=== PATIENT | female | born 1945 | race Caucasian/White ===

== ENCOUNTER → 2017-11-06 13:55 | Outpatient (CLI) | payer MEDICARE, OTHER, SELFPAY ==
[2017-11-06 15:51] LABS: Hematocrit 36.6 % (37-47); Hemoglobin 11.9 g/dl (12.0-15.0); Mean Corp Hgb Conc 32.5 g/gl (32-36); Mean Corpuscular Hgb 30.2 pg (27.0-32.0); Mean Corpuscular Volume 92.9 fL (81-99); Mean Platelet Vol. 10.6 fl (6.2-12.0); Platelet Count 209 K/mm3 (150-450); RBC Distribution Width CV 14.7 % (11.6-14.6); RBC Distribution Width SD 48.4 fl (35.1-43.9); Red Blood Count 3.94 M/mm3 (4.2-5.4); White Blood Count 4.2 K/mm3 (4.4-11.0)
[2017-11-06 15:55] LABS: Scan Indicated on CBC? Y/N NO
[2017-11-06 15:56] LABS: ALB/GLOB Ratio 0.7 RATIO (0.9-2.4); AST(SGOT) 22 U/L (15-37); Alanine Aminotransfer ALT/SGPT 25 U/L (13-56); Albumin, Serum 3.4 g/dL (3.2-5.0); Alkaline Phosphatase 171 U/L (45-117); Anion Gap 6 (5-15); BUN 24 mg/dL (7-18); Calcium,Total 9.6 mg/dL (8.5-10.1); Chloride 109 mmol/L (98-107); Creatinine, Serum 0.83 mg/dL (0.55-1.02); EST Glomerular Filtration Rate 72 mL/min (>60); Est Glom Filt Rate - Afr Amer 87 mL/min (>60); Globulin 4.6 g/dL (2.2-4.2); Glucose 91 mg/dL (74-106); Potassium 4.4 mmol/L (3.5-5.1); Sodium Level 140 mmol/L (136-145)
[2017-11-06 16:09] LABS: International Normalized Ratio 1.6; Prothrombin Time (Protime)PT. 19.3 SECONDS (11.7-14.9)
[2017-11-06 16:10] LABS: Partial Thromboplast Time 40.1 Seconds (24.1-36.2)
[2017-11-19 12:09] LABS: AFP, Tumor Marker 4.4 ng/mL (0.0-8.3)
== END ==
PROVIDERS: Family Provider Internal Medicine; PCP Internal Medicine; Visit Provider Internal Medicine Gastroenterology
DX: Z79.01 Long term (current) use of anticoagulants (principal); Z79.899 Other long term (current) drug therapy
CPT/HCPCS: 36415; 80053; 82105; 85027; 85610; 85730

== ENCOUNTER 2018-05-14 08:18 | Day surgery (SDC) | payer MEDICARE, OTHER, SELFPAY ==
[2018-05-14] VITALS (7 sets, daily range): BP systolic 112–135; BP diastolic 63–92; PULSE 50–73; RESP 16–20; TEMP 36.1–37.1; O2SAT 91–96; BMI 54.3
--- NOTE | 2018-05-14 10:49 | PCM.OP.BLANK ---
Operative Report Date of Procedure: 05/14/18 Preoperative diagnosis: Left Carpal tunnel syndrome Postoperative diagnosis: Same Title of operation: Open carpal tunnel release,Left Surgeon: Dr. Fredo Frey Anesthesia: Local w MAC Indications for surgery: Patient seen and evaluated in the office. Diagnosed with carpal tunnel syndrome. They have failed adequate nonoperative treatment. Due to persistent symptoms they wish to proceed with carpal tunnel release surgery appropriate informed consent was obtained and signed. Details of procedure: Patient was taken to the OR and transferred to the OR table. Appropriate timeouts were performed. Well-padded tourniquet was applied to the operative upper extremity proximally. Patient given sedation by anesthesia department. Area was prepped with Betadine followed by alcohol. Local anesthetic was administered using 9 cc of 2% lidocaine plain. Operative extremity was prepped padded and draped in usual orthopedic sterile fashion for the procedure. Limb was exsanguinated. Tourniquet applied to 250 mmHg. Three centimeter incision was made over the palm. Carefully taken through skin, subcutaneous tissue, down onto the transverse carpal ligament. Transverse carpal ligament was opened at the midportion with a knife. Elevator was carefully placed underneath the transverse carpal ligament in a distal direction. I dissected down onto that with a knife. Elevator was then placed in a proximal direction, again directly underneath the transverse carpal ligament. I dissected down on that with a knife. Scissors were used at the proximal extent placed under direct visualization. This fully released the proximal extent of the transverse carpal ligament. At this point my small finger was placed proximally and distally to assure complete release of the transverse carpal ligament over the median nerve. FPL tendon was noted. No significant abnormalities were noted at the region of the carpal canal. Tourniquet was let down at 5 minutes. Bleeding controlled with the Bovie. Wound thoroughly irrigated. No undue bleeding noted. Skin edges were reapproximated with a 4-0 nylon. Sterile bandage was applied. Patient was awoken from the anesthetic. Transferred to the room bed. To recovery room in satisfactory condition. Patient will be discharged home. Ice and elevation recommended. Pain medication as needed. Follow-up in the office next week as scheduled. This note was generated with [employer] dictation software. It may contain incorrect words, spelling, and punctuation that were not noted in checking the note before signing.
== END 2018-05-14 12:35 | disposition home or self-care (01) ==
LOC: SDC 08:23 → AC 08:24
PROVIDERS: Family Provider Internal Medicine; PCP Internal Medicine; Referring Provider Orthopaedic Surgery; Visit Provider Orthopaedic Surgery
PROC: (CPT 64721; principal; 2018-05-14 09:45)
DX: G56.02 Carpal tunnel syndrome, left upper limb (principal); M65.341 Trigger finger, right ring finger; I48.91 Unspecified atrial fibrillation; I10 Essential (primary) hypertension; E78.00 Pure hypercholesterolemia, unspecified; G47.30 Sleep apnea, unspecified; M19.90 Unspecified osteoarthritis, unspecified site; K21.9 Gastro-esophageal reflux disease without esophagitis; F32.9 Major depressive disorder, single episode, unspecified; E66.01 Morbid (severe) obesity due to excess calories; Z68.43 Body mass index [BMI] 50.0-59.9, adult; Z79.01 Long term (current) use of anticoagulants; Z79.899 Other long term (current) drug therapy; Z78.0 Asymptomatic menopausal state; Z96.653 Presence of artificial knee joint, bilateral
CPT/HCPCS: 64721; J7120; J2405

== ENCOUNTER → 2021-01-10 10:37 | Outpatient (CLI) | payer MEDICARE, SELFPAY ==
[2018-05-14 08:48] VITALS: BMI 54.3
--- NOTE | 2021-01-10 10:44 | BI_ITS ---
MAMMOGRAPHY - BILATERAL SCREENING REASON FOR EXAM: Female, 75 years old. Routine annual screening examination. PERTINENT HISTORY: Screening TECHNIQUE: Digital bilateral breast carlos (3D mammographic acquisition) in the CC and MLO projections. 2-D mediolateral oblique (MLO) and craniocaudad (CC) views of both breasts were obtained. CAD: Full Field Digital Mammography with Computer Added Detection was performed. COMPARISON: Previous mammogram obtained on 01/13/2020 FINDINGS: Breast Composition: Fatty There are no dominant masses or suspicious calcifications. No other significant abnormalities are identified. BI/SCRN MAMM (CAD)W/CARLOS BILAT IMPRESSION: Stable bilateral screening mammogram. Yearly follow-up mammogram recommended. (A) ASSESSMENT CATEGORY: BIRADS Category 1: Negative. A letter regarding these results will be sent to the patient by the facility within 30 days. Approximately 10% of breast cancers are not detected by mammography. A normal mammogram should not delay biopsy of a clinically suspicious abnormality. [id number] Electronically Signed: Stefano Oleary DO at 12:06 EDT Tel , Service support ,
--- NOTE | 2021-01-10 11:20 | BD_ITS ---
STUDY: DUAL ENERGY X-RAY ABSORPTIOMETRY / DXA REASON FOR EXAM: Female, 75 years old. M810 TECHNIQUE: Bone Mineral Density (BMD) measurements of lumbar spine and bilateral hips were obtained. COMPARISON: None. FINDINGS: Lumbar Spine (L1-L4): g/cm2 (1.019) / T-score (0.0) / Z-score (2.4) Findings are suggestive of normal bone density with a low fracture risk. Left Femur Total: g/cm2 (0.816) / T-score (-1.0) / Z-score (0.8) Left Femoral Neck: g/cm2 (0.679) / T-score (-1.5) / Z-score (0.6) Right Femur Total: g/cm2 (0.665) / T-score (-2.3) / Z-score (-0.5) Right Femoral Neck: g/cm2 (0.552) / T-score (-2.7) / Z-score (-0.6) BD/Dexa Bone Density Study IMPRESSION: The patient is considered osteoporotic as outlined below according to World Graham Organization (WHO) criteria with a high fracture risk. Reference Information: The T-score is the number of standard deviations above or below the standard which is normal for young adults at their peak bone mineral density. The World Health Organization (WHO) interprets the T-scores as follows: Above -1 Normal bone density Between -1 and -2.5 Osteopenia Equal to / or below -2.5 Osteoporosis As a practical clinical guideline, osteopenia may be graded as follows: Mild -1 through -1.5 Moderate -1.6 through -2.0 Severe -2.1 through -2.4 The Z-score is the number of standard deviations above or below age-matched controls. A Z-score of less than -1.5 would be considered abnormal. References: 1. NIH Osteoporosis and Related Bone Diseases www osteo.org 2. International Society for Clinical Densitometry www iscd.org 3. National Osteoporosis Foundation www nof.org Electronically Signed: Matthew Rivas MD at 15:44 EDT , Service support ,
[2021-01-10 12:43] LABS: ALB/GLOB Ratio 0.8 RATIO (0.9-2.4); AST(SGOT) 18 U/L (15-37); Alanine Aminotransfer ALT/SGPT 19 U/L (13-56); Albumin, Serum 3.4 g/dL (3.2-5.0); Alkaline Phosphatase 147 U/L (45-117); Anion Gap 8 (5-15); BUN 15 mg/dL (7-18); BUN/Creat Ratio 22.2 RATIO (10-20); Calcium,Total 9.4 mg/dL (8.5-10.1); Chloride 107 mmol/L (98-107); Cholesterol 122 mg/dL (200); Creatinine, Serum 0.68 mg/dL (0.55-1.02); EST Glomerular Filtration Rate 90 mL/min (>60); Est Glom Filt Rate - Afr Amer 109 mL/min (>60); Globulin 4.2 g/dL (2.2-4.2); Glucose 95 mg/dL (74-106); High Density Lipoprotein 57 mg/dL; Protein, Total 7.6 g/dL (6.4-8.2); Sodium Level 141 mmol/L (136-145); Triglycerides 79 mg/dL; Very Low Density Lipoprotein 16 mg/dL (5-40)
[2021-01-10 12:46] LABS: Vitamin D,25 Hydroxy 56.1 ng/mL
[2021-01-10 20:01] LABS: Xtra Tube EP Lab EXTRA TUBE
== END ==
PROVIDERS: PCP Internal Medicine; Referring Provider Internal Medicine; Visit Provider Internal Medicine
DX: Z12.31 Encounter for screening mammogram for malignant neoplasm of breast (principal); M81.0 Age-related osteoporosis without current pathological fracture; E78.5 Hyperlipidemia, unspecified; E55.9 Vitamin D deficiency, unspecified; Z13.820 Encounter for screening for osteoporosis; Z13.31 Encounter for screening for depression; Z13.9 Encounter for screening, unspecified
CPT/HCPCS: 36415; 77063; 77067; 77080; 80053; 80061; 82306

== ENCOUNTER 2021-04-05 16:57 | Emergency (ER) | payer MEDICARE, SELFPAY ==
[2021-04-05 16:58] VITALS: BP 127/96; PULSE 71; RESP 18; TEMP 36.6; O2SAT 95; BMI 53.5
--- NOTE | 2021-04-05 18:20 | CT_ITS ---
STUDY: CT ABDOMEN AND PELVIS WITHOUT CONTRAST REASON FOR EXAM: Female, 75 years old. Pain RADIATION DOSAGE (If Supplied By Facility): CTDIvol = ( 32.16 ) mGy, DLP = ( 1759.77 ) mGycm TECHNIQUE: Transaxial images were obtained from the dome of the diaphragm to the symphysis pubis without oral contrast, and without intravenous contrast. Sagittal and coronal images were reconstructed. Individualized dose optimization techniques were used for this CT. COMPARISON: None. FINDINGS: The visualized lung bases are unremarkable. Borderline cardiomegaly. Cirrhotic changes of the liver with slight perihepatic fluid. Status post cholecystectomy. No significant dilatation of the extrahepatic biliary system. Normal spleen. Normal pancreas. Possible 8 mm right adrenal nodule. Up to 2 mm nonobstructive stones in the right kidney. 5 mm upper pole stone in the left kidney. Normal visualized stomach. Normal small intestine. Mild diverticulosis of the colon. The appendix is visualized and appears normal. Normal abdominal aorta. Normal inferior vena cava. Normal retroperitoneum. Normal urinary bladder. Fatty density in the left inguinal canal. Normal abdominal wall. Grade 1 spondylolisthesis at L4-5. CT/Abdomen/Pelvis without Cont IMPRESSION: Cirrhosis with mild perihepatic fluid. Bilateral nonobstructing renal calculi. Mild colonic diverticulosis. Possible small right adrenal nodule. Electronically Signed: Vipin Carter DO at 19:25 EDT Tel [phone], Service support ,
--- NOTE | 2021-04-05 18:20 | EDS_ITS ---
HPI History of Present Illness Chief Complaint: Abd Pain Informant: patient Onset/Context/Timing Onset: Days Context: Gradual Onset Current Severity: Mild Maximum Severity: Mild Narrative Narrative: Patient presents secondary to abdominal distention. She states of the past couple days she is noted her abdomen becoming more distended. She re ports a history of bowel problems and feels that she might be bound up. She did have a bowel movement yesterday. She tried Metamucil last evening but no results noted. She denies significant abdominal pain, just feels very distended and uncomfortable. She does report shortness of breath with exertion that quickly improves with rest. [facility] Medical History Atrial fibrillation CHF (congestive heart failure) Depression GERD (gastroesophageal reflux disease) High cholesterol Hypertension Kidney stone Obstructive sleep apnea Home Medications acetaminophen [Tylenol Arthritis] 650 mg PO PRN PRN 05/13/18 [History Last Taken Unknown] albuterol sulfate [Proventil Hfa] 6.7 g IH PRN PRN 05/13/18 [History Last Taken 05/14/18 07:00 6.7 GM] atorvastatin 20 mg PO QHS 05/13/18 [History Last Taken Unknown] diltiazem HCl 180 mg PO DAILY 05/13/18 [History Last Taken 05/14/18 07:00 180 MG] furosemide 40 mg PO DAILY 05/13/18 [History Last Taken Unknown] multivitamin with folic acid [Thera] 1 tab PO DAILY 05/13/18 [History Last Taken Unknown] pantoprazole 40 mg PO DAILY 05/13/18 [History Last Taken 05/14/18 07:00 40 MG] rivaroxaban [Xarelto] 20 mg PO QHS 05/13/18 [History Last Taken 05/11/18] sertraline [Zoloft] 25 mg PO QHS 05/13/18 [History Last Taken Unknown] solifenacin [Vesicare] 10 mg PO DAILY 05/13/18 [History Last Taken 05/14/18 07:00 10 MG] spironolactone 50 mg PO DAILY 05/13/18 [History Last Taken Unknown] Allergy/AdvReac Type Severity Reaction Status Date / Time morphine AdvReac Other Verified 05/13/18 08:10 Surgical History Hx of cholecystectomy Hx of hernia repair Social History Smoking Status: Former smoker ROS ROS ED Constitutional Constitutional ED: Denies chills or fever(s) Eyes Eyes: Denies change in vision ENT ENT ED: Denies sore throat Cardiovascular Cardiovascular: Denies chest pain Respiratory/Chest Respiratory/Chest: Denies cough or dyspnea Gastrointestinal Gastrointestinal: Reports abdominal pain and constipation; Denies diarrhea, nausea or vomiting Genitourinary Genitourinary ED: Denies dysuria Musculoskeletal Musculoskeletal: Denies back pain Integumentary Denies rash Neurologic Neurologic: Denies headache(s) or weakness Allergic/Immunologic Allergic/Immunologic ED: Denies urticaria EXAM Physical Exam Const Vital Signs: 04/05/21 16:58 Temperature 98 F Temperature Source Temporal Pulse Rate 71 Respiratory Rate 18 Blood Pressure 127/96 H Blood Pressure Mean 106 Pulse Ox 95 Oxygen Delivery Method Room Air Positive well nourished and well developed General Appearance ED: well developed HEENT Reports normocephalic and head/scalp atraumatic Eyes PERRL and EOMs intact bilaterally Neck supple Chest Wall inspection of chest normal and palpation of chest normal Resp normal respiratory effort and clear to auscultation bilaterally Cardio regular rate and regular rhythm GI GI Narrative: Distended, hypoactive bowel sounds. No focal tenderness. Palpation: soft Back/Spine no CVA tenderness Extremity normal to inspection Neuro oriented x3 Sensorium / Orientation: alert Psych mental status grossly normal Skin no rashes or lesions noted MDM MDM MDM Narrative Medical decision making narrative: Lab work and CT scan of the flank ordered. Lab Data Attestation: I reviewed the patient's lab results. Labs: Laboratory Results - last 24 hr 04/05/21 04/05/21 18:00 18:00 WBC 4.8 RBC 2.91 L Hgb 7.1 L Hct 24.4 L MCV 83.8 MCH 24.4 L MCHC 29.1 L RDW Std Deviation 48.5 H RDW Coeff of Sharath 15.9 H Plt Count 276 MPV 9.9 Immature Gran % (Auto) 0.200 Neut % (Auto) 46.1 L Lymph % (Auto) 37.6 [place] % (Auto) 11.6 H Eos % (Auto) 3.3 Baso % (Auto) 1.2 H Absolute Neuts (auto) 2.2 Absolute Lymphs (auto) 1.81 Nucleated RBC % 0 Sodium 142 Potassium 3.3 L Chloride 108 H Carbon Dioxide 27.0 Anion Gap 7 BUN 12 Creatinine 0.76 Estim Creat Clear Calc 34.91 Est GFR (MDRD) Af Amer 95 Est GFR (MDRD) Non-Af 78 BUN/Creatinine Ratio 15.7 Glucose 97 Calcium 9.5 Total Bilirubin 0.30 Direct Bilirubin 0.11 AST 18 ALT 17 Alkaline Phosphatase 147 H Total Protein 7.6 Albumin 3.1 L Globulin 4.5 H Radiography Diagnostic Testing: Clinical Impression(s) from Imaging Studies Abdomen/Pelvis CT 04/05/21 18:20 IMPRESSION: Cirrhosis with mild perihepatic fluid. Bilateral nonobstructing renal calculi. Mild colonic diverticulosis. Possible small right adrenal nodule. Electronically Signed: Vipin Carter DO at 19:25 EDT Tel [phone], Service support , Treatment and Re-Evaluation Comments:: On repeat evaluation patient resting comfortably. Test results discussed with her. She is aware of cirrhotic liver and states that they have been watching her liver tests. At this time there is no significant evidence of constipation. She will continue her Metamucil as she was supposed to be taking it regularly and will follow with her doctor. Return instructions provided. Discharge Plan Triage Chief Complaint: Abd Pain Other Complaint: Shortness of Breath ED Provider: Angelia Rodarte Dx/Rx/DC Orders Clinical Impression: Abdominal pain Instructions: ED Abdominal Pain Unkn Cause Fem Prescriptions: No Action furosemide 40 MG tablet 40 mg PO DAILY RF: 0 atorvastatin 20 MG tablet 20 mg PO QHS RF: 0 diltiazem HCl 180 MG capsule 180 mg PO DAILY RF: 0 acetaminophen [Mapap Arthritis Pain] 650 MG Tablet.Er 650 mg PO PRN PRN (Reason: Pain) RF: 0 albuterol sulfate [Proventil HFA] 6.7 GM Hfa.Aer.Ad 6.7 g IH PRN PRN (Reason: SHORTNESS OF BREATH) RF: 0 spironolactone 50 MG tablet 50 mg PO DAILY RF: 0 solifenacin [Vesicare] 10 MG tablet 10 mg PO DAILY RF: 0 rivaroxaban [Xarelto] 20 MG tablet 20 mg PO QHS RF: 0 multivitamin with folic acid [Thera] 1 TABLET tablet 1 tab PO DAILY RF: 0 pantoprazole 40 MG tablet 40 mg PO DAILY RF: 0 sertraline [Zoloft] 25 MG tablet 25 mg PO QHS RF: 0 Primary Care Provider: Tan Hernandez Referrals: Tan Hernandez MD [Primary Care Provider] - 1 Week if not improving Disposition Disposition: Home, Self Care
[2021-04-05 18:30] LABS: Absolute Lymphocyte Count 1.81 X10^3/uL (0.83-4.51); Absolute Neutrophil Count 2.2 X10^3/uL (2.0-7.7); Basophil# 0.06 X10^3/uL; Basophil% 1.2 % (0-1); Eosinophil# 0.16 X10^3/uL; Eosinophils% 3.3 % (0-5); Hematocrit 24.4 % (37-47); Hemoglobin 7.1 g/dL (12.0-15.0); Lymphocyte # 1.81 X10^3/ul (0.83-4.51); Lymphocyte % 37.6 % (19-41); Mean Corp Hgb Conc 29.1 g/dL (32-36); Mean Corpuscular Hgb 24.4 pg (27.0-32.0); Mean Corpuscular Volume 83.8 fL (81-99); Mean Platelet Vol. 9.9 fl (6.2-12.0); Monocyte# 0.56 X10^3/uL; Monocyte% 11.6 % (0-10); NRBC Flagged by Analyzer 0 % (0-5); Neutrophil # 2.22 X10^3/uL (2.7-7.7); Neutrophil % 46.1 % (47-70); POSITIVE COUNT NO; POSITIVE DIFFERENTIAL NO; POSITIVE MORPHOLOGY NO; Platelet Count 276 K/mm3 (150-450); RBC Distribution Width CV 15.9 % (11.6-14.6); RBC Distribution Width SD 48.5 fl (35.1-43.9); Red Blood Count 2.91 M/mm3 (4.2-5.4); White Blood Count 4.8 K/mm3 (4.4-11.0)
[2021-04-05 18:42] LABS: AST(SGOT) 18 U/L (15-37); Alanine Aminotransfer ALT/SGPT 17 U/L (13-56); Albumin, Serum 3.1 g/dL (3.2-5.0); Alkaline Phosphatase 147 U/L (45-117); Anion Gap 7 (5-15); BUN 12 mg/dL (7-18); BUN/Creat Ratio 15.7 RATIO (10-20); Bilirubin, Direct 0.11 mg/dL (0.00-0.30); Calcium,Total 9.5 mg/dL (8.5-10.1); Chloride 108 mmol/L (98-107); Creatinine, Serum 0.76 mg/dL (0.55-1.02); EST Glomerular Filtration Rate 78 mL/min (>60); Est Glom Filt Rate - Afr Amer 95 mL/min (>60); Estimated Creatinine Clearance 34.91 ml/min; Globulin 4.5 g/dL (2.2-4.2); Glucose 97 mg/dL (74-106); Potassium 3.3 mmol/L (3.5-5.1); Protein, Total 7.6 g/dL (6.4-8.2); Sodium Level 142 mmol/L (136-145)
[2021-04-05 20:19] VITALS: BP 132/61; PULSE 79; RESP 20; O2SAT 97
== END 2021-04-05 20:19 | disposition home or self-care (01) ==
PROVIDERS: Emergency Provider Emergency Medicine; PCP Internal Medicine
DX: R10.9 Unspecified abdominal pain (principal); R06.02 Shortness of breath; I11.0 Hypertensive heart disease with heart failure; I50.9 Heart failure, unspecified; I48.91 Unspecified atrial fibrillation; E78.00 Pure hypercholesterolemia, unspecified; K21.9 Gastro-esophageal reflux disease without esophagitis; G47.33 Obstructive sleep apnea (adult) (pediatric); F32.A Depression, unspecified; Z79.01 Long term (current) use of anticoagulants; Z79.899 Other long term (current) drug therapy; Z87.891 Personal history of nicotine dependence
CPT/HCPCS: 74176; 80048; 80076; 85025; 99283; A4216

== ENCOUNTER 2021-05-13 08:34 | Inpatient (IN) | payer MEDICARE, SELFPAY ==
[2021-05-13] VITALS (24 sets, daily range): BP systolic 82–162; BP diastolic 54–135; PULSE 60–84; RESP 16–22; TEMP 36.6–37.2; O2SAT 90–98; BMI 53.6; BMI 47.0
--- NOTE | 2021-05-13 09:01 | EKG12_ITS ---
Test Reason : Blood Pressure : / mmHG Vent. Rate : 067 BPM Atrial Rate : 064 BPM P-R Int : 000 ms QRS Dur : 116 ms QT Int : 418 ms P-R-T Axes : 000 019 027 degrees QTc Int : 441 ms Atrial fibrillation Nonspecific ST and T wave abnormality Abnormal ECG Confirmed by CIERRA GUEVARA, SD ([id number]), editorial assistant TEETEE HE ([id number]) on 05/15/2021 10:24:10 AM Referred By: ADRIANA Confirmed By:SD NORTON MD
--- NOTE | 2021-05-13 09:01 | RAD_ITS ---
STUDY: X-RAY CHEST REASON FOR EXAM: Female, 75 years old. Sob TECHNIQUE: Single AP portable view of the chest. COMPARISON: None. FINDINGS: EKG electrodes are seen. Vascular congestion and mild degree of CHF. There is no demonstrated pleural abnormality. There is moderate cardiac enlargement. Normal mediastinum and chadd. Normal visualized pulmonary arteries. There is atherosclerotic tortuosity of the aortic arch and descending thoracic aorta. There are diffuse degenerative changes of the visualized thoracic spine. There is degenerative osteoarthritis of the bilateral shoulders. There is no demonstrated abnormality of the visualized soft tissue structures of the upper abdomen. RAD/Chest 1 View (Portable) IMPRESSION: Cardiomegaly and mild CHF. Electronically Signed: Matthew Rivas MD at 9:52 EST , Service support ,
--- NOTE | 2021-05-13 09:02 | EDS_ITS ---
HPI History of Present Illness Chief Complaint: Shortness of Breath Informant: patient Narrative Narrative: Patient with dyspnea with exertion and orthopnea for the past 2 or 3 weeks, saw her doctor was going to be scheduled for a cardiac stress test and echocardiogram, she feels like she is mildly getting worse so she came to the ER today for further evaluation. She denies any chest pains. Legs are chronically edematous not sure if they are worse or not. She does have some orthopnea, however she is on CPAP at night, and the CPAP helps so she is able to lie down and sleep. She has an occasional cough but nothing major. Denies any fevers or chills or systemic symptoms. Mild exertion makes her have to rest but she is able to get around the house and do things still. She is anticoagulated because of chronic atrial fibrillation. She denies feeling any palpitations. She was vaccinated against COVID-19 and denies any contact with anyone with it that she knows of recently. [facility] Medical History Atrial fibrillation CHF (congestive heart failure) Depression GERD (gastroesophageal reflux disease) High cholesterol Hypertension Kidney stone Obstructive sleep apnea Home Medications acetaminophen [Tylenol Arthritis] 650 mg PO PRN PRN 05/13/18 [History Last Taken Unknown] albuterol sulfate [Proventil Hfa] 6.7 g IH PRN PRN 05/13/18 [History Last Taken 05/14/18 07:00 6.7 GM] atorvastatin 20 mg PO QHS 05/13/18 [History Last Taken Unknown] diltiazem HCl 180 mg PO DAILY 05/13/18 [History Last Taken 05/14/18 07:00 180 MG] furosemide 40 mg PO DAILY 05/13/18 [History Last Taken Unknown] multivitamin with folic acid [Thera] 1 tab PO DAILY 05/13/18 [History Last Taken Unknown] pantoprazole 40 mg PO DAILY 05/13/18 [History Last Taken 05/14/18 07:00 40 MG] rivaroxaban [Xarelto] 20 mg PO QHS 05/13/18 [History Last Taken 05/11/18] sertraline [Zoloft] 25 mg PO QHS 05/13/18 [History Last Taken Unknown] solifenacin [Vesicare] 10 mg PO DAILY 05/13/18 [History Last Taken 05/14/18 07:00 10 MG] spironolactone 50 mg PO DAILY 05/13/18 [History Last Taken Unknown] cholecalciferol (vitamin D3) 125 mcg PO DAILY 05/13/21 [History Last Taken Unknown] oxybutynin chloride 5 mg PO TID 05/13/21 [History Last Taken Unknown] Allergy/AdvReac Type Severity Reaction Status Date / Time morphine AdvReac Other Verified 05/13/21 08:35 Surgical History Hx of cholecystectomy Hx of hernia repair Social History Smoking Status: Former smoker ROS ROS ED Constitutional Constitutional ED: Denies chills or fever(s) Eyes Eyes: Denies change in vision or diplopia ENT ENT ED: Denies rhinorrhea or sore throat Cardiovascular Cardiovascular: Reports orthopnea and pedal edema; Denies chest pain or palpitations Respiratory/Chest Respiratory/Chest: Reports as per HPI, cough, dyspnea, dyspnea on exertion and orthopnea Gastrointestinal Gastrointestinal: Denies abdominal pain, diarrhea, nausea or vomiting Genitourinary Genitourinary ED: Denies dysuria or hematuria Musculoskeletal Musculoskeletal: Denies back pain or neck pain Integumentary Denies abscess or rash Neurologic Neurologic: Denies headache(s), paresthesias or weakness Psychiatric Psychiatric: Denies anxiety or suicidal thoughts EXAM Physical Exam Const Vital Signs: 05/13/21 08:36 05/13/21 09:00 05/13/21 10:07 Temperature 98.8 F Temperature Source Temporal Pulse Rate 70 76 Respiratory Rate 20 H 22 H Respiratory Effort Short of Breath Accessory Muscle Use Respiratory Depth Normal Respiratory Pattern Normal Blood Pressure 136/60 H 82/56 L Blood Pressure Mean 85 64 Pulse Ox 95 96 Oxygen Delivery Method Room Air Room Air Room Air 05/13/21 10:08 Temperature Temperature Source Pulse Rate 75 Respiratory Rate 22 H Respiratory Effort Respiratory Depth Respiratory Pattern Blood Pressure 128/57 H Blood Pressure Mean 80 Pulse Ox 98 Oxygen Delivery Method Room Air Positive well nourished and well developed General Appearance ED: well developed and NAD HEENT Reports moist mucous membranes normocephalic and atraumatic Eyes PERRL and EOMs intact bilaterally Neck full ROM and supple Resp normal respiratory effort and no retractions Resp Narrative: Possibly few bibasilar rhonchi, but for the most part clear. Speaking in full sentences. Cardio Cardio Narrative: Systolic murmur Jugular Venous Distention: JVD Rhythm: abnormal rhythm irregularly irregular (Without tachycardia) GI non-tender and non-distended Auscultation: normoactive bowel sounds Palpation: soft Back/Spine no CVA tenderness General Back: other FROM Extremity normal to inspection General Extremety ED: Yes edema; Negative for pulses abnormal or tenderness General Extremity: edema bilateral lower extremity Details: severe (With changes consistent with chronic stasis dermatitis); Negative for pulses abnormal Neuro oriented x3, CN's II-XII intact bilaterally and no sensory deficits noted Sensorium / Orientation: awake and alert Motor Exam: strength 5/5 throughout Skin no rashes or lesions noted and no wounds MDM MDM MDM Narrative Medical decision making narrative: Patient appears to may be in some mild congestive heart failure, but I think the majority of her dyspnea is likely her severe anemia with a hemoglobin of 4.3. On further questioning, she states she has been having some melena, she noticed it 3 days ago and today but no blood grossly. Therefore we sent a Hemoccult after that and it is positive. She was started on IV Protonix. Her chest x-ray showed a very wide mediastinum, she is not having any symptoms of dissection so I did a CT chest with contrast instead of CT angiography, it shows some mild CHF but essentially she has very significant cardiomegaly and it appears to show dextrocardia. I did not have an old chest x-ray to compare with. Patient was consented for blood transfusion, that was started in the ER, I discussed with GI, will admit patient to PCU. She is clinically hemodynamically stable at rest at this time. Lab Data Attestation: I reviewed the patient's lab results. Labs: Laboratory Results - last 24 hr 05/13/21 05/13/21 05/13/21 08:50 08:50 08:50 WBC 4.4 RBC 1.96 L Hgb 4.3 L* Hct 15.2 L MCV 77.6 L MCH 21.9 L MCHC 28.3 L RDW Std Deviation 47.4 H RDW Coeff of Sharath 16.9 H Plt Count 302 MPV 9.3 Immature Gran % (Auto) 0.500 Neut % (Auto) 65.6 Lymph % (Auto) 21.3 [place] % (Auto) 10.1 H Eos % (Auto) 1.6 Baso % (Auto) 0.9 Absolute Neuts (auto) 2.9 Absolute Lymphs (auto) 0.93 Nucleated RBC % 0 Differential Comment COMMENT Diff Path Review May foll Sodium 139 Potassium 3.5 Chloride 108 H Carbon Dioxide 25.0 Anion Gap 6 BUN 15 Creatinine 0.82 Estim Creat Clear Calc 42.58 Est GFR (MDRD) Af Amer 87 Est GFR (MDRD) Non-Af 72 BUN/Creatinine Ratio 18.2 Glucose 134 H Calcium 9.2 Troponin I High Sens 15 B-Natriuretic Peptide 107.4 H Crossmatch 05/13/21 10:03 WBC RBC Hgb Hct MCV MCH MCHC RDW Std Deviation RDW Coeff of Sharath Plt Count MPV Immature Gran % (Auto) Neut % (Auto) Lymph % (Auto) [place] % (Auto) Eos % (Auto) Baso % (Auto) Absolute Neuts (auto) Absolute Lymphs (auto) Nucleated RBC % Differential Comment Diff Path Review Sodium Potassium Chloride Carbon Dioxide Anion Gap BUN Creatinine Estim Creat Clear Calc Est GFR (MDRD) Af Amer Est GFR (MDRD) Non-Af BUN/Creatinine Ratio Glucose Calcium Troponin I High Sens B-Natriuretic Peptide Crossmatch See Detail Radiography Diagnostic Testing: Clinical Impression(s) from Imaging Studies Chest X-Ray 05/13/21 09:01 IMPRESSION: Cardiomegaly and mild CHF. Electronically Signed: Matthew Rivas MD at 9:52 EST , Service support , EKG Initial EKG: Attestation: I personally reviewed and interpreted this EKG as follows: Interpretation: No Acute Injury Pattern and Atrial Fibrillation Critical Care Time Critical Care Time: Yes Critical care time (excluding procedures): 30-74 minutes (35 min), Including time spent:, Discussing w/Patient &/or Family/Scrum Project Manager, Discussing w/Consultants, Arranging Admission or Transfer and Performing Direct Patient Care at Bedside Discharge Plan Dx/Rx/DC Orders Clinical Impression: ABLA (acute blood loss anemia), Acute upper gastrointestinal bleeding, Acute exacerbation of CHF (congestive heart failure) Disposition Disposition: Acute Care Hospital [facility]
[2021-05-13 09:13] LABS: Absolute Lymphocyte Count 0.93 X10^3/uL (0.83-4.51); Absolute Neutrophil Count 2.9 X10^3/uL (2.0-7.7); Basophil# 0.04 X10^3/uL; Basophil% 0.9 % (0-1); Eosinophil# 0.07 X10^3/uL; Eosinophils% 1.6 % (0-5); Hematocrit 15.2 % (37-47); Hemoglobin 4.3 g/dL (12.0-15.0); Lymphocyte # 0.93 X10^3/ul (0.83-4.51); Lymphocyte % 21.3 % (19-41); Mean Corp Hgb Conc 28.3 g/dL (32-36); Mean Corpuscular Hgb 21.9 pg (27.0-32.0); Mean Corpuscular Volume 77.6 fL (81-99); Mean Platelet Vol. 9.3 fl (6.2-12.0); Monocyte# 0.44 X10^3/uL; Monocyte% 10.1 % (0-10); NRBC Flagged by Analyzer 0 % (0-5); Neutrophil # 2.86 X10^3/uL (2.7-7.7); Neutrophil % 65.6 % (47-70); POSITIVE COUNT YES; Platelet Count 302 K/mm3 (150-450); RBC Distribution Width CV 16.9 % (11.6-14.6); RBC Distribution Width SD 47.4 fl (35.1-43.9); Red Blood Count 1.96 M/mm3 (4.2-5.4); White Blood Count 4.4 K/mm3 (4.4-11.0)
[2021-05-13 09:17] LABS: Differential Indicated SCAN CRITERIA MET
[2021-05-13 09:31] LABS: Anion Gap 6 (5-15); BUN 15 mg/dL (7-18); BUN/Creat Ratio 18.2 RATIO (10-20); Calcium,Total 9.2 mg/dL (8.5-10.1); Chloride 108 mmol/L (98-107); Creatinine, Serum 0.82 mg/dL (0.55-1.02); EST Glomerular Filtration Rate 72 mL/min (>60); Est Glom Filt Rate - Afr Amer 87 mL/min (>60); Estimated Creatinine Clearance 42.58 ml/min; Glucose 134 mg/dL (74-106); Potassium 3.5 mmol/L (3.5-5.1); Sodium Level 139 mmol/L (136-145); Troponin-I HS 15 pg/mL (3.0-54.0)
[2021-05-13 09:39] LABS: BNP,B-Type NATRIURETIC PEPTIDE 107.4 pg/mL (0-100)
--- NOTE | 2021-05-13 09:47 | CT_ITS ---
STUDY: CT CHEST WITH CONTRAST REASON FOR EXAM: Female, 75 years old. Shortness of breath. Abnormal chest x-ray. RADIATION DOSAGE (If Supplied By Facility): CTDIvol = ( 26.62 ) mGy, DLP = ( 683.23 ) mGycm TECHNIQUE: Transaxial imaging was performed following intravenous administration of 100 ml of ISOVUE-300 contrast material. Coronal and sagittal reformatted images were created. Individualized dose optimization techniques were used for this CT. COMPARISON: Chest x-ray dated 05/13/21 FINDINGS: The study is limited by patient motion. There are no pulmonary infiltrates or pleural effusions. There is dependent atelectasis noted in the lung bases. There is no pneumothorax. The heart is enlarged. There is no pericardial effusion. There are mitral valvular calcifications. The pulmonary artery is dilated, measuring 4.7 cm. This is consistent with pulmonary arterial hypertension. Although this study was not performed as an angiogram, no pulmonary embolus, thoracic aortic aneurysm or thoracic aortic dissection is identified. There is no thoracic lymphadenopathy. There is no evidence of thoracic aortic aneurysm. Images through the upper abdomen demonstrates cirrhosis and ascites. There are no destructive osseous lesions. CT/Chest WITH Contrast IMPRESSION: Bibasilar atelectasis. Otherwise, clear lungs. Cardiomegaly. Dilated pulmonary artery, suggesting pulmonary arterial hypertension. Cirrhosis. Ascites. Electronically Signed: Esau Lancaster MD at 11:08 EST Tel , Service support ,
--- NOTE | 2021-05-13 11:29 | HP.PCM.HOS_ITS ---
[facility] - General General Date of Admission: 05/13/21 Date of Service: 05/13/21 Chief Complaint: Severe anemia/GI bleeding HPI Narrative RADHA SMITH, is a 75 F who presented to the emergency department at [facility] on 05/13/2021 with a chief complaint of shortness of breath. The patient states that over the last 2 to 3 weeks she has been experiencing increasing shortness of breath that has slowly worsened. She stat es that up until this past Thursday she had been doing okay and making it through taking care of her self but on Thursday she developed such significant shortness of breath that she was having trouble doing self-care activities. She went to her primary care physician who had scheduled her for a cardiac stress test and an echocardiogram is he had concerns with regards to her heart. She was seen here for abdominal pain/bloating at the end of March and had a CT that was fairly unremarkable and was discharged home. Her hemoglobin at that time was 7.1. She is chronically anticoagulated with Xarelto for atrial fibrillation and stroke prevention. Her primary complaint has been shortness of breath and feeling rundown. She did confirm that she has had 2 black stools one Thursday and one yesterday morning. Her oral intake has not been great overall she states she is just not all that hungry. She denies any abdominal pain at this time. She has had no nausea or vomiting. Her vital signs in the emergency department were overall unremarkable. She is mildly tachypneic with respiratory rates in the 20-22 range but is satting 95 to 98% on room air. Her CBC shows a normal white count but she has a marked microcytic anemia with a hemoglobin of 4.3 and an MCV of 77.6. Her platelet count is normal. Her BMP is overall unremarkable as well with a normal serum creatinine as well as a normal ratio. A troponin was obtained given her shortness of breath and was normal at 15. Her BNP was mildly elevated at 107.4. A chest x-ray was performed and there was confirmed concern that she had a fairly large appearing heart and therefore a CTA of her chest was performed and showed bibasilar atelectasis but otherwise clear lungs and no signs of acute heart failure, cardiomegaly, dilated pulmonary artery suggestive of PAH, cirrhosis, and ascites. She did report that she had a colonoscopy approximately 9 years ago and she states that a few polyps were found but no other abnormalities were noted. She does not recall ever having an EGD. Given her markedly low hemoglobin a type and screen were performed and blood transfusion was initiated in the emergency department. 2 units were ordered and I will add a 3rd unit to appropriately correct her hemoglobin to greater than 7. She has no signs of acute bleeding at this time. [facility] Medical History (Updated 05/13/21 @ 11:[address] Mariah Lind, DO) Atrial fibrillation CHF (congestive heart failure) Depression GERD (gastroesophageal reflux disease) High cholesterol Hypertension Kidney stone Morbid obesity ORR (nonalcoholic steatohepatitis) Obstructive sleep apnea PAH (pulmonary artery hypertension) Urinary incontinence Home Medications acetaminophen [Tylenol Arthritis] 650 mg PO PRN PRN 05/13/18 [History Last Taken Unknown] albuterol sulfate [Proventil Hfa] 6.7 g IH PRN PRN 05/13/18 [History Last Taken 05/14/18 07:00 6.7 GM] atorvastatin 20 mg PO QHS 05/13/18 [History Last Taken Unknown] diltiazem HCl 180 mg PO DAILY 05/13/18 [History Last Taken 05/14/18 07:00 180 MG] furosemide 40 mg PO DAILY 05/13/18 [History Last Taken Unknown] multivitamin with folic acid [Thera] 1 tab PO DAILY 05/13/18 [History Last Taken Unknown] pantoprazole 40 mg PO DAILY 05/13/18 [History Last Taken 05/14/18 07:00 40 MG] rivaroxaban [Xarelto] 20 mg PO QHS 05/13/18 [History Last Taken 05/11/18] sertraline [Zoloft] 25 mg PO QHS 05/13/18 [History Last Taken Unknown] solifenacin [Vesicare] 10 mg PO DAILY 05/13/18 [History Last Taken 05/14/18 07:00 10 MG] spironolactone 50 mg PO DAILY 05/13/18 [History Last Taken Unknown] cholecalciferol (vitamin D3) 125 mcg PO DAILY 05/13/21 [History Last Taken Unknown] oxybutynin chloride 5 mg PO TID 05/13/21 [History Last Taken Unknown] Allergy/AdvReac Type Severity Reaction Status Date / Time morphine AdvReac Other Verified 05/13/21 08:35 Family History other other Surgical History History of carpal tunnel surgery of left wrist Hx of cholecystectomy Hx of hernia repair Social History (Updated 05/13/21 @ 11:[address] Mariah Lind DO) Smoking Status: Former smoker alcohol intake: never substance use type: does not use ROS Constitutional Constitutional: Reports anorexia, fatigue and weakness; Denies change in weight, chills, fever(s), malaise, night sweats or other Eyes Eyes: Denies blurry vision, change in eye color, change in vision, discharge from eye(s), double vision, erythema, eye pain, loss of vision or other ENT HEENT: Denies abnormal hearing, dysphagia, ear pain, epistaxis, headache(s), hearing loss, nasal congestion, nasal discharge, post nasal drip, sinus pressure, sore throat or other Cardiovascular Cardiovascular: Reports dyspnea on exertion, edema and lightheadedness; Denies chest pain, claudication, orthopnea, palpitations, paroxysmal nocturnal dyspnea, rapid heart rate, syncope or other Gastrointestinal Gastrointestinal: Reports melena; Denies abdominal pain, coffee ground emesis, constipation, diarrhea, dyspepsia, hematemesis, hematochezia, loose stools, nausea, vomiting or other Genitourinary Genitourinary: Reports urinary incontinence; Denies burning urination, difficu lty urinating, dysuria, hematuria, nocturia, urinary frequency, urinary hesitancy, urinary urgency or other Musculoskeletal Musculoskeletal: Reports joint pain and joint stiffness; Denies arthralgias, ba ck pain, joint swelling, myalgias, neck pain or other Neurologic Neurologic: Denies abnormal gait, abnormal speech, confusion, disequilibrium, dizziness, focal weakness, headache(s), numbness, paresthesias, seizure-like activity, seizures, syncope, tingling, tremor(s) or other Psychiatric Psychiatric: Denies anxiety, depression, homicidal ideation, suicidal ideation or other Endocrine Endocrinology: Denies change in body appearance, cold intolerance, excessive sweating, heat intolerance, polydipsia, polyuria or other Hematologic/Lymphatic Hematologic/Lymphatic: Denies anemia, easy bleeding, easy bruising, lymphadenopathy or other Allergic/Immunologic Allergic/Immunologic: Denies rhinitis, hives, eczemia, asthma or other Vital Signs Vital Signs Vital Signs: 05/13/21 08:36 05/13/21 09:00 05/13/21 10:07 Temperature 98.8 F Temperature Source Temporal Pulse Rate 70 76 Respiratory Rate 20 H 22 H Respiratory Effort Short of Breath Accessory Muscle Use Respiratory Depth Normal Respiratory Pattern Normal Blood Pressure 136/60 H 82/56 L Blood Pressure Mean 85 64 Pulse Ox 95 96 Oxygen Delivery Method Room Air Room Air Room Air 05/13/21 10:08 Temperature Temperature Source Pulse Rate 75 Respiratory Rate 22 H Respiratory Effort Respiratory Depth Respiratory Pattern Blood Pressure 128/57 H Blood Pressure Mean 80 Pulse Ox 98 Oxygen Delivery Method Room Air Weight Weight: 124.738 kg Body Mass Index (BMI) 53.6 Physical Exam Const alert, oriented x3 and no apparent distress Constitutional Narrative: Morbidly obese older white female sitting up in bed, appears comfortable, nontoxic General Appearance: cooperative HEENT normocephalic, head/scalp atraumatic, hearing grossly normal bilaterally and moist oral mucous membranes HEENT Narrative: Mallampati 3, no thrush, dentition fair Eyes PERRL and EOMs intact bilaterally Eyes Narrative: Conjunctival pallor, no scleral icterus Neck no lymphadenopathy, supple, no JVD and no carotid bruits Neck Narrative: Trachea midline, short thick neck, no thyroid enlargement noted Resp normal respiratory effort, no retractions, no use of accessory muscles and clear to auscultation bilaterally Resp Narrative: Dyspnea with conversation, diminished at bases but otherwise clear Auscultation: Negative for crackles, rales, rhonchi or wheezes Cardio regular rate, regular rhythm, S1 normal heart sound, S2 normal heart sound, no rub, no gallops, no clicks and no JVD; Negative for no murmurs Cardio Narrative: 2 out of 6 systolic murmur loudest at the right upper sternal border GI normal to inspection, nondistended, normoactive bowel sounds, soft to palpation, non-tender and non-distended Extremity Extremity Narrative: Chronic bilateral lower extremity edema-pitting 1+, no cyanosis or clubbing Peripheral Pulses: Yes pulses 2+ throughout Skin no wounds, skin turgor normal, no jaundice, no petechiae and no mottling Skin Narrative: Pale skin, bilateral lower extremity changes consistent with venous stasis Neuro oriented x3, CN's II-XII intact bilaterally, moves all extremities and no focal motor deficits Neuro Narrative: Generalized weakness but no focal deficit Sensorium / Orientation: awake and alert Psych affect normal Psych Narrative: Very pleasant Results Lab / Micro Data Result Diagrams: 05/13/21 08:50 05/13/21 08:50 Labs: Laboratory Results - last 24 hr 05/13/21 08:50: WBC 4.4, RBC 1.96 L, Hgb 4.3 L*, Hct 15.2 L, MCV 77.6 L, MCH 21.9 L, MCHC 28.3 L, RDW Std Deviation 47.4 H, RDW Coeff of Sharath 16.9 H, Plt Count 302, MPV 9.3, Immature Gran % (Auto) 0.500, Neut % (Auto) 65.6, Lymph % (Auto) 21.3, [place]igg % (Auto) 10.1 H, Eos % (Auto) 1.6, Baso % (Auto) 0.9, Absolute Neuts (auto) 2.9, Absolute Lymphs (auto) 0.93, Nucleated RBC % 0, Differential Comment COMMENT, Diff Path Review October05/13/21 08:50: Sodium 139, Potassium 3.5, Chloride 108 H, Carbon Dioxide 25.0, Anion Gap 6, BUN 15, Creatinine 0.82, Estim Creat Clear Calc 42.58, Est GFR (MDRD) Af Amer 87, Est GFR (MDRD) Non-Af 72, BUN/Creatinine Ratio 18.2, Glucose 134 H, Calcium 9.2, Troponin I High Sens 15 05/13/21 08:50: B-Natriuretic Peptide 107.4 H 05/13/21 10:03: Crossmatch See Detail Micro: Microbiology 05/13/21 10:10 Stool Stool Occult Blood (SYDNEY) - Final Occult Blood Positive 05/13/21 09:10 Nasal Secretion SARS-CoV-2 Antigen (Rapid) - Final Radiology Impression Chest X-Ray 05/13/21 09:01 IMPRESSION: Cardiomegaly and mild CHF. Electronically Signed: Matthew Rivas MD at 9:52 EST , Service support , Chest CT 05/13/21 09:47 IMPRESSION: Bibasilar atelectasis. Otherwise, clear lungs. Cardiomegaly. Dilated pulmonary artery, suggesting pulmonary arterial hypertension. Cirrhosis. Ascites. Electronically Signed: Esau Lancaster MD at 11:08 EST Tel , Service support , Assessment & Plan Assessment/Plan (1) ABLA (acute blood loss anemia): (2) GI bleed: PLAN: Acute microcytic blood loss anemia -I suspect this is been a slow decrease over time given her hemoglobin on admission is 4.3 and given that she is hemodynamically stable -Transfuse 3 units packed red blood cells -Guaiac stool is positive and stools are melanotic -Normal BUN this serum creatinine ratio therefore expect this is a lower GI bleed -Protonix IV push 40 mg twice daily -Hold Eliquis -Every 4 hour hemoglobin Lower GI bleed -Melanotic stool -Hemoccult positive -Anemia as above -Protonix 40 mg IV push twice daily -N.p.o. -Hold Xarelto -Last colonoscopy was about 9 years ago, no patient recollection of EGD ever being performed -Consult GI Dyspnea -Suspect secondary to her severe anemia -We will monitor clinically and if her dyspnea improves with transfusion we will not work-up any further at this time -If persistent will check echocardiogram as patient does have a cardiac murmur -Acute heart failure was documented by the ER physician secondary to an elevated BNP however her CAT scan is not consistent with this and I suspect her dyspnea as noted above is related to her severe anemia Hypertension/hyperlipidemia -Continue home medication Persistent atrial fibrillation -Continue Cardizem -Hold Xarelto Urinary incontinence -Continue oxybutynin PAH -Suspect who group 3 -No echocardiogram in records -Patient is currently on room air -Continue home Lasix -If dyspnea is persistent will check echocardiogram GERD -IV PPI twice daily Cirrhosis -Noted on CT of her chest and her previous CT of her abdomen -Suspect this is related to Orr with her body habitus -Definitive diagnoses -No stigmata of liver disease on her lab or physical exam at this time History of nephrolithiasis -Patient has followed previously at [facility] -No current issues Morbid obesity -Recommend weight loss -BMI is 47.0 -Complicates treatment, prognosis, outcomes DVT prophylaxis -Chemoprophylaxis is contraindicated at this time related to Hemoccult positive stool and severe anemia -SCDs CODE STATUS -Full code Charges/Coding Visit Charges Inpatient E&M: 44120 Init Hosp L3
--- NOTE | 2021-05-13 11:56 | PCS.PANDOC ---
PANDEMIC DOCUMENTATION INITIATED: Date: 01/21/2021 Time: 190
[2021-05-13] MEDS: Oxybutynin 5 MG Tablet PO ×2 (14:44→22:07)
--- NOTE | 2021-05-13 19:42 | CON.PCM.GI_ITS ---
HPI Consult Data Date of Consult: 05/13/21 HPI Narrative HPI Narrative: 75 F who presented to the emergency department at [facility] on 05/13/2021 with shortness of breath. In the ED she was discovered to have a significant iron deficiency anemia with a hemoglobin of 4.3 and MCV of 77.6. The rest of her studies were normal. She also had a normal troponin and EKG was unchanged from previously. She has a past medical history of chronic atrial fibrillation requiring Xarelto therapy. She has never had any problems with anemia in the past. She has never received a blood transfusion in the past. She has no family history of iron deficiency anemia. She did admit to some black stools. However she normally suffers from constipation in the stool cleared up after 1 bowel movement. She suffers from nonalcoholic steatohepatitis. She did have a CT scan abdomen pelvis did not show any signs of cirrhosis. She had a colonoscopy several years ago and states she had some small polyps removed but none of them were precancerous. [facility] Medical History Atrial fibrillation CHF (congestive heart failure) Depression GERD (gastroesophageal reflux disease) High cholesterol Hypertension Kidney stone Morbid obesity ROBBINS (nonalcoholic steatohepatitis) Obstructive sleep apnea PAH (pulmonary artery hypertension) Urinary incontinence Home Medications acetaminophen [Tylenol Arthritis] 650 mg PO PRN PRN 05/13/18 [History Last Taken Unknown] albuterol sulfate [Proventil Hfa] 6.7 g IH PRN PRN 05/13/18 [History Last Taken 05/14/18 07:00 6.7 GM] atorvastatin 20 mg PO QHS 05/13/18 [History Last Taken Unknown] diltiazem HCl 240 mg PO DAILY 05/13/18 [History Last Taken 05/12/21] furosemide 40 mg PO DAILY 05/13/18 [History Last Taken 05/11/21] multivitamin with folic acid [Thera] 1 tab PO DAILY 05/13/18 [History Last Taken Unknown] pantoprazole 40 mg PO DAILY 05/13/18 [History Last Taken 05/14/18 07:00 40 MG] rivaroxaban [Xarelto] 20 mg PO QHS 05/13/18 [History Last Taken 05/11/18] sertraline [Zoloft] 25 mg PO DAILY 05/13/18 [History Last Taken Unknown] cholecalciferol (vitamin D3) 125 mcg PO DAILY 05/13/21 [History Last Taken Unknown] oxybutynin chloride 5 mg PO TID 05/13/21 [History Last Taken Unknown] Allergy/AdvReac Type Severity Reaction Status Date / Time morphine AdvReac Other Verified 05/13/21 08:35 Family History other Surgical History History of carpal tunnel surgery of left wrist Hx of cholecystectomy Hx of hernia repair Social History Smoking Status: Former smoker alcohol intake: never substance use type: does not use ROS Review of Systems ROS Unobtainable: other Constitutional Constitutional: Denies fatigue, fever(s), poor appetite, weight gain or weight loss ENT HEENT: Denies mouth lesions Cardiovascular Cardiovascular: Denies abdominal bloating, abdominal edema or abdominal pain Respiratory/Chest Respiratory/Chest: Denies change in mental status, change in phlegm color, chest congestion or chest tightness Gastrointestinal Gastrointestinal: Reports constipation, cramping, melena, rectal bleeding, tenesmus, vomiting and weight changes Genitourinary Genitourinary: Denies abdominal discomfort, burning urination or itching Musculoskeletal Musculoskeletal: Reports as per HPI; Denies muscle weakness or myalgias Integumentary Integumentary: Denies jaundice Neurologic Neurologic: Denies lack of coordination or weakness Psychiatric Psychiatric: Denies confusion, depression, memory loss, mood swings, paranoia or suicidal ideation Endocrine Endocrinology: Denies systems reviewed and no addt'l complaints, except as documented Hematologic/Lymphatic Hematologic/Lymphatic: Denies anemia, easy bleeding, easy bruising or lymph adenopathy Allergic/Immunologic Allergic/Immunologic: Denies systems reviewed and no addt'l complaints, except as documented Physical Exam Const alert General Appearance: cooperative Orientation / Consciousness: oriented to person HEENT hearing grossly normal bilaterally Head and Scalp: normal to inspection Face and Sinus: face symmetric Nose: external nose normal Mouth: oral and palatal mucosa normal Eyes conjunctivae normal General Eye: normal appearance of both eyes Neck full ROM General: normal visual inspection Lymph Lymphatic: no lymphadenopathy noted Chest inspection of chest normal and palpation of chest normal Chest: symmetrical chest wall rise Resp normal respiratory effort Effort and Inspection: able to speak in complete sentences Cardio regular rate GI non-distended Percussion: normal to percussion Rectal Exam: deferred Neuro Speech: speech normal Gait (Neuro): normal gait Lab / Micro Data Result Diagrams: 05/13/21 08:50 05/13/21 08:50 Labs: Laboratory Results - last 24 hr 05/13/21 08:50: WBC 4.4, RBC 1.96 L, Hgb 4.3 L*, Hct 15.2 L, MCV 77.6 L, MCH 21.9 L, MCHC 28.3 L, RDW Std Deviation 47.4 H, RDW Coeff of Sharath 16.9 H, Plt Count 302, MPV 9.3, Immature Gran % (Auto) 0.500, Neut % (Auto) 65.6, Lymph % (Auto) 21.3, [place] % (Auto) 10.1 H, Eos % (Auto) 1.6, Baso % (Auto) 0.9, Absolute Neuts (auto) 2.9, Absolute Lymphs (auto) 0.93, Nucleated RBC % 0, Differential Comment COMMENT, Diff Path Review October05/13/21 08:50: Sodium 139, Potassium 3.5, Chloride 108 H, Carbon Dioxide 25.0, Anion Gap 6, BUN 15, Creatinine 0.82, Estim Creat Clear Calc 42.58, Est GFR (MDRD) Af Amer 87, Est GFR (MDRD) Non-Af 72, BUN/Creatinine Ratio 18.2, Glucose 134 H, Calcium 9.2, Troponin I High Sens 15 05/13/21 08:50: B-Natriuretic Peptide 107.4 H 05/13/21 10:03: Blood Type B POSITIVE, Antibody Screen NEGATIVE, Crossmatch See Detail Micro: Microbiology 05/13/21 10:10 Stool Stool Occult Blood (SYDNEY) - Final Occult Blood Positive 05/13/21 09:10 Nasal Secretion SARS-CoV-2 Antigen (Rapid) - Final Radiology Impression Chest X-Ray 05/13/21 09:01 IMPRESSION: Cardiomegaly and mild CHF. Electronically Signed: Matthew Rivas MD at 9:52 EST , Service support , Chest CT 05/13/21 09:47 IMPRESSION: Bibasilar atelectasis. Otherwise, clear lungs. Cardiomegaly. Dilated pulmonary artery, suggesting pulmonary arterial hypertension. Cirrhosis. Ascites. Electronically Signed: Esau Lancaster MD at 11:08 EST Tel , Service support , Assessment & Plan Assessment/Plan (1) GI bleed: PLAN: The differential diagnosis would be an upper GI bleed secondary to Adelfo's erosions, AVMs of the upper GI tract or small bowel, gastric antral vascular ectasia. If this is a slow GI bleed then she would not have an elevation BUN/creatinine ratio. Also initial diagnosis would be a GI bleed in the distal small bowel or colon secondary to AVMs and less likely malignancy. She should undergo upper and lower endoscopy for evaluation of the upper lower GI tract. Further recommendation to follow. Charges/Coding Visit Charges Inpatient E&M: 95400 Init Hosp L2
[2021-05-13] MEDS: Bisacodyl 5 MG Tablet 20 MG PO (20:13)
[2021-05-13] MEDS: 0.9% Saline Lock 10 ML Syringe IV (20:16)
[2021-05-13 21:34] LABS: Hematocrit 18.5 % (37-47); POSITIVE COUNT YES
[2021-05-13 21:39] LABS: Hemoglobin 5.5 g/dL (12.0-15.0)
[2021-05-13] MEDS: Atorvastatin Calcium 20 MG Tablet PO (22:07)
[2021-05-13] MEDS: Sertraline 50 MG Tablet 25 MG PO (22:07)
[2021-05-13] MEDS: Polyethylene Glycol 3350 BOWEL PREP PO (22:09)
[2021-05-14] VITALS (22 sets, daily range): BP systolic 98–139; BP diastolic 49–86; PULSE 62–82; RESP 16–22; TEMP 36.2–37.1; O2SAT 92–99; BMI 47.0
[2021-05-14] MEDS: 0.9% Saline Lock 10 ML Syringe IV (03:24)
[2021-05-14] MEDS: Furosemide 20 MG/2 ML VIAL IV (03:24)
[2021-05-14] MEDS: Oxybutynin 5 MG Tablet PO ×2 (05:49→21:51)
[2021-05-14 07:55] LABS: Absolute Lymphocyte Count 0.83 X10^3/uL (0.83-4.51); Absolute Neutrophil Count 3.2 X10^3/uL (2.0-7.7); Basophil# 0.04 X10^3/uL; Basophil% 0.8 % (0-1); Eosinophil# 0.07 X10^3/uL; Eosinophils% 1.5 % (0-5); Hematocrit 22.8 % (37-47); Hemoglobin 7.2 g/dL (12.0-15.0); Lymphocyte # 0.83 X10^3/ul (0.83-4.51); Lymphocyte % 17.6 % (19-41); Mean Corp Hgb Conc 31.6 g/dL (32-36); Mean Corpuscular Volume 79.2 fL (81-99); Mean Platelet Vol. 9.2 fl (6.2-12.0); Monocyte# 0.59 X10^3/uL; Monocyte% 12.5 % (0-10); NRBC Flagged by Analyzer 0 % (0-5); Neutrophil # 3.17 X10^3/uL (2.7-7.7); Neutrophil % 67.4 % (47-70); Platelet Count 245 K/mm3 (150-450); RBC Distribution Width CV 15.9 % (11.6-14.6); RBC Distribution Width SD 45.7 fl (35.1-43.9); Red Blood Count 2.88 M/mm3 (4.2-5.4); White Blood Count 4.7 K/mm3 (4.4-11.0)
[2021-05-14 08:42] LABS: ALB/GLOB Ratio 0.7 RATIO (0.9-2.4); AST(SGOT) 25 U/L (15-37); Alanine Aminotransfer ALT/SGPT 17 U/L (13-56); Albumin, Serum 2.6 g/dL (3.2-5.0); Alkaline Phosphatase 108 U/L (45-117); Anion Gap 8 (5-15); BUN 10 mg/dL (7-18); Calcium,Total 8.8 mg/dL (8.5-10.1); Chloride 109 mmol/L (98-107); Creatinine, Serum 0.72 mg/dL (0.55-1.02); EST Glomerular Filtration Rate 84 mL/min (>60); Est Glom Filt Rate - Afr Amer 102 mL/min (>60); Estimated Creatinine Clearance 41.97 ml/min; Globulin 3.8 g/dL (2.2-4.2); Glucose 112 mg/dL (74-106); Magnesium 1.9 mg/dL (1.6-2.6); Phosphorus 2.4 mg/dL (2.5-4.9); Potassium 3.3 mmol/L (3.5-5.1); Protein, Total 6.4 g/dL (6.4-8.2); Sodium Level 141 mmol/L (136-145); Thyroid Stim Hormone (TSH) 0.51 uIU/mL (0.358-3.74)
[2021-05-14] MEDS: Furosemide 40 MG Tablet PO (08:51)
[2021-05-14] MEDS: dilTIAZem CD 180 MG Capsule PO (08:51)
[2021-05-14 09:41] LABS: Pathologist Review Reviewed
--- NOTE | 2021-05-14 10:36 | CASEMGMT ---
SINCERE WATSON assessment: Face to Face with patient for initial transition planning/care coordination assessment. RN SHIRLEY introduced self and role at [facility], pt voices understanding and consents to assessment. Pt is lying in bed in no distress on 3.5L nc. Pt is A/Ox 4 and answers all questions appropriately. Care providers, pharmacy, and demographics verified/updated. 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 Pt's son, Luis Enrique Baez, is HPOA. LNOK: Luis Enrique Baez, son/HPOA; Queenie Mcclure, sister Living Arrangements: Pt lives with son in 1 story home with ramp entrance and states no concerns at home. Pt is independent with ADL's. Transportation: Pt states drives self and states no transportation concerns. DME/HHC: Pt states has the following DME: walker x4, tub bench, and cpap thru [facility]. Pt states her family is putting in a walk-in shower also. Pt states has 3.5L bleed in to cpap if needs it. Pt states would like [facility] if qualifies for home oxygen at discharge. Pt states no hx of HHC but has been to [facility] in the past. Pt states no concerns with going home at time of discharge. Pt is retired. Pt states does not smoke cigarettes or drink ETOH. Pt states no further concerns/needs. CM to follow for therapy notes, home oxygen testing, and any further discharge planning/needs. Advised pt to ask for CM if any further questions/concerns/needs arise, voices understanding. Pt Goal: Home Plan: Home, pending home oxygen testing/therapy notes. [place] [facility]
[2021-05-14] MEDS: Lactated Ringers 1,000 ML 15 ML IV (15:33)
--- NOTE | 2021-05-14 15:45 | PCM.PN.HOSP ---
Subjective Subjective Patient is still undergoing bowel prep for colonoscopy and EGD to be performed at 2:00 today. No overnight issues. Objective Data Objective Data Vital Signs: Vital Signs Temp Pulse Resp BP Pulse Ox 98.5 F 77 22 H 111/63 93 05/14/21 15:29 05/14/21 15:29 05/14/21 15:29 05/14/21 15:29 05/14/21 15:29 Oxygen Flow Rate (L/min) 2 Oxygen Delivery Method Nasal Cannula Weight: 130.663 kg Body Mass Index (BMI) 47.0 Intake & Output: Intake and Output for Last 24 Hours 05/12/21 05/13/21 05/14/21 23:59 23:59 23:59 Intake Total 1450 / 1450 1710 / 1710 Output Total 300 / 300 1100 / 1100 Balance 1150 / 1150 610 / 610 Lab / Micro Data Result Diagrams: 05/14/21 11:14 05/14/21 07:16 Labs: Laboratory Results - last 24 hr 05/13/21 08:50: Diff Path Review Reviewed 05/13/21 10:03: Blood Type B POSITIVE, Antibody Screen NEGATIVE, Crossmatch See Detail 05/13/21 10:03: Crossmatch See Detail 05/13/21 21:25: Hgb 5.5 L*, Hct 18.5 L 05/14/21 07:16: WBC 4.7, RBC 2.88 L, Hgb 7.2 L, Hct 22.8 L, MCV 79.2 L, MCH 25.0 L, MCHC 31.6 L D, RDW Std Deviation 45.7 H, RDW Coeff of Sharath 15.9 H, Plt Count 245, MPV 9.2, Immature Gran % (Auto) 0.200, Neut % (Auto) 67.4, Lymph % (Auto) 17.6 L, [place] % (Auto) 12.5 H, Eos % (Auto) 1.5, Baso % (Auto) 0.8, Absolute Neuts (auto) 3.2, Absolute Lymphs (auto) 0.83, Nucleated RBC % 0 05/14/21 07:16: Sodium 141, Potassium 3.3 L, Chloride 109 H, Carbon Dioxide 24.0, Anion Gap 8, BUN 10, Creatinine 0.72, Estim Creat Clear Calc 41.97, Est GFR (MDRD) Af Amer 102, Est GFR (MDRD) Non-Af 84, BUN/Creatinine Ratio 14.0, Glucose 112 H, Calcium 8.8, Phosphorus 2.4 L, Magnesium 1.9, Total Bilirubin 1.10 H, AST 25, ALT 17, Alkaline Phosphatase 108, Total Protein 6.4, Albumin 2.6 L, Globulin 3.8, Albumin/Globulin Ratio 0.7 L, TSH 0.51 05/14/21 11:14: Hgb 8.0 L, Hct 26.0 L Micro: Microbiology 05/13/21 10:10 Stool Stool Occult Blood ([place]) - Final Occult Blood Positive 05/13/21 09:10 Nasal Secretion SARS-CoV-2 Antigen (Rapid) - Final Physical Exam Const alert, oriented x3 and no apparent distress Constitutional Narrative: Morbidly obese older white female sitting up on the bedside commode, appears comfortable, nontoxic General Appearance: cooperative Exam Limitations: no limitations Nutritional Appearance: morbidly obese HEENT normocephalic, head/scalp atraumatic, hearing grossly normal bilaterally and moist oral mucous membranes HEENT Narrative: No thrush, Mallampati 3-4 Head and Scalp: normocephalic Resp normal respiratory effort, no retractions, no use of accessory muscles and clear to auscultation bilaterally Resp Narrative: Dyspnea with conversation, diminished at bases but otherwise clear Auscultation: Negative for crackles, rales, rhonchi or wheezes Cardio regular rate, regular rhythm, S1 normal heart sound, S2 normal heart sound, no rub, no gallops, no clicks and no JVD; Negative for no murmurs Cardio Narrative: 2 out of 6 systolic murmur loudest at the right upper sternal border GI normal to inspection, nondistended, normoactive bowel sounds, soft to palpation, non-tender and non-distended Extremity Extremity Narrative: Chronic bilateral lower extremity edema-pitting 1+, no cyanosis or clubbing Neuro oriented x3, moves all extremities and no focal motor deficits Neuro Narrative: Generalized weakness but no focal deficit Sensorium / Orientation: awake and alert Speech: speech normal Assessment & Plan Assessment/Plan (1) ABLA (acute blood loss anemia): (2) GI bleed: (3) Hypokalemia: (4) Dyspnea: PLAN: Acute microcytic blood loss anemia -I suspect this is been a slow decrease over time given her hemoglobin on admission is 4.3 and given that she is hemodynamically stable--> hemoglobin has now improved to 8.0 -Transfuse 3 units packed red blood cells on 05/14/2021 with appropriate correction -Guaiac stool is positive and stools are melanotic -Normal BUN this serum creatinine ratio therefore expect this is a lower GI bleed but could be slow upper GI bleed -Continue Protonix IV push 40 mg twice daily -Hold Eliquis -EGD and colonoscopy pending for today Lower GI bleed -Melanotic stool -Hemoccult positive -Anemia as above -Protonix 40 mg IV push twice daily -N.p.o. -Hold Xarelto -Last colonoscopy was about 9 years ago, no patient recollection of EGD ever being performed -EGD and colonoscopy today per GI Dyspnea -Suspect secondary to her severe anemia -Patient with some continued dyspnea therefore will obtain an echocardiogram -Acute heart failure was documented by the ER physician secondary to an elevated BNP however her CAT scan is not consistent with this and I suspect her dyspnea as noted above is related to her severe anemia -TSH is within normal limits -We will give with an extra dose of Lasix today since patient was placed on oxygen this morning--> 40 mg IV push x1 dose Hypokalemia -Replace with 40 mEq p.o. potassium -Magnesium is within normal limits -Repeat BMP in a.m. Hypertension/hyperlipidemia -Continue home medication Persistent atrial fibrillation -Continue Cardizem -Hold Xarelto Urinary incontinence -Continue oxybutynin PAH -Suspect who group 3 -Echocardiogram pending -Continue home Lasix GERD -IV PPI twice daily Cirrhosis -Noted on CT of her chest and her previous CT of her abdomen -Suspect this is related to Orr with her body habitus -Definitive diagnoses -No stigmata of liver disease on her lab or physical exam at this time History of nephrolithiasis -Patient has followed previously at [facility] -No current issues Morbid obesity -Recommend weight loss -BMI is 47.0 -Complicates treatment, prognosis, outcomes DVT prophylaxis -Chemoprophylaxis is contraindicated at this time related to Hemoccult positive stool and severe anemia -SCDs CODE STATUS -Full code Charges/Coding Visit Charges Inpatient E&M: 33796 Subs Hosp L2
--- NOTE | 2021-05-14 15:46 | ECHOCS_ITS ---
Reason For Study: DYSPNEA/SOB Procedure This was a 2D Doppler, Color Flow transthoracic echocardiogram. The study was technically difficult. Exam performed portable in patient room. Left Ventricle Normal LV size. Left ventricular systolic function is normal. The estimated ejection fraction is 65 %. Unable to assess diastolic dysfunction. No regional wall motion abnormalities noted. Right Ventricle Normal RV size. Normal systolic function. Atria The left atrium is severely enlarged. The right atrium is severely enlarged. No doppler evidence for ASD. Mitral Valve There is moderate mitral annular calcification. Extension of the mitral annular calcification onto the posterior mitral valve leaflet. Mild (1+) mitral valve insufficiency. Tricuspid Valve Normal tricuspid valve. Mild to moderate (1-2+) tricuspid valve insufficiency. Right ventricular systolic pressure estimated to be 40 mmHg. Aortic Valve Trisinus/trileaflet aortic valve. Mild focal aortic valve calcification. Mild aortic stenosis. Pulmonic Valve The pulmonic valve is not well visualized. Great Vessels Normal sized aortic root. Pericardium/Pleural No pericardial effusion. Medication Diluted definity 2ml given slow IV push to enhance endocardial definition. MMode/2D Measurements & Calculations LVIDd: 5.3 cm IVSd: 0.95 cm LVOT diam: 2.0 cm LVIDs: 3.6 cm LVPWd: 1.2 cm RVDd: 4.9 cm FS: 32.2 % LVOT area: 3.1 cm2 Ao root diam: 3.4 cm LAV(MOD-bp): 148.0 ml LVAd ap4: 40.0 cm2 LAV(MOD-bp) Indexed: 64.8 ml/m2 LVLd ap4: 9.2 cm LAV(MOD-sp2): 143.4 ml EDV(MOD-sp4): 143.5 ml LAV(MOD-sp4): 146.8 ml EDV(sp4-el): 147.8 ml LVAs ap4: 20.5 cm2 LVLs ap4: 6.9 cm ESV(MOD-sp4): 50.4 ml ESV(sp4-el): 52.2 ml EF(MOD-sp4): 64.9 % EF(sp4-el): 64.7 % SV(MOD-sp4): 93.1 ml SV(sp4-el): 95.5 ml LA A4 area: 39.8 cm2 LA dimension(2D): 6.2 cm RA A4 area: 33.9 cm2 Doppler Measurements & Calculations MV E max sarita: 153.8 cm/sec Ao V2 max: 299.3 cm/sec LV V1 max: 170.1 cm/sec Ao max P.8 mmHg LV V1 max P.6 mmHg Ao V2 mean: 208.9 cm/sec Ao mean P.0 mmHg Ao V2 VTI: 63.8 cm EVERARDO(V,D): 1.8 cm2 PA V2 max: 132.3 cm/sec TR max sarita: 302.8 cm/sec TR max P.7 mmHg ECHO/Echo Complete W/ Contrast Interpretation Summary The study was technically difficult. Left ventricular systolic function is normal. The estimated ejection fraction is 65 %. The left atrium is severely enlarged. The right atrium is severely enlarged. There is moderate mitral annular calcification. Extension of the mitral annular calcification onto the posterior mitral valve l eaflet. Mild (1+) mitral valve insufficiency. Mild to moderate (1-2+) tricuspid valve insufficiency. Mild aortic stenosis. Right ventricular systolic pressure estimated to be 40 mmHg. Unable to assess diastolic dysfunction. Ordering Physician: Mariah Lind Referring Physician: MARITA ALMEIDA Performed By: Stephanie Cui RDCS
--- NOTE | 2021-05-14 16:39 | OP.EGD_ITS ---
Patient Name: Odette Pace Procedure Date: 05/14/2021 3:22 PM Date of : 1945 Age: 75 Procedure: Upper GI endoscopy Indications: Recent gastrointestinal bleeding Providers: Arturo Melendez DO Medicines: See the Anesthesia note for documentation of the administered medications Patient Profile: This is a 75 year old female. Refer to note in patient chart for documentation of history and physical. Patient has symptoms of acute nausea. Complications: No immediate complications. Procedure: Pre-Anesthesia Assessment: - Prior to the procedure, a History and Physical was performed, and patient medications and allergies were reviewed. The patient is competent. The risks and benefits of the procedure and the sedation options and risks were discussed with the patient. All questions were answered and informed consent was obtained. Patient identification and proposed procedure were verified by the physician in the pre-procedure area. Mental Status Examination: alert and oriented. Airway Examination: normal oropharyngeal airway and neck mobility. Respiratory Examination: clear to auscultation. CV Examination: normal. Prophylactic Antibiotics: The patient does not require prophylactic antibiotics. Prior Anticoagulants: The patient has taken no previous anticoagulant or antiplatelet agents. ASA Grade Assessment: II - A patient with mild systemic disease. After reviewing the risks and benefits, the patient was deemed in satisfactory condition to undergo the procedure. The anesthesia plan was to use moderate sedation / analgesia (conscious sedation). Immediately prior to administration of medications, the patient was re-assessed for adequacy to receive sedatives. The heart rate, respiratory rate, oxygen saturations, blood pressure, adequacy of pulmonary ventilation, and response to care were monitored throughout the procedure. The physical status of the patient was re-assessed after the procedure. After obtaining informed consent, the endoscope was passed under direct vision. Throughout the procedure, the patient's blood pressure, pulse, and oxygen saturations were monitored continuously. The pediatric colonoscope was introduced through the and advanced to the. The gastroscope was introduced through the mouth, and advanced to the proximal jejunum. The upper GI endoscopy was accomplished without difficulty. The patient tolerated the procedure well. Moderate Sedation: Moderate (conscious) sedation was administered by the endoscopy nurse and supervised by the endoscopist. The patient's oxygen saturation, heart rate, blood pressure and response to care were monitored. Total physician intraservice time was 15 minutes. Scope In: 3:44:59 PM Scope Out: 4:03:14 PM Total Procedure Duration Time 0 hours 18 minutes 15 seconds Findings: There were esophageal mucosal changes suspicious for short-segment Reyes's esophagus present in the lower third of the esophagus. The maximum longitudinal extent of these mucosal changes was 4 cm in length. Red blood was found in the stomach. Two 5 mm bleeding angiodysplastic lesions were found in the stomach. Coagulation for hemostasis using argon plasma at 0.3 liters/minute and 20 garcia was successful. Estimated blood loss was minimal. Three 5 mm angiodysplastic lesions with bleeding were found in the second portion of the duodenum. Coagulation for hemostasis using argon plasma at 0.3 liters/minute and 20 garcia was successful. Estimated blood loss was minimal. Two 5 mm angiodysplastic lesions without bleeding were found in the jejunum. Coagulation for hemostasis using heater probe was successful. Estimated blood loss was minimal. Impression: - Esophageal mucosal changes suspicious for short-segment Reyes's esophagus. - Red blood in the stomach. - Two bleeding angiodysplastic lesions in the stomach. Treated with argon plasma coagulation (APC). - Three bleeding angiodysplastic lesions in the duodenum. Treated with argon plasma coagulation (APC). - Two non-bleeding angiodysplastic lesions in the jejunum. Treated with a heater probe. - No specimens collected. Recommendation: - Return patient to [facility] for ongoing care. - Full liquid diet. - Use misoprostol 100 micrograms PO QID for 4 weeks. - Continue present medications. Procedure Code(s): --- Professional --- 71762, Esophagogastroduodenoscopy, flexible, transoral; with control of bleeding, any method G0500, Moderate sedation services provided by the same physician or other qualified health critical care physician performing a gastrointestinal endoscopic service that sedation supports, requiring the presence of an independent trained observer to assist in the monitoring of the patient's level of consciousness and physiological status; initial 15 minutes of intra-service time; patient age 5 years or older (additional time may be reported with 55645, as appropriate) CPT copyright 2017 [employer]. All rights reserved. The codes documented in this report are preliminary and upon digital color press operator review may be revised to meet current compliance requirements. Arturo Melendez DO 05/14/2021 4:39:18 PM This report has been signed electronically. Number of Addenda: 1 Note Initiated On: 05/14/2021 3:22 PM Addendum Number: 1 Addendum Date: 02/12/2022 7:04:58 AM MAC was used instead of moderate sedation for the patient. Arturo Melendez DO 02/12/2022 7:05:02 AM This report has been signed electronically.
--- NOTE | 2021-05-14 16:46 | OP.COLON_ITS ---
Patient Name: Odette Pace Procedure Date: 05/14/2021 4:04 PM Date of : 1945 Age: 75 Procedure: Colonoscopy Indications: Iron deficiency anemia Providers: Arturo Melendez DO Medicines: See the Anesthesia note for documentation of the administered medications Patient Profile: Last Colonoscopy: 5 years ago. This is a 75 year old female. Refer to note in patient chart for documentation of history and physical. Patient has symptoms of acute nausea. Complications: No immediate complications. Procedure: Pre-Anesthesia Assessment: - Prior to the procedure, a History and Physical was performed, and patient medications and allergies were reviewed. The patient is competent. The risks and benefits of the procedure and the sedation options and risks were discussed with the patient. All questions were answered and informed consent was obtained. Patient identification and proposed procedure were verified by the physician in the pre-procedure area. Mental Status Examination: alert and oriented. Airway Examination: normal oropharyngeal airway and neck mobility. Respiratory Examination: clear to auscultation. CV Examination: normal. Prophylactic Antibiotics: The patient does not require prophylactic antibiotics. Prior Anticoagulants: The patient has taken no previous anticoagulant or antiplatelet agents. ASA Grade Assessment: II - A patient with mild systemic disease. After reviewing the risks and benefits, the patient was deemed in satisfactory condition to undergo the procedure. The anesthesia plan was to use moderate sedation / analgesia (conscious sedation). Immediately prior to administration of medications, the patient was re-assessed for adequacy to receive sedatives. The heart rate, respiratory rate, oxygen saturations, blood pressure, adequacy of pulmonary ventilation, and response to care were monitored throughout the procedure. The physical status of the patient was re-assessed after the procedure. After I obtained informed consent, the scope was passed under direct vision. Throughout the procedure, the patient's blood pressure, pulse, and oxygen saturations were monitored continuously. The pediatric colonoscope was introduced through the anus and advanced to the cecum, identified by appendiceal orifice and ileocecal valve. The Colonoscope was introduced through the anus and advanced to the cecum, identified by appendiceal orifice and ileocecal valve. The colonoscopy was performed without difficulty. The patient tolerated the procedure well. The quality of the bowel preparation was fair. Moderate Sedation: Moderate (conscious) sedation was administered by the endoscopy nurse and supervised by the endoscopist. The patient's oxygen saturation, heart rate, blood pressure and response to care were monitored. Total physician intraservice time was 15 minutes. Scope In: 4:22:18 PM Scope Withdrawal Time 0 hours 6 minutes 45 seconds Scope Out: 4:35:52 PM Total Procedure Duration Time 0 hours 13 minutes 34 seconds Findings: The perianal and digital rectal examinations were normal. Multiple small and large-mouthed diverticula were found in the sigmoid colon, descending colon, splenic flexure and transverse colon. There was narrowing of the colon in association with the diverticular opening. There was evidence of diverticular spasm. Erythema was seen in association with the diverticular opening. There was no evidence of diverticular bleeding. Two medium-sized angiodysplastic lesions without bleeding were found in the sigmoid colon. Coagulation for bleeding prevention using argon beam at 0.3 liters/minute and 20 garcia was successful. Impression: - Preparation of the colon was fair. - Moderate diverticulosis in the sigmoid colon, in the descending colon, at the splenic flexure and in the transverse colon. There was narrowing of the colon in association with the diverticular opening. There was evidence of diverticular spasm. Erythema was seen in association with the diverticular opening. There was no evidence of diverticular bleeding. - Two non-bleeding colonic angiodysplastic lesions. Treated with argon beam coagulation. - No specimens collected. Recommendation: - Resume previous diet. - Continue present medications. - Return to my office in 2 weeks. - No repeat colonoscopy due to age. Procedure Code(s): --- Professional --- 83559, Colonoscopy, flexible; with control of bleeding, any method G0500, Moderate sedation services provided by the same physician or other qualified health care professionals performing a gastrointestinal endoscopic service that sedation supports, requiring the presence of an independent trained observer to assist in the monitoring of the patient's level of consciousness and physiological status; initial 15 minutes of intra-service time; patient age 5 years or older (additional time may be reported with 01790, as appropriate) CPT copyright 2017 [employer]. All rights reserved. The codes documented in this report are preliminary and upon hospital coder review may be revised to meet current compliance requirements. Arturo Melendez DO 05/14/2021 4:46:18 PM This report has been signed electronically. Number of Addenda: 1 Note Initiated On: 05/14/2021 4:04 PM Addendum Number: 1 Addendum Date: 02/12/2022 7:05:11 AM MAC was used instead of moderate sedation for the patient. Arturo Melendez DO 02/12/2022 7:05:18 AM This report has been signed electronically.
[2021-05-14] MEDS: Furosemide 40 MG/4 ML Vial IV (17:42)
[2021-05-14] MEDS: Acetaminophen 500 MG Tablet 1000 MG PO (19:22)
[2021-05-14] MEDS: Sertraline 50 MG Tablet 25 MG PO (21:50)
[2021-05-14] MEDS: Atorvastatin Calcium 20 MG Tablet PO (21:51)
[2021-05-15] VITALS (13 sets, daily range): BP systolic 106–125; BP diastolic 46–89; PULSE 60–79; RESP 16–20; TEMP 36.6–36.8; O2SAT 91–96
--- NOTE | 2021-05-15 05:54 | EKG12_ITS ---
Test Reason : BRETT Blood Pressure : / mmHG Vent. Rate : 058 BPM Atrial Rate : 153 BPM P-R Int : 000 ms QRS Dur : 110 ms QT Int : 418 ms P-R-T Axes : 000 022 022 degrees QTc Int : 410 ms Junctional rhythm Otherwise normal ECG When compared with ECG of 13-MAY-2021 09:13, MANUAL COMPARISON REQUIRED, DATA IS UNCONFIRMED Confirmed by RAYSA GUEVARA, WILLIAM ([id number]), technical editor TEETEE HE ([id number]) on 05/15/2021 1:58:42 PM Referred By: Confirmed By:WILLIAM TABARES MD
[2021-05-15 05:59] LABS: Absolute Lymphocyte Count 0.98 X10^3/uL (0.83-4.51); Basophil# 0.04 X10^3/uL; Basophil% 1.1 % (0-1); Eosinophil# 0.11 X10^3/uL; Hematocrit 21.4 % (37-47); Hemoglobin 6.9 g/dL (12.0-15.0); Lymphocyte # 0.98 X10^3/ul (0.83-4.51); Lymphocyte % 27.1 % (19-41); Mean Corp Hgb Conc 32.2 g/dL (32-36); Mean Corpuscular Hgb 25.7 pg (27.0-32.0); Mean Corpuscular Volume 79.9 fL (81-99); Mean Platelet Vol. 9.7 fl (6.2-12.0); Monocyte# 0.52 X10^3/uL; Monocyte% 14.4 % (0-10); NRBC Flagged by Analyzer 0 % (0-5); Neutrophil # 1.95 X10^3/uL (2.7-7.7); Neutrophil % 54.1 % (47-70); Platelet Count 225 K/mm3 (150-450); RBC Distribution Width CV 16.2 % (11.6-14.6); RBC Distribution Width SD 46.9 fl (35.1-43.9); Red Blood Count 2.68 M/mm3 (4.2-5.4); White Blood Count 3.6 K/mm3 (4.4-11.0)
[2021-05-15] MEDS: Oxybutynin 5 MG Tablet PO ×3 (06:10→21:28)
[2021-05-15 06:37] LABS: Anion Gap 6 (5-15); BUN 8 mg/dL (7-18); BUN/Creat Ratio 10.7 RATIO (10-20); Calcium,Total 9.2 mg/dL (8.5-10.1); Chloride 109 mmol/L (98-107); Creatinine, Serum 0.75 mg/dL (0.55-1.02); EST Glomerular Filtration Rate 80 mL/min (>60); Est Glom Filt Rate - Afr Amer 97 mL/min (>60); Estimated Creatinine Clearance 41.97 ml/min; Glucose 96 mg/dL (74-106); Potassium 2.9 mmol/L (3.5-5.1); Sodium Level 142 mmol/L (136-145)
[2021-05-15] MEDS: Multivitamins,Therapeutic Tablet 1 TABLET PO (11:18)
[2021-05-15] MEDS: Cholecalciferol (VIT D3) 25 MCG TABLET (1,000 UNITS) 125 MCG PO (11:18)
[2021-05-15] MEDS: Potassium Chloride Oral Tablet 20 MEQ 60 MEQ PO ×2 (11:19→18:55)
[2021-05-15] MEDS: dilTIAZem CD 180 MG Capsule PO (11:19)
[2021-05-15] MEDS: Furosemide 40 MG Tablet PO (11:19)
--- NOTE | 2021-05-15 13:54 | PN.HOSP_ITS ---
Subjective Subjective Patient reports she is feeling much better today. We did discuss that her hemoglobin was a little bit low this morning at 6.9 and we are going to give her a unit of blood. Gastroenterology had to do fairly extensive cauterization yesterday and would prefer her monitored for another 24 hours prior to discharge. She voiced understanding and was accepting of this. Objective Data Objective Data Vital Signs: Vital Signs Temp Pulse Resp BP Pulse Ox 98.1 F 67 16 125/56 H 92 05/15/21 13:20 05/15/21 13:20 05/15/21 13:20 05/15/21 13:20 05/15/21 13:20 Oxygen Flow Rate (L/min) 3 Oxygen Delivery Method Room Air Weight: 121.5 kg Body Mass Index (BMI) 47.0 Intake & Output: Intake and Output for Last 24 Hours 05/13/21 05/14/21 05/15/21 23:59 23:59 23:59 Intake Total 1450 / 1450 2012 400 / 400 Output Total 300 / 300 1974 525 / 525 Balance 1150 / 1150 38 / 38 -125 / -125 Lab / Micro Data Result Diagrams: 05/15/21 05:30 05/15/21 05:30 Labs: Laboratory Results - last 24 hr 05/13/21 10:03: Crossmatch See Detail 05/13/21 10:03: Crossmatch See Detail 05/15/21 05:30: WBC 3.6 L, RBC 2.68 L, Hgb 6.9 L, Hct 21.4 L, MCV 79.9 L, MCH 25.7 L, MCHC 32.2, RDW Std Deviation 46.9 H, RDW Coeff of Sharath 16.2 H, Plt Count 225, MPV 9.7, Immature Gran % (Auto) 0.300, Neut % (Auto) 54.1, Lymph % (Auto) 27.1, [place] % (Auto) 14.4 H, Eos % (Auto) 3.0, Baso % (Auto) 1.1 H, Absolute Neuts (auto) 2.0, Absolute Lymphs (auto) 0.98, Nucleated RBC % 0 05/15/21 05:30: Sodium 142, Potassium 2.9 L, Chloride 109 H, Carbon Dioxide 27.0, Anion Gap 6, BUN 8, Creatinine 0.75, Estim Creat Clear Calc 41.97, Est GFR (MDRD) Af Amer 97, Est GFR (MDRD) Non-Af 80, BUN/Creatinine Ratio 10.7, Glucose 96, Calcium 9.2 05/15/21 07:18: Blood Type B POSITIVE, Antibody Screen NEGATIVE, Crossmatch See Detail Micro: Microbiology 05/13/21 10:10 Stool Stool Occult Blood (SYDNEY) - Final Occult Blood Positive 05/13/21 09:10 Nasal Secretion SARS-CoV-2 Antigen (Rapid) - Final Radiography Diagnostic Testing: Radiology Impression Echocardiogram 05/14/21 15:46 Interpretation Summary The study was technically difficult. Left ventricular systolic function is normal. The estimated ejection fraction is 65 %. The left atrium is severely enlarged. The right atrium is severely enlarged. There is moderate mitral annular calcification. Extension of the mitral annular calcification onto the posterior mitral valve leaflet. Mild (1+) mitral valve insufficiency. Mild to moderate (1-2+) tricuspid valve insufficiency. Mild aortic stenosis. Right ventricular systolic pressure estimated to be 40 mmHg. Unable to assess diastolic dysfunction. ____ Ordering Physician: Mariah Lind Referring Physician: MARITA ALMEIDA Performed By: Stephanie Cui RDCS Physical Exam Const alert, oriented x3 and no apparent distress Constitutional Narrative: Morbidly obese older white female sitting up in bed on room air, watching television, appears comfortable, nontoxic General Appearance: cooperative Exam Limitations: no limitations Nutritional Appearance: morbidly obese HEENT normocephalic, head/scalp atraumatic, hearing grossly normal bilaterally and moist oral mucous membranes Head and Scalp: normocephalic Resp normal respiratory effort, no retractions, no use of accessory muscles and clear to auscultation bilaterally Resp Narrative: No shortness of breath Auscultation: Negative for crackles, rales, rhonchi or wheezes Cardio regular rate, regular rhythm, S1 normal heart sound, S2 normal heart sound, no rub, no gallops, no clicks and no JVD; Negative for no murmurs Cardio Narrative: 2 out of 6 systolic murmur loudest at the right upper sternal border GI normal to inspection, nondistended, normoactive bowel sounds, soft to palpation, non-tender and non-distended Extremity Extremity Narrative: Chronic bilateral lower extremity edema-pitting 1+, no cyanosis or clubbing Peripheral Pulses: Yes pulses 2+ throughout Skin no wounds, skin turgor normal, no jaundice, no petechiae and no mottling Skin Narrative: Much less pale, bilateral lower extremity skin changes consistent with chronic venous stasis Neuro oriented x3, moves all extremities and no focal motor deficits Neuro Narrative: Generalized weakness but no focal deficit Sensorium / Orientation: awake and alert Speech: speech normal Psych Psych Narrative: Very pleasant Assessment & Plan Assessment/Plan (1) ABLA (acute blood loss anemia): (2) GI bleed: (3) Hypokalemia: (4) Dyspnea: PLAN: Acute microcytic blood loss anemia -I suspect this is been a slow decrease over time given her hemoglobin on admission is 4.3 and given that she is hemodynamically stable--> hemoglobin had improved to 8.0--> but down to 6.9 today -Will transfuse 1 more unit packed red blood cells -With no obvious signs of blood loss suspect this is hemostatic equilibration -Transfuse 3 units packed red blood cells on 05/14/2021 with appropriate correction -Switch to Protonix oral 40 mg daily -Hold Xarelto for 2 weeks Upper/lower GI bleed secondary to multiple angiodysplastic lesions -Melanotic stool and Hemoccult positive on admission -Misoprostol 100 mg 4 times daily for 4 weeks -Full liquid diet and advance per GI -Hold Xarelto for 2 weeks -EGD done on 05/14/2021 and showed esophageal mucosal changes consistent with Reyes's, red blood in the stomach, 2 bleeding angiodysplastic lesions in the stomach that were treated with argon plasma coagulation, 3 bleeding angiodysplastic lesions in the duodenum that were treated with argon plasma coagulation, 2 nonbleeding angiodysplastic lesions in the jejunum that were treated with heater probe -Colonoscopy done on 05/14/2021 and showed fair prep with moderate sigmoid diverticulosis in the descending colon, splenic flexure and the transverse colon, diverticular spasm, 2 nonbleeding colonic angiodysplastic lesions treated with argon beam coagulation Reyes's esophagus -PPI Protonix 40 mg daily Dyspnea -Suspect secondary to her severe anemia -Much improved status post blood transfusion -Echocardiogram was performed and shows a normal EF with no wall motion abnormality, mild aortic stenosis, severe biatrial enlargement, and a right ventricular systolic pressure of 40 mmHg indicating mild pulmonary artery hypertension -TSH is within normal limits Hypokalemia -Replace with 60 mg p.o. twice daily x1 day -Repeat BMP in a.m. Hypertension/hyperlipidemia -Continue home medication Persistent atrial fibrillation -Continue Cardizem -Hold Xarelto Urinary incontinence -Continue oxybutynin PAH -Suspect who group 3 -Right ventricular systolic pressure at 40 mmHg indicating mild to moderate pulmonary hypertension -Continue home Lasix GERD -Protonix daily Cirrhosis -Noted on CT of her chest and her previous CT of her abdomen -Suspect this is related to Orr with her body habitus -Definitive diagnoses -No stigmata of liver disease on her lab or physical exam at this time History of nephrolithiasis -Patient has followed [facility] at [facility] -No current issues Morbid obesity -Recommend weight loss -BMI is 47.0 -Complicates treatment, prognosis, outcomes DVT prophylaxis -Chemoprophylaxis is contraindicated at this time related to Hemoccult positive stool and severe anemia -SCDs CODE STATUS -Full code Charges/Coding Visit Charges Inpatient E&M: 00097 Subs Hosp L2
--- NOTE | 2021-05-15 15:47 | CHAPLAIN ---
Type of Pastoral Visit _x__ Initial Visit ___ Follow-up Visit ___ On-call Visit ___ General Patient Visit ___ Spiritual Assessment ___ Family Conference ___ Bereavement ___ Rapid Response ___ Code Blue ___ Other (describe below) Pastoral Care Referral From _x__ Patient ___ Family ___ Nurse ___ Physician ___ Wallpaper Cleaner ___ Steel Post Installer ___ Other (describe below) Sacrament/Intervention _x__ Active listening ___ Anointing ___ Jewish ___ Bereavement ___ Communion _x__ Chikis exploration ___ _x__ Life review _x__ Prayer ___ Reconciliation ___ Sacrament of Sick _x__ Supportive presence ___ Wedding ___ Other (describe below) Pastoral Comments
[2021-05-15] MEDS: Sertraline 50 MG Tablet 25 MG PO (21:27)
[2021-05-15] MEDS: Atorvastatin Calcium 20 MG Tablet PO (21:27)
[2021-05-16 02:59] VITALS: PULSE 55
[2021-05-16 03:15] VITALS: BP 98/67; PULSE 62; RESP 17; TEMP 36.7; O2SAT 97
[2021-05-16 05:31] LABS: Absolute Lymphocyte Count 1.18 X10^3/uL (0.83-4.51); Absolute Neutrophil Count 2.8 X10^3/uL (2.0-7.7); Basophil# 0.05 X10^3/uL; Eosinophil# 0.14 X10^3/uL; Eosinophils% 2.9 % (0-5); Hematocrit 25.2 % (37-47); Hemoglobin 7.6 g/dL (12.0-15.0); Lymphocyte # 1.18 X10^3/ul (0.83-4.51); Lymphocyte % 24.7 % (19-41); Mean Corp Hgb Conc 30.2 g/dL (32-36); Mean Corpuscular Hgb 24.7 pg (27.0-32.0); Mean Corpuscular Volume 81.8 fL (81-99); Mean Platelet Vol. 9.4 fl (6.2-12.0); Monocyte# 0.62 X10^3/uL; NRBC Flagged by Analyzer 0 % (0-5); Neutrophil # 2.77 X10^3/uL (2.7-7.7); Neutrophil % 58.2 % (47-70); Platelet Count 237 K/mm3 (150-450); RBC Distribution Width CV 17.5 % (11.6-14.6); RBC Distribution Width SD 51.8 fl (35.1-43.9); Red Blood Count 3.08 M/mm3 (4.2-5.4); White Blood Count 4.8 K/mm3 (4.4-11.0)
[2021-05-16] MEDS: Oxybutynin 5 MG Tablet PO (05:31)
[2021-05-16 06:20] LABS: Anion Gap 7 (5-15); BUN 10 mg/dL (7-18); BUN/Creat Ratio 12.6 RATIO (10-20); Calcium,Total 9.3 mg/dL (8.5-10.1); Chloride 106 mmol/L (98-107); EST Glomerular Filtration Rate 75 mL/min (>60); Est Glom Filt Rate - Afr Amer 90 mL/min (>60); Estimated Creatinine Clearance 52.47 ml/min; Glucose 99 mg/dL (74-106); Sodium Level 139 mmol/L (136-145)
[2021-05-16 07:05] VITALS: PULSE 67
--- NOTE | 2021-05-16 07:36 | EX.PCM.PN.GI ---
Subjective Subjective Patient is still mildly short of breath. But it is improving. She did not have any signs of bleeding overnight. Objective Data Objective Data Vital Signs: Vital Signs Temp Pulse Resp BP Pulse Ox 98.0 F 67 17 98/67 97 05/16/21 03:15 05/16/21 07:05 05/16/21 03:15 05/16/21 03:15 05/16/21 03:15 Oxygen Flow Rate (L/min) 3 Oxygen Delivery Method CPAP Weight: 268 lb 11.896 oz Body Mass Index (BMI) 47.0 Intake & Output: Intake and Output for Last 24 Hours 05/14/21 05/15/21 05/16/21 23:59 23:59 23:59 Intake Total 2012 1260 / 1260 220 / 220 Output Total 1974 1775 / 1775 125 / 125 Balance 38 / 38 -515 / -515 95 / 95 Lab / Micro Data Result Diagrams: 05/16/21 05:24 05/16/21 05:24 Labs: Laboratory Results - last 24 hr 05/13/21 10:03: Crossmatch See Detail 05/15/21 07:18: Blood Type B POSITIVE, Antibody Screen NEGATIVE, Crossmatch See Detail 05/16/21 05:24: WBC 4.8, RBC 3.08 L, Hgb 7.6 L, Hct 25.2 L, MCV 81.8, MCH 24.7 L, MCHC 30.2 L D, RDW Std Deviation 51.8 H, RDW Coeff of Sharath 17.5 H, Plt Count 237, MPV 9.4, Immature Gran % (Auto) 0.200, Neut % (Auto) 58.2, Lymph % (Auto) 24.7, [place] % (Auto) 13.0 H, Eos % (Auto) 2.9, Baso % (Auto) 1.0, Absolute Neuts (auto) 2.8, Absolute Lymphs (auto) 1.18, Nucleated RBC % 0 05/16/21 05:24: Sodium 139, Potassium 4.0, Chloride 106, Carbon Dioxide 26.0, Anion Gap 7, BUN 10, Creatinine 0.80, Estim Creat Clear Calc 52.47, Est GFR (MDRD) Af Amer 90, Est GFR (MDRD) Non-Af 75, BUN/Creatinine Ratio 12.6, Glucose 99, Calcium 9.3 Micro: Microbiology 05/13/21 10:10 Stool Stool Occult Blood ([place]) - Final Occult Blood Positive 05/13/21 09:10 Nasal Secretion SARS-CoV-2 Antigen (Rapid) - Final Radiography Diagnostic Testing: Radiology Impression Echocardiogram 05/14/21 15:46 Interpretation Summary The study was technically difficult. Left ventricular systolic function is normal. The estimated ejection fraction is 65 %. The left atrium is severely enlarged. The right atrium is severely enlarged. There is moderate mitral annular calcification. Extension of the mitral annular calcification onto the posterior mitral valve leaflet. Mild (1+) mitral valve insufficiency. Mild to moderate (1-2+) tricuspid valve insufficiency. Mild aortic stenosis. Right ventricular systolic pressure estimated to be 40 mmHg. Unable to assess diastolic dysfunction. Ordering Physician: Mariah Lind Referring Physician: MARITA ALMEIDA Performed By: Stephanie Cui RDCS Physical Exam Const alert General Appearance: cooperative Orientation / Consciousness: oriented to person HEENT hearing grossly normal bilaterally Head and Scalp: normal to inspection Face and Sinus: face symmetric Nose: external nose normal Mouth: oral and palatal mucosa normal Eyes conjunctivae normal General Eye: normal appearance of both eyes Neck full ROM General: normal visual inspection Lymph Lymphatic: no lymphadenopathy noted Chest inspection of chest normal and palpation of chest normal Chest: symmetrical chest wall rise Resp normal respiratory effort Effort and Inspection: able to speak in complete sentences Cardio regular rate GI non-distended Percussion: normal to percussion Rectal Exam: deferred Neuro Speech: speech normal Gait (Neuro): normal gait Assessment & Plan Assessment/Plan (1) GI bleed: PLAN: If patient's hemoglobin is stable she may be be DC'd to home with close follow-up. She is not to take any anticoagulation or antiplatelet medicine for the next week. (2) ROBBINS (nonalcoholic steatohepatitis): PLAN: As an outpatient she will need to be started on ursodiol, vitamin E and possibly pioglitazone. She will also need a elastography to see if she has any signs of cirrhosis. I suspect that her underlying liver disease contributed to her GI bleed.
[2021-05-16 07:52] VITALS: O2SAT 90
[2021-05-16 08:59] VITALS: BP 113/54; PULSE 68; RESP 18; TEMP 36.6; O2SAT 96
[2021-05-16] MEDS: Potassium Chloride Oral Tablet 20 MEQ 60 MEQ PO (09:14)
[2021-05-16] MEDS: Furosemide 40 MG Tablet PO (09:14)
[2021-05-16] MEDS: dilTIAZem CD 180 MG Capsule PO (09:14)
[2021-05-16] MEDS: Multivitamins,Therapeutic Tablet 1 TABLET PO (09:14)
[2021-05-16] MEDS: Pantoprazole Sodium 40 MG Tablet PO (09:15)
[2021-05-16] MEDS: Cholecalciferol (VIT D3) 25 MCG TABLET (1,000 UNITS) 125 MCG PO (09:15)
--- NOTE | 2021-05-16 10:36 | NURSING ---
Read and reviewed SN documentation
--- NOTE | 2021-05-16 11:39 | DS.PCM_ITS ---
Providers Date of Admission: 05/13/21 Primary Care Physician: Dr. Tan Almeida MD Consultations 05/13/21 11:45 Consult: Gastroenterology Routine Consulting Provider: [facility] Reason for Consult: LGIB EMERGENT Consult: No MD Notified: Yes Date Notified: 05/13/21 Time Notified: 11:16 Method of Notification: Verbal Reason For Visit: LGIB/ SEVERE ACUTE ANEMIA Diagnosis Discharge Diagnosis (1) GI bleed: Status: Acute Code(s): K92.2 - Gastrointestinal hemorrhage, unspecified (2) ORR (nonalcoholic steatohepatitis): Status: Inactive Code(s): K75.81 - Nonalcoholic steatohepatitis (ORR) (3) ABLA (acute blood loss anemia): Status: Acute Code(s): D62 - Acute posthemorrhagic anemia Medications at Discharge Home Medications Xarelto 20 mg PO QHS 05/13/18 acetaminophen [Mapap Arthritis Pain] 650 mg PO PRN PRN 05/13/18 albuterol sulfate [Proventil HFA] 6.7 g IH PRN PRN 05/13/18 atorvastatin 20 mg PO QHS 05/13/18 diltiazem HCl 240 mg PO DAILY 05/13/18 furosemide 40 mg PO DAILY 05/13/18 multivitamin with folic acid [Thera] 1 tab PO DAILY 05/13/18 pantoprazole 40 mg PO DAILY 05/13/18 sertraline [Zoloft] 25 mg PO DAILY 05/13/18 cholecalciferol (vitamin D3) 125 mcg PO DAILY 05/13/21 oxybutynin chloride 5 mg PO TID 05/13/21 misoprostol 100 mcg SUBLINGUAL Q6H #120 tab 05/16/21 Hospital Course Procedures 2-D Echocardiogram, Blood transfusion, Colonoscopy and EGD Summary of Care Provided Minutes Spent on Discharge: 41 Hospital Course: Mrs. Pace is a 75-year-old white female who presented to the emergency department was [facility] on 05/13/2021 with a chief complaint of shortness of breath. At admission she had reported that over the last 2 to 3 weeks prior to admission she had been experiencing increased shortness of breath that had slowly worsened. She reported that up until Thursday of this past week she had been doing okay and making it through taking care of her self but on Thursday she developed such significant shortness of breath that she was having trouble doing self-care activities. She went to her primary care physician who had her scheduled for cardiac testing as there were some concerns with regards to her heart given her symptoms. She had been seen here at the end of March and had a CT that was fairly unremarkable and her hemoglobin at that time was 7.1. She has been chronically anticoagulated with Xarelto for atrial fibrillation and stroke prevention. She confirmed on admission that she had 2 black stools prior to coming in 1 on Thursday and 1 the day prior to admission. She reports her oral intake has not been great overall and she is just not been feeling hungry and run down. On admission she denied any abdominal pain, nausea, or vomiting. Her vital signs in the emergency department were overall unremarkable other than some mild tachypnea but her oxygen saturations were 95 to 98% on room air. Her CBC showed a normal white count but she had a marked microcytic anemia with a hemoglobin of 4.3 and an MCV of 77.6. Her platelet count was normal. Her BMP was unremarkable with a normal serum creatinine as well as a normal ratio. Her troponin was normal. Her BNP was mildly elevated at 107.4. Her chest x-ray showed no acute processes. A CTA of her chest was performed and showed bibasilar atelectasis, cardiomegaly, and a dilated pulmonary artery suggestive of PAH and also demonstrated cirrhosis and ascites in the abdomen. Given her marked hemoglobin she was transfused 2 units of packed red blood cells and a third was added and she was admitted to PCU and a consultation to gastroenterology was placed. She was also placed on IV Protonix 40 mg IV push twice daily. Her Xarelto was held on admission. An EEG and colonoscopy were performed on 05/14/2021. Her EGD showed esophageal mucosal changes suspicious for Reyes's esophagus in the lower third, red blood in the stomach, two 5 mm bleeding angiodysplastic lesions in the stomach for which she underwent argon plasma coagulation, 3 bleeding angiodysplastic lesions in the duodenum for which she received the same treatment, and to nonbleeding angiodysplastic lesions in the jejunum that were treated with heater probe. For this she was started on misoprostol 100 mcg p.o. 4 times daily and to continue this for 4 weeks. Her colonoscopy demonstrated moderate diverticulosis of the sigmoid, descending, splenic flexure and transverse colon but no signs of diverticular bleeding and 2 nonbleeding colonic angiodysplastic lesions that were treated with argon beam coagulation. Her shortness of breath did improve with transfusion however she did have a cardiac murmur on exam and an echocardiogram was therefore performed. Her echocardiogram showed an EF of 65% with no wall motion abnormality, severe biatrial enlargement, mild mitral valve insufficiency, mild to moderate tricuspid valve insufficiency and mild pulmonary artery hypertension with a right ventricular systolic pressure of 40 mmHg. She was able to tolerate a p.o. diet without any issues. With regards to her liver it is likely she has Orr and GI has recommended outpatient follow-up with them for this as well as her GI bleeding. No medication changes were made at this time with regards to her liver disease. She was discharged home in stable condition on 05/16/2021. She is to follow-up with gastroenterology in 1 to 2 weeks and with her primary care physician in 1 week. Discharge diagnoses: Acute microcytic blood loss anemia secondary to GI bleed Upper and lower GI bleed secondary to multiple angiodysplastic lesions Reyes's esophagus ORR with cirrhosis Mild aortic stenosis Hypokalemia-resolved Hypertension Hyperlipidemia Persistent atrial fibrillation Urinary incontinence Mild PAH GERD History nephrolithiasis Morbid obesity Physical Exam Const alert, oriented x3 and no apparent distress Constitutional Narrative: Morbidly obese older white female sitting up in bed on room air, watching television, appears comfortable, nontoxic, registered nursing professor at bedside General Appearance: cooperative, comfortable, well kempt and well developed Orientation / Consciousness: awake Exam Limitations: no limitations Nutritional Appearance: morbidly obese HEENT normocephalic, head/scalp atraumatic, hearing grossly normal bilaterally and moist oral mucous membranes HEENT Narrative: Mallampati 3, no thrush, dentition is poor Eyes PERRL and EOMs intact bilaterally Eyes Narrative: Conjunctival pallor, no scleral icterus Neck no lymphadenopathy, supple, no JVD and no carotid bruits Neck Narrative: Trachea midline, short thick neck, no thyroid enlargement noted Resp normal respiratory effort, no retractions, no use of accessory muscles and clear to auscultation bilaterally Resp Narrative: No shortness of breath Auscultation: Negative for crackles, rales, rhonchi or wheezes Cardio regular rate, regular rhythm, S1 normal heart sound, S2 normal heart sound, no rub, no gallops, no clicks and no JVD; Negative for no murmurs Cardio Narrative: 2 out of 6 systolic murmur loudest at the right upper sternal border GI normal to inspection, nondistended, normoactive bowel sounds, soft to palpation, non-tender and non-distended Extremity Extremity Narrative: Chronic bilateral lower extremity edema-pitting 1+, no cyanosis or clubbing Skin no wounds, skin turgor normal, no jaundice, no petechiae and no mottling Skin Narrative: Color has improved significantly, bilateral lower extremity skin changes consistent with chronic venous stasis Neuro oriented x3, CN's II-XII intact bilaterally, moves all extremities and no focal motor deficits Neuro Narrative: Generalized weakness but no focal deficit Sensorium / Orientation: awake and alert Speech: speech normal Psych affect normal Psych Narrative: Very pleasant Weight / BMI Weight Weight: 121.9 kg Body Mass Index (BMI) 47.0 ABG / Lab / Microbiology Data Result Diagrams: 05/16/21 05:24 05/16/21 05:24 Laboratory: Laboratory Results - last 24 hr 05/13/21 10:03: Crossmatch See Detail 05/15/21 07:18: Blood Type B POSITIVE, Antibody Screen NEGATIVE, Crossmatch See Detail 05/16/21 05:24: WBC 4.8, RBC 3.08 L, Hgb 7.6 L, Hct 25.2 L, MCV 81.8, MCH 24.7 L , MCHC 30.2 L D, RDW Std Deviation 51.8 H, RDW Coeff of Sharath 17.5 H, Plt Count 237, MPV 9.4, Immature Gran % (Auto) 0.200, Neut % (Auto) 58.2, Lymph % (Auto) 24.7, [place] % (Auto) 13.0 H, Eos % (Auto) 2.9, Baso % (Auto) 1.0, Absolute Neuts (auto) 2.8, Absolute Lymphs (auto) 1.18, Nucleated RBC % 0 05/16/21 05:24: Sodium 139, Potassium 4.0, Chloride 106, Carbon Dioxide 26.0, Anion Gap 7, BUN 10, Creatinine 0.80, Estim Creat Clear Calc 52.47, Est GFR (MDRD) Af Amer 90, Est GFR (MDRD) Non-Af 75, BUN/Creatinine Ratio 12.6, Glucose 99, Calcium 9.3 Microbiology: Microbiology 05/13/21 10:10 Stool Stool Occult Blood ([place]DNEY) - Final Occult Blood Positive 05/13/21 09:10 Nasal Secretion SARS-CoV-2 Antigen (Rapid) - Final Radiography Diagnostic Testing: Radiology Impression Echocardiogram 05/14/21 15:46 Interpretation Summary The study was technically difficult. Left ventricular systolic function is normal. The estimated ejection fraction is 65 %. The left atrium is severely enlarged. The right atrium is severely enlarged. There is moderate mitral annular calcification. Extension of the mitral annular calcification onto the posterior mitral valve leaflet. Mild (1+) mitral valve insufficiency. Mild to moderate (1-2+) tricuspid valve insufficiency. Mild aortic stenosis. Right ventricular systolic pressure estimated to be 40 mmHg. Unable to assess diastolic dysfunction. Ordering Physician: Mariah Lind Referring Physician: TAN ALMEIDA Performed By: Stephanie Cui RDCS D/C Instructions Discharge Diet: Low fat / Low cholesterol Meaningful Use Info Meaningful Use Diagnoses (Choose all that apply): None applicable Discharge Plan Admission Admit Date/Time: 05/13/21 11:05 Primary Reason for Your Visit: Shortness of breath Attending Provider: Mariah Lind Primary Care Provider: Tan Almeida Instructions Additional Instructions / Restrictions: 1. Hold Xarelto for 2 weeks 2. Follow-up with gastroenterology as noted below Discharge Orders/Prescriptions Prescriptions: New misoprostol 100 mcg tablet 100 mcg sublingual Q6H Qty: 120 RF: 0 Continued furosemide 40 MG tablet 40 mg PO DAILY RF: 0 atorvastatin 20 MG tablet 20 mg PO QHS RF: 0 diltiazem HCl 180 MG capsule 240 mg PO DAILY RF: 0 acetaminophen [Mapap Arthritis Pain] 650 MG tablet extended release 650 mg PO PRN PRN (Reason: Pain) RF: 0 albuterol sulfate [Proventil HFA] 6.7 GM HFA aerosol inhaler 6.7 g IH PRN PRN (Reason: SHORTNESS OF BREATH) RF: 0 multivitamin with folic acid [Thera] 1 TABLET tablet 1 tab PO DAILY RF: 0 pantoprazole 40 MG tablet 40 mg PO DAILY RF: 0 sertraline [Zoloft] 25 MG tablet 25 mg PO DAILY RF: 0 oxybutynin chloride 5 mg Tablet 5 mg PO TID RF: 0 cholecalciferol (vitamin D3) 125 mcg (5,000 unit) Tablet 125 mcg PO DAILY RF: 0 Held Xarelto 20 MG tablet 20 mg PO QHS RF: 0 Hold Instructions: Resume on 05/29/21. Referrals / Follow Up: Tan Almeida MD [Primary Care Provider] - 05/20/21 1:20 pm Arturo Melendez DO [STAFF PHYSICIAN] - In 1 Week Disposition Disposition (needs filled in before D/C Order can be placed): Home, Self Care Charges/Coding Visit Charges Inpatient E&M: 64889 Disch Hosp
--- NOTE | 2021-05-16 12:11 | CASEMGMT ---
This RN CM to room and pt declines need for any further therapy at discharge. Pt states no further questions/concerns/needs. [place] RN CM
== END 2021-05-16 13:48 | disposition home or self-care (01) | DRG 378 ==
LOC: ED 11:18 → PCU 11:26
PROVIDERS: Internal Medicine Gastroenterology; Admitting Provider Internal Medicine; Emergency Provider Emergency Medicine; PCP Internal Medicine; Visit Provider Internal Medicine
PROC: 0DJD8ZZ Inspection of Lower Intestinal Tract, Via Natural or Artificial Opening Endoscopic (ICD-10-PCS; CPT 45378; principal; 2021-05-14 14:45)
DX: K31.811 Angiodysplasia of stomach and duodenum with bleeding (principal); D62 Acute posthemorrhagic anemia; I48.19 Other persistent atrial fibrillation; Z68.42 Body mass index [BMI] 45.0-49.9, adult; K55.20 Angiodysplasia of colon without hemorrhage; K57.30 Diverticulosis of large intestine without perforation or abscess without bleeding; E87.6 Hypokalemia; K75.81 Nonalcoholic steatohepatitis (NASH); K22.70 Barrett's esophagus without dysplasia; I11.0 Hypertensive heart disease with heart failure; I50.9 Heart failure, unspecified; Z20.822 Contact with and (suspected) exposure to COVID-19; I27.21 Secondary pulmonary arterial hypertension; E78.5 Hyperlipidemia, unspecified; R32 Unspecified urinary incontinence; K21.9 Gastro-esophageal reflux disease without esophagitis; G47.33 Obstructive sleep apnea (adult) (pediatric); E66.01 Morbid (severe) obesity due to excess calories; F32.A Depression, unspecified; Z87.891 Personal history of nicotine dependence; Z79.02 Long term (current) use of antithrombotics/antiplatelets; Z79.82 Long term (current) use of aspirin
CPT/HCPCS: 36415; 71045; 71260; 80048; 80053; 82274; 83735; 83880; 84100; 84443; 84484; 85014; 85018; 85025; 86850; 86900; 86901; 86920; 86922; 87426; 93005; 93306; 97162; 97802; 99251; 99285; J7040; J7120; P9016; P9040; Q9957; Q9967; A4216; C8929; G0463; J1940; J3490

== ENCOUNTER → 2021-05-28 10:10 | Outpatient (CLI) | payer MEDICARE, SELFPAY ==
[2021-05-28 11:08] LABS: Absolute Lymphocyte Count 0.92 X10^3/uL (0.83-4.51); Absolute Neutrophil Count 2.6 X10^3/uL (2.0-7.7); Basophil# 0.06 X10^3/uL; Basophil% 1.5 % (0-1); Eosinophil# 0.08 X10^3/uL; Hematocrit 27.6 % (37-47); Hemoglobin 8.3 g/dL (12.0-15.0); Lymphocyte # 0.92 X10^3/ul (0.83-4.51); Lymphocyte % 22.5 % (19-41); Mean Corp Hgb Conc 30.1 g/dL (32-36); Mean Corpuscular Hgb 24.9 pg (27.0-32.0); Mean Corpuscular Volume 82.9 fL (81-99); Mean Platelet Vol. 9.7 fl (6.2-12.0); Monocyte# 0.39 X10^3/uL; Monocyte% 9.6 % (0-10); NRBC Flagged by Analyzer 0 % (0-5); Neutrophil # 2.62 X10^3/uL (2.7-7.7); Neutrophil % 64.2 % (47-70); Platelet Count 229 K/mm3 (150-450); RBC Distribution Width CV 18.6 % (11.6-14.6); RBC Distribution Width SD 56.1 fl (35.1-43.9); Red Blood Count 3.33 M/mm3 (4.2-5.4); White Blood Count 4.1 K/mm3 (4.4-11.0)
[2021-05-28 11:52] LABS: ALB/GLOB Ratio 0.7 RATIO (0.9-2.4); AST(SGOT) 18 U/L (15-37); Alanine Aminotransfer ALT/SGPT 15 U/L (13-56); Albumin, Serum 2.8 g/dL (3.2-5.0); Alkaline Phosphatase 124 U/L (45-117); Anion Gap 5 (5-15); BUN 13 mg/dL (7-18); BUN/Creat Ratio 18.2 RATIO (10-20); Calcium,Total 9.6 mg/dL (8.5-10.1); Chloride 109 mmol/L (98-107); Creatinine, Serum 0.71 mg/dL (0.55-1.02); EST Glomerular Filtration Rate 85 mL/min (>60); Est Glom Filt Rate - Afr Amer 103 mL/min (>60); Globulin 4.2 g/dL (2.2-4.2); Glucose 126 mg/dL (74-106); Potassium 3.3 mmol/L (3.5-5.1); Sodium Level 141 mmol/L (136-145)
== END ==
PROVIDERS: PCP Internal Medicine; Referring Provider Internal Medicine; Visit Provider Internal Medicine
DX: K31.811 Angiodysplasia of stomach and duodenum with bleeding (principal); R06.00 Dyspnea, unspecified
CPT/HCPCS: 36415; 80053; 85025

== ENCOUNTER → 2021-06-06 09:43 | Outpatient (CLI) | payer MEDICARE, SELFPAY ==
--- NOTE | 2021-06-06 09:49 | US_ITS ---
STUDY: ABDOMINAL ULTRASOUND - ELASTOGRAPHY REASON FOR VISIT: Female, 75 years old. ROBBINS. TECHNIQUE: Liver stiffness measurements were obtained on a [employer] RS 85 ultrasound machine using a CA 1-7 probe following the SRU guidelines. 3 measurements were obtained using a 2-D-SWE method. The IQR/M was 25% suggesting a quality data set. TECHNICAL QUALITY: Adequate. COMPARISON: Comparison is made with prior examination done earlier today. FINDINGS: Liver: There is evidence of cirrhosis. Ascites. Median liver stiffness measured 9 kPa. US/Elastography Parenchyma/Organ IMPRESSION: Liver stiffness measures 9 kPa compatible with F3 Metavir score. Electronically Signed: Matthew Rivas MD at 10:25 EST , Service support ,
--- NOTE | 2021-06-06 09:49 | US_ITS ---
STUDY: ABDOMINAL ULTRASOUND - RIGHT UPPER QUADRANT REASON FOR VISIT: Female, 75 years old ROBBINS -- Liver TECHNIQUE: Ultrasound evaluation of the right upper quadrant was performed with real-time and static ross-scale imaging. TECHNICAL QUALITY: Adequate. COMPARISON: Comparison is made with prior CT scan abdomen and pelvis dated 04/05/2021. FINDINGS: Liver: The liver measures 18.1 cm. There is a heterogeneous echogenicity of the liver. Lobular contour of the liver suggestive of cirrhosis. Small amount of perihepatic fluid and ascites. The bile ducts are within normal limits. There is hepatic color flow. The direction of portal flow is hepatopetal. There is no demonstrated mass lesion. Gallbladder: The patient is status post cholecystectomy. Common Bile Duct (C.B.D.): The common bile duct measures 1.9 mm. Pancreas: There is nonvisualization of the pancreas due to overlying bowel gas. Right Kidney: Normal size of the right kidney. The right kidney measures 11.4 cm x 5.3 cm x 6.2 cm. Normal renal cortex. The right cortex measures 1.3 cm. There is no demonstrated renal mass or cyst. There is no right hydronephrosis. US/Abdomen Limited IMPRESSION: Cirrhosis. Ascites. Electronically Signed: Matthew Rivas MD at 10:20 EST , Service support ,
== END ==
PROVIDERS: PCP Internal Medicine; Visit Provider Internal Medicine Gastroenterology
DX: K75.81 Nonalcoholic steatohepatitis (NASH) (principal)
CPT/HCPCS: 76705; 76981

== ENCOUNTER 2021-06-27 08:45 | Day surgery (SDC) | payer MEDICARE, SELFPAY ==
[2021-06-27] VITALS (7 sets, daily range): BP systolic 122–152; BP diastolic 57–79; PULSE 70–80; RESP 16; TEMP 36.8–37.5; O2SAT 90–93; BMI 50.8
--- NOTE | 2021-06-27 | IMM_PTH ---
PATIENT: RADHA SMITH LOC: EN U#:[id number] AGE/SX: 75/F ROOM: RE06/27/[address]: Dr. Arturo Melendez DO : 1945 BED: DIS: 06/27/2021 SPEC #: [id number] RECD: 07/01/21 12:35 STATUS: DAYANA REQ #: [id number] SIOMARA: 06/27/21 00:[address]: Arturo Melendez DEPT: IMMUNOHISTOCHEMISTRY RECD BY: Nneka Lundberg ENTERED: 07/01/21 12:36 SP TYPE: IMMUNO OTHR DR: Dr. Tan Hernandez MD Tissues: Esophagus, NOS Procedures: P53 (initial) KI-67 (add) PHYSICIAN & INSTITUTION [place] [id number] SPECIMEN INFORMATION: Tissue Source: Distal esophagus Clinical Info: GERD, Reyes?s esophagus, GI bleed Specimen Number: [id number] CPT code: 10217, 45059 METHODOLOGY: Deparaffinized sections of prefer/formalin-fixed tissue or PAP/DQ stained slides are incubated with monoclonal/polyclonal antibodies/oligonucleotide probes. Localization is made via biotin free immunoperoxidase method. Appropriate controls are performed and reacted as expected. Results on target cell population are indicated in the following table: RESULTS: ANTIBODY / CLONE RESULT P53 (DO-7) negative Ki-67 (30-9) positive, low These tests were developed and their performance characteristics determined by [facility]. They may not have been cleared or approved by the U.S. Food and Drug Administration. The FDA has determined that such clearance or approval is not necessary. The above immunohistochemical/dualISH markers are ordered and reviewed by the Pathologist. INTERPRETATION: Distal esophagus, biopsy: No evidence of dysplasia. AM:fernanda 07/02/2021
[2021-06-27] MEDS: Lactated Ringers 1,000 ML 15 ML IV (09:28)
--- NOTE | 2021-06-27 09:52 | HP.PCM_ITS ---
History and Physical Date of Admission: 06/27/21 75 F who presents to the office today for Last seen as hospital inpatient 05/16/21 for evaluation of GIB and ROBBINS. Symptoms were improving with no bleeding reported and was discharged home 05/16/21. GIB ? no antiplatelet or anticoagulation medications for one week. ROBBINS ? possible start of ursodiol, vitamin E and possibly actos. Requires elastography. Underlying liver disease may have contributed to GIB. Feels she is overall doing better but continues to be weak and requires extra time to perform ADL. Denies blood in stool. Some bloodwork performed yesterday shows that she is hypokalemic (3.3) and low chloride (109). AST and ALT normal, Alkaline phosphate elevated 124. ROS Cardio Cardiology: Positive for dyspnea on exertion Musc Musculoskeletal: Positive for stiffness and Arthritis Edil/Lymp Hematologic/Lymphatic: Positive for easy bruising Exam Const General: cooperative and comfortable Nutritional Appearance: average body habitus and well nourished HENMT Head: normal to inspection Ears: hearing grossly normal bilaterally Nose: external nose normal Face and sinus: normal facial exam Mouth: oral mucosae normal Throat: posterior oropharynx normal Eyes General: appearance normal, both eyes and all related structures Neck Neck: normal visual inspection Chest Chest palpation & inspection: normal inspection of the chest and normal palpation of entire chest wall Resp Effort & Inspection: normal respiratory effort Auscultation: Bilateral: Clear to Auscultation Cardio Palpation: normal PMI Rate: regular rate Rhythm: regular rhythm GI Inspection: normal to inspection Auscultation: normal bowel sounds Percussion: normal to percussion Palpation: no hepatosplenomegaly Skin General: no rashes or lesions noted Neuro General: patient alert Extrem General: normal to inspection Psych Affect: normal affect Quality Reporting Tobacco Screening ([facility] 138) Smoking Status: Former smoker Assessment and Plan Assessment and Plan (1) GERD (gastroesophageal reflux disease): Status: Acute Plan - Dr. Morris Friend, DO: GERD is doing very well on PPI therapy. We will continue that for the next 3 months. (2) Reyes's esophagus: Status: Acute Orders: Orders: HIV - [facility] Today Plan - Dr. Morris Friend, DO: We will evaluate her Reyes's esophagus on next upper endoscopy in 2 months. Her previous endoscopy annual Reyes's esophagus without dysplasia. (3) GI bleed: Status: Acute Orders: Orders: EGD Today Plan - Dr. 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 We will perform upper endoscopy. She is okay to restart her I have re-examined the patient. There are no clinical changes since date of exam.
--- NOTE | 2021-06-27 10:00 | EGD_PTH ---
PATIENT: RADHA SMITH LOC: EN U#:[id number] AGE/SX: 75/F ROOM: RE06/27/[address]: Dr. Arturo Melendez DO : 1945 BED: DIS: 06/27/2021 SPEC #: [id number] RECD: 06/27/21 14:12 STATUS: DAYANA GABE #: [id number] SIOMARA: 06/27/21 10:[address]: Arturo Melendez DEPT: SURGICAL PATHOLOGY RECD BY: Mili Alonzo ENTERED: 06/28/21 11:24 SP TYPE: EGD BIOPSY OT DR: Dr. aTn Hernandez MD Tissues: Esophagus, NOS Procedures: Surgery Specimen Level IV HEADER OPERATION: EGD ([facility] [place]) with biopsy PRE-OP DIAGNOSIS: GERD, Reyes?s esophagus, GI bleed TISSUE SUBMITTED: Biopsy of distal esophagus MICROSCOPIC DIAGNOSIS Distal esophagus, biopsy: Gastroesophageal junctional mucosa with chronic inflammation. Focal goblet cell metaplasia consistent with Reyes?s esophagus. No evidence of dysplasia. See comment. AM:fernanda 07/01/2021 COMMENT Alcian blue/PAS stain with matched control supports the above diagnosis. Immunohistochemistry ([id number]) for P53 and Ki-67 will be performed and results will be reported separately. MICROSCOPIC DESCRIPTION Slides are reviewed. GROSS DESCRIPTION Received in fixative is one container labeled with the patient's name and designated distal esophagus biopsy. The specimen consists of two irregular fragments of light erickson soft tissue that in aggregate measure 0.6 x 0.3 x .1 cm. The specimen is totally submitted in one cassette. / SJ:fernanda 06/28/2021 TC:3 CPT: 39866, 88774
--- NOTE | 2021-06-27 10:15 | OP.EGD_ITS ---
Patient Name: Odette Pace Procedure Date: 06/27/2021 9:59 AM Date of : 1945 Age: 75 Procedure: Upper GI endoscopy Indications: Iron deficiency anemia, Heartburn Providers: Arturo Melendez DO Referring MD: Tan Hernandez Medicines: See the Anesthesia note for documentation of the administered medications Patient Profile: This is a 75 year old female. Refer to note in patient chart for documentation of history and physical. Patient has symptoms of chronic heartburn. Complications: No immediate complications. Procedure: Pre-Anesthesia Assessment: - Prior to the procedure, a History and Physical was performed, and patient medications and allergies were reviewed. The patient is competent. The risks and benefits of the procedure and the sedation options and risks were discussed with the patient. All questions were answered and informed consent was obtained. Patient identification and proposed procedure were verified by the physician in the pre-procedure area. Mental Status Examination: alert and oriented. Airway Examination: normal oropharyngeal airway and neck mobility. Respiratory Examination: clear to auscultation. CV Examination: normal. Prophylactic Antibiotics: The patient does not require prophylactic antibiotics. Prior Anticoagulants: The patient has taken no previous anticoagulant or antiplatelet agents. ASA Grade Assessment: II - A patient with mild systemic disease. After reviewing the risks and benefits, the patient was deemed in satisfactory condition to undergo the procedure. The anesthesia plan was to use moderate sedation / analgesia (conscious sedation). Immediately prior to administration of medications, the patient was re-assessed for adequacy to receive sedatives. The heart rate, respiratory rate, oxygen saturations, blood pressure, adequacy of pulmonary ventilation, and response to care were monitored throughout the procedure. The physical status of the patient was re-assessed after the procedure. After obtaining informed consent, the endoscope was passed under direct vision. Throughout the procedure, the patient's blood pressure, pulse, and oxygen saturations were monitored continuously. The Endoscope was introduced through the mouth, and advanced to the second part of duodenum. The upper GI endoscopy was accomplished without difficulty. The patient tolerated the procedure well. Moderate Sedation: Moderate (conscious) sedation was administered by the endoscopy nurse and supervised by the endoscopist. The patient's oxygen saturation, heart rate, blood pressure and response to care were monitored. Total physician intraservice time was 15 minutes. Scope In: 10:07:47 AM Scope Out: 10:10:57 AM Total Procedure Duration Time 0 hours 3 minutes 10 seconds Findings: There were esophageal mucosal changes suspicious for short-segment Reyes's esophagus present in the lower third of the esophagus. The maximum longitudinal extent of these mucosal changes was 3 cm in length. Mucosa was biopsied with a cold forceps for histology in a targeted manner at intervals of 1 cm in the lower third of the esophagus. One specimen bottle was sent to pathology. Verification of patient identification for the specimen was done. Estimated blood loss was minimal. Severe portal hypertensive gastropathy was found in the entire examined stomach. Moderate gastric antral vascular ectasia was present in the gastric antrum. The second portion of the duodenum was normal. Impression: - Esophageal mucosal changes suspicious for short-segment Reyes's esophagus. Biopsied. - Portal hypertensive gastropathy. - Gastric antral vascular ectasia. - Normal second portion of the duodenum. Recommendation: - Discharge patient to home. - Resume previous diet. - Continue present medications. - Await pathology results. - Repeat upper endoscopy in 1 year for surveillance. - Return to GI office. Procedure Code(s): --- Professional --- 20370, Esophagogastroduodenoscopy, flexible, transoral; with biopsy, single or multiple 84453, 59, Moderate sedation services provided by the same physician or other qualified health nursing care partner performing the diagnostic or therapeutic service that the sedation supports, requiring the presence of an independent trained observer to assist in the monitoring of the patient's level of consciousness and physiological status; initial 15 minutes of intraservice time, patient age 5 years or older CPT copyright 2017 [employer]. All rights reserved. The codes documented in this report are preliminary and upon telecommunication equipment repairer review may be revised to meet current compliance requirements. Arturo Melendez DO 06/27/2021 10:15:15 AM This report has been signed electronically. Number of Addenda: 1 Note Initiated On: 06/27/2021 9:59 AM Addendum Number: 1 Addendum Date: 02/13/2022 6:21:07 AM MAC was used instead of moderate sedation for the patient. Arturo Melendez DO 02/13/2022 6:21:11 AM This report has been signed electronically.
--- NOTE | 2021-06-27 10:16 | OP.CCLET_ITS ---
02/13/2022 Tan Hernandez Re : Upper GI endoscopy procedure for Odette Pace Dear Mary This procedure was performed on June. My impressions and recommendations are as follows: Impressions : - Esophageal mucosal changes suspicious for short-segment Reyes's esophagus. Biopsied. - Portal hypertensive gastropathy. - Gastric antral vascular ectasia. - Normal second portion of the duodenum. Recommendations : - Discharge patient to home. - Resume previous diet. - Continue present medications. - Await pathology results. - Repeat upper endoscopy in 1 year for surveillance. - Return to GI office. My findings are described in the full procedure note, which is enclosed. If I can be of further assistance, please feel free to contact me at . Sincerely, Arturo Friend, 06/27/2021 10:15:15 AM This report has been signed electronically.
== END 2021-06-27 23:59 | disposition home or self-care (01) ==
LOC: EN 08:46 → AC 08:49
PROVIDERS: PCP Internal Medicine; Referring Provider Internal Medicine; Visit Provider Internal Medicine Gastroenterology
PROC: 0DJ08ZZ Inspection of Upper Intestinal Tract, Via Natural or Artificial Opening Endoscopic (ICD-10-PCS; CPT 43235; principal; 2021-06-27 09:55)
DX: K22.70 Barrett's esophagus without dysplasia (principal); I50.9 Heart failure, unspecified; I11.0 Hypertensive heart disease with heart failure; I48.91 Unspecified atrial fibrillation; I35.0 Nonrheumatic aortic (valve) stenosis; K21.9 Gastro-esophageal reflux disease without esophagitis; K31.89 Other diseases of stomach and duodenum; K31.819 Angiodysplasia of stomach and duodenum without bleeding; D50.9 Iron deficiency anemia, unspecified; M19.90 Unspecified osteoarthritis, unspecified site; E78.00 Pure hypercholesterolemia, unspecified; Z79.01 Long term (current) use of anticoagulants; Z79.899 Other long term (current) drug therapy; Z87.891 Personal history of nicotine dependence
CPT/HCPCS: 43239; 88305; 88341; 88342; J7120; J2405

== ENCOUNTER 2021-07-23 12:22 | Outpatient (CLI) | payer MEDICARE, SELFPAY ==
[2021-07-23 13:44] LABS: Erythrocyte Sedimentation Rate 31 mm/hr (0-30)
[2021-07-23 13:47] LABS: Absolute Neutrophil Count 2.9 X10^3/uL (2.0-7.7); Basophil# 0.06 X10^3/uL; Basophil% 1.3 % (0-1); Eosinophils% 2.2 % (0-5); Hematocrit 26.2 % (37-47); Lymphocyte % 25.9 % (19-41); Mean Corp Hgb Conc 30.5 g/dL (32-36); Mean Corpuscular Volume 81.9 fL (81-99); Mean Platelet Vol. 10.1 fl (6.2-12.0); Monocyte# 0.37 X10^3/uL; NRBC Flagged by Analyzer 0 % (0-5); Neutrophil # 2.88 X10^3/uL (2.7-7.7); Neutrophil % 62.2 % (47-70); POSITIVE MORPHOLOGY YES; Platelet Count 260 K/mm3 (150-450); RBC Distribution Width CV 20.5 % (11.6-14.6); White Blood Count 4.6 K/mm3 (4.4-11.0)
[2021-07-23 13:59] LABS: Differential Indicated SCAN CRITERIA MET
[2021-07-23 14:14] LABS: ALB/GLOB Ratio 0.7 RATIO (0.9-2.4); AST(SGOT) 20 U/L (15-37); Alanine Aminotransfer ALT/SGPT 15 U/L (13-56); Alkaline Phosphatase 153 U/L (45-117); Anion Gap 4 (5-15); BUN 12 mg/dL (7-18); BUN/Creat Ratio 17.1 RATIO (10-20); Calcium,Total 9.4 mg/dL (8.5-10.1); Chloride 108 mmol/L (98-107); EST Glomerular Filtration Rate 86 mL/min (>60); Est Glom Filt Rate - Afr Amer 104 mL/min (>60); Ferritin 41 ng/mL (8-252); Globulin 4.6 g/dL (2.2-4.2); Glucose 90 mg/dL (74-106); LDH 184 U/L (84-246); Potassium 3.4 mmol/L (3.5-5.1); Protein, Total 7.6 g/dL (6.4-8.2); Sodium Level 139 mmol/L (136-145)
[2021-07-23 14:16] LABS: Hemoglobin A1c 5.9 % (3.8-5.6)
[2021-07-23 14:22] LABS: Anisocytosis 1+
[2021-07-23 14:49] LABS: HIV - WCH Non-Reactive (Nonreactive)
[2021-07-25 15:08] LABS: Anti-Centromere B Ab <0.2 AI (0.0-0.9); Anti-Chromatin <0.2 AI (0.0-0.9); Anti-Jo <0.2 AI (0.0-0.9); Anti-Scleroderma-70 AB <0.2 AI (0.0-0.9); RNP Ab 0.4 AI (0.0-0.9); SJOGREN'S Anti-SS-A test < 0.2 AI (0.0-0.9); SJOGREN'S Anti-SS-B test < 0.2 AI (0.0-0.9); Smith Ab <0.2 AI (0.0-0.9)
[2021-07-25 17:39] LABS: Anti-dsDNA Ab 1 IU/mL (0-9)
[2021-07-28 13:06] LABS: Angiotensin Convert Enzyme 42 U/L (14-82); Ceruloplasmin 41.2 mg/dL (19.0-39.0); Cytoplasmic Ab (C-ANCA) <1:20 titer (Neg:<1:20); HEPATITIS B SURFACE AG Negative (Negative); Hepatitis A IgM Antibody Negative (Negative); Hepatitis B Core AB IgM Negative (Negative); Immunoglobulin A 450 mg/dL (64-422); Immunoglobulin E 44 IU/mL (6-495); Immunoglobulin G 1555 mg/dL (586-1602); Immunoglobulin M 70 mg/dL (26-217)
[2021-07-28 17:07] LABS: Anti-Smooth Muscle ABS 8 Units (0-19); Copper, Serum or Plasma 234 ug/dL (80-158); Haptoglobin 227 mg/dL (42-346); Hep C Antibodies <0.1 s/co ratio (0.0-0.9); Perinuclear Ab (P-ANCA) <1:20 titer (Neg:<1:20)
== END 2021-07-23 23:59 | disposition home or self-care (01) ==
LOC: LAB 12:23
PROVIDERS: PCP Internal Medicine; Referring Provider Internal Medicine Gastroenterology; Visit Provider Internal Medicine Gastroenterology
DX: K75.81 Nonalcoholic steatohepatitis (NASH) (principal); K22.70 Barrett's esophagus without dysplasia
CPT/HCPCS: 36415; 80053; 80074; 82164; 82390; 82525; 82728; 82784; 82785; 83010; 83036; 83516; 83615; 85025; 85652; 86140; 86225; 86235; 86256; 86703

== ENCOUNTER 2021-09-25 12:02 | Outpatient (CLI) | payer MEDICARE, SELFPAY ==
[2021-09-25 12:23] LABS: Absolute Lymphocyte Count 1.04 X10^3/uL (0.83-4.51); Absolute Neutrophil Count 2.3 X10^3/uL (2.0-7.7); Basophil# 0.06 X10^3/uL; Basophil% 1.6 % (0-1); Eosinophil# 0.09 X10^3/uL; Eosinophils% 2.3 % (0-5); Hematocrit 27.5 % (37-47); Hemoglobin 8.4 g/dL (12.0-15.0); Lymphocyte # 1.04 X10^3/ul (0.83-4.51); Mean Corp Hgb Conc 30.5 g/dL (32-36); Mean Corpuscular Hgb 25.7 pg (27.0-32.0); Mean Corpuscular Volume 84.1 fL (81-99); Mean Platelet Vol. 9.5 fl (6.2-12.0); Monocyte% 10.4 % (0-10); NRBC Flagged by Analyzer 0 % (0-5); Neutrophil # 2.25 X10^3/uL (2.7-7.7); Neutrophil % 58.4 % (47-70); Platelet Count 238 K/mm3 (150-450); RBC Distribution Width CV 19.8 % (11.6-14.6); RBC Distribution Width SD 60.6 fl (35.1-43.9); Red Blood Count 3.27 M/mm3 (4.2-5.4); White Blood Count 3.9 K/mm3 (4.4-11.0)
== END 2021-09-25 23:59 | disposition home or self-care (01) ==
LOC: LAB 12:03
PROVIDERS: PCP Internal Medicine; Visit Provider Internal Medicine Gastroenterology
DX: K21.9 Gastro-esophageal reflux disease without esophagitis (principal)
CPT/HCPCS: 36415; 85025

== ENCOUNTER → 2021-10-22 | Outpatient (CLI) | payer MEDICARE, SELFPAY ==
[2021-10-22 10:55] LABS: Hematocrit 28.9 % (37-47); Hemoglobin 8.8 g/dL (12.0-15.0); Mean Corpuscular Volume 88.4 fL (81-99); Red Blood Count 3.27 M/mm3 (4.2-5.4)
[2021-10-22 10:56] LABS: Absolute Lymphocyte Count 1.19 X10^3/uL (0.83-4.51); Absolute Neutrophil Count 3.2 X10^3/uL (2.0-7.7); Basophil# 0.07 X10^3/uL; Basophil% 1.4 % (0-1); Eosinophil# 0.12 X10^3/uL; Eosinophils% 2.4 % (0-5); Lymphocyte # 1.19 X10^3/ul (0.83-4.51); Lymphocyte % 23.8 % (19-41); Mean Corp Hgb Conc 30.4 g/dL (32-36); Mean Corpuscular Hgb 26.9 pg (27.0-32.0); Mean Platelet Vol. 9.4 fl (6.2-12.0); Monocyte# 0.41 X10^3/uL; Monocyte% 8.2 % (0-10); NRBC Flagged by Analyzer 0 % (0-5); Neutrophil # 3.18 X10^3/uL (2.7-7.7); Neutrophil % 63.8 % (47-70); POSITIVE MORPHOLOGY YES; Platelet Count 251 K/mm3 (150-450); RBC Distribution Width CV 21.3 % (11.6-14.6); RBC Distribution Width SD 68.6 fl (35.1-43.9); RET-HE 27.7 pg (30-35); Reticulocyte Count 2.41 % (0.5-1.5)
[2021-10-22 10:59] LABS: Differential Indicated SCAN CRITERIA MET
[2021-10-22 11:16] LABS: International Normalized Ratio 2.5
[2021-10-22 11:33] LABS: ALB/GLOB Ratio 0.6 RATIO (0.9-2.4); AST(SGOT) 17 U/L (15-37); Alanine Aminotransfer ALT/SGPT 13 U/L (13-56); Albumin, Serum 2.9 g/dL (3.2-5.0); Alkaline Phosphatase 147 U/L (45-117); Anion Gap 3 (5-15); BUN 15 mg/dL (7-18); Calcium,Total 9.8 mg/dL (8.5-10.1); Chloride 109 mmol/L (98-107); Creatinine, Serum 0.68 mg/dL (0.55-1.02); EST Glomerular Filtration Rate 89 mL/min (>60); Est Glom Filt Rate - Afr Amer 108 mL/min (>60); Ferritin 49 ng/mL (8-252); Globulin 4.5 g/dL (2.2-4.2); Glucose 120 mg/dL (74-106); Iron 108 ug/dL (50-170); Iron Binding Capacity,Total 393 ug/dL (250-450); Potassium 3.3 mmol/L (3.5-5.1); Protein, Total 7.4 g/dL (6.4-8.2); Sodium Level 141 mmol/L (136-145)
[2021-10-22 11:40] LABS: Anisocytosis 2+; Differential Comment SCANNED; Hypochromasia 2+
== END | disposition home or self-care (01) ==
LOC: LAB 10:25
PROVIDERS: PCP Internal Medicine; Visit Provider Nurse Practitioner Adult Health
DX: R14.0 Abdominal distension (gaseous) (principal); K74.60 Unspecified cirrhosis of liver; K21.9 Gastro-esophageal reflux disease without esophagitis; K75.81 Nonalcoholic steatohepatitis (NASH)
CPT/HCPCS: 36415; 80053; 82140; 82728; 83540; 83550; 85025; 85045; 85610

== ENCOUNTER → 2024-01-07 | Outpatient (CLI) | payer MEDICARE, SELFPAY ==
[2024-01-07 15:07] LABS: Absolute Lymphocyte Count 1.51 X10^3/uL (0.83-4.51); Absolute Neutrophil Count 1.6 X10^3/uL (2.0-7.7); Basophil# 0.07 X10^3/uL; Basophil% 1.9 % (0-1); Eosinophil# 0.13 X10^3/uL; Eosinophils% 3.6 % (0-5); Hematocrit 37.3 % (37-47); Hemoglobin 11.9 g/dL (12.0-15.0); Lymphocyte # 1.51 X10^3/ul (0.83-4.51); Lymphocyte % 41.3 % (19-41); Mean Corp Hgb Conc 31.9 g/dL (32-36); Mean Corpuscular Hgb 29.3 pg (27.0-32.0); Mean Corpuscular Volume 91.9 fL (81-99); Mean Platelet Vol. 10.7 fl (6.2-12.0); Monocyte# 0.37 X10^3/uL; Monocyte% 10.1 % (0-10); NRBC Flagged by Analyzer 0 % (0-5); Neutrophil # 1.58 X10^3/uL (2.7-7.7); Neutrophil % 43.1 % (47-70); Platelet Count 186 K/mm3 (150-450); RBC Distribution Width CV 14.3 % (11.6-14.6); RBC Distribution Width SD 48.9 fl (35.1-43.9); Red Blood Count 4.06 M/mm3 (4.2-5.4); White Blood Count 3.7 K/mm3 (4.4-11.0)
[2024-01-07 15:45] LABS: Vitamin D,25 Hydroxy 59.4 ng/mL
[2024-01-07 15:52] LABS: ALB/GLOB Ratio 0.8 RATIO (0.9-2.4); AST(SGOT) 23 U/L (15-37); Alanine Aminotransfer ALT/SGPT 17 U/L (13-56); Albumin, Serum 3.4 g/dL (3.2-5.0); Alkaline Phosphatase 106 U/L (45-117); Anion Gap 5 (5-15); BUN 19 mg/dL (7-18); BUN/Creat Ratio 30.2 RATIO (10-20); Calcium,Total 9.9 mg/dL (8.5-10.1); Chloride 108 mmol/L (98-107); Cholesterol 141 mg/dL (200); Creatinine, Serum 0.63 mg/dL (0.55-1.02); EST Glomerular Filtration Rate 97 mL/min (>60); Est Glom Filt Rate - Afr Amer 117 mL/min (>60); Globulin 4.4 g/dL (2.2-4.2); Glucose 89 mg/dL (74-106); High Density Lipoprotein 70 mg/dL; Potassium 4.1 mmol/L (3.5-5.1); Protein, Total 7.8 g/dL (6.4-8.2); Sodium Level 139 mmol/L (136-145); Thyroid Stim Hormone (TSH) 0.74 uIU/mL (0.358-3.74); Triglycerides 79 mg/dL; Very Low Density Lipoprotein 16 mg/dL (5-40)
== END | disposition home or self-care (01) ==
LOC: LAB 14:36
PROVIDERS: PCP Internal Medicine; Referring Provider Internal Medicine; Visit Provider Internal Medicine
DX: D64.9 Anemia, unspecified (principal); K74.60 Unspecified cirrhosis of liver; E78.5 Hyperlipidemia, unspecified; E55.9 Vitamin D deficiency, unspecified
CPT/HCPCS: 36415; 80053; 80061; 82306; 84443; 85025

== ENCOUNTER → 2024-03-11 | Outpatient (CLI) | payer MEDICARE, SELFPAY ==
--- NOTE | 2024-03-11 17:09 | CT_ITS ---
EXAM: CT ABDOMEN WITHOUT AND WITH INTRAVENOUS CONTRAST CLINICAL INDICATION: cirrhoses -- liver triple phase for HCC TECHNIQUE: Helically acquired images were obtained of the abdomen without and with intravenous contrast. This CT exam was performed using one or more of the following dose reduction techniques: automated exposure control, adjustment of the mA and/or kV according to patient size, and/or use of iterative reconstruction technique. CONTRAST: IV 100mL Isovue-370 RADIATION DOSE: CTDIvol = 21.27 mGy, DLP = 1999.52 mGy-cm COMPARISON: No relevant prior studies available. FINDINGS: LOWER THORAX: Unremarkable. Lung bases are clear. Cardiomegaly.. No significant pericardial effusion. LIVER: Nodularity of the liver surface due to cirrhosis. No suspicious enhancing or nonenhancing mass in the liver. GALLBLADDER AND BILE DUCTS: Surgical clips in the gallbladder fossa area from cholecystectomy. No intrahepatic or extrahepatic biliary ductal dilatation. PANCREAS: Unremarkable. No focal cystic or solid mass. SPLEEN: Unremarkable. Normal size without focal cystic or solid mass. ADRENALS: Unremarkable. No nodules. KIDNEYS AND URETERS: Unremarkable. Normal renal size and position. No hydronephrosis. STOMACH AND BOWEL: Unremarkable. No stomach or bowel distention. No focal inflammatory change. INTRAPERITONEAL SPACE: Unremarkable. No ascites or other fluid collection. No free air. BONES/JOINTS: Nearly grade 2 degenerative anterolisthesis of L4 on L5 with pronounced L4-L5 disc space height narrowing. No lytic or blastic lesions. SOFT TISSUES: Unremarkable. No discrete abdominal wall hernia. VASCULATURE: Unremarkable. Abdominal aorta is non-dilated. LYMPH NODES: No enlarged lymph nodes. CT/Abdomen W/WO IV Contrast IMPRESSION: 1. Liver cirrhosis without suspicious enhancing or nonenhancing liver mass. 2. No acute abnormality in the abdomen. 3. Cardiomegaly. Electronically Signed: Justo Sosa MD at 16:10 EDT ,
[2024-03-11 17:52] LABS: CREATININE FINGERSTICK < 1.0 mg/dL (0.55-1.02); EGFR FINGERSTICK > 60.0000 mL/min (>60)
== END | disposition home or self-care (01) ==
LOC: CT 17:06
PROVIDERS: PCP Internal Medicine; Referring Provider Internal Medicine Gastroenterology; Visit Provider Internal Medicine Gastroenterology
DX: Z01.812 Encounter for preprocedural laboratory examination (principal); K74.60 Unspecified cirrhosis of liver
CPT/HCPCS: 74170; Q9967

== ENCOUNTER 2024-04-28 06:52 | Day surgery (SDC) | payer MEDICARE, SELFPAY ==
[2024-04-28] VITALS (10 sets, daily range): BP systolic 129–155; BP diastolic 61–76; PULSE 56–69; RESP 16–20; TEMP 36.5–37.3; O2SAT 86–93; BMI 51.1
--- NOTE | 2024-04-28 07:32 | PCM.HP.BLA ---
History and Physical Date of Admission: 04/28/24 Chief Complaint: needs ursodiol refill Details: RADHA SMITH, is a 78 F who presents to the office today for ROS Const Constitutional: No fatigue, fever(s) or weight change ENT ENT: No difficulty swallowing Gastro GI: No abdominal pain, belching, bloating, change in bowel habits, change in stool character, coffee ground emesis, constipation, cramping, diarrhea, heartburn, difficulty swallowing, feeling full early, excessive flatus, incontinent of stools, Vomiting blood/hematemesis, Blood in stool, loose stools, Black,tarry stools, nausea/dyspepsia, pain with swallowing, vomiting or other Musc Musculoskeletal: Positive for Arthritis; No joint pain Skin Skin: Positive for itchy eyes; No yellowing of the eye Psych Psychiatric: No anxiety and No depression Endo Endocrine: No fatigue or weight change Aller/Imm Allergy/Immunologic: Positive for itchy eyes Edil/Lymp Hematologic/Lymphatic: Positive for easy bleeding and easy bruising Exam Const General: cooperative and comfortable Nutritional Appearance: obese Orientation: alert, awake and oriented x3 Other: uses a rolling walker Eyes Sclera: sclerae normal Resp Effort & Inspection: normal respiratory effort GI Inspection: obesity Palpation: soft Skin General: no jaundice Psych Mood: euthymic mood Assessment and Plan Assessment and Plan (1) Cirrhosis of liver: Status: Chronic Plan: This delightful 77 yr old female prefers a minimalist approach to cirrhosis. Good labs recently. She has no GI complaints. She would like to remain on ursodiol 250 mg bid, refill sent in. She takes lactulose prn. She has had no sign of decompensated liver disease since the last time we saw her. She has a diagnosis of cirrhosis secondary to ROBBINS. Her current MELD is very low at 12. Her child Menjivar score is a child Menjivar A. She has had complications of ascites in the past, renal failure, encephalopathy but currently she has noted no signs and symptoms of decompensated liver disease. She does not have any esophageal dysphagia. She denies any chest pain or shortness of breath. This is our surveillance follow-up. Recommendations: Upper endoscopy to evaluate upper GI tract for esophageal varices., Check alpha-fetoprotein, get triple phase CT scan to look at the liver to screen for parasellar carcinoma. Encouraged no alcohol, no Tylenol or any other risky behavior that may affect the liver. I have examined the patient and the H&P has been reviewed. There are no clinical changes since date of exam.
--- NOTE | 2024-04-28 07:59 | PCM.PRE.AN2 ---
ASA Classification* ASA Classification ASA Classification: 3 Assessment & Plan Anesthesia* Anesthesia Assessment Anesthesia Assessment: Discussed sedation and/or anesthesia options, risks, benefits, and alternatives with patient/parents/legal guardian/POA. Questions invited. The patient/parents/legal guardian/POA seems to understand and agrees to proceed with anesthesia plan. Reviewed the physical assessment, medical history, allergy history and patient home medications list prior to surgery/procedure/anesthetic and documented any changes. Performed airway and anesthesia risk assessments. Anesthesia Type Anesthesia Type: MAC Anesthesia Focused Assessment* Temperature: 99.2 F Pulse Rate: 69 Blood Pressure: 148/76 Respiratory Rate: 16 Pulse Ox: 93 Airway Assessment Mouth opens: >3 cm Mallampati Score: II Focused Labs Anesthesia Preop lab: CBC WBC 3.7 K/mm3 (4.4-11.0) L 01/07/24 14:43 RBC 4.06 M/mm3 (4.2-5.4) L 01/07/24 14:43 Hgb 11.9 g/dL (12.0-15.0) L 01/07/24 14:43 Hct 37.3 % (37-47) 01/07/24 14:43 Plt Count 186 K/mm3 (150-450) 01/07/24 14:43 CHEMISTRY Potassium 4.1 mmol/L (3.5-5.1) 01/07/24 14:43 Sodium 139 mmol/L (136-145) 01/07/24 14:43 Magnesium 1.9 mg/dL (1.6-2.6) 05/14/21 07:16 Phosphorus 2.4 mg/dL (2.5-4.9) L 05/14/21 07:16 BUN 19 mg/dL (7-18) H 01/07/24 14:43 Creatinine 0.63 mg/dL (0.55-1.02) 01/07/24 14:43 Glucose 89 mg/dL (74-106) 01/07/24 14:43 TSH 0.74 uIU/mL (0.358-3.74) 01/07/24 14:43 COAG PT 27.0 SECONDS (11.7-14.9) H 10/22/21 10:37 Pre-Assessment Diagnosis/Proposed Procedure Planned Operative Procedure(s): EGD Anesthesia History Anesthesia History - paid search marketing strategist: Anesthesia History - paid search marketing strategist Hx Hospitalization No 04/26/24 16:07 Any Problems With Anesthesia No 04/26/24 16:07 Cholinesterase deficiency No 04/26/24 16:07 You/Your Family Experience No 04/26/24 16:07 fever (hyperthermia) with Relationship Recent Exposure to Contagious No 04/28/24 07:33 Disease Does patient have nerve No 04/26/24 16:07 stimulator Patient instructed to have device shut off --Does patient have Pacemaker No 04/28/24 07:33 or ICD? When Was Last Pacemaker Check QUESTION #4 FULL TEXT: You/Your Family Experience fever (hyperthermia) with Anesthesia Last Oral Intake Last Oral intake: Last Oral Intake NPO since 05:30 04/28/24 07:33 Meds taken in AM with sips of Yes 04/28/24 07:33 water? Meds patient instructed to take am of surgery PONV PONV - paid search marketing strategist: PONV - paid search marketing strategist Female Yes 04/26/24 16:07 HX of Motion Sickness No 04/26/24 16:07 HX of N/V After Surgery No 04/26/24 16:07 Non-Smoker No 04/26/24 16:07 Duration of Surgery greater No 04/26/24 16:07 than 60 minutes Number of Risk Factors 1 04/26/24 16:07 PONV Score Low Risk 04/26/24 16:07 Height & Weight Height & Weight: Anesthesia: Height & Weight Height 5 ft 04/28/24 07:33 Weight: 118.841 kg 04/28/24 07:33 Body Mass Index (BMI) 51.1 04/28/24 07:33 Respiratory Assessment Respiratory Assessment - paid search marketing strategist: Respiratory Tract Infection Hx - paid search marketing strategist Hx Respiratory Tract Infection No 04/26/24 16:07 STOP Sleep Apnea STOP Sleep Apnea - paid search marketing strategist: STOP Sleep Apnea - paid search marketing strategist Hx Hypertension Yes: CONTROLLED ON MED 04/26/24 16:07 Hx Sleep Apnea Yes 04/26/24 16:07 CPAP Yes 04/26/24 16:07 BIPAP No 04/26/24 16:07 Do you snore loudly (louder than talking or can be heard Do you often feel tired/ fatigued/ sleepy during daytime? Has anyone observed you stop breathing during sleep? STOP Results Positive 04/26/24 16:07 QUESTION #5 FULL TEXT : Do you snore loudly (louder than talking or can be heard through closed doors)? Tobacco Use History Tobacco Use History - paid search marketing strategist: Tobacco Use History - paid search marketing strategist Tobacco Use Smoking Status Former smoker 04/26/24 16:07 Hx Tobacco Use No 04/26/24 16:07 Years Smoking Packs Smoked per Day Smoking Cessation Date was No - quit smoking greater 04/26/24 16:07 within the last 15 years than 15 years ago Hx Smoking Cessation Date 06/18/72 04/26/24 16:07 Hx Smoking Cessation Counseling Hematologic Medial History Hematologic Hx - paid search marketing strategist: Hematologic Medical Hx - yarder Hx of Blood Transfusion Yes 04/26/24 16:07 Hx of Transfusion in last 3 No 04/26/24 16:07 Months Date of Last Transfusion (if within last 3 months) Ever experience any problems No 04/26/24 16:07 with transfusion(s)? Specify any problems Hx of Preganancy in last 3 No 04/26/24 16:07 Months Nurse Filling Out Transfusion DSCHRIBER 04/26/24 16:07 & Questions: Date: 04/26/24 04/26/24 16:07 Time: 16:08 04/26/24 16:07 Patient unable to answer at this time (ie. confused, unrespo /Reproduction History /Reproductive History - paid search marketing strategist: /Reproductive Hx- paid search marketing strategist Hx Now No 04/26/24 16:07 Gestational Age (in weeks): EDC: Hx Hx Para Hx Section SAB No 04/26/24 16:07 PFSH Medical History Wears hearing aid Wears dentures Easy bruising Shortness of breath on exertion History of pain when walking Intertriginous candidiasis Iron deficiency anemia Wears glasses Post-menopausal Arthritis Walker as ambulation aid Back pain CPAP (continuous positive airway pressure) dependence Gastric reflux Former smoker Leg cramps History of echocardiogram History of stress test Cardiology follow-up encounter History of atrial fibrillation Reyes's esophagus Aortic stenosis GI bleed ROBBINS (nonalcoholic steatohepatitis) Urinary incontinence Morbid obesity GERD (gastroesophageal reflux disease) Depression High cholesterol Hypertension Atrial fibrillation Home Medications ?Medication ?Instructions ?Recorded ?Last Taken ?Type atorvastatin 20 mg tablet 20 mg PO QHS CHOLESTEROL 05/13/18 Unknown History diltiazem HCl 180 mg 240 mg PO DAILY BP 05/13/18 04/28/24 History capsule,extended release 24 hr multivitamin with folic acid 400 1 tab PO DAILY SUPPLEMENT 05/13/18 Unknown History mcg tablet (Thera) pantoprazole 40 mg tablet,delayed 40 mg PO DAILY PRN GERD 05/13/18 04/28/24 History release rivaroxaban 20 mg tablet (Xarelto) 20 mg PO QHS AFIB 05/13/18 04/24/24 History sertraline 25 mg tablet (Zoloft) 25 mg PO DAILY DEPRESSION 05/13/18 Unknown History cholecalciferol (vitamin D3) 125 125 mcg PO DAILY 05/13/21 Unknown History mcg (5,000 unit) tablet cyanocobalamin (vitamin B-12) 500 500 mcg PO DAILY 06/26/21 Unknown History mcg tablet (Vitamin B-12) ursodiol 250 mg tablet 250 mg PO BID #60 tabs 02/12/24 Unknown Rx Allergy/AdvReac Type Severity Reaction Status Date / Time morphine AdvReac Other Verified 04/28/24 07:31 Surgical History Hx of right cataract extraction Hx of left cataract extraction History of esophagogastroduodenoscopy (EGD) History of carpal tunnel repair Hx of cystostomy Hx of tubal ligation Hx of hysterectomy Hx of total knee replacement History of carpal tunnel surgery of left wrist Hx of hernia repair Hx of cholecystectomy Social History Smoking Status: Former smoker alcohol intake: never substance use type: does not use Review of Systems (Anesthesia) ROS Narrative System reviewed and no additional complaints, except as documented.
--- NOTE | 2024-04-28 08:15 | EGD_PTH ---
PATIENT: RADHA SMITH LOC: EN U#:[id number] AGE/SX: 78/F ROOM: RE04/28/[address]: Dr. Arturo Melendez DO : 1945 BED: DIS: 04/28/2024 SPEC #: [id number] RECD: 04/28/24 13:25 STATUS: DAYANA GABE #: [id number] SIOMARA: 04/28/24 08:[address]: Arturo Melendez DEPT: SURGICAL PATHOLOGY RECD BY: Silvia Brambila ENTERED: 04/28/24 14:31 SP TYPE: EGD BIOPSY JUANI DR: Dr. Angy Anand DO Tissues: Esophagus, NOS Procedures: Special Stain Group I Surgery Specimen Level IV Alcian Blue/PAS (control) HEADER OPERATION: EGD with biopsy PRE-OP DIAGNOSIS: Cirrhosis of liver TISSUE SUBMITTED: Distal esophagus biopsy MICROSCOPIC DIAGNOSIS Distal esophagus, biopsy: Fragments of gastroesophageal mucosa with chronic inflammation and changes consistent with gastroesophageal reflux disease. Intestinal metaplasia (goblet cell metaplasia) not identified. See comment. 04/29/2024 COMMENT Alcian blue/PAS stain with matched control is used in the evaluation of the specimen. MICROSCOPIC DESCRIPTION Slides are reviewed. GROSS DESCRIPTION Received in fixative is one container labeled with the patient's name and designated Distal esophagus biopsy. The specimen consists of multiple irregular fragments of light erickson soft tissue that in aggregate measure 0.8 x 0.3 x 0.1 cm. The specimen is totally submitted in one cassette. 04/28/2024 TC:3 CPT:59124,00066
--- NOTE | 2024-04-28 09:25 | OP.CCLET_ITS ---
04/28/2024 Angy Anand [address] [place] [address] Re : Upper GI endoscopy procedure for Odette Pace Dear Dr. Anand This procedure was performed on April. My impressions and recommendations are as follows: Impressions : - Small (< 5 mm) esophageal varices. - Esophageal mucosal changes suspicious for Reyes's esophagus. Biopsied. - Small hiatal hernia. - Portal hypertensive gastropathy. - No gross lesions in the duodenal bulb. Recommendations : - Discharge patient to home. - Resume previous diet. - Continue present medications. - Await pathology results. - Repeat upper endoscopy in 1 year. My findings are described in the full procedure note, which is enclosed. If I can be of further assistance, please feel free to contact me at . Sincerely, Arturo Melendez, 04/28/2024 9:25:01 AM This report has been signed electronically.
--- NOTE | 2024-04-28 09:25 | OP.EGD_ITS ---
Patient Name: Odette Pace Procedure Date: 04/28/2024 9:06 AM Date of : 1945 Age: 78 Procedure: Upper GI endoscopy Indications: Cirrhosis with suspected esophageal varices Providers: Arturo Melendez DO Referring MD: Angy Anand Medicines: Monitored Anesthesia Care Patient Profile: This is a 78 year old female. Refer to note in patient chart for documentation of history and physical. Patient has symptoms of chronic heartburn. Complications: No immediate complications. Procedure: Pre-Anesthesia Assessment: - Prior to the procedure, a History and Physical was performed, and patient medications and allergies were reviewed. The patient is competent. The risks and benefits of the procedure and the sedation options and risks were discussed with the patient. All questions were answered and informed consent was obtained. Patient identification and proposed procedure were verified by the physician in the pre-procedure area. Mental Status Examination: alert and oriented. Airway Examination: normal oropharyngeal airway and neck mobility. Respiratory Examination: clear to auscultation. CV Examination: normal. Prophylactic Antibiotics: The patient does not require prophylactic antibiotics. Prior Anticoagulants: The patient has taken no anticoagulant or antiplatelet agents except for NSAID medication. ASA Grade Assessment: II - A patient with mild systemic disease. After reviewing the risks and benefits, the patient was deemed in satisfactory condition to undergo the procedure. The anesthesia plan was to use monitored anesthesia care (MAC). Immediately prior to administration of medications, the patient was re-assessed for adequacy to receive sedatives. The heart rate, respiratory rate, oxygen saturations, blood pressure, adequacy of pulmonary ventilation, and response to care were monitored throughout the procedure. The physical status of the patient was re-assessed after the procedure. After obtaining informed consent, the endoscope was passed under direct vision. Throughout the procedure, the patient's blood pressure, pulse, and oxygen saturations were monitored continuously. The gastroscope was introduced through the mouth, and advanced to the second part of duodenum. The upper GI endoscopy was accomplished without difficulty. The patient tolerated the procedure well. Scope In: 9:17:07 AM Scope Out: 9:19:19 AM Total Procedure Duration Time 0 hours 2 minutes 12 seconds Findings: Small (< 5 mm) varices were found in the distal esophagus. They were 4 mm in largest diameter. There were esophageal mucosal changes suspicious for Reyes's esophagus present in the lower third of the esophagus. The maximum longitudinal extent of these mucosal changes was 1 cm in length. Mucosa was biopsied with a cold forceps for histology in a targeted manner at intervals of 1 cm in the lower third of the esophagus. One specimen bottle was sent to pathology. Verification of patient identification for the specimen was done. Estimated blood loss was minimal. A small hiatal hernia was present. Mild portal hypertensive gastropathy was found in the entire examined stomach. No gross lesions were noted in the duodenal bulb. Impression: - Small (< 5 mm) esophageal varices. - Esophageal mucosal changes suspicious for Reyes's esophagus. Biopsied. - Small hiatal hernia. - Portal hypertensive gastropathy. - No gross lesions in the duodenal bulb. Recommendation: - Discharge patient to home. - Resume previous diet. - Continue present medications. - Await pathology results. - Repeat upper endoscopy in 1 year. Procedure Code(s): --- Professional --- 80821, Esophagogastroduodenoscopy, flexible, transoral; with biopsy, single or multiple CPT copyright 2021 [employer]. All rights reserved. The codes documented in this report are preliminary and upon certified professional coder review may be revised to meet current compliance requirements. Arturo Melendez DO 04/28/2024 9:25:01 AM This report has been signed electronically. Number of Addenda: 0 Note Initiated On: 04/28/2024 9:06 AM
--- NOTE | 2024-04-28 09:30 | PCM.POST.ANE ---
Anesthesia: Postop Eval I Current Vital Signs Temperature: 98.3 F Pulse Rate: 67 Blood Pressure: 129/61 Respiratory Rate: 18 Pulse Ox: 91 Oxygen Delivery Method: Nasal Cannula Oxygen Flow Rate (L/min): 2 Assessment Airway patent: Yes Spontaneous unlabored respirations: Yes Mental status: Awake and Calm nausea: No Vomiting: No Anesthesia Complication: No Fluid Hydration Crystalloid volume administer (ml): 30 Total IV fluid infused: 30 Progress Note Anesthesia document: Postop Eval 1 completed: Yes
--- NOTE | 2024-04-28 15:15 | PCM.POSTANE2 ---
Anesthesia Postop Eval I Sum Postop Eval Completion status Anesthesia document: Postop Eval 1 completed: Yes Anesthesia Postop Eval I Summary Anesthesia Postop Eval I Summary: Anesthesia Postop Eval I: Assessment Summary Airway patent Yes 04/28/24 09:31 [email or web address] Spontaneous unlabored Yes 04/28/24 09:31 [email or web address] respirations Mental status Awake,Calm 04/28/24 09:31 [email or web address] nausea No 04/28/24 09:31 [email or web address] Vomiting No 04/28/24 09:31 [email or web address] Anesthesia Postop Eval I: Fluid Summary Crystalloid volume administer 30 04/28/24 09:31 [email or web address] (ml) Colloids volume administered ( ml) Blood Product volume administered (ml) Total IV fluid infused 30 04/28/24 09:31 [email or web address] Anesthesia Postop Eval I: Summary Notes Anesthesia Complication No 04/28/24 09:31 [email or web address] Anesthesia Complication Comment: Post-operative progress note Anesthesia: Postop Eval II Evaluation Mental status: Awake and Calm Pain Level: 0 nausea: No Vomiting: No Complications Anesthesia Complication: No
== END 2024-04-28 10:40 | disposition home or self-care (01) ==
LOC: EN 06:54 → AC 06:55
PROVIDERS: PCP Internal Medicine; Referring Provider Internal Medicine; Visit Provider Internal Medicine Gastroenterology
PROC: 0DJ08ZZ Inspection of Upper Intestinal Tract, Via Natural or Artificial Opening Endoscopic (ICD-10-PCS; CPT 43235; principal; 2024-04-28 08:10)
DX: K21.00 Gastro-esophageal reflux disease with esophagitis, without bleeding (principal); K76.6 Portal hypertension; I85.10 Secondary esophageal varices without bleeding; K74.60 Unspecified cirrhosis of liver; I48.91 Unspecified atrial fibrillation; K44.9 Diaphragmatic hernia without obstruction or gangrene; E66.9 Obesity, unspecified; Z79.899 Other long term (current) drug therapy; Z79.01 Long term (current) use of anticoagulants; I10 Essential (primary) hypertension; Z90.49 Acquired absence of other specified parts of digestive tract; Z87.19 Personal history of other diseases of the digestive system; Z87.891 Personal history of nicotine dependence; E78.00 Pure hypercholesterolemia, unspecified
CPT/HCPCS: 43239; 88305; 88312; A4216; J2405

== ENCOUNTER → 2024-07-07 | Outpatient (CLI) | payer MEDICARE, SELFPAY ==
[2024-07-07 12:33] LABS: Absolute Lymphocyte Count 1.28 X10^3/uL (0.83-4.51); Absolute Neutrophil Count 1.7 X10^3/uL (2.0-7.7); Basophil# 0.07 X10^3/uL; Basophil% 1.9 % (0-1); Eosinophil# 0.15 X10^3/uL; Eosinophils% 4.1 % (0-5); Hematocrit 34.8 % (37-47); Hemoglobin 11.4 g/dL (12.0-15.0); Lymphocyte # 1.28 X10^3/ul (0.83-4.51); Mean Corp Hgb Conc 32.8 g/dL (32-36); Mean Corpuscular Hgb 30.4 pg (27.0-32.0); Mean Corpuscular Volume 92.8 fL (81-99); Mean Platelet Vol. 10.3 fl (6.2-12.0); Monocyte# 0.43 X10^3/uL; Monocyte% 11.7 % (0-10); NRBC Flagged by Analyzer 0 % (0-5); Neutrophil # 1.73 X10^3/uL (2.7-7.7); Neutrophil % 47.3 % (47-70); Platelet Count 175 K/mm3 (150-450); RBC Distribution Width CV 14.1 % (11.6-14.6); RBC Distribution Width SD 47.9 fl (35.1-43.9); Red Blood Count 3.75 M/mm3 (4.2-5.4); White Blood Count 3.7 K/mm3 (4.4-11.0)
--- NOTE | 2024-07-07 13:28 | ECHOCS_ITS ---
Reason For Study: CHF Procedure This was a 2D Doppler, Color Flow transthoracic echocardiogram. The study was technically difficult. Contrast injection was performed. Patient scanned supine due to left hip pain. Exam performed in department. Left Ventricle Normal LV size. Moderate concentric left ventricular hypertrophy. Left ventricular systolic function is normal. The left ventricular ejection fraction is 60 %. No regional wall motion abnormalities noted. Right Ventricle Normal RV size. Normal systolic function. Mitral Valve There is moderate mitral annular calcification. Tricuspid Valve Normal tricuspid valve. Mild (1+) tricuspid valve insufficiency. Pulmonary artery systolic pressure is 40 mmHg. Aortic Valve Trisinus/trileaflet aortic valve. Mild focal aortic valve calcification. Mild restriction of the aortic valve. Peak aortic valve gradient 30 mmHg. Mean aortic valve gradient 15 mmHg. Great Vessels Normal aortic root. Pericardium/Pleural No pericardial effusion. Medication 22 gauge I.V. with prn adaptor inserted into right arm. Diluted definity 1.5ml given slow IV push to enhance endocardial definition. MMode/2D Measurements & Calculations LVIDd: 5.4 cm IVSd: 1.2 cm LVOT diam: 2.0 cm LVIDs: 3.9 cm LVPWd: 1.5 cm LVOT area: 3.0 cm2 RVDd: 5.8 cm FS: 28.5 % _ Ao root diam: 3.4 cm LAV(MOD-bp): 223.6 ml LA A4 area: 50.3 cm2 LA dimension: 7.2 cm LAV(MOD-bp) Indexed: 106.6 ml/m2 LAV(MOD-sp2): 211.5 ml LAV(MOD-sp4): 216.4 ml _ LA dimension(2D): 6.1 cm RA A4 area: 37.2 cm2 TAPSE: 2.3 cm Time Measurements MV dec time: 0.38 sec Doppler Measurements & Calculations MV E max chung: 158.3 cm/sec Lat Peak E' Chung: 12.5 cm/sec Med Peak E' Chung: 9.2 cm/sec MV A max chung: 21.8 cm/sec E/E' lat: 12.7 E/E' med: 17.3 MV E/A: 7.3 _ MV V2 max: 179.0 cm/sec MV P1/2t max chung: 179.4 cm/sec Ao V2 max: 272.1 cm/sec MV max P.8 mmHg MV P1/2t: 112.9 msec Ao max P.6 mmHg MV V2 mean: 85.3 cm/sec MV dec slope: 465.2 cm/sec2 Ao V2 mean: 182.8 cm/sec MV mean P.9 mmHg MVA(P1/2t): 1.9 cm2 Ao mean P.1 mmHg MV V2 VTI: 50.1 cm Ao V2 VTI: 63.4 cm MVA(VTI): 2.2 cm2 AV (velocity ratio): 0.58 EVERARDO(I,D): 1.8 cm2 EVERARDO(V,D): 1.7 cm2 _ LV V1 max: 151.1 cm/sec MR max chung: 499.4 cm/sec SV(LVOT): 111.7 ml LV V1 max P.2 mmHg MR max P.8 mmHg LV V1 mean P.2 mmHg LV V1 mean: 107.6 cm/sec LV V1 VTI: 36.7 cm _ TR max chung: 296.8 cm/sec TR max P.2 mmHg ECHO/Echo Complete W/ Contrast Interpretation Summary Normal LV size. Left ventricular systolic function is normal. The left ventricular ejection fraction is 60 %. No regional wall motion abnormalities noted. Moderate concentric left ventricular hypertrophy. Mean aortic valve gradient 15 mmHg. Contrast injection was performed. Ordering Physician: Angy Anand Referring Physician: Angy Anand Performed By: Rodney Thomas RCS
[2024-07-07 13:29] LABS: ALB/GLOB Ratio 0.8 RATIO (0.9-2.4); AST(SGOT) 21 U/L (15-37); Alanine Aminotransfer ALT/SGPT 18 U/L (13-56); Albumin, Serum 3.5 g/dL (3.2-5.0); Alkaline Phosphatase 98 U/L (45-117); Anion Gap 6 (5-15); BUN 16 mg/dL (7-18); BUN/Creat Ratio 21.7 RATIO (10-20); Calcium,Total 10.1 mg/dL (8.5-10.1); Chloride 106 mmol/L (98-107); Cholesterol 145 mg/dL (200); Creatinine, Serum 0.74 mg/dL (0.55-1.02); EST Glomerular Filtration Rate 81 mL/min (>60); Est Glom Filt Rate - Afr Amer 98 mL/min (>60); Globulin 4.2 g/dL (2.2-4.2); Glucose 102 mg/dL (74-106); High Density Lipoprotein 75 mg/dL; Protein, Total 7.7 g/dL (6.4-8.2); Sodium Level 138 mmol/L (136-145); Thyroid Stim Hormone (TSH) 0.886 uIU/mL (0.358-3.740); Triglycerides 67 mg/dL; Very Low Density Lipoprotein 13 mg/dL (5-40)
[2024-07-07 14:44] LABS: Hemoglobin A1c 5.2 % (3.8-5.6)
== END | disposition home or self-care (01) ==
PROVIDERS: PCP Internal Medicine; Referring Provider Internal Medicine; Visit Provider Internal Medicine
DX: I50.9 Heart failure, unspecified (principal); E11.9 Type 2 diabetes mellitus without complications; F32.A Depression, unspecified; G47.33 Obstructive sleep apnea (adult) (pediatric); K75.81 Nonalcoholic steatohepatitis (NASH); E78.5 Hyperlipidemia, unspecified
CPT/HCPCS: 36415; 80053; 80061; 83036; 84443; 85025; 93306; Q9957; A4216; C8929

== ENCOUNTER → 2024-08-03 | Outpatient (CLI) | payer MEDICARE, SELFPAY ==
--- NOTE | 2024-08-03 14:12 | BI_ITS ---
PROCEDURE: SCRN MAMM (CAD)W/CARLOS BILAT REASON FOR EXAM: F, Age 79 y/o, no family history. Annual follow-up. TECHNIQUE: Bilateral screening digital breast tomosynthesis with 2D and 3D images. Computer aided detection. COMPARISON: Prior exam(s) dating back to June 17, 2023.. FINDINGS: There are scattered areas of fibroglandular density. Stable examination. No suspicious masses, areas of developing architectural distortion, or suspicious calcifications. BI/SCRN MAMM (CAD)W/CARLOS BILAT IMPRESSION: BI-RADS 1: NEGATIVE. RECOMMEND ANNUAL MAMMOGRAPHIC SCREENING. Follow-up code: Routine Follow-up The patient will be notified of the results by letter. Reading Location: [id number]
== END | disposition home or self-care (01) ==
LOC: OPBI 14:11
PROVIDERS: PCP Internal Medicine; Referring Provider Internal Medicine; Visit Provider Internal Medicine
DX: Z12.31 Encounter for screening mammogram for malignant neoplasm of breast (principal)
CPT/HCPCS: 77063; 77067

== ENCOUNTER 2024-09-06 08:54 | Observation (INO) | payer MEDICARE, SELFPAY ==
[2024-09-06] VITALS (7 sets, daily range): BP systolic 106–152; BP diastolic 65–82; PULSE 69–94; RESP 15–22; TEMP 36.5–37.2; O2SAT 92–98; BMI 57.4
--- NOTE | 2024-09-06 09:30 | EDS_ITS ---
HPI History of Present Illness Chief Complaint: Back Informant: patient and EMS Narrative Narrative: 79-year-old female presenting with pain across her mid back. She woke up with it this morning. She states her abdomen is a little uncomfortable but she does not have any major abdominal pain. She states the pain is making it hard for her to breathe but she states this does not feel like sciatica that she had in the past and it does not feel like a lung or chest issue and she has no chest pain. She states she had an accidental fall 2 days ago. It was early in the morning, she states she got out of bed too quickly and stumbled and fell onto her right side, she called EMS only for lift assist, they helped her up she had no pain, she did not present to the ED for any reason. She states the next day, she went to a doctor's appointment, she drove, she went home after the appointment, used her walker to walk around, she had no pain until she got up this morning. She is anticoagulated with Xarelto because of history of A-fib. [facility] Medical History Wears hearing aid Wears dentures Easy bruising Shortness of breath on exertion History of pain when walking Intertriginous candidiasis Iron deficiency anemia Wears glasses Post-menopausal Arthritis Walker as ambulation aid Back pain CPAP (continuous positive airway pressure) dependence Gastric reflux Former smoker Leg cramps History of echocardiogram History of stress test Cardiology follow-up encounter History of atrial fibrillation Reyes's esophagus Aortic stenosis GI bleed ROBBINS (nonalcoholic steatohepatitis) Urinary incontinence Morbid obesity GERD (gastroesophageal reflux disease) Depression High cholesterol Hypertension Atrial fibrillation Home Medications ?Medication ?Instructions ?Recorded ?Last Taken ?Type atorvastatin 20 mg tablet 20 mg PO QHS CHOLESTEROL 11/23 Unknown History diltiazem HCl 180 mg 240 mg PO DAILY BP 05/13/18 04/28/24 History capsule,extended release 24 hr multivitamin with folic acid 400 1 tab PO DAILY SUPPLE MENT 05/13/18 Unknown History mcg tablet (Thera) pantoprazole 40 mg tablet,delayed 40 mg PO DAILY PRN G ERD 05/13/18 04/28/24 History release rivaroxaban 20 mg tablet (Xarelto) 20 mg PO QHS AFIB 1 07/14/17 04/24/24 History sertraline 25 mg tablet (Zoloft) 25 mg PO DAILY DEPRES TOYA 05/13/18 Unknown History cholecalciferol (vitamin D3) 125 125 mcg PO DAILY 11/26 Unknown History mcg (5,000 unit) tablet cyanocobalamin (vitamin B-12) 500 500 mcg PO DAILY Unknown History mcg tablet (Vitamin B-12) ursodiol 250 mg tablet 250 mg PO BID #60 tabs 02/11 Unknown Rx ibandronate 150 mg tablet 150 mg PO QMONTH 09/06/24 Un known History oxybutynin chloride 10 mg 10 mg PO DAILY 09/06/24 Unkn own History tablet,extended release 24 hr Allergy/AdvReac Type Severity Reaction Status Date / Time morphine AdvReac Other Verified 09/06/24 08:59 Surgical History Hx of right cataract extraction Hx of left cataract extraction History of esophagogastroduodenoscopy (EGD) History of carpal tunnel repair Hx of cystostomy Hx of tubal ligation Hx of hysterectomy Hx of total knee replacement History of carpal tunnel surgery of left wrist Hx of hernia repair Hx of cholecystectomy Social History Smoking Status: Former smoker alcohol intake: never substance use type: does not use ROS ROS ED Constitutional Constitutional ED: Denies chills or fever(s) Eyes Eyes: Denies change in vision or diplopia ENT ENT ED: Denies rhinorrhea or sore throat Cardiovascular Cardiovascular: Denies chest pain or palpitations Respiratory/Chest Respiratory/Chest: Denies cough or dyspnea Gastrointestinal Gastrointestinal: Reports as per HPI and abdominal pain; Denies diarrhea, hematemesis, hematochezia, nausea or vomiting Genitourinary Genitourinary ED: Denies dysuria or hematuria Musculoskeletal Musculoskeletal: Reports back pain; Denies neck pain Integumentary Denies abscess or rash Neurologic Neurologic: Denies headache(s), paresthesias or weakness Psychiatric Psychiatric: Denies suicidal thoughts EXAM Physical Exam Const Vital Signs: 09/06/24 08:54 09/06/24 11:07 Temperature 97.7 F L Temperature Source Oral Pulse Rate 69 Respiratory Rate 17 Blood Pressure 152/82 H 130/78 H Blood Pressure Mean 105 95 Pulse Ox 92 Oxygen Delivery Method Nasal Cannula Oxygen Flow Rate (L/min) 2 Positive well nourished, well developed and obese General Appearance ED: well developed and NAD Nutritional Appearance: obese HEENT Reports moist mucous membranes normocephalic and atraumatic Eyes PERRL and EOMs intact bilaterally Neck full ROM and supple Resp normal respiratory effort and clear to auscultation bilaterally Resp Narrative: Diminished throughout, symmetrically, clear Cardio regular rate, regular rhythm and no murmurs GI non-tender and non-distended GI Narrative: No Wickliffe sign or Lopez Wilson sign, normal inspection, obesity limits exam Auscultation: normoactive bowel sounds Palpation: soft Back/Spine no CVA tenderness Back/Spine Narrative: There is no midline tenderness throughout the back. Patient indicates that her pain is in the mid-lower thoracic area, around T8 or 9 level. There is no midline tenderness. She states she has pain clear across, but the only area she is tender is right paraspinal at this level and just mildly, she is in more pain than she is tender. Inspection is normal no rash. No lumbar tenderness. General Back: other Limited range of motion due to pain Extremity normal to inspection General Extremety ED: Yes edema; Negative for pulses abnormal or tenderness General Extremity: edema bilateral lower extremity Details: mild (With bilateral symmetric changes of chronic stasis dermatitis. No tenderness. Lots of venous varicosities bilaterally.); Negative for pulses abnormal Neuro oriented x3, CN's II-XII intact bilaterally and no sensory deficits noted Sensorium / Orientation: awake and alert Motor Exam: strength 5/5 throughout Skin no rashes or lesions noted and no wounds MDM MDM MDM Narrative Medical decision making narrative: Given the patient's anticoagulated state, delayed pain after a fall, pain mostly in her back and some vague abdominal discomfort, obtain labs and a CT mainly to rule out retroperitoneal hematoma/injury. This was negative, it was a contrasted study. I reviewed the images and the report which I agree with. Chronic findings are noted. Her blood counts are stable. She was given several doses of pain medication additional muscle relaxers to try to help relieve/improve her pain, but despite this she was still unable to mobilize in order to function at home on her own where she lives by herself. She so far has not yet been able to provide us a urine specimen, and she does not want the nurse to catheterize her which I think is fine that can wait, I think this is less likely urinary issue. Plan is for admission given the above. I do think that the pain is musculoskeletal given the negative imaging. Lab Data Attestation: I reviewed the patient's lab results. Labs: Laboratory Results - last 24 hr 09/06/24 09:45 WBC 4.2 L RBC 3.59 L Hgb 11.0 L Hct 33.9 L MCV 94.4 MCH 30.6 MCHC 32.4 RDW Std Deviation 50.5 H RDW Coeff of Sharath 14.6 Plt Count 158 MPV 10.4 Immature Gran % (Auto) 0.200 Neut % (Auto) 59.6 Lymph % (Auto) 24.0 [place] % (Auto) 11.6 H Eos % (Auto) 2.9 Baso % (Auto) 1.7 H Absolute Neuts (auto) 2.5 Absolute Lymphs (auto) 1.01 Nucleated RBC % 0 Sodium 142 Potassium 3.9 Chloride 108 Carbon Dioxide 24.0 Anion Gap 11 BUN 15 Creatinine 0.74 Estim Creat Clear Calc 72.62 Est GFR (MDRD) Non-Af 83 BUN/Creatinine Ratio 20.3 H Glucose 106 H Calcium 10.2 Total Bilirubin 0.57 AST 28 ALT 13 Alkaline Phosphatase 90 Total Protein 7.5 Albumin 4.0 Globulin 3.5 Albumin/Globulin Ratio 1.1 Lipase 34 Radiography Diagnostic Testing: Clinical Impression(s) from Imaging Studies Abdomen/Pelvis CT 09/06/24 10:07 IMPRESSION: Bibasilar atelectasis. Hepatomegaly with findings suggestive of cirrhosis and fatty infiltration. Small amount of perihepatic fluid. Questionable tiny right adrenal adenoma. Status post cholecystectomy. Increased markings in the subcutaneous fat overlying the lower anterior abdominal wall suggestive of edema. Tiny nonobstructive right intrarenal calculus. Reading Location: [facility] Management Discussion w/another healthcare provider: Hospitalist Discharge Plan Triage Chief Complaint: Back ED Provider: David Grimm Dx/Rx/DC Orders Clinical Impression: Intractable back pain, Debility, Acute low back pain Prescriptions: No Action ursodiol 250 mg tablet 250 mg PO BID Qty: 60 4RF atorvastatin 20 MG tablet 20 mg PO QHS diltiazem HCl 180 MG capsule 240 mg PO DAILY Xarelto 20 MG tablet 20 mg PO QHS Patient Comments: WAS TOLD TO STOP 2 DAYS BEFORE SURGERY multivitamin with folic acid [Thera] 1 TABLET tablet 1 tab PO DAILY pantoprazole 40 MG tablet 40 mg PO DAILY PRN (Reason: GERD) sertraline [Zoloft] 25 MG tablet 25 mg PO DAILY cholecalciferol (vitamin D3) 125 mcg (5,000 unit) Tablet 125 mcg PO DAILY cyanocobalamin (vitamin B-12) [Vitamin B-12] 500 mcg Tablet 500 mcg PO DAILY oxybutynin chloride 10 mg tablet extended release 24hr 10 mg PO DAILY ibandronate 150 mg tablet 150 mg PO QMONTH Primary Care Provider: Angy Anand Referrals: Angy Anand DO [Primary Care Provider] - Print Language: Amharic Disposition Disposition: Acute Care Hospital [facility]
[2024-09-06] MEDS: fentaNYL 100 MCG/2 ML Ampul 25 MCG IV ×2 (09:40→11:29)
[2024-09-06] MEDS: Ondansetron 4 MG/2 ML Vial IV (09:40)
[2024-09-06 09:51] LABS: Absolute Lymphocyte Count 1.01 X10^3/uL (0.83-4.51); Absolute Neutrophil Count 2.5 X10^3/uL (2.0-7.7); Basophil# 0.07 X10^3/uL; Basophil% 1.7 % (0-1); Eosinophil# 0.12 X10^3/uL; Eosinophils% 2.9 % (0-5); Hematocrit 33.9 % (37-47); Lymphocyte # 1.01 X10^3/ul (0.83-4.51); Mean Corp Hgb Conc 32.4 g/dL (32-36); Mean Corpuscular Hgb 30.6 pg (27.0-32.0); Mean Corpuscular Volume 94.4 fL (81-99); Mean Platelet Vol. 10.4 fl (6.2-12.0); Monocyte# 0.49 X10^3/uL; Monocyte% 11.6 % (0-10); NRBC Flagged by Analyzer 0 % (0-5); Neutrophil # 2.51 X10^3/uL (2.7-7.7); Neutrophil % 59.6 % (47-70); Platelet Count 158 K/mm3 (150-450); RBC Distribution Width CV 14.6 % (11.6-14.6); RBC Distribution Width SD 50.5 fl (35.1-43.9); Red Blood Count 3.59 M/mm3 (4.2-5.4); White Blood Count 4.2 K/mm3 (4.4-11.0)
--- NOTE | 2024-09-06 10:07 | CT_ITS ---
PROCEDURE: ABDOMEN/PELVIS W IV CONT ONLY 09/06/2024 REASON FOR EXAM: BACK PAIN, DIFFUSE ABD DISCOMFORT; ANTICOAG'D TECHNIQUE: Abdomen and pelvis CT with intravenous contrast. Coronal and Sagittal reconstruction series were provided. PATIENT PREPARATION: Per protocol ORAL CONTRAST TYPE: None. CONTRAST: Isovue-300 VOLUME: 100mL One or more dose reduction techniques were used (e.g., Automated exposure control, adjustment of the mA and/or kV according to patient size, use of iterative reconstruction technique. RADIATION DOSE SUMMARY: CTDlvol: 18.5 mGy DLP: 1251.01 mGycm COMPARISON: Comparison is made with prior study dated March 11, 2024. FINDINGS: Lung bases: Mild dependent atelectasis. Cardiomegaly. Calcification of the mitral valve annulus. Coronary artery calcification. Liver: Diffuse fatty infiltration. Hepatomegaly. Nodular hepatic contour suggestive of possible cirrhosis. Small amount of perihepatic fluid. Gallbladder: Surgically absent. Spleen: Normal size. Pancreas: Normal size without evidence of mass surrounding inflammation or ductal dilation. Adrenals: Questionable 1.5 cm right adrenal adenoma at the level of the crux of the right adrenal gland. Kidneys: Mild cortical atrophy. Nonobstructive tiny calculus in the mid lower pole of the right kidney. Bladder: Unremarkable. Reproductive Organs: Prior hysterectomy. Adnexal regions are unremarkable. Bowel: Fecal material is seen within the colon. Appendix: The appendix is not identified. There is no inflammatory process identified in the right lower quadrant to suggest appendicitis. Lymph nodes: Unremarkable. Vasculature: Mild diffuse atherosclerotic calcifications are noted. Peritoneum / Retroperitoneum: There is evidence of increased markings in the subcutaneous fat overlying the lower anterior abdominal wall with skin thickening suggestive of edematous changes of the anterior abdominal wall. Bones: Degenerative changes of the spine. Grade 2 anterior listhesis of L4 on L5. CT/Abdomen/Pelvis W IV Cont ONLY IMPRESSION: Bibasilar atelectasis. Hepatomegaly with findings suggestive of cirrhosis and fatty infiltration. Small amount of perihepatic fluid. Questionable tiny right adrenal adenoma. Status post cholecystectomy. Increased markings in the subcutaneous fat overlying the lower anterior abdomin al wall suggestive of edema. Tiny nonobstructive right intrarenal calculus. Reading Location: [id number]
[2024-09-06 10:12] LABS: ALB/GLOB Ratio 1.1 RATIO (0.9-2.4); AST(SGOT) 28 U/L (<=31); Alanine Aminotransfer ALT/SGPT 13 U/L (<=34); Alkaline Phosphatase 90 U/L (35-104); Anion Gap 11 (5-15); BUN 15 mg/dL (4-19); BUN/Creat Ratio 20.3 RATIO (10-20); Calcium,Total 10.2 mg/dL (7.6-11.0); Chloride 108 mmol/L (98-108); Creatinine, Serum 0.74 mg/dL (0.70-1.20); EST Glomerular Filtration Rate 83 (>60); Estimated Creatinine Clearance 72.62 ml/min (50-250); Globulin 3.5 g/dL (2.2-4.2); Glucose 106 mg/dL (70-99); Lipase 34 U/L (13-75); Potassium 3.9 mmol/L (3.3-5.1); Protein, Total 7.5 g/dL (5.9-8.4); Sodium Level 142 mmol/L (133-145); Total Bilirubin 0.57 mg/dL (0.00-1.30)
--- NOTE | 2024-09-06 11:32 | CHAPLAIN ---
Type of Pastoral Visit _x__ Initial Visit ___ Follow-up Visit ___ On-call Visit ___ General Patient Visit ___ Spiritual Assessment ___ Family Conference ___ Bereavement ___ Rapid Response ___ Code Blue ___ Other (describe below) Pastoral Care Referral From _x__ Patient ___ Family _x__ Nurse ___ Physician ___ [employer] ___ Crisis Manager ___ Other (describe below) Sacrament/Intervention ___ Active listening ___ Anointing ___ Sikh ___ Bereavement ___ Communion ___ Chikis exploration ___ ___ Life review _x__ Prayer ___ Reconciliation ___ Sacrament of Sick _x__ Supportive presence ___ Wedding ___ Other (describe below) Pastoral Comments patient requested this edge banding machine offbearer as she is in the ED waiting treatment; pt is having severe back pain; pt is breathing quickly; this edge banding machine offbearer stepped into room to give presence and prayer; gave calm presence and words of assurance for good care and prompt attention; pt voices that she prays and believes in God; pt says please pray, just please pray; slow and calm prayer given as patient relaxes some and her breathing becomes more regular; after prayer the patient explains more about her pain and gives out groans; offered to give ongoing support if pt is to be admitted; pt says that she does not have family locally that she can call to be with her at this time
[2024-09-06] MEDS: Orphenadrine 60 MG/2 ML Ampul IV (11:53)
--- NOTE | 2024-09-06 13:16 | PCM.HP.STD ---
HPI - General General Date of Admission: 09/06/24 Date of Service: 09/06/24 Chief Complaint: intractable lower back pain HPI Narrative RADHA SMITH, is a 79 F with a PMH as outlined who presents via the ED on 09/06/2024 with a complaint of intractable lower back pain. The pain started on the morning of admission and was mainly across her lower back. She admitted to a fall 2 days prior to admission after she got out of bed too quickly and tumbled, landing on her right side. She called the EMS for help to get off the floor at that time. She did not havae any pain then, but subsequently started having severe back pain as stated above. She was unable to ambulate. She denied any fever, chills, chest pain,palpitations, dizziness, nausea or vomiting or any other symptoms. Review of systems was otherwise negative. Vitals in [facility] ED were BP of 137/68, WA of 78, RR of 18 and oxygen sats of 98% on room air. CBC showed Hb of 11, wbc of 4.2, platelets of 158. Chemistry was unremarkable. CT of the abdomen and pelvis showed bibasilar atelectasis with hematomegaly and findings suggestive of cirrhosis and fatty infiltration, with small amount of perihepatic fluid and questionable tiny right adrenal adenoma; she had grade 2 anterior listhesis of L4 on L5. She is being admitted to be managed for intractable back pain likely due to mechanical fall. [facility] Medical History Wears hearing aid Wears dentures Easy bruising Shortness of breath on exertion History of pain when walking Intertriginous candidiasis Iron deficiency anemia Wears glasses Post-menopausal Arthritis Walker as ambulation aid Back pain CPAP (continuous positive airway pressure) dependence Gastric reflux Former smoker Leg cramps History of echocardiogram History of stress test Cardiology follow-up encounter History of atrial fibrillation Reyes's esophagus Aortic stenosis GI bleed ROBBINS (nonalcoholic steatohepatitis) Urinary incontinence Morbid obesity GERD (gastroesophageal reflux disease) Depression High cholesterol Hypertension Atrial fibrillation Home Medications ?Medication ?Instructions ?Recorded ?Last Taken ?Type atorvastatin 20 mg tablet 20 mg PO QHS CHOLESTEROL 05/13/18 09/05/24 History multivitamin with folic acid 400 1 tab PO DAILY SUPPLEMENT 05/13/18 09/05/24 History mcg tablet (Thera) pantoprazole 40 mg tablet,delayed 40 mg PO DAILY GERD 05/13/18 09/05/24 History release rivaroxaban 20 mg tablet (Xarelto) 20 mg PO DAILY AFIB 05/13/18 09/05/24 History sertraline 25 mg tablet (Zoloft) 25 mg PO QHS DEPRESSION 05/13/18 09/05/24 History cholecalciferol (vitamin D3) 125 125 mcg PO QHS 05/13/21 09/05/24 History mcg (5,000 unit) tablet cyanocobalamin (vitamin B-12) 500 500 mcg PO QHS 06/26/21 09/05/24 History mcg tablet (Vitamin B-12) ursodiol 250 mg tablet 250 mg PO BID #60 tabs 02/12/24 09/05/24 Rx diltiazem HCl 240 mg capsule,24 240 mg PO DAILY 09/06/24 09/05/24 History hr,extended release (Tiadylt ER) ibandronate 150 mg tablet 150 mg PO QMONTH 09/06/24 Unknown History oxybutynin chloride 10 mg 10 mg PO DAILY 09/06/24 09/05/24 History tablet,extended release 24 hr Allergy/AdvReac Type Severity Reaction Status Date / Time morphine AdvReac Other Verified 09/06/24 08:59 Surgical History Hx of right cataract extraction Hx of left cataract extraction History of esophagogastroduodenoscopy (EGD) History of carpal tunnel repair Hx of cystostomy Hx of tubal ligation Hx of hysterectomy Hx of total knee replacement History of carpal tunnel surgery of left wrist Hx of hernia repair Hx of cholecystectomy Social History Smoking Status: Former smoker alcohol intake: never substance use type: does not use ROS Constitutional Constitutional: Reports fatigue, malaise and weakness; Denies anorexia, chills or fever(s) Eyes Eyes: Denies change in vision ENT HEENT: Denies dysphagia or headache(s) Cardiovascular Cardiovascular: Denies chest pain, dyspnea on exertion, edema, lightheadedness, orthopnea, palpitations, paroxysmal nocturnal dyspnea or rapid heart rate Respiratory/Chest Respiratory/Chest: Denies cough, dyspnea, productive cough, shortness of breath at rest or shortness of breath with exertion Gastrointestinal Gastrointestinal: Denies abdominal pain, constipation, diarrhea, nausea or vomiting Genitourinary Genitourinary: Denies dysuria or urinary frequency Musculoskeletal Musculoskeletal: Reports back pain; Denies arthralgias, joint pain, joint stiffness, joint swelling, myalgias or neck pain Neurologic Neurologic: Denies confusion, dizziness, focal weakness, headache(s), numbness, seizure-like activity or syncope Psychiatric Psychiatric: Denies anxiety or depression Vital Signs Vital Signs Vital Signs: 09/06/24 08:54 09/06/24 11:07 09/06/24 13:00 Temperature 97.7 F L Temperature Source Oral Pulse Rate 69 78 Respiratory Rate 17 18 Blood Pressure 152/82 H 130/78 H 137/68 H Blood Pressure Mean 105 95 91 Pulse Ox 92 98 Oxygen Delivery Method Nasal Cannula Oxygen Flow Rate (L/min) 2 Weight Weight: 294 lb 3.2 oz Body Mass Index (BMI) 57.4 Physical Exam Const alert, oriented x3 and no apparent distress Constitutional Narrative: class III obesity General Appearance: cooperative HEENT normocephalic, head/scalp atraumatic, hearing grossly normal bilaterally and moist oral mucous membranes Mouth: oral and palatal mucosa normal Eyes PERRL, EOMs intact bilaterally and conjunctivae normal Neck no lymphadenopathy and supple Resp normal respiratory effort, no retractions, no use of accessory muscles and clear to auscultation bilaterally Cardio regular rate, regular rhythm, S1 normal heart sound and S2 normal heart sound GI normal to inspection, nondistended, normoactive bowel sounds, soft to palpation, non-tender and non-distended Extremity normal to inspection, full ROM and no clubbing, cyanosis or edema Neuro oriented x3, CN's II-XII intact bilaterally, moves all extremities and no focal motor deficits Sensorium / Orientation: awake and alert Motor Exam: strength 5/5 throughout Psych affect normal Results Lab / Micro Data 09/06/24 09:45 09/06/24 09:45 Labs: Laboratory Results - last 24 hr 09/06/24 09:45: WBC 4.2 L, RBC 3.59 L, Hgb 11.0 L, Hct 33.9 L, MCV 94.4, MCH 30.6, MCHC 32.4, RDW Std Deviation 50.5 H, RDW Coeff of Sharath 14.6, Plt Count 158, MPV 10.4, Immature Gran % (Auto) 0.200, Neut % (Auto) 59.6, Lymph % (Auto) 24.0, [place] % (Auto) 11.6 H, Eos % (Auto) 2.9, Baso % (Auto) 1.7 H, Absolute Neuts (auto) 2.5, Absolute Lymphs (auto) 1.01, Nucleated RBC % 0, Sodium 142, Potassium 3.9, Chloride 108, Carbon Dioxide 24.0, Anion Gap 11, BUN 15, Creatinine 0.74, Estim Creat Clear Calc 72.62, Est GFR (MDRD) Non-Af 83, BUN/Creatinine Ratio 20.3 H, Glucose 106 H, Calcium 10.2, Total Bilirubin 0.57, AST 28, ALT 13, Alkaline Phosphatase 90, Total Protein 7.5, Albumin 4.0, Globulin 3.5, Albumin/Globulin Ratio 1.1, Lipase 34 Imaging Radiology Impression Abdomen/Pelvis CT 09/06/24 10:07 IMPRESSION: Bibasilar atelectasis. Hepatomegaly with findings suggestive of cirrhosis and fatty infiltration. Small amount of perihepatic fluid. Questionable tiny right adrenal adenoma. Status post cholecystectomy. Increased markings in the subcutaneous fat overlying the lower anterior abdominal wall suggestive of edema. Tiny nonobstructive right intrarenal calculus. Reading Location: [id number] Assessment & Plan Assessment/Plan (1) Acute low back pain: (2) Debility: (3) Intractable back pain: PLAN: Plan #Intractable low back pain due to mechanical fall Admit to [facility] send observation. Complains of intractable low back pain was started this morning and has not been improving. She did have a mechanical fall about 3 days prior to admission. CT of the abdomen pelvis shows no evidence of fracture but shows grade 2-3 spondylolisthesis. It also showed hepatomegaly with evidence of cirrhosis. P.o. Tylenol and p.o. oxycodone as well as IV morphine as needed for pain. Lidocaine patch once daily Consult PT OT. Fall precautions. #History of liver cirrhosis with portal hypertensive gastropathy On ursodiol #History of anemia: Stable #GERD with Reyes's esophagus: On PPI #Hyperlipidemia: Statin #A-fib: On Cardizem. Also on Xarelto for DVT prophylaxis. CODE STATUS: Full code Patient counseled extensively about different types of CODE STATUS including full code, DNR CCA and DNR CCA. Patient elects to be full code. Total [id number] time 16 minutes. Charges/Coding Visit Charges Inpatient E&M: 77169 Init Hosp L3 Procedures Hospitalists Procedures: 17549 Advncd Care Plan 30 Min
[2024-09-06 18:55] LABS: Mucous, Urine 0 SEEN /hpf (<or=2+)
[2024-09-06 19:09] LABS: Color, Urine Yellow (Yellow); Glucose, Dipstick Normal (Normal); Ketone-Dipstick Negative (Negative); Leukocyte Esterase-Dipstick 500 /ul (Negative); Nitrite-Dipstick Positive (Negative); Occult Blood-Urine 250 /ul (Negative); Protein-Dipstick 30 mg/dl (Negative); Specific Gravity, Urine 1.015 (1.002-1.030); Urine Bilirubin Dipstick Negative (Negative); Urine Clarity Cloudy (Clear); Urine Urobilinogen Normal (Normal)
[2024-09-06 19:30] LABS: Bacteria 3+ /hpf (None Seen); Red Blood Cells-Urine 25-50 SEEN /hpf (0-5); Squamous Epithelial Cells - UA 0-5 SEEN /hpf (5-10); White Blood Cells 25-50 SEEN /hpf (0-5)
[2024-09-06] MEDS: Cholecalciferol (Vit D3) 125 MCG CAPSULE (5,000 UNITS) PO (21:36)
[2024-09-06] MEDS: Atorvastatin Calcium 20 MG Tablet PO (21:36)
[2024-09-06] MEDS: Sertraline 50 MG Tablet 25 MG PO (21:36)
[2024-09-06] MEDS: Enoxaparin 40 MG/0.4 ML Syringe SC (21:36)
[2024-09-06] MEDS: Cyanocobalamin 500 MCG Tablet PO (21:37)
[2024-09-07] MEDS: oxyCODONE 5 MG Tablet PO (00:16)
[2024-09-07 04:05] VITALS: BP 136/66; PULSE 74; RESP 16; TEMP 36.4; O2SAT 94
--- NOTE | 2024-09-07 04:05 | PCM.HOSP.N ---
Hospitalist Note UA notable, UCx requested, starting IV rocephin.
[2024-09-07] MEDS: Ceftriaxone 1 GM/50 ML BAG IV (04:40)
[2024-09-07] MEDS: 0.9% Normal Saline (100mL Bag) 100 ML 15 ML IV (04:41)
[2024-09-07 07:02] LABS: Absolute Lymphocyte Count 0.92 X10^3/uL (0.83-4.51); Absolute Neutrophil Count 1.7 X10^3/uL (2.0-7.7); Basophil# 0.03 X10^3/uL; Basophil% 0.9 % (0-1); Eosinophil# 0.13 X10^3/uL; Hematocrit 30.6 % (37-47); Hemoglobin 9.8 g/dL (12.0-15.0); Lymphocyte # 0.92 X10^3/ul (0.83-4.51); Lymphocyte % 28.7 % (19-41); Mean Corpuscular Hgb 30.5 pg (27.0-32.0); Mean Corpuscular Volume 95.3 fL (81-99); Mean Platelet Vol. 10.7 fl (6.2-12.0); Monocyte# 0.42 X10^3/uL; Monocyte% 13.1 % (0-10); NRBC Flagged by Analyzer 0 % (0-5); Platelet Count 133 K/mm3 (150-450); RBC Distribution Width CV 14.6 % (11.6-14.6); RBC Distribution Width SD 50.7 fl (35.1-43.9); Red Blood Count 3.21 M/mm3 (4.2-5.4); White Blood Count 3.2 K/mm3 (4.4-11.0)
[2024-09-07 07:30] LABS: Anion Gap 9 (5-15); BUN 11 mg/dL (4-19); BUN/Creat Ratio 17.6 RATIO (10-20); Calcium,Total 9.2 mg/dL (7.6-11.0); Carbon Dioxide 23.5 mmol/L (21.0-32.0); Chloride 107 mmol/L (98-108); Creatinine, Serum 0.61 mg/dL (0.70-1.20); EST Glomerular Filtration Rate 91 (>60); Estimated Creatinine Clearance 72.62 ml/min (50-250); Glucose 101 mg/dL (70-99); Potassium 3.7 mmol/L (3.3-5.1); Sodium Level 139 mmol/L (133-145)
[2024-09-07] MEDS: dilTIAZem CD 240 MG Capsule PO (07:58)
[2024-09-07] MEDS: Tolterodine Tartrate 2 MG CAP.SA PO (07:58)
[2024-09-07] MEDS: Multivitamins,Therapeutic Tablet 1 TABLET PO (07:58)
[2024-09-07] MEDS: Menthol/Lanolin/Calamine/Znox 113 GM Tube 1 APPLIC TOPICAL (07:58)
[2024-09-07] MEDS: Lidocaine 5% Patch 1 PATCH TOPICAL (07:59)
[2024-09-07] MEDS: Enoxaparin 40 MG/0.4 ML Syringe SC (07:59)
[2024-09-07] MEDS: Nystatin Powder 15gm Bottle 1 APPLIC TOPICAL (07:59)
[2024-09-07] MEDS: Pantoprazole Sodium 40 MG Tablet PO (07:59)
[2024-09-07 08:38] VITALS: BP 123/52; PULSE 56; RESP 18; TEMP 36.6; O2SAT 96
[2024-09-07] MEDS: Ursodiol 250 MG Tablet PO (09:54)
--- NOTE | 2024-09-07 11:28 | CASEMGMT ---
Addendum entered by Mor Frey 09/07/24 13:04: Pt's RN states to this RN CM that the pt does not qualify for additional oxygen as she is above 89% on room air at rest and with ambulation with therapy. No further needs identified. Addendum entered by Mor Frey 09/07/24 12:41: [facility] notified that pt has a DC order. Geetha reports that they are able to accept for SOC tomorrow. RN CM to pt room and pt is agreeable to this plan. This RN CM inquired if pt wears oxygen @ home. Pt states that she wears oxygen @ night only through her CPAP. Pt states that she has a concentrator but no portability. [facility] who states that the pt O2 is through [facility] [employer] [facility] [employer]. TC to [facility] who states the pt current Rx is for 2L @ HS only through CPAP. DC info updated. Original Note: This RN CM was notified that the pt would like [facility] (SN and PT) after DC. TC to [facility] and referral made to Geetha. Awaiting return response.
--- NOTE | 2024-09-07 11:40 | DS.PCM_ITS ---
Providers Date of Admission: 09/06/24 Date of Discharge: 09/07/24 Primary Care Physician: Dr. Angy Anand DO Reason For Visit: intractable lower back pain, mechanical fall Diagnosis Discharge Diagnosis (1) Acute low back pain: Status: Acute Code(s): M54.50 - Low back pain, unspecified (2) Debility: Status: Acute Code(s): R53.81 - Other malaise (3) Intractable back pain: Status: Acute Code(s): M54.9 - Dorsalgia, unspecified Medications at Discharge Home Medications atorvastatin 20 mg tablet 20 mg PO QHS CHOLESTEROL 05/13/18 multivitamin with folic acid 400 mcg tablet (Thera) 1 tab PO DAILY SUPPLEMENT 05/13/18 pantoprazole 40 mg tablet,delayed release 40 mg PO DAILY GERD 05/13/18 rivaroxaban 20 mg tablet (Xarelto) 20 mg PO DAILY AFIB 05/13/18 sertraline 25 mg tablet (Zoloft) 25 mg PO QHS DEPRESSION 05/13/18 cholecalciferol (vitamin D3) 125 mcg (5,000 unit) tablet 125 mcg PO QHS 05/13/21 cyanocobalamin (vitamin B-12) 500 mcg tablet (Vitamin B-12) 500 mcg PO QHS 06/26/21 ursodiol 250 mg tablet 250 mg PO BID #60 tabs 02/12/24 diltiazem HCl 240 mg capsule,24 hr,extended release (Tiadylt ER) 240 mg PO DAILY 09/06/24 ibandronate 150 mg tablet 150 mg PO QMONTH 09/06/24 oxybutynin chloride 10 mg tablet,extended release 24 hr 10 mg PO DAILY 09/06/24 nitrofurantoin monohydrate/macrocrystals 100 mg capsule (Macrobid) 100 mg PO BID 5 days #10 caps 09/07/24 Hospital Course Operations None Procedures - (CT abdomen pelvis) Summary of Care Provided Minutes Spent on Discharge: 35 Hospital Course: Patient is a 79-year-old female who presented [facility] ED on 09/06/2024 with worsening mid to low back pain with debility. Short hospital course as noted below. Patient discharged home with home health care in stable condition on 09/07. 1. Intractable mid to low back pain after mechanical fall with acute on chronic debility, improving ? PT/OT/case management followed. CT abdomen pelvis showed grade 2 anterior listhesis of L4 on L5 with other degenerative changes of the spine. Patient much improved from a pain standpoint on hospital day 2 with pain medication and treatment of UTI as below. Stable for discharge home with home health care on hospital day 2. Recommended Tylenol as needed and lidocaine patches as needed on discharge for back pain. 2. UTI ? UA with positive nitrites, 500 leukocyte esterase, 3+ bacteria. Urine culture pending on discharge. Prior urine culture data showed E. coli that was largely pansensitive. Will treat with Macrobid for 5-day course of antibiotics total on discharge. Chronic medical conditions: ? Class III obesity: BMI 57 on admit. Complicated hospital course, care and prognosis. Recommended weight loss. ? History of liver cirrhosis with portal hypertensive gastropathy: Continue home ursodiol. ? Chronic anemia: Hemoglobin stable at baseline around 10 during admission. ? GERD with Reyes's esophagus: Continue home PPI. ? Hyperlipidemia: Continue home statin. ? Depression: Continue home sertraline. ? Paroxysmal A-fib: Continue home Xarelto and diltiazem. ? Overactive bladder: Continue home oxybutynin. Total clinical time spent by myself addressing the patient's medical issues, reviewing all the data, and collaborating with patient's care team: 35 minutes. Physical Exam Const alert, oriented x3 and no apparent distress Constitutional Narrative: Elderly female, class III obesity, energy improved from admission, sitting back comfortably in bedside chair, conversing normally, in no acute distress. General Appearance: cooperative and comfortable HEENT normocephalic, head/scalp atraumatic, hearing grossly normal bilaterally, nasal mucous membranes and turbinates normal and moist oral mucous membranes Eyes PERRL, EOMs intact bilaterally and conjunctivae normal Neck full ROM Chest inspection of chest normal Resp normal respiratory effort, normal air movement, no use of accessory muscles and clear to auscultation bilaterally Cardio regular rate, regular rhythm, no murmurs and peripheral pulses 2+ throughout GI normal to inspection, nondistended, normoactive bowel sounds, soft to palpation, non-tender and non-distended Back/Spine normal ROM Extremity normal to inspection, full ROM and no pedal edema Skin no rashes or lesions noted Psych mental status grossly normal Weight / BMI Weight Weight: 133.447 kg Body Mass Index (BMI) 57.4 ABG / Lab / Microbiology Data 09/07/24 06:39 09/07/24 06:39 Laboratory: Laboratory Results - last 24 hr 09/06/24 18:50: Urine Color Yellow, Urine Clarity Cloudy, Urine pH 5.0, Ur Specific [place] 1.015, Urine Protein 30 H, Urine Glucose (UA) Normal, Urine Ketones Negative, Urine Occult Blood 250 H, Urine Nitrite Positive H, Urine Bilirubin Negative, Urine Urobilinogen Normal, Ur Leukocyte Esterase 500 H, Urine RBC 25-50 SEEN, Urine WBC 25-50 SEEN, Ur Squamous Epith Cells 0-5 SEEN, Urine Bacteria 3+, Urine Mucus 0 SEEN 09/07/24 06:39: WBC 3.2 L, RBC 3.21 L, Hgb 9.8 L, Hct 30.6 L, MCV 95.3, MCH 30.5, MCHC 32.0, RDW Std Deviation 50.7 H, RDW Coeff of Sharath 14.6, Plt Count 133 L, MPV 10.7, Immature Gran % (Auto) 0.300, Neut % (Auto) 53.0, Lymph % (Auto) 28.7, [place] % (Auto) 13.1 H, Eos % (Auto) 4.0, Baso % (Auto) 0.9, Absolute Neuts (auto) 1.7 L, Absolute Lymphs (auto) 0.92, Nucleated RBC % 0, Sodium 139, Potassium 3.7, Chloride 107, Carbon Dioxide 23.5, Anion Gap 9, BUN 11, C reatinine 0.61 L, Estim Creat Clear Calc 72.62, Est GFR (MDRD) Non-Af 91, BUN/Creatinine Ratio 17.6, Glucose 101 H, Calcium 9.2 D/C Instructions DC O2, CPAP, BIPAP Needs PSN CPAP & BiPAP: BiPAP & CPAP Settings per PSN Mode BiPAP 09/07/24 03:30 Bipap Delivery Device Face Mask 09/07/24 03:30 BiPAP Inspiratory Pressure 13 09/07/24 03:30 BiPAP Expiratory Pressure 7 09/07/24 03:30 Total Flow Rate 4 09/07/24 03:30 Home O2 Discharge instructions: No Meaningful Use Info Meaningful Use Meaningful Use Diagnoses (Choose all that apply): None applicable Ischemic Stroke Statin Dosing Therapy Reference: STATIN DOSE THERAPY REFERENCE: * Patients > 75 years receive moderate or high dose statin therapy. * Patients 75 years or YOUNGER should receive HIGH intensity statin dose unless contraindicated. You will be required to document reason for non-treatment if statin daily dose does not meet guidelines. HIGH DOSE STATIN THERAPY DAILY Atorvastatin > than or = to 40 mg Rosuvastatin > than or = to 20 mg Amlodipine + Atorvastatin > than or = to 2.5/40 mg Ezetimibe + Simvastatin 10/80 mg Simvastatin 80mg Discharge Plan Admission Admit Date/Time: 09/06/24 13:29 Primary Reason for Your Visit: back pain Attending Provider: Leon Cardenas Primary Care Provider: Angy Anand Consulting Providers: Kim Vargas Instructions Additional Instructions / Restrictions: Take 5 days of Macrobid to complete course of antibiotics for your UTI. Home health care will be coming out of the house to assist you in the next 1 to 2 days. Follow-up with your primary care doctor as needed. Discharge Orders/Prescriptions Prescriptions: New nitrofurantoin monohyd/m-cryst [Macrobid] 100 mg capsule 100 mg PO BID 5 Days Qty: 10 0RF Rx Instructions: must administer with a meal/food Continued ursodiol 250 mg tablet 250 mg PO BID Qty: 60 4RF Patient Comments: TAKES WITH MEALS atorvastatin 20 MG tablet 20 mg PO QHS Xarelto 20 MG tablet 20 mg PO DAILY multivitamin with folic acid [Thera] 1 TABLET tablet 1 tab PO DAILY pantoprazole 40 MG tablet 40 mg PO DAILY sertraline [Zoloft] 25 MG tablet 25 mg PO QHS cholecalciferol (vitamin D3) 125 mcg (5,000 unit) Tablet 125 mcg PO QHS cyanocobalamin (vitamin B-12) [Vitamin B-12] 500 mcg Tablet 500 mcg PO QHS oxybutynin chloride 10 mg tablet extended release 24hr 10 mg PO DAILY ibandronate 150 mg tablet 150 mg PO QMONTH Patient Comments: NEXT DOSE IS Thursday09/11/24 diltiazem HCl [Tiadylt ER] 240 mg capsule,extended release 24 hr 240 mg PO DAILY Referrals / Follow Up: Angy Anand DO [Primary Care Provider] - Disposition Disposition (needs filled in before D/C Order can be placed): Home Health Service Charges/Coding Visit Charges Inpatient E&M: 81963 Disch Hosp >30min
--- NOTE | 2024-09-07 12:15 | CASEMGMT ---
SINCERE WATSON Assessment: Face to Face with pt for initial transition planning/care coordination assessment. SINCERE WATSON introduced self and role at [facility], pt voices understanding and consents to assessment. Pt is A&O x4 and answers all questions appropriately at this time. Pt sitting up in bed in no distress. Care providers, pharmacy, and demographics verified/updated. Strata: 2 Admitting Dx: Intractable lower back pain, mechanical fall PCP: Kika Specialists: Women'S Studies Professor, does not recall name. Preferred Pharmacy: [facility] Insurance: [employer] H[facility] Prescription Benefit: yes LNOK: Sister, Queenie; DIL, Soledad Living Arrangements: Pt lives alone in a 1 story home with a ramp to enter. ADLs: Pt states I at baseline with ADLs and IADLs. Transportation: Pt drives self and denies concerns with transportation. DME: WW, Rollator, cane shower chair HHC/SNF: Previously at [place] [facility] Pt states she would like [facility] services for nursing and PT upon DC, [facility], denies wanting a list of [facility] agencies. SINCERE WATSON notified SINCERE WATSON on floor. Pt states no further concerns/needs. CM to follow. Advised pt to ask CM if any further question/concerns/needs arise, voices understanding. Pt Goal: Home Plan: Home with HHC. Hiren POST CM
[2024-09-07 14:00] VITALS: BP 116/47; PULSE 65; RESP 18; TEMP 36.8; O2SAT 91
--- NOTE | 2024-09-07 14:21 | PHA.DC_ITS ---
Pharmacy [facility] Service has performed discharge medication reconciliation and counseling for this patient. 1. NITROFURANTOIN 100MG PO BID X 5 DAYS The patient's discharge medication list was reviewed for discrepancies and discrepancies were resolved. The patient was counseled on the following discharge medications and changes in medications for homegoing were reviewed. The Reason for Use, instructions for use, and potential side effects were reviewed for all new medications. The patient's questions regarding all of their medications were answered. The patient was able to verbally demonstrate an understanding of their discharge medications. Medications at Discharge Home Medications atorvastatin 20 mg tablet 20 mg PO QHS CHOLESTEROL 05/13/18 multivitamin with folic acid 400 mcg tablet (Thera) 1 tab PO DAILY SUPPLEMENT 05/13/18 pantoprazole 40 mg tablet,delayed release 40 mg PO DAILY GERD 05/13/18 rivaroxaban 20 mg tablet (Xarelto) 20 mg PO DAILY AFIB 05/13/18 sertraline 25 mg tablet (Zoloft) 25 mg PO QHS DEPRESSION 05/13/18 cholecalciferol (vitamin D3) 125 mcg (5,000 unit) tablet 125 mcg PO QHS 05/13/21 cyanocobalamin (vitamin B-12) 500 mcg tablet (Vitamin B-12) 500 mcg PO QHS 06/26/21 ursodiol 250 mg tablet 250 mg PO BID #60 tabs 02/12/24 diltiazem HCl 240 mg capsule,24 hr,extended release (Tiadylt ER) 240 mg PO DAILY 09/06/24 ibandronate 150 mg tablet 150 mg PO QMONTH 09/06/24 oxybutynin chloride 10 mg tablet,extended release 24 hr 10 mg PO DAILY 09/06/24 nitrofurantoin monohydrate/macrocrystals 100 mg capsule (Macrobid) 100 mg PO BID 5 days #10 caps 09/07/24
== END 2024-09-07 16:46 | disposition home health service (06) ==
LOC: ED 13:50 → MS3 13:52
PROVIDERS: Admitting Provider Student in an Organized Health Care Education/Training Program; Emergency Provider Emergency Medicine; PCP Internal Medicine; Visit Provider Hospitalist
DX: M54.50 Low back pain, unspecified (principal); I48.0 Paroxysmal atrial fibrillation; Z68.43 Body mass index [BMI] 50.0-59.9, adult; E66.813 Obesity, class 3; R53.81 Other malaise; F32.A Depression, unspecified; K22.70 Barrett's esophagus without dysplasia; B96.20 Unspecified Escherichia coli [E. coli] as the cause of diseases classified elsewhere; I10 Essential (primary) hypertension; D64.9 Anemia, unspecified; N32.81 Overactive bladder; Z87.891 Personal history of nicotine dependence; Z90.710 Acquired absence of both cervix and uterus; N39.0 Urinary tract infection, site not specified; E78.5 Hyperlipidemia, unspecified; W06.XXXA Fall from bed, initial encounter; Z79.01 Long term (current) use of anticoagulants; Z98.51 Tubal ligation status; Z90.49 Acquired absence of other specified parts of digestive tract
CPT/HCPCS: 36415; 74177; 80048; 80053; 81001; 83690; 85025; 87077; 87086; 87088; 87186; 94002; 94003; 96365; 96366; 96375; 96376; 97162; 97166; 99221; 99285; Q9967; A4216; G0378; J2405

== ENCOUNTER → 2024-10-17 | Outpatient (CLI) | payer MEDICARE, SELFPAY ==
[2024-10-17 13:32] LABS: Absolute Lymphocyte Count 1.07 X10^3/uL (0.83-4.51); Absolute Neutrophil Count 2.2 X10^3/uL (2.0-7.7); Basophil# 0.04 X10^3/uL; Basophil% 1.1 % (0-1); Eosinophil# 0.09 X10^3/uL; Eosinophils% 2.4 % (0-5); Hematocrit 33.5 % (37-47); Hemoglobin 10.7 g/dL (12.0-15.0); Lymphocyte # 1.07 X10^3/ul (0.83-4.51); Mean Corp Hgb Conc 31.9 g/dL (32-36); Mean Corpuscular Hgb 30.1 pg (27.0-32.0); Mean Corpuscular Volume 94.4 fL (81-99); Mean Platelet Vol. 11.3 fl (6.2-12.0); Monocyte% 8.1 % (0-10); NRBC Flagged by Analyzer 0 % (0-5); Neutrophil # 2.18 X10^3/uL (2.7-7.7); Neutrophil % 59.1 % (47-70); Platelet Count 146 K/mm3 (150-450); RBC Distribution Width CV 14.4 % (11.6-14.6); RBC Distribution Width SD 49.8 fl (35.1-43.9); Red Blood Count 3.55 M/mm3 (4.2-5.4); White Blood Count 3.7 K/mm3 (4.4-11.0)
[2024-10-17 14:00] LABS: Microalbumin,Random Urine 24.4 mg/L (NO RANGE EST.); Microalbumin:Creatinine Ratio 743.9 mg/g CRE
[2024-10-17 14:30] LABS: ALB/GLOB Ratio 1.2 RATIO (0.9-2.4); AST(SGOT) 24 U/L (<=31); Alanine Aminotransfer ALT/SGPT 12 U/L (<=34); Albumin, Serum 3.9 g/dL (3.4-4.8); Alkaline Phosphatase 90 U/L (35-104); Anion Gap 10 (5-15); BUN 11 mg/dL (4-19); BUN/Creat Ratio 19.1 RATIO (10-20); Calcium,Total 9.7 mg/dL (7.6-11.0); Carbon Dioxide 26.2 mmol/L (21.0-32.0); Chloride 106 mmol/L (98-108); Cholesterol 127 mg/dL (<=200); Creatinine, Serum 0.58 mg/dL (0.70-1.20); EST Glomerular Filtration Rate 92 (>60); Globulin 3.4 g/dL (2.2-4.2); Glucose 99 mg/dL (70-99); High Density Lipoprotein 59 mg/dL; Low Density Lipoprotein Calc. 52 mg/dL; Potassium 3.5 mmol/L (3.3-5.1); Protein, Total 7.3 g/dL (5.9-8.4); Sodium Level 142 mmol/L (133-145); Total Bilirubin 0.75 mg/dL (0.00-1.30); Triglycerides 78 mg/dL; Very Low Density Lipoprotein 16 mg/dL (5-40); cholesterol:hdl ratio screen 2.15
[2024-10-17 14:34] LABS: Thyroid Stim Hormone (TSH) 0.836 uIU/mL (0.300-4.200)
== END | disposition home or self-care (01) ==
LOC: LAB 12:33
PROVIDERS: PCP Internal Medicine; Referring Provider Internal Medicine; Visit Provider Internal Medicine
DX: I10 Essential (primary) hypertension (principal); I48.91 Unspecified atrial fibrillation; E55.9 Vitamin D deficiency, unspecified
CPT/HCPCS: 36415; 80053; 80061; 82043; 82306; 82570; 84443; 85025

== ENCOUNTER 2024-11-23 23:09 | Emergency (ER) | payer MEDICARE, SELFPAY ==
[2024-11-23 23:11] VITALS: BP 190/113; PULSE 86; RESP 22; TEMP 36.7; O2SAT 96
[2024-11-23 23:29] VITALS: BMI 50.2
[2024-11-23] MEDS: 0.9% Normal Saline (500mL Bag) 500 ML 999 ML IV (23:51)
[2024-11-23] MEDS: Lorazepam 2 MG/ML WCH Syringe 0.5 MG IV (23:51)
--- NOTE | 2024-11-24 00:10 | CT_ITS ---
PROCEDURE: ABDOMEN/PELVIS W IV CONT ONLY 11/24/2024 REASON FOR EXAM: RLQ PAIN TECHNIQUE: ABDOMEN/PELVIS W IV CONT ONLY. Coronal and Sagittal reconstruction series were provided. ORAL CONTRAST TYPE: None. CONTRAST: Isovue-300 50 VOLUME: 100 mL One or more dose reduction techniques were used (e.g., Automated exposure control, adjustment of the mA and/or kV according to patient size, use of iterative reconstruction technique. RADIATION DOSE SUMMARY: CTDlvol: 23.64 mGy DLP: 1377 mGycm COMPARISON: 09/06/2024. FINDINGS: Lung bases: Mild dependent atelectasis. Cardiomegaly. Calcification of the mitral valve annulus. Coronary artery calcification. Liver: Diffuse fatty infiltration. Hepatomegaly. Nodular hepatic contour suggestive of possible cirrhosis. Small amount of perihepatic fluid, increased. Increased mild pelvic ascites. Gallbladder: Surgically absent. Spleen: Normal size. Pancreas: Normal size without evidence of mass surrounding inflammation or ductal dilation. Adrenals: Questionable 1.5 cm right adrenal adenoma at the level of the crux of the right adrenal gland. Kidneys: Mild cortical atrophy. Nonobstructive tiny calculus in the mid lower pole of the right kidney. Bladder: Unremarkable. Reproductive Organs: Prior hysterectomy. Adnexal regions are unremarkable. Bowel: Fecal material is seen within the colon. Moderate amount of fecal residue is noted in the cecum. Appendix: The appendix is not identified. There is no inflammatory process identified in the right lower quadrant to suggest appendicitis. Lymph nodes: Unremarkable. Vasculature: Mild diffuse atherosclerotic calcifications are noted. Peritoneum / Retroperitoneum: There is evidence of increased markings in the subcutaneous fat overlying the lower anterior abdominal wall with skin thickening suggestive of edematous changes of the anterior abdominal wall. Bones: Degenerative changes of the spine. Grade 2 anterior listhesis of L4 on L5. CT/Abdomen/Pelvis W IV Cont ONLY IMPRESSION: Unchanged cirrhotic liver. Increased mild ascites. Moderate amount of fecal residue in the large bowels. The appendix is not identified without associated inflammatory changes in the r ight lower quadrant. Reading Location: [place] [address]
[2024-11-24 00:12] LABS: Absolute Lymphocyte Count 0.99 X10^3/uL (0.83-4.51); Absolute Neutrophil Count 10.1 X10^3/uL (2.0-7.7); Basophil# 0.06 X10^3/uL; Basophil% 0.5 % (0-1); Eosinophil# 0.14 X10^3/uL; Eosinophils% 1.2 % (0-5); Hematocrit 35.7 % (37-47); Hemoglobin 11.8 g/dL (12.0-15.0); Lymphocyte # 0.99 X10^3/ul (0.83-4.51); Lymphocyte % 8.6 % (19-41); Mean Corp Hgb Conc 33.1 g/dL (32-36); Mean Corpuscular Hgb 30.6 pg (27.0-32.0); Mean Corpuscular Volume 92.5 fL (81-99); Monocyte% 1.7 % (0-10); NRBC Flagged by Analyzer 0 % (0-5); Neutrophil # 10.08 X10^3/uL (2.7-7.7); Neutrophil % 87.6 % (47-70); Platelet Count 161 K/mm3 (150-450); RBC Distribution Width CV 14.9 % (11.6-14.6); RBC Distribution Width SD 49.7 fl (35.1-43.9); Red Blood Count 3.86 M/mm3 (4.2-5.4); White Blood Count 11.5 K/mm3 (4.4-11.0)
[2024-11-24 00:13] LABS: AST(SGOT) 26 U/L (<=31); Alanine Aminotransfer ALT/SGPT 12 U/L (<=34); Albumin, Serum 4.1 g/dL (3.4-4.8); Alkaline Phosphatase 101 U/L (35-104); Anion Gap 13 (5-15); BUN 14 mg/dL (4-19); BUN/Creat Ratio 20.7 RATIO (10-20); Bilirubin, Direct 0.48 mg/dL (0.00-0.30); Calcium,Total 10.1 mg/dL (7.6-11.0); Carbon Dioxide 25.7 mmol/L (21.0-32.0); Chloride 105 mmol/L (98-108); Creatinine, Serum 0.66 mg/dL (0.70-1.20); EST Glomerular Filtration Rate 89 (>60); Estimated Creatinine Clearance 66.56 ml/min (50-250); Globulin 3.8 g/dL (2.2-4.2); Glucose 113 mg/dL (70-99); Lipase 38 U/L (13-75); Potassium 3.3 mmol/L (3.3-5.1); Protein, Total 7.9 g/dL (5.9-8.4); Sodium Level 144 mmol/L (133-145); Total Bilirubin 1.01 mg/dL (0.00-1.30)
[2024-11-24 00:46] LABS: Mucous, Urine 0 SEEN /hpf (<or=2+)
[2024-11-24 00:54] LABS: Color, Urine Red (Yellow); Glucose, Dipstick Normal (Normal); Ketone-Dipstick 5 mg/dl (Negative); Leukocyte Esterase-Dipstick 100 /ul (Negative); Nitrite-Dipstick Negative (Negative); Occult Blood-Urine 250 /ul (Negative); Protein-Dipstick 100 mg/dl (Negative); Urine Bilirubin Dipstick Negative (Negative); Urine Clarity Turbid (Clear); Urine Urobilinogen Normal (Normal)
[2024-11-24 01:26] LABS: Red Blood Cells-Urine > 100 SEEN /hpf (0-5)
[2024-11-24 01:35] LABS: Squamous Epithelial Cells - UA 5-10 SEEN /hpf (5-10); Transitional Epithelial - Ur 0-5 SEEN /hpf (0-5); White Blood Cells 25-50 SEEN /hpf (0-5)
[2024-11-24 01:37] LABS: Bacteria 1+ /hpf (None Seen)
--- NOTE | 2024-11-24 02:02 | EX.ED.DYSGE1 ---
HPI History of Present Illness Chief Complaint: Abd Pain Informant: patient and family Narrative Narrative: Patient is a 79-year-old female with past medical history of cirrhosis as well as chronic atrial fibrillation who wears oxygen as needed throughout the day and at bedtime. She states that a few hours ago she noticed some pain in the right lower abdomen. She states there is no associated nausea vomiting or dysuria. She states there is no fevers or chills. She reports that she has not had a bowel movement in a few days. She states she does struggle with anxiety and the more she thought about her pain she was concerned this could be acute appendicitis and not just irritation from constipation and therefore presents for evaluation [facility] Medical History Wears hearing aid Wears dentures Easy bruising Shortness of breath on exertion History of pain when walking Intertriginous candidiasis Iron deficiency anemia Wears glasses Post-menopausal Arthritis Walker as ambulation aid Back pain CPAP (continuous positive airway pressure) dependence Gastric reflux Former smoker Leg cramps History of echocardiogram History of stress test Cardiology follow-up encounter History of atrial fibrillation Reyes's esophagus Aortic stenosis GI bleed ROBBINS (nonalcoholic steatohepatitis) Urinary incontinence Morbid obesity GERD (gastroesophageal reflux disease) Depression High cholesterol Hypertension Atrial fibrillation Home Medications ?Medication ?Instructions ?Recorded ?Last Taken ?Type atorvastatin 20 mg tablet 20 mg PO QHS CHOLESTEROL 05/13/18 09/05/24 History multivitamin with folic acid 400 1 tab PO DAILY SUPPLEMENT 05/13/18 09/05/24 History mcg tablet (Thera) pantoprazole 40 mg tablet,delayed 40 mg PO DAILY GERD 05/13/18 09/05/24 History release rivaroxaban 20 mg tablet (Xarelto) 20 mg PO DAILY AFIB 05/13/18 09/05/24 History sertraline 25 mg tablet (Zoloft) 25 mg PO QHS DEPRESSION 05/13/18 09/05/24 History cholecalciferol (vitamin D3) 125 125 mcg PO QHS 05/13/21 09/05/24 History mcg (5,000 unit) tablet cyanocobalamin (vitamin B-12) 500 500 mcg PO QHS 06/26/21 09/05/24 History mcg tablet (Vitamin B-12) diltiazem HCl 240 mg capsule,24 240 mg PO DAILY 09/06/24 09/05/24 History hr,extended release (Tiadylt ER) ibandronate 150 mg tablet 150 mg PO QMONTH 09/06/24 Unknown History oxybutynin chloride 10 mg 10 mg PO DAILY 09/06/24 09/05/24 History tablet,extended release 24 hr nitrofurantoin 100 mg PO BID 5 days #10 caps 09/07/24 Unknown Rx monohydrate/macrocrystals 100 mg capsule (Macrobid) ursodiol 250 mg tablet 250 mg PO BID #60 tabs 11/18/24 Unknown Rx nitrofurantoin 100 mg PO BID 5 days #10 caps 11/24/24 Unknown Rx monohydrate/macrocrystals 100 mg capsule (Macrobid) Allergy/AdvReac Type Severity Reaction Status Date / Time morphine AdvReac Other Verified 11/23/24 23:14 Surgical History Hx of right cataract extraction Hx of left cataract extraction History of esophagogastroduodenoscopy (EGD) History of carpal tunnel repair Hx of cystostomy Hx of tubal ligation Hx of hysterectomy Hx of total knee replacement History of carpal tunnel surgery of left wrist Hx of hernia repair Hx of cholecystectomy Social History Smoking Status: Former smoker alcohol intake: never substance use type: does not use ROS ROS ED Constitutional Constitutional ED: Denies chills or fever(s) ENT ENT ED: Denies sore throat Cardiovascular Cardiovascular: Reports palpitations; Denies chest pain or racing heartbeat Respiratory/Chest Respiratory/Chest: Reports dyspnea; Denies cough Gastrointestinal Gastrointestinal: Reports abdominal pain and constipation; Denies diarrhea, nausea or vomiting Genitourinary Genitourinary ED: Denies dysuria Musculoskeletal Musculoskeletal: Denies back pain Integumentary Denies rash Neurologic Neurologic: Denies headache(s) Psychiatric Psychiatric: Reports anxiety Hematologic/Lymphatic Hematologic/Lymphatic: Reports easy bleeding and easy bruising EXAM Physical Exam Const Vital Signs: 11/23/24 23:11 11/24/24 02:50 11/24/24 03:14 Temperature 98.0 F 98 F Temperature Source Temporal Pulse Rate 86 86 89 Respiratory Rate 22 H 22 H 25 H Blood Pressure 190/113 H 135/82 H 146/70 H Blood Pressure Mean 138 99 95 Pulse Ox 96 95 95 Oxygen Delivery Method Room Air Nasal Cannula Oxygen Flow Rate (L/min) 3.5 Positive well nourished, well developed and obese General Appearance ED: well developed; Negative for pallor Nutritional Appearance: obese HEENT HEENT Narrative: Normocephalic atraumatic Eyes PERRL and EOMs intact bilaterally General Eye ED: Negative for scleral icterus Neck supple Neck Narrative: No nuchal rigidity or meningeal signs Resp normal respiratory effort Resp Narrative: Breath sounds are diminished throughout with faint wheeze and rhonchi in the bilateral lower lobes There is mild tachypnea noted but overall no signs of respiratory distress Cardio regular rate Rate: other Other Details: Irregularly irregular rhythm with regular rate consistent past medical history of chronic atrial fibrillation GI non-distended and no masses GI Narrative: Abdomen is soft and nondistended with hypoactive bowel sounds. There is mild pain with palpation in the right lower quadrant without voluntary guarding or rigidity or pulsatile mass. No peritoneal signs. No fluid wave. Auscultation: hypoactive bowel sounds Palpation: soft Back/Spine no CVA tenderness Extremity Extremity Narrative: +2 pitting edema to the bilateral lower extremities that is equal and symmetric Negative Homans' sign bilaterally Neuro oriented x3, CN's II-XII intact bilaterally and no sensory deficits noted Sensorium / Orientation: alert Psych Mood & Affect: anxious Skin no rashes or lesions noted General Skin Exam: Negative for jaundice or pallor MDM MDM MDM Narrative Medical decision making narrative: Patient presented to the ER hypertensive but otherwise with stable vitals. She has longstanding atrial fibrillation and is anticoagulated with Xarelto. There for my concern that she has mesenteric ischemia is low. Patient could have acute appendicitis versus constipation versus colitis versus kidney stone or UTI. Basic labs were obtained with a CT scan with IV contrast. Labs revealed no clinically significant findings. Urine sample showed blood which is chronic per patient and questionable infection. The patient does not have dysuria but she states she had to be admitted roughly 1 to 2 months ago secondary to a UTI. Therefore at this time the urine to be sent for culture I will start her on Rocephin and place her on Macrobid which is what she was discharged on at her last admission. The CT scan does not show signs of acute appendicitis bowel obstruction or colitis. Therefore as vitals have improved workup reveals no signs of acute intestinal infection and she is not showing changes of urosepsis or acute kidney injury she does not need placed in the hospital and is otherwise safe for discharge. History & Record Review Discussion w/independent historian: Patient Lab Data Attestation: I reviewed the patient's lab results. Labs: Laboratory Results - last 24 hr 11/23/24 11/24/24 23:25 00:43 WBC 11.5 H RBC 3.86 L Hgb 11.8 L Hct 35.7 L MCV 92.5 MCH 30.6 MCHC 33.1 RDW Std Deviation 49.7 H RDW Coeff of Sharath 14.9 H Plt Count 161 MPV 11.0 Immature Gran % (Auto) 0.400 Neut % (Auto) 87.6 H Lymph % (Auto) 8.6 L [place] % (Auto) 1.7 Eos % (Auto) 1.2 Baso % (Auto) 0.5 Absolute Neuts (auto) 10.1 H Absolute Lymphs (auto) 0.99 Nucleated RBC % 0 Sodium 144 Potassium 3.3 Chloride 105 Carbon Dioxide 25.7 Anion Gap 13 BUN 14 Creatinine 0.66 L Estim Creat Clear Calc 66.56 Est GFR (MDRD) Non-Af 89 BUN/Creatinine Ratio 20.7 H Glucose 113 H Calcium 10.1 Total Bilirubin 1.01 Direct Bilirubin 0.48 H AST 26 ALT 12 Alkaline Phosphatase 101 Total Protein 7.9 Albumin 4.1 Globulin 3.8 Lipase 38 Urine Color Red Urine Clarity Turbid Urine pH 7.0 Ur Specific [place] 1.010 Urine Protein 100 H Urine Glucose (UA) Normal Urine Ketones 5 H Urine Occult Blood 250 H Urine Nitrite Negative Urine Bilirubin Negative Urine Urobilinogen Normal Ur Leukocyte Esterase 100 H Urine RBC > 100 SEEN Urine WBC 25-50 SEEN Ur Squamous Epith Cells 5-10 SEEN Ur Transition Epith Cell 0-5 SEEN Urine Bacteria 1+ Urine Mucus 0 SEEN Radiography Diagnostic Testing: Clinical Impression(s) from Imaging Studies Abdomen/Pelvis CT 11/24/24 00:10 IMPRESSION: Unchanged cirrhotic liver. Increased mild ascites. Moderate amount of fecal residue in the large bowels. The appendix is not identified without associated inflammatory changes in the right lower quadrant. Reading [facility] [id number] Discharge Plan Triage Chief Complaint: Abd Pain ED Provider: Miguelangel Myles Dx/Rx/DC Orders Clinical Impression: Nonspecific abdominal pain, Cirrhosis of liver, Constipation, Chronic atrial fibrillation, Current use of snf anticoagulation Instructions: Abdominal Pain, ED Constipation (Adult) Prescriptions: New nitrofurantoin monohyd/m-cryst [Macrobid] 100 mg capsule 100 mg PO BID 5 Days Qty: 10 0RF Rx Instructions: must administer with a meal/food No Action atorvastatin 20 MG tablet 20 mg PO QHS Xarelto 20 MG tablet 20 mg PO DAILY multivitamin with folic acid [Thera] 1 TABLET tablet 1 tab PO DAILY pantoprazole 40 MG tablet 40 mg PO DAILY sertraline [Zoloft] 25 MG tablet 25 mg PO QHS cholecalciferol (vitamin D3) 125 mcg (5,000 unit) Tablet 125 mcg PO QHS cyanocobalamin (vitamin B-12) [Vitamin B-12] 500 mcg Tablet 500 mcg PO QHS oxybutynin chloride 10 mg tablet extended release 24hr 10 mg PO DAILY ibandronate 150 mg tablet 150 mg PO QMONTH Patient Comments: NEXT DOSE IS Thursday09/11/24 diltiazem HCl [Tiadylt ER] 240 mg capsule,extended release 24 hr 240 mg PO DAILY nitrofurantoin monohyd/m-cryst [Macrobid] 100 mg capsule 100 mg PO BID 5 Days Qty: 10 0RF Rx Instructions: must administer with a meal/food ursodiol 250 mg tablet 250 mg PO BID Qty: 60 4RF Patient Comments: TAKES WITH MEALS Primary Care Provider: Care Physician,No Primary Referrals: Angy Anand DO [Med Staff - Preschool Assistant Principal] - Activity Restrictions/Additional Instructions: Your workup today showed no sign of appendicitis. It did display changes consistent with constipation. Urine sample was also concerning for developing infection. Therefore please take antibiotic as directed to help control this and return to the ER should you have any further concerns Print Language: Vietnamese Disposition Disposition: Home, Self Care Discharge Date/Time: 11/24/24 03:37
--- OUTSIDE RECORDS SUMMARY | 2024-11-24 02:13 | XMS RPT_ITS | CCD ---
Author Organization [facility] Care Team Providers Care Territory Sales Executive Name Role Phone Dr. Marita Hernandez Primary Care Provider [phone] FriendDr. Morris Attending Provider FriendDr. Morris Referring Provider [phone] Dr. Arturo Melendez Other Provider Dr. Marita Hernandez Referring Provider [phone] Lb HENSLEY, APOLLO Ramírez Attending Provider Dr. Marita Hernandez Primary Care Provider Dr. Arturo Melendez Attending Provider Marita Hernandez MD Primary Care Provider MARITA HERNANDEZ Primary Care Unavailable KENYA NICE Attending Unavailable MARITA HERNANDEZ MD Primary Care Unavailable MARITA HERNANDEZ MD Consulting Unavailable BRUCEOUMARITA Plummer MD Attending Unavailable MARITA HERNANDEZ MD Admitting Unavailable PROVIDER, UNKNOWN Consulting Unavailable PROVIDER, UNKNOWN Consulting Unavailable PROVIDER, UNKNOWN Consulting Unavailable MARITA HERNANDEZ MD Attending Unavailable MARITA HERNANDEZ MD Admitting Unavailable MARITA HERNANDEZ MD Consulting Unavailable BRUCEOUMARITA Plummer MD Primary Care Unavailable PROVIDER, UNKNOWN Consulting Unavailable PROVIDER, UNKNOWN Consulting Unavailable PROVIDER, UNKNOWN Consulting Unavailable MARITA HERNANDEZ MD Primary Care Unavailable MARITA HERNANDEZ MD Consulting Unavailable BRUCEOUMARITA Plummer MD Attending Unavailable MARITA HERNANDEZ MD Admitting Unavailable PROVIDER, UNKNOWN Consulting Unavailable PROVIDER, UNKNOWN Consulting Unavailable PROVIDER, UNKNOWN Consulting Unavailable MARITA HERNANDEZ MD Attending Unavailable LATOUMARITA Plummer MD Admitting Unavailable LATOUMARITA Plummer MD Consulting Unavailable BRUCEOUMARITA Plummer MD Primary Care Unavailable PROVIDER, UNKNOWN Consulting Unavailable PROVIDER, UNKNOWN Consulting Unavailable PROVIDER, UNKNOWN Consulting Unavailable LATOUF, MARITA GUEVARA Consulting Unavailable LATOUF, MARITA GUEVARA Attending Unavailable LATOUF, MARITA GUEVARA Admitting Unavailable LATOUF, MARITA GUEVARA Primary Care Unavailable PROVIDER, UNKNOWN Consulting Unavailable PROVIDER, UNKNOWN Consulting Unavailable PROVIDER, UNKNOWN Consulting Unavailable LATOUKavitha, MARITA GUEVARA Attending Unavailable LATOUF, MARITA GUEVARA Admitting Unavailable LATOUF, AMRITA GUEVARA Consulting Unavailable LATOUF, MARITA GUEVARA Primary Care Unavailable PROVIDER, UNKNOWN Consulting Unavailable PROVIDER, UNKNOWN Consulting Unavailable PROVIDER, UNKNOWN Consulting Unavailable Nora WHALEY, Dr. Morris Attending Provider Kika WHALEY, Dr. Travis Primary Care Provider Kika WHALEY, Dr. Travis Referring Provider [phone] Nora WHALEY, Dr. Morris Other Provider [phone] Kika WHALEY, Dr. Travis Attending Provider [phone] Loc GUEVARA, Dr. Griffiths Attending Provider Kika WHALEY, Dr. Travis Primary Care Provider Kika WHALEY, Dr. Travis Referring Provider [phone] Mary GUEVARA, Dr. Maddox Referring Provider Nora WHALEY, Dr. Morris Attending Provider Alfa GUEVARA, Dr. Hernandez Emergency Provider Sam GUEVARA, Dr. Kim Talbert Admit Provider Sam GUEVARA, Dr. Kim Talbert Attending Provider Sam GUEVARA, Dr. Kim Talbert Other Provider Dr. Leon Cardenas DO Attending Provider Luis Carlos GUEVARA, Dr. Aliza Tamayo Attending Provider Angy Anand Attending Unavailable Kika, Angy Referring Unavailable Kika, Angy Primary Care Unavailable Leon Cardenas Attending Unavailable Koram, Kim Gali Admitting Unavailable Koram, Kim Gali Consulting Unavailable KikaLisethAngy Primary Care Unavailable Kika, Angy Referring Unavailable Kika, Angy Primary Care Unavailable Kika, Angy Attending Unavailable Loc, [place] Attending Unavailable Kika, Angy Primary Care Unavailable Koram, Kim Gali Admitting Unavailable Koram, Kim Gali Consulting Unavailable Koram, Kim Gali Attending Unavailable Kika, Angy Primary Care Unavailable Aliza Aldridge Attending Unavailable Loc, [place] Attending Unavailable Kika, Angy Primary Care Unavailable Friend, Arturo Attending Unavailable Latouf, Butros Referring Unavailable Latouf, Butros Primary Care Unavailable Esau New Attending Unavailable Kika, Angy Referring Unavailable Kika, Angy Primary Care Unavailable Latouf, Butros Referring Unavailable Friend, Arturo Attending Unavailable Kika, Angy Primary Care Unavailable Friend, Arturo Consulting Unavailable Friend, Arturo Attending Unavailable Kika, Angy Referring Unavailable Kika, Angy Primary Care Unavailable Kika, Angy Attending Unavailable Kika, Angy Referring Unavailable Kika, Angy Primary Care Unavailable Friend, Arturo Attending Unavailable Kika, Angy Referring Unavailable Kika, Angy Primary Care Unavailable Latouf, Butros Attending Unavailable Latouf, Butros Referring Unavailable Latouf, Butros Primary Care Unavailable Friend, Arturo Attending Unavailable Friend, Arturo Referring Unavailable Kika, Angy Primary Care Unavailable Allergies Allergy Classification Reported Allergen(s) Allergy Type Date of Onset Reaction(s) Facility Opioid Agonists (1 source) Morphine Drug Allergy [facility] Repository (8 sources) Morphine Drug Allergy 2 Other [facility] (1 source) Morphinan opioid Drug Allergy 1 Mental Status Change [facility] Work Phone: (1 source) Morphine Drug Allergy 5 [facility] Repository Medications Current Medications Medication Drug Class(es) Dates Sig (Normalized) Sig (Original) Albuterol Sulfate (9 sources) beta2-Adrenergic Agonist Start: 05-13-2018 Albuterol Sulfate (Proventil Hfa) 6.7 GM HFA aerosol inhaler Active 6.7 GM IH NEEDED May 13, 2018 9:10am Start: 05-13-2018 End: 04-26-2024 Albuterol Sulfate (Proventil Hfa) 6.7 GM HFA aerosol inhaler Discontinued 6.7 g IH NEEDED as needed for SHORTNESS OF BREATH May 13, 2018 1:00am April 26, 2024 5:06pm ALBUTEROL INHALA TION Indications: Anemia , Thrombocytopenia (HCC) , Elevated liver function tests Inhale as instructed. Proventil inhalation as needed 0 Active Comment on above: Inhale as instructed . Proventil inhalation as needed atorvastatin 20 mg oral tablet (9 sources) HMG-CoA Reductase Inhibitor Start: 018 take 1 tablet by mouth at bedtime Atorvastatin 20 MG tablet Active 20 mg PO AT BEDTIME May 13, 2018 1:00am Comment on above: Take 20 mg by mouth once daily. cholecalciferol 0.125 mg oral tablet (8 sources) Vitamin D Start: 021 take 1 tablet by mouth at bedtime Cholecalciferol (Vitamin D3) 125 mcg (5,000 unit) Tablet Active 125 ug PO AT BEDTIME May 13, 2021 1:00am 24 hr dilTIAZem hydrochloride 240 mg extended release oral capsule (14 sources) Calcium Channel Hi Start: 025 take 1 capsule by mouth once daily, then take 1 capsule by mouth every twenty-four hours Diltiazem Hcl (Tiadylt Er) 240 mg capsule,extended release 24 hr Active 240 mg PO DAILY September 06, 2024 12:00am Start: 05-13-2018 take 240 mg by mouth once daily Diltiazem Hcl Active 240 MG PO DAILY May 13, 2018 9:10am Start: 05-13-2018 End: 09-06-2024 Diltiazem Hcl 180 MG capsule Discontinued 240 mg PO DAILY May 13, 2018 1:00am September 06, 2024 1:19pm take 1 capsule by [facility] once daily diltiazem CR 180 mg 24 hr capsule Indications: Anemia , Thrombocytopenia (HCC) , Elevated liver function tests Take 180 mg by mouth once daily. 0 Active Comment on above: Take 180 mg by mouth once daily. ibandronic acid 150 mg oral tablet (5 sources) Bisphosphonate Start: 09-07-19 25 take 1 tablet by mouth every month Ibandronate 150 mg tablet Active 150 mg PO EVERY MONTH September 06, 2024 12:00am Multivitamin With Folic Acid (Thera) 1 TABLET tablet (8 sources) Start: 05-13-20 18 take 1 tablet by mouth once daily Multivitamin With Folic Acid (Thera) 1 TABLET tablet Active 1 TABLET PO DAILY May 13, 2018 9:10am Start: 05-13-2018 take 1 tablet by huan th once daily Multivitamin With Folic Acid (Thera) 1 TABLET tablet Active 1 {tbl} PO DAILY May 13, 2018 1:00am nitrofurantoin, macrocrystals 25 mg / nitrofurantoin, monohydrate 75 mg oral capsule (4 sources) Nitrofuran Antibacterial Start: 09-07-2024 take 1 capsule by mouth twice daily at mealtime Nitrofurantoin Monohyd/M-Cryst (Macrobid) 100 mg capsule Active 100 mg PO TWICE A DAY 10 September 07, 2024 12:00am must administer with a meal/food 24 hr oxybutynin chloride 10 mg extended release oral tablet (5 sources) Cholinergic Muscarinic Antagonist Start: 09-06-2024 take 1 tablet by mouth once daily Oxybutynin Chloride 10 mg tablet extended release 24hr Active 10 mg PO DAILY September 06, 2024 12:00am pantoprazole 40 mg delayed release oral tablet (8 sources) Proton Pump Inhibitor Start: 05-13-2018 take 1 tablet by mouth once daily Pantoprazole 40 MG tablet Active 40 mg PO DAILY May 13, 2018 1:00am rivaroxaban 20 mg oral tablet (9 sources) Factor Xa Inhibitor Start: 05-13-2018 take 1 tablet by mouth once daily Rivaroxaban (Xarelto) 20 MG tablet Active 20 mg PO DAILY May 13, 2018 1:00am Comment on above: Take 1 tablet by huan th every afternoon. sertraline 25 mg oral tablet (8 sources) Serotonin Reuptake Inhibitor Start: 05-13-2018 take 1 tablet by mouth at bedtime Sertraline (Zoloft) 25 MG tablet Active 25 mg PO AT BEDTIME May 13, 2018 1:00am vitamin b12 0.5 mg oral tablet (8 sources) Vitamin B12 Start: 06-26-2021 take 1 tablet by mouth once daily Cyanocobalamin (Vitamin B-12) (Vitamin B-12) 500 mcg Tablet Active 500 MCG PO DAILY June 26, 2021 11:53am Start: 06-26-2021 take 1 tablet by huan th at bedtime Cyanocobalamin (Vitamin B-12) (Vitamin B-12) 500 mcg Tablet Active 500 ug PO AT BEDTIME June 26, 2021 1:00am Start: 06-26-2021 take 1 tablet by huan th once daily Cyanocobalamin (Vitamin B-12) (Vitamin B-12) 500 mcg Tablet Active 500 ug PO DAILY June 26, 2021 1:00am Completed/Discontinued Medications Medication Drug Class(es) Dates Sig (Normalized) Sig (Original) 8 hr acetaminophen 650 mg extended release oral tablet (9 sources) Start: 05-13-2018 End: 07-23-2021 Acetaminophen (Mapap Arthritis Pain) 650 MG tablet extended release Discontinued 650 mg PO NEEDED as needed for Pain May 13, 2018 1:00am July 23, 2021 12:49pm ACETAMINOPHEN (T YLENOL ARTHRITIS ORAL) Indications: Anemia , Thrombocytopenia (HCC) , Elevated liver function tests Take 1 tablet by mouth as needed. 0 Active Comment on above: Take 1 tablet by huan th as needed. calcium carbonate 1250 mg / cholecalciferol 125 unt oral tablet (8 sources) Vitamin D Start: End: Calcium Carbonate-Vitamin D3 (Calcium 500 + D (D3)) 500 mg-3.125 mcg (125 unit) Tablet Discontinued 1 {tbl} PO DAILY June 26, 2021 1:00am April 26, 2024 5:05pm CALCIUM CITRATE/VITAMIN D3 (CALCIUM CITRATE + D ORAL) (1 source) CALCIUM CITRATE/VITAMIN D3 (CALCIUM CITRATE + D ORAL) Indications: Anemia , Thrombocytopenia (HCC) , Elevated liver function tests Take by mouth. twice daily 630 mg calcium with 500 mg D3 0 Active Comment on above: Take by mouth. twice daily 630 mg calcium with 500 mg D3 CPAP (1 source) CPAP Indications : Anemia , Thrombocytopenia (HCC) , Elevated liver function tests at 2 percent. Also uses home oxygen. 0 Active Comment on above: at 2 percent. Also u ses home oxygen. furosemide 40 mg oral tablet (15 sources) Loop Diuretic Start: End: take 1 tablet by mouth once daily Furosemide 40 mg tablet Discontinued 40 mg PO DAILY October 28, 2021 4:11pm April 26, 2024 5:04pm Comment on above: Take 40 mg by mouth once daily. lactulose 667 mg/ml oral solution (8 sources) Osmotic Laxative Start: End: take 20 g by mouth twice daily Lactulose 20 gram/30 mL solution Discontinued 20 g PO TWICE A DAY 6000 July 23, 2021 1:00am February 12, 2024 10:38am MEDICATION, NON-DATABASE (1 source) MEDICATION, NON-DATABASE Indications: Anemia , Thrombocytopenia (HCC) , Elevated liver function tests albuterol nebulizer as needed 0 Active Comment on above: albuterol nebulizer as needed multivitamin tablet (1 source) take 1 tablet by mouth once daily multivitamin tablet Indications: Anemia , Thrombocytopenia (HCC) , Elevated liver function tests Take 1 tablet by mouth once daily. 0 Active Comment on above: Take 1 tablet by huan th once daily. nystatin 100 unt/mg topical powder (6 sources) Polyene Antifungal Start: End: Nystatin 100,000 unit/gram powder Discontinued 1 NMA TOPICAL TWICE A DAY 60 March 22, 2024 12:00am April 26, 2024 5:03pm for 4 weeks solifenacin succinate 10 mg oral tablet (1 source) Cholinergic Muscarinic Antagonist take 1 tablet by mouth once daily solifenacin (VESICARE) 10 mg tablet Indications: Anemia , Thrombocytopenia (HCC) , Elevated liver function tests Take 10 mg by mouth once daily. 0 Active Comment on above: Take 10 mg by mouth once daily. sotalol hydrochloride 120 mg oral tablet (1 source) Antiarrhythmic take 1 tablet by mouth twice daily sotalol (BETAPACE) 120 mg tablet Indications: Anemia , Thrombocytopenia (HCC) , Elevated liver function tests Take 120 mg by mouth twice daily. 0 Active Comment on above: Take 120 mg by mouth twice daily. ursodiol 250 mg oral tablet (20 sources) Bile Acid Start: End: take 1 tablet by mouth twice daily Ursodiol 250 mg tablet Discontinued 250 mg PO TWICE A DAY 60 November 10, 2023 8:22am February 12, 2024 11:36am Problems Active Problems Problem Classification Problem Date Documented Da te Episodic/Chronic Abdominal pain (8 sources) Abdominal pain; Translations: [Unspecified abdominal pain] 04-13-2021 Episodic Congestive heart failure; nonhypertensive (1 source) Heart failure, unspecified; Translations: [Heart failure, unspecified] Onset: 5 Chronic Deficiency and other anemia (7 sources) Iron deficiency anemia; Translations: [Iron deficiency anemia, unspecified] 10-22-2021 Episodic Deficiency and other anemia (1 source) Iron deficiency anemia, unspecified; Translations: [Iron deficiency anemia, unspecified] Episodic Disorders of lipid metabolism (1 source) Hyperlipidemia, unspecified; Translations: [Hyperlipidemia, unspecified] Onset: 4 Chronic Esophageal disorders (20 sources) Gastroesophageal reflux disease; Translations: [Gastro-esophageal reflux disease without esophagitis] Chronic Essential hypertension (2 sources) Essential (primary) hypertension; Translations: [Essential (primary) hypertension] Onset: 4 Chronic Fluid and electrolyte disorders (8 sources) Hypokalemia; Translations: [Hypokalemia] 05-24-2021 Episodic Gastrointestinal hemorrhage (11 sources) Gastrointestinal hemorrhage; Translations: [Gastrointestinal hemorrhage, unspecified] Episodic Hepatitis (8 sources) Nonalcoholic steatohepatitis; Translations: [Nonalcoholic steatohepatitis (ROBBINS)] 04-26-2024 Chronic Comment on above: ON MED Immunizations and screening for infectious disease (8 sources) Antineutrophil cytoplasmic antibody positive; Translations: [Other specified abnormal immunological findings in serum] 07-29-2021 Episodic Malaise and fatigue (12 sources) Other fatigue; Translations: [Asthenia] Onset: 3 09-06-2024 Episodic Mycoses (6 sources) Candidal intertrigo; Translations: [Candidiasis of skin and nail] 03-22-2024 Episodic Nutritional deficiencies (1 source) Vitamin D deficiency, unspecified; Translations: [Vitamin D deficiency, unspecified] Onset: 4 Chronic Other endocrine disorders (1 source) Hyperparathyroidism, unspecified; Translations: [Hyperparathyroidism, unspecified] Onset: 4 Chronic Other gastrointestinal disorders (7 sources) Swollen abdomen; Translations: [Abdominal distension (gaseous)] 10-22-2021 Episodic Other gastrointestinal disorders (1 source) Abdominal distension (gaseous); Translations: [Flatulence, eructation, and gas pain] Episodic Other liver diseases (13 sources) Cirrhosis of liver; Translations: [Unspecified cirrhosis of liver] 10-15-2022 Chronic Other liver diseases (8 sources) Portal hypertensive gastropathy; Translations: [Portal hypertension] 07-23-2021 Chronic Other liver diseases (7 sources) Unspecified cirrhosis of liver; Translations: [Cirrhosis of liver without mention of alcohol] Onset: 4 Chronic Other liver diseases (2 sources) Portal hypertension; Translations: [Portal hypertension] Chronic Other lower respiratory disease (8 sources) Dyspnea; Translations: [Dyspnea, unspecified] 05-24-2021 Episodic Other nutritional; endocrine; and metabolic disorders (8 sources) Morbid obesity; Translations: [Morbid (severe) obesity due to excess calories] 05-29-2021 Chronic Other screening for suspected conditions (not mental disorders or infectious disease) (1 source) Encounter for screening mammogram for malignant neoplasm of breast; Translations: [Encounter for screening mammogram for malignant neoplasm of breast] Onset: 5 Episodic Spondylosis; intervertebral disc disorders; other back problems (20 sources) Backache; Translations: [Dorsalgia, unspecified] Onset: 5 09-06-2024 Episodic Unclassified (2 sources) Low back pain, unspecified; Translations: [Low back pain, unspecified] Onset: 5 Past or Other Problems Problem Classification Problem Date Documented Da te Episodic/Chronic Deficiency and other anemia (3 sources) Anemia, unspecified; Translations: [Anemia, unspecified] Onset: 01-13-2023 Episodic Urinary tract infections (1 source) Urinary tract infection, site not specified; Translations: [Urinary tract infection, site not specified] Onset: 08-12-2023 Episodic Results Test Name Value Interpretation Reference Range Facility Chest PA and Lateralon 10-20 Chest PA and Lateral [facility] [address] [place] [id number] Chest PA and Lateral MR#: [id number] Acct: [id number] Name: RADHA PACE Rep #: [id number] : [id number] F [id number] From: Yves Kirby MD PCP: Dr. Angy Anand DO Status: DEP AMB Study: Chest PA and Lateral Date of Exam: 10/20/24 Exam# [id number] Ordering Dr: Angy Anand DO PROCEDURE: CHEST PA AND LATERAL 10/20/2024 REASON FOR EXAM: WELL ADULT EXAM ABDNORMAL FINDINGS TECHNIQUE: Frontal and lateral views of the chest. COMPARISON: 05/13/2021 FINDINGS: There is similar appearance of enlarged four-chamber appearing cardiac silhouette enlargement with ectatic appearing thoracic aorta and prominence of the pulmonary arteries, unchanged. Bilateral peripheral linear ill-defined markings may represent a mild pulmonary vascular congestion, edema. No focal consolidation or pleural effusion. Degree of hyperinflation suggested. Bilateral shoulder degenerative changes with likely associated bilateral massive chronic rotator cuff tears. Lower cervical spondylosis/discogenic change. RAD/Chest PA and Lateral IMPRESSION: There is similar appearance of enlarged four-chamber appearing cardiac silhouette enlargement with ectatic appearing thoracic aorta and prominence of the pulmonary arteries, unchanged. Bilateral peripheral linear ill-defined markings may represent a mild pulmonary vascular congestion, edema. No focal consolidation or pleural effusion. Degree of hyperinflation suggested. Reading Location: [id number] CC: Dr. Angy Anand, Shellfish Manager: Signed Normal [facility] Absolute lymphocyte countOrd ered By: Angy Anand on 10-17-2024 Lymphocytes Auto (Unsp spec) [#/Vol] 1.07 10*3/uL 0.83-4.51 [facility] Absolute neutrophil countOrd ered By: Angy Anand on 10-17-2024 Neutrophils (Bld) [#/Vol] 2.2 10*3/uL 2.0-7.7 [facility] Anion gap in Serum or Plasma Ordered By: Angy Anand on 10-17-2024 Anion gap [Moles/Vol] 10 mmol/L 5-15 [facility] Automated lymphocyte count a s percentage of total leukocytesOrdered By: Angy Anand on 10-17-2024 Lymphocytes/100 WBC Auto (Unsp spec) 29.0 % 19-41 [facility] BUN/creatinine ratioOrdered By: Angy Anand on 10-17-2024 Urea nitrogen/Creatinine [Mass ratio] 19.1 mg/mg 10-20 [facility] Basophil percentageOrdered B y: Angy Anand on 10-17-2024 Basophils/100 WBC (Bld) 1.1 % High 0-1 [facility] Bilirubin, totalOrdered By: Angy Anand on 10-17-2024 Bilirubin [Mass/Vol] 0.75 mg/dL 0.00-1.[address] [facility] CBC W/Diff, Automatedon 10-06 Absolute Lymph 1.07 X10 3/uL Normal 0.83-4.51 [facility] Comment on above: Performed By: #### L 502.0250, L506.1001, L500.4050, L501.9520, L500.4100, L100.0100 #### [facility] [address] [place], [address] Absolute Neut 2.2 X10 3/uL Normal 2.0-7.7 [facility] Comment on above: Performed By: #### L 502.0250, L506.1001, L500.4050, L501.9520, L500.4100, L100.0100 #### [facility] [address] [place], [address] Basophils/100 WBC (Bld) 1.1 % High 0-1 [facility] Comment on above: Performed By: #### L 502.0250, L506.1001, L500.4050, L501.9520, L500.4100, L100.0100 #### [facility] [address] [place], [address] Eosinophils/100 WBC (Bld) 2.4 % Normal 0-5 [facility] Comment on above: Performed By: #### L 502.0250, L506.1001, L500.4050, L501.9520, L500.4100, L100.0100 #### [facility] [address] [place], [address] Erythrocyte distribution width (RBC) [Ratio] 14.4 % Normal 11.6-14.6 [facility] Comment on above: Performed By: #### L 502.0250, L506.1001, L500.4050, L501.9520, L500.4100, L100.0100 #### [facility] [address] [place], [address] Hematocrit (Bld) [Volume fraction] 33.5 % Low 37-47 [facility] Comment on above: Performed By: #### L 502.0250, L506.1001, L500.4050, L501.9520, L500.4100, L100.0100 #### [facility] [address] [place], [address] Hemoglobin (Bld) [Mass/Vol] 10.7 g/dL Low 12.0-15.0 [facility] Comment on above: Performed By: #### L 502.0250, L506.1001, L500.4050, L501.9520, L500.4100, L100.0100 #### [facility] [address] [place], [address] IG% 0.300 Normal 0.0-0.9 [facility] Comment on above: Result Comment: IG% - Immature Granulocytes (promyelocytes, myelocytes and metamyelocytes) > 1% indicates that a LEFT SHIFT is Present. Performed By: #### L 502.0250, L506.1001, L500.4050, L501.9520, L500.4100, L100.0100 #### [facility] [address] [place] [place], [address] Lymphocytes/100 WBC (Bld) 29.0 % Normal 19-41 [facility] Comment on above: Performed By: #### L 502.0250, L506.1001, L500.4050, L501.9520, L500.4100, L100.0100 #### [facility] [address] [place], [address] MCH (RBC) [Entitic mass] 30.1 pg Normal 27.0-32.0 [facility] Comment on above: Performed By: #### L 502.0250, L506.1001, L500.4050, L501.9520, L500.4100, L100.0100 #### [facility] [address] [place], [address] MCHC (RBC) [Mass/Vol] 31.9 g/dL Low 32-36 [facility] Comment on above: Performed By: #### L 502.0250, L506.1001, L500.4050, L501.9520, L500.4100, L100.0100 #### [facility] [address] [place], [address] MCV (RBC) [Entitic vol] 94.4 fL Normal 81-99 [facility] Comment on above: Performed By: #### L 502.0250, L506.1001, L500.4050, L501.9520, L500.4100, L100.0100 #### [facility] [address] [place], [address] Monocytes/100 WBC (Bld) 8.1 % Normal 0-10 [facility] Comment on above: Performed By: #### L 502.0250, L506.1001, L500.4050, L501.9520, L500.4100, L100.0100 #### [facility] [address] [place], [address] Neutrophils/100 WBC (Bld) 59.1 % Normal 47-70 [facility] Comment on above: Performed By: #### L 502.0250, L506.1001, L500.4050, L501.9520, L500.4100, L100.0100 #### [facility] [address] [place], [address] Nucleated RBC (Bld) [#/Vol] 0 10*3/uL Normal 0-5 [facility] Comment on above: Performed By: #### L 502.0250, L506.1001, L500.4050, L501.9520, L500.4100, L100.0100 #### [facility] [address] [place], [address] Platelet mean volume (Bld) [Entitic vol] 11.3 fL Normal 6.2-12.0 [facility] Comment on above: Performed By: #### L 502.0250, L506.1001, L500.4050, L501.9520, L500.4100, L100.0100 #### [facility] [address] [place], [address] Platelets (Bld) [#/Vol] 146 10*3/uL Low 150-450 [facility] Comment on above: Performed By: #### L 502.0250, L506.1001, L500.4050, L501.9520, L500.4100, L100.0100 #### [facility] [address] [place], [address] RBC (Bld) [#/Vol] 3.55 10*6/uL Low 4.2-5.4 [facility] Comment on above: Performed By: #### L 502.0250, L506.1001, L500.4050, L501.9520, L500.4100, L100.0100 #### [facility] [address] [place], [address] RDW SD 49.8 fl High 35.1-43.9 [facility] Comment on above: Performed By: #### L 502.0250, L506.1001, L500.4050, L501.9520, L500.4100, L100.0100 #### [facility] [address] [place], [address] WBC (Bld) [#/Vol] 3.7 10*3/uL Low 4.4-11.0 [facility] Comment on above: Performed By: #### L 502.0250, L506.1001, L500.4050, L501.9520, L500.4100, L100.0100 #### [facility] [address] [place], [place], [id number] Calculated very low density lipoprotein (VLDL) cholesterol measurementOrdered By: Angy Anand on 10-17-2024 Calculated very low density lipoprotein (VLDL) cholesterol measurement 16 mg/dL 5-40 [facility] Carbon dioxide, total [Moles /volume] in Central venous bloodOrdered By: Angy Anand on 10-17-2024 CO2 [Moles/Vol] 26.2 mmol/L 21.0-32.0 [facility] Chloride assayOrdered By: Mile Anand on 10-17-2024 Chloride [Moles/Vol] 106 mmol/L 98-[address] [facility] Comprehensive Metabolic Prof ilon 10-17-2024 Albumin [Mass/Vol] 3.9 g/dL Normal 3.4-4.8 [facility] Comment on above: Performed By: #### L 502.0250, L506.1001, L500.4050, L501.9520, L500.4100, L100.0100 #### [facility] [address] [place], [address] Albumin/Globulin [Mass ratio] 1.2 {ratio} Normal 0.9-2.4 [facility] Comment on above: Performed By: #### L 502.0250, L506.1001, L500.4050, L501.9520, L500.4100, L100.0100 #### [facility] [address] [place], [address] ALK PHOS 90 U/L Normal 35-104 [facility] Comment on above: Performed By: #### L 502.0250, L506.1001, L500.4050, L501.9520, L500.4100, L100.0100 #### [facility] [address] [place], [address] ALT [Catalytic activity/Vol] 12 U/L Normal <=34 [facility] Comment on above: Performed By: #### L 502.0250, L506.1001, L500.4050, L501.9520, L500.4100, L100.0100 #### [facility] [address] [place], [address] AST [Catalytic activity/Vol] 24 U/L Normal <=31 [facility] Comment on above: Performed By: #### L 502.0250, L506.1001, L500.4050, L501.9520, L500.4100, L100.0100 #### [facility] [address] [place], [address] Bilirubin [Mass/Vol] 0.75 mg/dL Normal 0.00-1.[address] [facility] Comment on above: Performed By: #### L 502.0250, L506.1001, L500.4050, L501.9520, L500.4100, L100.0100 #### [facility] [address] [place], [address] BUN/CRE 19.1 RATIO Normal 10-20 [facility] Comment on above: Performed By: #### L 502.0250, L506.1001, L500.4050, L501.9520, L500.4100, L100.0100 #### [facility] [address] [place], [address] Calcium [Mass/Vol] 9.7 mg/dL Normal 7.6-11.0 [facility] Comment on above: Performed By: #### L 502.0250, L506.1001, L500.4050, L501.9520, L500.4100, L100.0100 #### [facility] [address] [place], [address] Chloride [Moles/Vol] 106 mmol/L Normal 98-[address] [facility] Comment on above: Performed By: #### L 502.0250, L506.1001, L500.4050, L501.9520, L500.4100, L100.0100 #### [facility] [address] [place], [address] CO2 [Moles/Vol] 26.2 mmol/L Normal 21.0-32.0 [facility] Comment on above: Performed By: #### L 502.0250, L506.1001, L500.4050, L501.9520, L500.4100, L100.0100 #### [facility] [address] [place], [address] Creatinine [Mass/Vol] 0.58 mg/dL Low 0.70-1.20 [facility] Comment on above: Performed By: #### L 502.0250, L506.1001, L500.4050, L501.9520, L500.4100, L100.0100 #### [facility] [address] [place], [address] GAP 10 Normal 5-15 [facility] Comment on above: Performed By: #### L 502.0250, L506.1001, L500.4050, L501.9520, L500.4100, L100.0100 #### [facility] [address] [place], [address] GFR/1.73 sq M.predicted among non-blacks MDRD (S/P/Bld) [Vol rate/Area] 92 mL/min/{1.73_m2} Normal >60 [facility] Comment on above: Result Comment: mL/m in/1.73m2 CKD-EPI Creatinine Equation (2020) Performed By: #### L 502.0250, L506.1001, L500.4050, L501.9520, L500.4100, L100.0100 #### [facility] [address] [place], [address] Globulin (S) [Mass/Vol] 3.4 g/dL Normal 2.2-4.2 [facility] Comment on above: Performed By: #### L 502.0250, L506.1001, L500.4050, L501.9520, L500.4100, L100.0100 #### [facility] [address] [place], [address] Glucose [Mass/Vol] 99 mg/dL Normal 70-99 [facility] Comment on above: Performed By: #### L 502.0250, L506.1001, L500.4050, L501.9520, L500.4100, L100.0100 #### [facility] [address] [place], [address] Potassium [Moles/Vol] 3.5 mmol/L Normal 3.3-5.1 [facility] Comment on above: Performed By: #### L 502.0250, L506.1001, L500.4050, L501.9520, L500.4100, L100.0100 #### [facility] [address] [place], [address] Sodium [Moles/Vol] 142 mmol/L Normal 133-145 [facility] Comment on above: Performed By: #### L 502.0250, L506.1001, L500.4050, L501.9520, L500.4100, L100.0100 #### [facility] [address] [place], [address] T PROT 7.3 g/dL Normal 5.9-8.4 [facility] Comment on above: Performed By: #### L 502.0250, L506.1001, L500.4050, L501.9520, L500.4100, L100.0100 #### [facility] [address] [place], [place], [address] Urea nitrogen [Mass/Vol] 11 mg/dL Normal 4-19 [facility] Comment on above: Performed By: #### L 502.0250, L506.1001, L500.4050, L501.9520, L500.4100, L100.0100 #### [facility] [address] [place], [address] Eosinophil percentageOrdered By: Angy Anand on 10-17-2024 Eosinophils/100 WBC (Bld) 2.4 % 0-5 [facility] Erythrocyte distribution wid th ratioOrdered By: Angy Anand on 10-17-2024 Erythrocyte distribution width (RBC) [Ratio] 14.4 % 11.6-14.6 [facility] Erythrocyte distribution wid th standard deviationOrdered By: Angy Anand on 10-17-2024 Erythrocyte distribution width (RBC) [Ratio] 49.8 fl High 35.1-43.9 [facility] Glomerular filtration rate ( GFR) estimation/1.73 sq m using serum, plasma, or whole bOrdered By: Angy Anand on 10-17-2024 GFR/1.73 sq M.predicted among non-blacks MDRD (S/P/Bld) [Vol rate/Area] 92 mL/min/{1.73_m2} >60 [facility] Comment on above: mL/min/1.73m2 CKD-EP I Creatinine Equation (2020) Hematocrit Auto (Bld) [Volum e fraction]Ordered By: Angy Anand on 10-17-2024 Hematocrit (Bld) [Volume fraction] 33.5 % Low 37-47 [facility] Hemoglobin measurementOrdere d By: Angy Anand on 10-17-2024 Hemoglobin (Bld) [Mass/Vol] 10.7 g/dL Low 12.0-15.0 [facility] Immature granulocytes/100 WB C Auto (Bld)Ordered By: Angy Anand on 10-17-2024 Immature granulocytes/100 WBC (Bld) 0.300 % 0.0-0.9 [facility] Comment on above: IG% - Immature Granu locytes (promyelocytes, myelocytes and metamyelocytes) > 1% indicates that a LEFT SHIFT is Present. LDL calc ser/plasOrdered By: Angy Anand on 10-17-2024 Cholesterol in LDL [Mass/Vol] 52 mg/dL [facility] Comment on above: Vqmcbtiekw=830-902 m g/dL & Higher Ylmt=114 mg/dL or greater Laboratory - Chemistry and C hemistry - challengeOrdered By: Angy Anand on 10-17-2024 AST [Catalytic activity/Vol] 24 U/L <32 [facility] Lipid Profileon 10-17-2024 CHOL:HDL 2.15 Normal [facility] Comment on above: Performed By: #### L 500.4100, L501.9520, L506.1000, L100.0100, L500.4050 #### [facility] [address] [facility] [place], [address] Cholesterol [Mass/Vol] 127 mg/dL Normal <=200 [facility] Comment on above: Result Comment: Chol esterol level, Desirable <200 mg/dL Borderline high cholesterol 200-239 mg/dL High cholesterol >=240 mg/dL Recommendations of the NCEP Adult Treatment Panel for the following risk-cutoff thresholds for the [place] population. Performed By: #### L 500.4100, L501.9520, L506.1000, L100.0100, L500.4050 #### [facility] [address] [place], [address] Cholesterol in HDL [Mass/Vol] 59 mg/dL Normal [facility] Comment on above: Result Comment: Lizbet onal Cholesterol Education Program (NCEP) guidelines: <40 mg/dL: Low HDL-cholesterol (major risk factor for CHD) >= 60 mg/dL: High HDL-cholesterol (negative risk factor for CHD) HDL-cholesterol is affected by a number of factors, e.g. smoking, exercise, hormones, sex and age. Performed By: #### L 500.4100, L501.9520, L506.1000, L100.0100, L500.4050 #### [facility] [address] [place], [address] Cholesterol in LDL [Mass/Vol] 52 mg/dL Normal [facility] Comment on above: Result Comment: Bord zgmich=234-370 mg/dL Higher Ncax=133 mg/dL or greater Performed By: #### L 500.4100, L501.9520, L506.1000, L100.0100, L500.4050 #### [facility] [address] [place], [address] Cholesterol in VLDL [Mass/Vol] 16 mg/dL Normal 5-40 [facility] Comment on above: Performed By: #### L 500.4100, L501.9520, L506.1000, L100.0100, L500.4050 #### [facility] [address] [place], [address] Triglyceride [Mass/Vol] 78 mg/dL Normal [facility] Comment on above: Result Comment: The drugs N-Acetylcysteine and Metamizole may falsely depress this assay. Normal range: <150 mg/dL Borderline High: 150-199 mg/dL High: 200-499 mg/dL Very High: >500 mg/dL Performed By: #### L 500.4100, L501.9520, L506.1000, L100.0100, L500.4050 #### [facility] [address] [place], [address] MCV (mean corpuscular volume ) determinationOrdered By: Angy Anand on 10-17-2024 MCV (RBC) [Entitic vol] 94.4 fL 81-99 [facility] Mean corpuscular hemoglobin (MCH) determinationOrdered By: Angy Anand on 10-17-2024 MCH (RBC) [Entitic mass] 30.1 pg 27.0-32.0 [facility] Mean corpuscular hemoglobin concentration (MCHC) determinationOrdered By: Angy Anand on 10-17-2024 MCHC (RBC) [Mass/Vol] 31.9 g/dL Low 32-36 [facility] Mean platelet volume determi nationOrdered By: Angy Anand on 10-17-2024 Platelet mean volume (Bld) [Entitic vol] 11.3 fL 6.2-12.0 [facility] Microalb:Creat Ratio,Random URon 10-17-2024 Creatinine [Mass/Vol] 32.80 mg/dL Normal 28.00-217.00 [facility] Comment on above: Performed By: #### L 502.0250, L506.1001, L500.4050, L501.9520, L500.4100, L100.0100 #### [facility] [address] [place], [address] MALB:CREAT 743.9 mg/g CRE Normal [facility] Comment on above: Performed By: #### L 502.0250, L506.1001, L500.4050, L501.9520, L500.4100, L100.0100 #### [facility] [address] [place], [address] MICROALBUMIN,UR 24.4 mg/L Normal NO RANGE EST. [facility] Comment on above: Performed By: #### L 502.0250, L506.1001, L500.4050, L501.9520, L500.4100, L100.0100 #### [facility] [address] [place], [address] Monocyte percentageOrdered B y: Angy Anand on 10-17-2024 Monocytes/100 WBC (Bld) 8.1 % 0-10 [facility] Neutrophil percentageOrdered By: Angy Anand on 10-17-2024 Neutrophils/100 WBC (Bld) 59.1 % 47-70 [facility] Nucleated red blood cell per centageOrdered By: Angy Anand on 10-17-2024 Nucleated RBC/100 WBC (Bld) [Ratio] 0 % 0-5 [facility] Platelet countOrdered By: Mile carl Kika on 10-17-2024 Platelets (Bld) [#/Vol] 146 10*3/uL Low 150-450 [facility] Potassium measurement (mass/ volume)Ordered By: Angy Anand on 10-17-2024 Potassium (Unsp spec) [Mass/Vol] 3.5 mmol/L 3.3-5.1 [facility] RBC Auto (Bld) [#/Vol]Ordere d By: Angy Anand on 10-17-2024 RBC (Bld) [#/Vol] 3.55 10*6/uL Low 4.2-5.4 [facility] Random urine creatinine wendy urement (mass/volume)Ordered By: Angy Anand on 10-17-2024 Creatinine Unsp time (U) [Mass/Vol] 32.80 mg/dL 28.00-217.00 [facility] Screening total cholesterol/ high density lipoprotein (HDL) cholesterol ratioOrdered By: Angy Anand on 10-17-2024 Cholesterol.total/Cho lesterol in HDL [Mass ratio] 2.15 {ratio} [facility] Serum creatinine measurement (mass/volume)Ordered By: Angy Anand on 10-17-2024 Creatinine [Mass/Vol] 0.58 mg/dL Low 0.70-1.20 [facility] Serum globulin measurementOr dered By: Angy Anand on 10-17-2024 Globulin (S) [Mass/Vol] 3.4 g/dL 2.2-4.2 [facility] Serum glucose measurement (m ass/volume)Ordered By: Angy Anand on 10-17-2024 Glucose [Mass/Vol] 99 mg/dL 70-99 [facility] Serum or plasma alanine alejo otransferase (ALT) measurementOrdered By: Angy Anand on 10-17-2024 ALT [Catalytic activity/Vol] 12 U/L <35 [facility] Serum or plasma albumin wendy urement (mass/volume)Ordered By: Angy Anand on 10-17-2024 Albumin [Mass/Vol] 3.9 g/dL 3.4-4.8 [facility] Serum or plasma albumin/glob ulin mass ratioOrdered By: Angy Anand on 10-17-2024 Albumin/Globulin [Mass ratio] 1.2 {ratio} 0.9-2.4 [facility] Serum or plasma alkaline danielle sphatase measurementOrdered By: Angy Anand on 10-17-2024 ALP [Catalytic activity/Vol] 90 U/L 35-104 [facility] Serum or plasma calcium wendy urement (mass/volume)Ordered By: Angy Anand on 10-17-2024 Calcium [Mass/Vol] 9.7 mg/dL 7.6-11.0 [facility] Serum or plasma cholesterol in HDL measurement (mass/volume)Ordered By: Angy Anand on 10-17-2024 Cholesterol in HDL [Mass/Vol] 59 mg/dL >40 [facility] Comment on above: National Cholesterol Education Program (NCEP) guidelines:<40 mg/dL: Low HDL-cholesterol (major risk factor for CHD)>= 60 mg/dL: High HDL-cholesterol (negative risk factor for CHD)HDL-cholesterol is affected by a number of factors, e.g. smoking, exercise, hormones, sex and age. Serum or plasma cholesterol measurement (mass/volume)Ordered By: Angy Anand on 10-17-2024 Cholesterol [Mass/Vol] 127 mg/dL <201 [facility] Comment on above: Cholesterol level, D esirable <200 mg/dLBorderline high cholesterol 200-239 mg/dLHigh cholesterol >=240 mg/dLRecommendations of the NCEP Adult Treatment Panel for the following risk-cutoff thresholds for the [place] population. Serum or plasma urea nitroge n measurement (mass/volume)Ordered By: Angy Anand on 10-17-2024 Urea nitrogen [Mass/Vol] 11 mg/dL 4-19 [facility] Sodium levelOrdered By: Vi Anand on 10-17-2024 Sodium [Moles/Vol] 142 mmol/L 133-145 [facility] TSH DL <= 0.005 mIU/L QnOrde red By: Angy Anand on 10-17-2024 TSH Qn 0.836 uIU/mL 0.300-4.200 [facility] Thyroid Stim Hormone (TSH)on 10-17-2024 TSH 0.836 uIU/mL Normal 0.300-4.200 [facility] Comment on above: Performed By: #### L 500.4100, L501.9520, L506.1000, L100.0100, L500.4050 #### [facility] [address] [place], [place], [id number] Total proteinOrdered By: Liseth Anand on 10-17-2024 Protein [Mass/Vol] 7.3 g/dL 5.9-8.4 [facility] Triglycerides measurementOrd ered By: Angy Anand on 10-17-2024 Triglyceride [Mass/Vol] 78 mg/dL <199 [facility] Comment on above: The drugs N-Acetylcy steine and Metamizole may falsely depress this assay. Normal range: <150 mg/dLBorderline High: 150-199 mg/dLHigh: 200-499 mg/dLVery High: >500 mg/dL Urine albumin measurement [facility] detection limit of 20 mg/L or less (mass/volume)Ordered By: Angy Anand on 10-17-2024 Albumin DL <= 20 mg/L (U) [Mass/Vol] 24.4 mg/L NO RANGE EST. [facility] Vitamin D,25 Hydroxyon 10-17 Vitamin D 25-OH 69.0 ng/mL Normal 30-100 [facility] Comment on above: Result Comment: Lilia min D Status Deficiency: <20 ng/mL (50nmol/L) Insufficiency: 20-30 ng/mL (50-75 nmol/L) Sufficiency: 30-100 ng/mL (75-250 nmol/L) Toxicity: >100 ng/mL (>250 nmol/L) Performed By: #### L 500.4100, L501.9520, L506.1000, L100.0100, L500.4050 #### [facility] [address] [place], [address] White blood cell (WBC) count Ordered By: Angy Anand on 10-17-2024 WBC (Bld) [#/Vol] 3.7 10*3/uL Low 4.4-11.0 [facility] Basic Metabolic Profile (BMP )on 09-13-2024 BUN Normal 4-19 [facility] Comment on above: Result Comment: Canc elled via OM: Order cancelled - Patient discharged Performed By: #### L 500.4100, L501.9520, L506.1000, L100.0100, L500.4050 #### [facility] [address] [place], [address] BUN/CRE Normal 10-20 [facility] Comment on above: Result Comment: Canc elled via OM: Order cancelled - Patient discharged Performed By: #### L 500.4100, L501.9520, L506.1000, L100.0100, L500.4050 #### [facility] [address] [place], [address] Calcium Normal 7.6-11.0 [facility] Comment on above: Result Comment: Canc elled via OM: Order cancelled - Patient discharged Performed By: #### L 500.4100, L501.9520, L506.1000, L100.0100, L500.4050 #### [facility] [address] [place], [address] CL Normal 98-108 [facility] Comment on above: Result Comment: Canc elled via OM: Order cancelled - Patient discharged Performed By: #### L 500.4100, L501.9520, L506.1000, L100.0100, L500.4050 #### [facility] [address] [place], [address] CO2 Normal 21.0-32.0 [facility] Comment on above: Result Comment: Canc elled via OM: Order cancelled - Patient discharged Performed By: #### L 500.4100, L501.9520, L506.1000, L100.0100, L500.4050 #### [facility] [address] [place], [address] CREAT,SERUM Normal 0.70-1.20 [facility] Comment on above: Result Comment: Canc elled via OM: Order cancelled - Patient discharged Performed By: #### L 500.4100, L501.9520, L506.1000, L100.0100, L500.4050 #### [facility] [address] [place], [address] eGFR Normal >60 [facility] Comment on above: Result Comment: Canc elled via OM: Order cancelled - Patient discharged Performed By: #### L 500.4100, L501.9520, L506.1000, L100.0100, L500.4050 #### [facility] [address] [place], [address] GAP Normal 5-15 [facility] Comment on above: Result Comment: Canc elled via OM: Order cancelled - Patient discharged Performed By: #### L 500.4100, L501.9520, L506.1000, L100.0100, L500.4050 #### [facility] [address] [place], [address] GLU Normal 70-99 [facility] Comment on above: Result Comment: Canc elled via OM: Order cancelled - Patient discharged Performed By: #### L 500.4100, L501.9520, L506.1000, L100.0100, L500.4050 #### [facility] [address] [place], [address] Potassium Normal 3.3-5.1 [facility] Comment on above: Result Comment: Canc elled via OM: Order cancelled - Patient discharged Performed By: #### L 500.4100, L501.9520, L506.1000, L100.0100, L500.4050 #### [facility] [address] [place], [address] Basic Metabolic Profile (BMP) Normal 133-145 [facility] Comment on above: Result Comment: Canc elled via OM: Order cancelled - Patient discharged Performed By: #### L 500.4100, L501.9520, L506.1000, L100.0100, L500.4050 #### [facility] [address] [place], [address] CBC-Complete Blood Cnt No Di ffon 09-13-2024 HCT Normal 37-47 [facility] Comment on above: Result Comment: Canc elled via OM: Order cancelled - Patient discharged Performed By: #### L 500.4100, L501.9520, L506.1000, L100.0100, L500.4050 #### [facility] [address] [place], [address] HGB Normal 12.0-15.0 [facility] Comment on above: Result Comment: Canc elled via OM: Order cancelled - Patient discharged Performed By: #### L 500.4100, L501.9520, L506.1000, L100.0100, L500.4050 #### [facility] [address] [place], [address] MCH Normal 27.0-32.0 [facility] Comment on above: Result Comment: Canc elled via OM: Order cancelled - Patient discharged Performed By: #### L 500.4100, L501.9520, L506.1000, L100.0100, L500.4050 #### [facility] [address] [place], [address] MCHC Normal 32-36 [facility] Comment on above: Result Comment: Canc elled via OM: Order cancelled - Patient discharged Performed By: #### L 500.4100, L501.9520, L506.1000, L100.0100, L500.4050 #### [facility] [address] [place], [address] MCV Normal 81-99 [facility] Comment on above: Result Comment: Canc elled via OM: Order cancelled - Patient discharged Performed By: #### L 500.4100, L501.9520, L506.1000, L100.0100, L500.4050 #### [facility] [address] [place], [address] PLT Normal 150-450 [facility] Comment on above: Result Comment: Canc elled via OM: Order cancelled - Patient discharged Performed By: #### L 500.4100, L501.9520, L506.1000, L100.0100, L500.4050 #### [facility] [address] [place], [address] RBC Normal 4.2-5.4 [facility] Comment on above: Result Comment: Canc elled via OM: Order cancelled - Patient discharged Performed By: #### L 500.4100, L501.9520, L506.1000, L100.0100, L500.4050 #### [facility] [address] [place], [address] RDW CV Normal 11.6-14.6 [facility] Comment on above: Result Comment: Canc elled via OM: Order cancelled - Patient discharged Performed By: #### L 500.4100, L501.9520, L506.1000, L100.0100, L500.4050 #### [facility] [address] [place], [address] RDW SD Normal 35.1-43.9 [facility] Comment on above: Result Comment: Canc elled via OM: Order cancelled - Patient discharged Performed By: #### L 500.4100, L501.9520, L506.1000, L100.0100, L500.4050 #### [facility] [address] [place], [address] WBC Normal 4.4-11.0 [facility] Comment on above: Result Comment: Canc elled via OM: Order cancelled - Patient discharged Performed By: #### L 500.4100, L501.9520, L506.1000, L100.0100, L500.4050 #### [facility] [address] [place], [address] Basic Metabolic Profile (BMP )on 09-11-2024 BUN Normal 4-19 [facility] Comment on above: Result Comment: Canc elled via OM: Order cancelled - Patient discharged Performed By: #### L 500.4100, L501.9520, L506.1000, L100.0100, L500.4050 #### [facility] [address] [place], [address] BUN/CRE Normal 10-20 [facility] Comment on above: Result Comment: Canc elled via OM: Order cancelled - Patient discharged Performed By: #### L 500.4100, L501.9520, L506.1000, L100.0100, L500.4050 #### [facility] [address] [place], [address] Calcium Normal 7.6-11.0 [facility] Comment on above: Result Comment: Canc elled via OM: Order cancelled - Patient discharged Performed By: #### L 500.4100, L501.9520, L506.1000, L100.0100, L500.4050 #### [facility] [address] [place], [address] CL Normal 98-108 [facility] Comment on above: Result Comment: Canc elled via OM: Order cancelled - Patient discharged Performed By: #### L 500.4100, L501.9520, L506.1000, L100.0100, L500.4050 #### [facility] [address] [place], [address] CO2 Normal 21.0-32.0 [facility] Comment on above: Result Comment: Canc elled via OM: Order cancelled - Patient discharged Performed By: #### L 500.4100, L501.9520, L506.1000, L100.0100, L500.4050 #### [facility] [address] [place], [address] CREAT,SERUM Normal 0.70-1.20 [facility] Comment on above: Result Comment: Canc elled via OM: Order cancelled - Patient discharged Performed By: #### L 500.4100, L501.9520, L506.1000, L100.0100, L500.4050 #### [facility] [address] [place] [place], [address] eGFR Normal >60 [facility] Comment on above: Result Comment: Canc elled via OM: Order cancelled - Patient discharged Performed By: #### L 500.4100, L501.9520, L506.1000, L100.0100, L500.4050 #### [facility] [address] [place], [address] GAP Normal 5-15 [facility] Comment on above: Result Comment: Canc elled via OM: Order cancelled - Patient discharged Performed By: #### L 500.4100, L501.9520, L506.1000, L100.0100, L500.4050 #### [facility] [address] [place], [address] GLU Normal 70-99 [facility] Comment on above: Result Comment: Canc elled via OM: Order cancelled - Patient discharged Performed By: #### L 500.4100, L501.9520, L506.1000, L100.0100, L500.4050 #### [facility] [address] [place], [address] Potassium Normal 3.3-5.1 [facility] Comment on above: Result Comment: Canc elled via OM: Order cancelled - Patient discharged Performed By: #### L 500.4100, L501.9520, L506.1000, L100.0100, L500.4050 #### [facility] [address] [place], [address] Basic Metabolic Profile (BMP) Normal 133-145 [facility] Comment on above: Result Comment: Canc elled via OM: Order cancelled - Patient discharged Performed By: #### L 500.4100, L501.9520, L506.1000, L100.0100, L500.4050 #### [facility] [address] [place], [address] CBC-Complete Blood Cnt No Di ffon 09-11-2024 HCT Normal 37-47 [facility] Comment on above: Result Comment: Canc elled via OM: Order cancelled - Patient discharged Performed By: #### L 100.0500 #### [facility] [address] [place], [address] HGB Normal 12.0-15.0 [facility] Comment on above: Result Comment: Canc elled via OM: Order cancelled - Patient discharged Performed By: #### L 100.0500 #### [facility] [address] [place], [address] MCH Normal 27.0-32.0 [facility] Comment on above: Result Comment: Canc elled via OM: Order cancelled - Patient discharged Performed By: #### L 100.0500 #### [facility] [address] [place], [address] MCHC Normal 32-36 [facility] Comment on above: Result Comment: Canc elled via OM: Order cancelled - Patient discharged Performed By: #### L 100.0500 #### [facility] [address] [place], [address] MCV Normal 81-99 [facility] Comment on above: Result Comment: Canc elled via OM: Order cancelled - Patient discharged Performed By: #### L 100.0500 #### [facility] [address] [place], [address] PLT Normal 150-450 [facility] Comment on above: Result Comment: Canc elled via OM: Order cancelled - Patient discharged Performed By: #### L 100.0500 #### [facility] [address] [place], [address] RBC Normal 4.2-5.4 [facility] Comment on above: Result Comment: Canc elled via OM: Order cancelled - Patient discharged Performed By: #### L 100.0500 #### [facility] [address] [place], [address] RDW CV Normal 11.6-14.6 [facility] Comment on above: Result Comment: Canc elled via OM: Order cancelled - Patient discharged Performed By: #### L 100.0500 #### [facility] [address] [place], [address] RDW SD Normal 35.1-43.9 [facility] Comment on above: Result Comment: Canc elled via OM: Order cancelled - Patient discharged Performed By: #### L 100.0500 #### [facility] [address] [place], [address] WBC Normal 4.4-11.0 [facility] Comment on above: Result Comment: Canc elled via OM: Order cancelled - Patient discharged Performed By: #### L 100.0500 #### [facility] [address] [place], [address] Urine Cultureon 09-10-2024 URC Escherichia coli Roosevelt Count 80,000-100,000 Escherichia coli: REACTION Ampicillin Islt SYDNEY <=2 Ampicillin+Sulbac Islt SYDNEY <=2 S Cefepime Islt SYDNEY <=0.12 S cefTRIAXone Islt SYDNEY <=0.25 S Ciprofloxacin Islt SYDNEY <=0.06 S B-Lactamase Extended Susc Islt NEG Gentamicin Islt SYDNEY <=1 S levoFLOXacin Islt SYDNEY <=0.12 S Meropenem Islt SYDNEY <=0.25 S Nitrofurantoin Islt SYDNEY 32 S Pip+Tazo Islt SYDNEY <=4 S TMP SMX Islt SYDNEY <=20 S Normal [facility] Comment on above: Performed By: #### L 500.4100, L501.9520, L506.1000, L100.0100, L500.4050 #### [facility] [address] [place], [address] Basic Metabolic Profile (BMP )on 09-09-2024 BUN Normal 4-19 [facility] Comment on above: Result Comment: Canc elled via OM: Order cancelled - Patient discharged Performed By: #### L 500.4100, L501.9520, L506.1000, L100.0100, L500.4050 #### [facility] [address] [place], [address] BUN/CRE Normal 10-20 [facility] Comment on above: Result Comment: Canc elled via OM: Order cancelled - Patient discharged Performed By: #### L 500.4100, L501.9520, L506.1000, L100.0100, L500.4050 #### [facility] [address] [place], [address] Calcium Normal 7.6-11.0 [facility] Comment on above: Result Comment: Canc elled via OM: Order cancelled - Patient discharged Performed By: #### L 500.4100, L501.9520, L506.1000, L100.0100, L500.4050 #### [facility] [address] [place], [address] CL Normal 98-108 [facility] Comment on above: Result Comment: Canc elled via OM: Order cancelled - Patient discharged Performed By: #### L 500.4100, L501.9520, L506.1000, L100.0100, L500.4050 #### [facility] [address] [place], [address] CO2 Normal 21.0-32.0 [facility] Comment on above: Result Comment: Canc elled via OM: Order cancelled - Patient discharged Performed By: #### L 500.4100, L501.9520, L506.1000, L100.0100, L500.4050 #### [facility] [address] [place], [address] CREAT,SERUM Normal 0.70-1.20 [facility] Comment on above: Result Comment: Canc elled via OM: Order cancelled - Patient discharged Performed By: #### L 500.4100, L501.9520, L506.1000, L100.0100, L500.4050 #### [facility] [address] [place], [address] eGFR Normal >60 [facility] Comment on above: Result Comment: Canc elled via OM: Order cancelled - Patient discharged Performed By: #### L 500.4100, L501.9520, L506.1000, L100.0100, L500.4050 #### [facility] [address] [place], [address] GAP Normal 5-15 [facility] Comment on above: Result Comment: Canc elled via OM: Order cancelled - Patient discharged Performed By: #### L 500.4100, L501.9520, L506.1000, L100.0100, L500.4050 #### [facility] [address] [place], [address] GLU Normal 70-99 [facility] Comment on above: Result Comment: Canc elled via OM: Order cancelled - Patient discharged Performed By: #### L 500.4100, L501.9520, L506.1000, L100.0100, L500.4050 #### [facility] [address] [place], [address] Potassium Normal 3.3-5.1 [facility] Comment on above: Result Comment: Canc elled via OM: Order cancelled - Patient discharged Performed By: #### L 500.4100, L501.9520, L506.1000, L100.0100, L500.4050 #### [facility] [address] [place], [address] Basic Metabolic Profile (BMP) Normal 133-145 [facility] Comment on above: Result Comment: Canc elled via OM: Order cancelled - Patient discharged Performed By: #### L 500.4100, L501.9520, L506.1000, L100.0100, L500.4050 #### [facility] [address] [place], [address] CBC-Complete Blood Cnt No Di ffon 09-09-2024 HCT Normal 37-47 [facility] Comment on above: Result Comment: Canc elled via OM: Order cancelled - Patient discharged Performed By: #### L 500.4100, L501.9520, L506.1000, L100.0100, L500.4050 #### [facility] [address] [place], [address] HGB Normal 12.0-15.0 [facility] Comment on above: Result Comment: Canc elled via OM: Order cancelled - Patient discharged Performed By: #### L 500.4100, L501.9520, L506.1000, L100.0100, L500.4050 #### [facility] [address] [place], [address] MCH Normal 27.0-32.0 [facility] Comment on above: Result Comment: Canc elled via OM: Order cancelled - Patient discharged Performed By: #### L 500.4100, L501.9520, L506.1000, L100.0100, L500.4050 #### [facility] [address] [place], [address] MCHC Normal 32-36 [facility] Comment on above: Result Comment: Canc elled via OM: Order cancelled - Patient discharged Performed By: #### L 500.4100, L501.9520, L506.1000, L100.0100, L500.4050 #### [facility] [address] [place], [address] MCV Normal 81-99 [facility] Comment on above: Result Comment: Canc elled via OM: Order cancelled - Patient discharged Performed By: #### L 500.4100, L501.9520, L506.1000, L100.0100, L500.4050 #### [facility] [address] [place], [address] PLT Normal 150-450 [facility] Comment on above: Result Comment: Canc elled via OM: Order cancelled - Patient discharged Performed By: #### L 500.4100, L501.9520, L506.1000, L100.0100, L500.4050 #### [facility] [address] [place] [place], [address] RBC Normal 4.2-5.4 [facility] Comment on above: Result Comment: Canc elled via OM: Order cancelled - Patient discharged Performed By: #### L 500.4100, L501.9520, L506.1000, L100.0100, L500.4050 #### [facility] [address] [place], [address] RDW CV Normal 11.6-14.6 [facility] Comment on above: Result Comment: Canc elled via OM: Order cancelled - Patient discharged Performed By: #### L 500.4100, L501.9520, L506.1000, L100.0100, L500.4050 #### [facility] [address] [place], [address] RDW SD Normal 35.1-43.9 [facility] Comment on above: Result Comment: Canc elled via OM: Order cancelled - Patient discharged Performed By: #### L 500.4100, L501.9520, L506.1000, L100.0100, L500.4050 #### [facility] [address] [place], [address] WBC Normal 4.4-11.0 [facility] Comment on above: Result Comment: Canc elled via OM: Order cancelled - Patient discharged Performed By: #### L 500.4100, L501.9520, L506.1000, L100.0100, L500.4050 #### [facility] [address] [place], [address] Absolute lymphocyte countOrd ered By: Kim Vargas on 09-07-2024 Lymphocytes Auto (Unsp spec) [#/Vol] 0.92 10*3/uL 0.83-4.51 [facility] Absolute neutrophil countOrd ered By: Kim Vargas on 09-07-2024 Neutrophils (Bld) [#/Vol] 1.7 10*3/uL Low 2.0-7.7 [facility] Anion gap in Serum or Plasma Ordered By: Kim Vargas on 09-07-2024 Anion gap [Moles/Vol] 9 mmol/L 5-15 [facility] Automated lymphocyte count a s percentage of total leukocytesOrdered By: Kim Vargas on 09-07-2024 Lymphocytes/100 WBC Auto (Unsp spec) 28.7 % 19-41 [facility] BUN/creatinine ratioOrdered By: Kim Vargas on 09-07-2024 Urea nitrogen/Creatinine [Mass ratio] 17.6 mg/mg 10-20 [facility] Basic Metabolic Profile (BMP )on 09-07-2024 BUN/CRE 17.6 RATIO Normal 10-20 [facility] Comment on above: Performed By: #### L 500.4100, L501.9520, L506.1000, L100.0100, L500.4050 #### [facility] [address] [place], [address] Calcium [Mass/Vol] 9.2 mg/dL Normal 7.6-11.0 [facility] Comment on above: Performed By: #### L 500.4100, L501.9520, L506.1000, L100.0100, L500.4050 #### [facility] [address] [place], [address] Chloride [Moles/Vol] 107 mmol/L Normal 98-[address] [facility] Comment on above: Performed By: #### L 500.4100, L501.9520, L506.1000, L100.0100, L500.4050 #### [facility] [address] [place], [address] CO2 [Moles/Vol] 23.5 mmol/L Normal 21.0-32.0 [facility] Comment on above: Performed By: #### L 500.4100, L501.9520, L506.1000, L100.0100, L500.4050 #### [facility] [address] [place], [address] Creatinine [Mass/Vol] 0.61 mg/dL Low 0.70-1.20 [facility] Comment on above: Performed By: #### L 500.4100, L501.9520, L506.1000, L100.0100, L500.4050 #### [facility] [address] [place], [address] ECRCL 72.62 ml/min Normal 50-250 [facility] Comment on above: Performed By: #### L 500.4100, L501.9520, L506.1000, L100.0100, L500.4050 #### [facility] [address] [place], [address] GAP 9 Normal 5-15 [facility] Comment on above: Performed By: #### L 500.4100, L501.9520, L506.1000, L100.0100, L500.4050 #### [facility] [address] [place], [address] GFR/1.73 sq M.predicted among non-blacks MDRD (S/P/Bld) [Vol rate/Area] 91 mL/min/{1.73_m2} Normal >60 [facility] Comment on above: Result Comment: mL/m in/1.73m2 CKD-EPI Creatinine Equation (2020) Performed By: #### L 500.4100, L501.9520, L506.1000, L100.0100, L500.4050 #### [facility] [address] [place], [address] Glucose [Mass/Vol] 101 mg/dL High 70-99 [facility] Comment on above: Performed By: #### L 500.4100, L501.9520, L506.1000, L100.0100, L500.4050 #### [facility] [address] [place], [address] Potassium [Moles/Vol] 3.7 mmol/L Normal 3.3-5.1 [facility] Comment on above: Performed By: #### L 500.4100, L501.9520, L506.1000, L100.0100, L500.4050 #### [facility] [address] [place], [address] Sodium [Moles/Vol] 139 mmol/L Normal 133-145 [facility] Comment on above: Performed By: #### L 500.4100, L501.9520, L506.1000, L100.0100, L500.4050 #### [facility] [address] [place], [address] Urea nitrogen [Mass/Vol] 11 mg/dL Normal 4-19 [facility] Comment on above: Performed By: #### L 500.4100, L501.9520, L506.1000, L100.0100, L500.4050 #### [facility] [address] [place], [address] Basophil percentageOrdered B y: Kim Vargas on 09-07-2024 Basophils/100 WBC (Bld) 0.9 % 0-1 [facility] CBC W/Diff, Automatedon Absolute Lymph 0.92 X10 3/uL Normal 0.83-4.51 [facility] Comment on above: Performed By: #### L 500.4100, L501.9520, L506.1000, L100.0100, L500.4050 #### [facility] [address] [place], [address] Absolute Neut 1.7 X10 3/uL Low 2.0-7.7 [facility] Comment on above: Performed By: #### L 500.4100, L501.9520, L506.1000, L100.0100, L500.4050 #### [facility] [address] [place], [address] Basophils/100 WBC (Bld) 0.9 % Normal 0-1 [facility] Comment on above: Performed By: #### L 500.4100, L501.9520, L506.1000, L100.0100, L500.4050 #### [facility] [address] [place], [address] Eosinophils/100 WBC (Bld) 4.0 % Normal 0-5 [facility] Comment on above: Performed By: #### L 500.4100, L501.9520, L506.1000, L100.0100, L500.4050 #### [facility] [address] [place], [address] Erythrocyte distribution width (RBC) [Ratio] 14.6 % Normal 11.6-14.6 [facility] Comment on above: Performed By: #### L 500.4100, L501.9520, L506.1000, L100.0100, L500.4050 #### [facility] [address] [place], [address] Hematocrit (Bld) [Volume fraction] 30.6 % Low 37-47 [facility] Comment on above: Performed By: #### L 500.4100, L501.9520, L506.1000, L100.0100, L500.4050 #### [facility] [address] [place], [address] Hemoglobin (Bld) [Mass/Vol] 9.8 g/dL Low 12.0-15.0 [facility] Comment on above: Performed By: #### L 500.4100, L501.9520, L506.1000, L100.0100, L500.4050 #### [facility] [address] [place], [address] IG% 0.300 Normal 0.0-0.9 [facility] Comment on above: Result Comment: IG% - Immature Granulocytes (promyelocytes, myelocytes and metamyelocytes) > 1% indicates that a LEFT SHIFT is Present. Performed By: #### L 500.4100, L501.9520, L506.1000, L100.0100, L500.4050 #### [facility] [address] [place], [address] Lymphocytes/100 WBC (Bld) 28.7 % Normal 19-41 [facility] Comment on above: Performed By: #### L 500.4100, L501.9520, L506.1000, L100.0100, L500.4050 #### [facility] [address] [place], [address] MCH (RBC) [Entitic mass] 30.5 pg Normal 27.0-32.0 [facility] Comment on above: Performed By: #### L 500.4100, L501.9520, L506.1000, L100.0100, L500.4050 #### [facility] [address] [place], [address] MCHC (RBC) [Mass/Vol] 32.0 g/dL Normal 32-36 [facility] Comment on above: Performed By: #### L 500.4100, L501.9520, L506.1000, L100.0100, L500.4050 #### [facility] [address] [place], [address] MCV (RBC) [Entitic vol] 95.3 fL Normal 81-99 [facility] Comment on above: Performed By: #### L 500.4100, L501.9520, L506.1000, L100.0100, L500.4050 #### [facility] [address] [place], [address] Monocytes/100 WBC (Bld) 13.1 % High 0-10 [facility] Comment on above: Performed By: #### L 500.4100, L501.9520, L506.1000, L100.0100, L500.4050 #### [facility] [address] [place], [address] Neutrophils/100 WBC (Bld) 53.0 % Normal 47-70 [facility] Comment on above: Performed By: #### L 500.4100, L501.9520, L506.1000, L100.0100, L500.4050 #### [facility] [address] [place], [address] Nucleated RBC (Bld) [#/Vol] 0 10*3/uL Normal 0-5 [facility] Comment on above: Performed By: #### L 500.4100, L501.9520, L506.1000, L100.0100, L500.4050 #### [facility] [address] [place], [address] Platelet mean volume (Bld) [Entitic vol] 10.7 fL Normal 6.2-12.0 [facility] Comment on above: Performed By: #### L 500.4100, L501.9520, L506.1000, L100.0100, L500.4050 #### [facility] [address] [place], [address] Platelets (Bld) [#/Vol] 133 10*3/uL Low 150-450 [facility] Comment on above: Performed By: #### L 500.4100, L501.9520, L506.1000, L100.0100, L500.4050 #### [facility] [address] [place], [address] RBC (Bld) [#/Vol] 3.21 10*6/uL Low 4.2-5.4 [facility] Comment on above: Performed By: #### L 500.4100, L501.9520, L506.1000, L100.0100, L500.4050 #### [facility] [address] [place], [address] RDW SD 50.7 fl High 35.1-43.9 [facility] Comment on above: Performed By: #### L 500.4100, L501.9520, L506.1000, L100.0100, L500.4050 #### [facility] [address] [place], [address] WBC (Bld) [#/Vol] 3.2 10*3/uL Low 4.4-11.0 [facility] Comment on above: Performed By: #### L 500.4100, L501.9520, L506.1000, L100.0100, L500.4050 #### [facility] [address] [place], [address] [place] dioxide, total [Moles /volume] in Central venous bloodOrdered By: Kim Vargas on 09-07-2024 CO2 [Moles/Vol] 23.5 mmol/L 21.0-32.0 [facility] Chloride assayOrdered By: Josephine Vargas on 09-07-2024 Chloride [Moles/Vol] 107 mmol/L 98-[address] [facility] Discharge Instructionon Discharge Instruction [facility] Medical Records Department [address] [place] [address] Instructions for Home/Discharge Instructions 09/07/24 1140 MR#: [id number] Acct: [id number] Name: RADHA PACE Rep #: [id number] : 1945 79 From: Leon Cardenas DO PCP: Dr. Angy Anand, DO Status:ADM RITA Discharge Instructions Diet Discharge Diet: 2000 Calorie Control Diet DC O2, CPAP, BIPAP needs Home O2 Discharge instructions: No Dressing / Incision Discharge Activity: No Restrictions Follow Up Care Test Results: Test results from this visit will be discussed in further detail at your follow-up appointment, if applicable. Discharge Plan Admission Admit Date/Time: 09/06/24 13:29 Primary Reason for Your Visit: back pain Attending Provider: Leon Cardenas Primary Care Provider: Angy Anand Consulting Providers: Kim Vargas Instructions Additional Instructions / Restrictions: Take 5 days of Macrobid to complete course of antibiotics for your UTI. Home health care will be coming out of the house to assist you in the next 1 to 2 days. Follow-up with your primary care doctor as needed. Discharge Orders/Prescriptions Prescriptions: New nitrofurantoin monohyd/m-cryst [Macrobid] 100 mg capsule 100 mg PO BID 5 Days Qty: 10 0RF Rx Instructions: must administer with a meal/food Continued ursodiol 250 mg tablet 250 mg PO BID Qty: 60 4RF Patient Comments: TAKES WITH MEALS atorvastatin 20 MG tablet 20 mg PO QHS Xarelto 20 MG tablet 20 mg PO DAILY multivitamin with folic acid [Thera] 1 TABLET tablet 1 tab PO DAILY pantoprazole 40 MG tablet 40 mg PO DAILY sertraline [Zoloft] 25 MG tablet 25 mg PO QHS cholecalciferol (vitamin D3) 125 mcg (5,000 unit) Tablet 125 mcg PO QHS cyanocobalamin (vitamin B-12) [Vitamin B-12] 500 mcg Tablet 500 mcg PO QHS oxybutynin chloride 10 mg tablet extended release 24hr 10 mg PO DAILY ibandronate 150 mg tablet 150 mg PO QMONTH Patient Comments: NEXT DOSE IS Thursday09/11/24 diltiazem HCl [Tiadylt ER] 240 mg capsule,extended release 24 hr 240 mg PO DAILY Referrals / Follow Up: Angy Anand DO [Primary Care Provider] - Disposition Disposition (needs filled in before D/C Order can be placed): Home Health Service 09/07/24 1226 Leon Cardenas DO CC: Dr. Angy Anand DO; Dr. Kim Vargas MD Signed Normal [facility] Eosinophil percentageOrdered By: Kim Vargas on 09-07-2024 Eosinophils/100 WBC (Bld) 4.0 % 0-5 [facility] Erythrocyte distribution wid th (RBC) [Ratio]Ordered By: Kim Vargas on 09-07-2024 Erythrocyte distribution width (RBC) [Entitic vol] 50.7 fL High 35.1-43.9 [facility] Erythrocyte distribution wid th ratioOrdered By: Kim Vargas on 09-07-2024 Erythrocyte distribution width (RBC) [Ratio] 14.6 % 11.6-14.6 [facility] Erythrocyte distribution wid th standard deviationOrdered By: Kim Vargas on 09-07-2024 Erythrocyte distribution width (RBC) [Ratio] 50.7 fl High 35.1-43.9 [facility] Estimation of creatinine carlos aranceOrdered By: Kim Vargas on 09-07-2024 Estimated Creatinine Clearance Calc 72.62 ml/min 50-250 [facility] GFR/1.73 sq M.predicted deep g non-blacks MDRD (S/P/Bld) [Vol rate/Area]Ordered By: Kim Vargas on 09-07-2024 Estimated GFR (MDRD) Non-Af Amer 91 >60 [facility] Comment on above: mL/min/1.73m2 CKD-EP I Creatinine Equation (2020) Glomerular filtration rate ( GFR) estimation/1.73 sq m using serum, plasma, or whole bOrdered By: Kim Vargas on 09-07-2024 GFR/1.73 sq M.predicted among non-blacks MDRD (S/P/Bld) [Vol rate/Area] 91 mL/min/{1.73_m2} >60 [facility] Comment on above: mL/min/1.73m2 CKD-EP I Creatinine Equation (2020) Hematocrit Auto (Bld) [Volum e fraction]Ordered By: Kim Vargas on 09-07-2024 Hematocrit (Bld) [Volume fraction] 30.6 % Low 37-47 [facility] Hemoglobin measurementOrdere d By: Kim Vargas on 09-07-2024 Hemoglobin (Bld) [Mass/Vol] 9.8 g/dL Low 12.0-15.0 [facility] Immature granulocytes/100 WB C Auto (Bld)Ordered By: Kim Vargas on 09-07-2024 Immature granulocytes/100 WBC (Bld) 0.300 % 0.0-0.9 [facility] Comment on above: IG% - Immature Granu locytes (promyelocytes, myelocytes and metamyelocytes) > 1% indicates that a LEFT SHIFT is Present. Lymphocytes Auto (Unsp spec) [#/Vol]Ordered By: Kim Vargas on 09-07-2024 Lymphocytes (Bld) [#/Vol] 0.92 10*3/uL 0.83-4.51 [facility] Lymphocytes/100 WBC Auto (Un sp spec)Ordered By: Kim Vargas on 09-07-2024 Lymphocytes/100 WBC (Bld) 28.7 % 19-41 [facility] MCV (mean corpuscular volume ) determinationOrdered By: Kim Vargas on 09-07-2024 MCV (RBC) [Entitic vol] 95.3 fL 81-99 [facility] Mean corpuscular hemoglobin (MCH) determinationOrdered By: Kim Vargas on 09-07-2024 MCH (RBC) [Entitic mass] 30.5 pg 27.0-32.0 [facility] Mean corpuscular hemoglobin concentration (MCHC) determinationOrdered By: Kim Vargas on 09-07-2024 MCHC (RBC) [Mass/Vol] 32.0 g/dL 32-36 [facility] Mean platelet volume determi nationOrdered By: Kim Vargas on 09-07-2024 Platelet mean volume (Bld) [Entitic vol] 10.7 fL 6.2-12.0 [facility] Monocyte percentageOrdered B y: iKm Vargas on 09-07-2024 Monocytes/100 WBC (Bld) 13.1 % High 0-10 [facility] Neutrophil percentageOrdered By: Kim Vargas on 09-07-2024 Neutrophils/100 WBC (Bld) 53.0 % 47-70 [facility] Nucleated red blood cell per centageOrdered By: Kim Vargas on 09-07-2024 Nucleated RBC/100 WBC (Bld) [Ratio] 0 % 0-5 [facility] Platelet countOrdered By: Na josephine Vragas on 09-07-2024 Platelets (Bld) [#/Vol] 133 10*3/uL Low 150-450 [facility] Potassium (Unsp spec) [Mass/ Vol]Ordered By: Kim Vargas on 09-07-2024 Potassium [Moles/Vol] 3.7 mmol/L 3.3-5.1 [facility] Potassium measurement (mass/ volume)Ordered By: Kim Vargas on 09-07-2024 Potassium (Unsp spec) [Mass/Vol] 3.7 mmol/L 3.3-5.1 [facility] RBC Auto (Bld) [#/Vol]Ordere d By: Kim Vargas on 09-07-2024 RBC (Bld) [#/Vol] 3.21 10*6/uL Low 4.2-5.4 [facility] Serum creatinine measurement (mass/volume)Ordered By: Kim Vargas on 09-07-2024 Creatinine [Mass/Vol] 0.61 mg/dL Low 0.70-1.20 [facility] Serum glucose measurement (m ass/volume)Ordered By: Kim Vargas on 09-07-2024 Glucose [Mass/Vol] 101 mg/dL High 70-99 [facility] Serum or plasma calcium wendy urement (mass/volume)Ordered By: Kim Vargas on 09-07-2024 Calcium [Mass/Vol] 9.2 mg/dL 7.6-11.0 [facility] Serum or plasma urea nitroge n measurement (mass/volume)Ordered By: Kim Vargas on 09-07-2024 Urea nitrogen [Mass/Vol] 11 mg/dL 4-19 [facility] Sodium levelOrdered By: Kim Vargas on 09-07-2024 Sodium [Moles/Vol] 139 mmol/L 133-145 [facility] Urine cultureOrdered By: Keya hodgson White on 09-07-2024 Bacteria identified Cx Nom (U) Escherichia coli Abnormal [facility] White blood cell (WBC) count Ordered By: Kim Vargas on 09-07-2024 WBC (Bld) [#/Vol] 3.2 10*3/uL Low 4.4-11.0 [facility] Abdomen/Pelvis W IV Cont ONL Yon 09-06-2024 Abdomen/Pelvis W IV Cont ONLY [facility] Imaging Services [address] [place] [address] Abdomen/Pelvis W IV Cont ONLY MR#: [id number] Acct: [id number] Name: RADHA PACE Rep #: [id number] : 1945 F 79 From: Matthew zavala MD PCP: Dr. Angy Anand, DO Status: PRE ER Study: Abdomen/Pelvis W IV Cont ONLY Date of Exam: Exam# [id number] Ordering Dr: David Grimm MD PROCEDURE: ABDOMEN/PELVIS W IV CONT ONLY 09/06/2024 REASON FOR EXAM: BACK PAIN, DIFFUSE ABD DISCOMFORT; ANTICOAG'D TECHNIQUE: Abdomen and pelvis CT with intravenous contrast. Coronal and Sagittal reconstruction series were provided. PATIENT PREPARATION: Per protocol ORAL CONTRAST TYPE: None. CONTRAST: Isovue-300 VOLUME: 100mL One or more dose reduction techniques were used (e.g., Automated exposure control, adjustment of the mA and/or kV according to patient size, use of iterative reconstruction technique. RADIATION DOSE SUMMARY: CTDlvol: 18.5 mGy DLP: 1251.01 mGycm COMPARISON: Comparison is made with prior study dated March 11, 2024. FINDINGS: Lung bases: Mild dependent atelectasis. Cardiomegaly. Calcification of the mitral valve annulus. Coronary artery calcification. Liver: Diffuse fatty infiltration. Hepatomegaly. Nodular hepatic contour suggestive of possible cirrhosis. Small amount of perihepatic fluid. Gallbladder: Surgically absent. Spleen: Normal size. Pancreas: Normal size without evidence of mass surrounding inflammation or ductal dilation. Adrenals: Questionable 1.5 cm right adrenal adenoma at the level of the crux of the right adrenal gland. Kidneys: Mild cortical atrophy. Nonobstructive tiny calculus in the mid lower pole of the right kidney. Bladder: Unremarkable. Reproductive Organs: Prior hysterectomy. Adnexal regions are unremarkable. Bowel: Fecal material is seen within the colon. Appendix: The appendix is not identified. There is no inflammatory process identified in the right lower quadrant to suggest appendicitis. Lymph nodes: Unremarkable. Vasculature: Mild diffuse atherosclerotic calcifications are noted. Peritoneum / Retroperitoneum: There is evidence of increased markings in the subcutaneous fat overlying the lower anterior abdominal wall with skin thickening suggestive of edematous changes of the anterior abdominal wall. Bones: Degenerative changes of the spine. Grade 2 anterior listhesis of L4 on L5. CT/Abdomen/Pelvis W IV Cont ONLY IMPRESSION: Bibasilar atelectasis. Hepatomegaly with findings suggestive of cirrhosis and fatty infiltration. Small amount of perihepatic fluid. Questionable tiny right adrenal adenoma. Status post cholecystectomy. Increased markings in the subcutaneous fat overlying the lower anterior abdominal wall suggestive of edema. Tiny nonobstructive right intrarenal calculus. Reading Location: [id number] CC: Dr. David Grimm MD; Dr. Angy Anand DO Shellfish Manager: Signed Normal [facility] Absolute neutrophil countOrd ered By: David Grimm on 09-06-2024 Neutrophils (Bld) [#/Vol] 2.5 10*3/uL 2.0-7.7 [facility] Anion gap in Serum or Plasma Ordered By: David Grimm on 09-06-2024 Anion gap [Moles/Vol] 11 mmol/L 5-15 [facility] BUN/creatinine ratioOrdered By: David Grimm on 09-06-2024 Urea nitrogen/Creatinine [Mass ratio] 20.3 mg/mg High 10-20 [facility] Basophil percentageOrdered B y: David Grimm on 09-06-2024 Basophils/100 WBC (Bld) 1.7 % High 0-1 [facility] Bilirubin Test strip Ql (U)O rdered By: David Grimm on 09-06-2024 Bilirubin Ql (U) Negative Negative [facility] Bilirubin, totalOrdered By: David Grimm on 09-06-2024 Bilirubin [Mass/Vol] 0.57 mg/dL 0.00-1.[address] [facility] CBC W/Diff, Automatedon - Absolute Lymph 1.01 X10 3/uL Normal 0.83-4.51 [facility] Comment on above: Performed By: #### L 500.4100, L501.9520, L506.1000, L100.0100, L500.4050 #### [facility] [address] [place], [address] Absolute Neut 2.5 X10 3/uL Normal 2.0-7.7 [facility] Comment on above: Performed By: #### L 500.4100, L501.9520, L506.1000, L100.0100, L500.4050 #### [facility] [address] [place], [address] Basophils/100 WBC (Bld) 1.7 % High 0-1 [facility] Comment on above: Performed By: #### L 500.4100, L501.9520, L506.1000, L100.0100, L500.4050 #### [facility] [address] [place], [address] Eosinophils/100 WBC (Bld) 2.9 % Normal 0-5 [facility] Comment on above: Performed By: #### L 500.4100, L501.9520, L506.1000, L100.0100, L500.4050 #### [facility] [address] [place], [address] Erythrocyte distribution width (RBC) [Ratio] 14.6 % Normal 11.6-14.6 [facility] Comment on above: Performed By: #### L 500.4100, L501.9520, L506.1000, L100.0100, L500.4050 #### [facility] [address] [place], [address] Hematocrit (Bld) [Volume fraction] 33.9 % Low 37-47 [facility] Comment on above: Performed By: #### L 500.4100, L501.9520, L506.1000, L100.0100, L500.4050 #### [facility] [address] [place], [address] Hemoglobin (Bld) [Mass/Vol] 11.0 g/dL Low 12.0-15.0 [facility] Comment on above: Performed By: #### L 500.4100, L501.9520, L506.1000, L100.0100, L500.4050 #### [facility] [address] [place], [address] IG% 0.200 Normal 0.0-0.9 [facility] Comment on above: Result Comment: IG% - Immature Granulocytes (promyelocytes, myelocytes and metamyelocytes) > 1% indicates that a LEFT SHIFT is Present. Performed By: #### L 500.4100, L501.9520, L506.1000, L100.0100, L500.4050 #### [facility] [address] [place], [address] Lymphocytes/100 WBC (Bld) 24.0 % Normal 19-41 [facility] Comment on above: Performed By: #### L 500.4100, L501.9520, L506.1000, L100.0100, L500.4050 #### [facility] [address] [place], [address] MCH (RBC) [Entitic mass] 30.6 pg Normal 27.0-32.0 [facility] Comment on above: Performed By: #### L 500.4100, L501.9520, L506.1000, L100.0100, L500.4050 #### [facility] [address] [place], [address] MCHC (RBC) [Mass/Vol] 32.4 g/dL Normal 32-36 [facility] Comment on above: Performed By: #### L 500.4100, L501.9520, L506.1000, L100.0100, L500.4050 #### [facility] [address] [place], [address] MCV (RBC) [Entitic vol] 94.4 fL Normal 81-99 [facility] Comment on above: Performed By: #### L 500.4100, L501.9520, L506.1000, L100.0100, L500.4050 #### [facility] [address] [place], [address] Monocytes/100 WBC (Bld) 11.6 % High 0-10 [facility] Comment on above: Performed By: #### L 500.4100, L501.9520, L506.1000, L100.0100, L500.4050 #### [facility] [address] [place], [address] Neutrophils/100 WBC (Bld) 59.6 % Normal 47-70 [facility] Comment on above: Performed By: #### L 500.4100, L501.9520, L506.1000, L100.0100, L500.4050 #### [facility] [address] [place], [address] Nucleated RBC (Bld) [#/Vol] 0 10*3/uL Normal 0-5 [facility] Comment on above: Performed By: #### L 500.4100, L501.9520, L506.1000, L100.0100, L500.4050 #### [facility] [address] [place], [address] Platelet mean volume (Bld) [Entitic vol] 10.4 fL Normal 6.2-12.0 [facility] Comment on above: Performed By: #### L 500.4100, L501.9520, L506.1000, L100.0100, L500.4050 #### [facility] [address] [place], [address] Platelets (Bld) [#/Vol] 158 10*3/uL Normal 150-450 [facility] Comment on above: Performed By: #### L 500.4100, L501.9520, L506.1000, L100.0100, L500.4050 #### [facility] [address] [place], [address] RBC (Bld) [#/Vol] 3.59 10*6/uL Low 4.2-5.4 [facility] Comment on above: Performed By: #### L 500.4100, L501.9520, L506.1000, L100.0100, L500.4050 #### [facility] [address] [place], [address] RDW SD 50.5 fl High 35.1-43.9 [facility] Comment on above: Performed By: #### L 500.4100, L501.9520, L506.1000, L100.0100, L500.4050 #### [facility] [address] [place], [address] WBC (Bld) [#/Vol] 4.2 10*3/uL Low 4.4-11.0 [facility] Comment on above: Performed By: #### L 500.4100, L501.9520, L506.1000, L100.0100, L500.4050 #### [facility] [address] [place], [address] Carbon dioxide, total [Moles /volume] in Central venous bloodOrdered By: David Grimm on 09-06-2024 CO2 [Moles/Vol] 24.0 mmol/L 21.0-32.0 [facility] Chloride assayOrdered By: July Grimm on 09-06-2024 Chloride [Moles/Vol] 108 mmol/L 98-[address] [facility] Comprehensive Metabolic Prof ilon 09-06-2024 Albumin [Mass/Vol] 4.0 g/dL Normal 3.4-4.8 [facility] Comment on above: Performed By: #### L 500.4100, L501.9520, L506.1000, L100.0100, L500.4050 #### [facility] [address] [place], [address] Albumin/Globulin [Mass ratio] 1.1 {ratio} Normal 0.9-2.4 [facility] Comment on above: Performed By: #### L 500.4100, L501.9520, L506.1000, L100.0100, L500.4050 #### [facility] [address] [place], [address] ALK PHOS 90 U/L Normal 35-104 [facility] Comment on above: Performed By: #### L 500.4100, L501.9520, L506.1000, L100.0100, L500.4050 #### [facility] [address] [place], [address] ALT [Catalytic activity/Vol] 13 U/L Normal <=34 [facility] Comment on above: Performed By: #### L 500.4100, L501.9520, L506.1000, L100.0100, L500.4050 #### [facility] [address] [place], [address] AST [Catalytic activity/Vol] 28 U/L Normal <=31 [facility] Comment on above: Performed By: #### L 500.4100, L501.9520, L506.1000, L100.0100, L500.4050 #### [facility] [address] [place], [address] Bilirubin [Mass/Vol] 0.57 mg/dL Normal 0.00-1.[address] [facility] Comment on above: Performed By: #### L 500.4100, L501.9520, L506.1000, L100.0100, L500.4050 #### [facility] [address] [place], [address] BUN/CRE 20.3 RATIO High 10-20 [facility] Comment on above: Performed By: #### L 500.4100, L501.9520, L506.1000, L100.0100, L500.4050 #### [facility] [address] [place], [address] Calcium [Mass/Vol] 10.2 mg/dL Normal 7.6-11.0 [facility] Comment on above: Performed By: #### L 500.4100, L501.9520, L506.1000, L100.0100, L500.4050 #### [facility] [address] [place], [address] Chloride [Moles/Vol] 108 mmol/L Normal 98-[address] [facility] Comment on above: Performed By: #### L 500.4100, L501.9520, L506.1000, L100.0100, L500.4050 #### [facility] [address] [place], [address] CO2 [Moles/Vol] 24.0 mmol/L Normal 21.0-32.0 [facility] Comment on above: Performed By: #### L 500.4100, L501.9520, L506.1000, L100.0100, L500.4050 #### [facility] [address] [place], [address] Creatinine [Mass/Vol] 0.74 mg/dL Normal 0.70-1.20 [facility] Comment on above: Performed By: #### L 500.4100, L501.9520, L506.1000, L100.0100, L500.4050 #### [facility] [address] [place], [address] ECRCL 72.62 ml/min Normal 50-250 [facility] Comment on above: Performed By: #### L 500.4100, L501.9520, L506.1000, L100.0100, L500.4050 #### [facility] [address] [place], [address] GAP 11 Normal 5-15 [facility] Comment on above: Performed By: #### L 500.4100, L501.9520, L506.1000, L100.0100, L500.4050 #### [facility] [address] [place], [address] GFR/1.73 sq M.predicted among non-blacks MDRD (S/P/Bld) [Vol rate/Area] 83 mL/min/{1.73_m2} Normal >60 [facility] Comment on above: Result Comment: mL/m in/1.73m2 CKD-EPI Creatinine Equation (2020) Performed By: #### L 500.4100, L501.9520, L506.1000, L100.0100, L500.4050 #### [facility] [address] [place], [address] Globulin (S) [Mass/Vol] 3.5 g/dL Normal 2.2-4.2 [facility] Comment on above: Performed By: #### L 500.4100, L501.9520, L506.1000, L100.0100, L500.4050 #### [facility] [address] [place], [address] Glucose [Mass/Vol] 106 mg/dL High 70-99 [facility] Comment on above: Performed By: #### L 500.4100, L501.9520, L506.1000, L100.0100, L500.4050 #### [facility] [address] [place], [address] Potassium [Moles/Vol] 3.9 mmol/L Normal 3.3-5.1 [facility] Comment on above: Performed By: #### L 500.4100, L501.9520, L506.1000, L100.0100, L500.4050 #### [facility] [address] [place], [address] Sodium [Moles/Vol] 142 mmol/L Normal 133-145 [facility] Comment on above: Performed By: #### L 500.4100, L501.9520, L506.1000, L100.0100, L500.4050 #### [facility] [address] [place], [address] T PROT 7.5 g/dL Normal 5.9-8.4 [facility] Comment on above: Performed By: #### L 500.4100, L501.9520, L506.1000, L100.0100, L500.4050 #### [facility] [address] [place], [address] Urea nitrogen [Mass/Vol] 15 mg/dL Normal 4-19 [facility] Comment on above: Performed By: #### L 500.4100, L501.9520, L506.1000, L100.0100, L500.4050 #### [facility] [address] [place], [address] Emergency Department Summary on 09-06-2024 Emergency Department Summary [facility] Medical Records Department [address] [place] [address] Emergency Department Summary 09/06/24 MR#: [id number] Acct: [id number] Name: RADHA PACE Rep #: [id number] : 1945 79 From: David Grimm MD PCP: Dr. Angy Anand, DO Status:ADM RITA Location: [place] [address] HPI History of Present Illness Chief Complaint: Back Informant: patient and EMS Narrative Narrative: 79-year-old female presenting with pain across her mid back. She woke up with it this morning. She states her abdomen is a little uncomfortable but she does not have any major abdominal pain. She states the pain is making it hard for her to breathe but she states this does not feel like sciatica that she had in the past and it does not feel like a lung or chest issue and she has no chest pain. She states she had an accidental fall 2 days ago. It was early in the morning, she states she got out of bed too quickly and stumbled and fell onto her right side, she called EMS only for lift assist, they helped her up she had no pain, she did not present to the ED for any reason. She states the next day, she went to a doctor's appointment, she drove, she went home after the appointment, used her walker to walk around, she had no pain until she got up this morning. She is anticoagulated with Xarelto because of history of A-fib. [facility] Medical History Wears hearing aid Wears dentures Easy bruising Shortness of breath on exertion History of pain when walking Intertriginous candidiasis Iron deficiency anemia Wears glasses Post-menopausal Arthritis Walker as ambulation aid Back pain CPAP (continuous positive airway pressure) dependence Gastric reflux Former smoker Leg cramps History of echocardiogram History of stress test Cardiology follow-up encounter History of atrial fibrillation Reyes's esophagus Aortic stenosis GI bleed ROBBINS (nonalcoholic steatohepatitis) Urinary incontinence Morbid obesity GERD (gastroesophageal reflux disease) Depression High cholesterol Hypertension Atrial fibrillation Home Medications ???Medication ???Instructions ???Recorded ???Last Taken ???Type atorvastatin 20 mg tablet 20 mg PO QHS CHOLESTEROL 05/13/18 Unknown History diltiazem HCl 180 mg 240 mg PO DAILY BP 05/13/18 History capsule,extended release 24 hr multivitamin with folic acid 400 1 tab PO DAILY SUPPLEMENT 05/13/18 Unknown History mcg tablet (Thera) pantoprazole 40 mg tablet,delayed 40 mg PO DAILY PRN GERD 05/13/18 04/28/24 History release rivaroxaban 20 mg tablet (Xarelto) 20 mg PO QHS AFIB 05/13/1804/24 History sertraline 25 mg tablet (Zoloft) 25 mg PO DAILY DEPRESSION 05/13/18 Unknown History cholecalciferol (vitamin D3) 125 125 mcg PO DAILY 05/13/21 Unknown History mcg (5,000 unit) tablet cyanocobalamin (vitamin B-12) 500 500 mcg PO DAILY 06/26/21 Unknown History mcg tablet (Vitamin B-12) ursodiol 250 mg tablet 250 mg PO BID #60 tabs 02/12/24 Un known Rx ibandronate 150 mg tablet 150 mg PO QMONTH 09/06/24 Unknown History oxybutynin chloride 10 mg 10 mg PO DAILY 09/06/24 Unknown Hi story tablet,extended release 24 hr Allergy/AdvReac Type Severity Reaction Status Date / Time morphine AdvReac Other Verified 09/06/24 08:59 Surgical History Hx of right cataract extraction Hx of left cataract extraction History of esophagogastroduodenoscopy (EGD) History of carpal tunnel repair Hx of cystostomy Hx of tubal ligation Hx of hysterectomy Hx of total knee replacement History of carpal tunnel surgery of left wrist Hx of hernia repair Hx of cholecystectomy Social History Smoking Status: Former smoker alcohol intake: never substance use type: does not use ROS ROS ED Constitutional Constitutional ED: Denies chills or fever(s) Eyes Eyes: Denies change in vision or diplopia ENT ENT ED: Denies rhinorrhea or sore throat Cardiovascular Cardiovascular: Denies chest pain or palpitations Respiratory/Chest Respiratory/Chest: Denies cough or dyspnea Gastrointestinal Gastrointestinal: Reports as per HPI and abdominal pain; Denies diarrhea, hematemesis, hematochezia, nausea or vomiting Genitourinary Genitourinary ED: Denies dysuria or hematuria Musculoskeletal Musculoskeletal: Reports back pain; Denies neck pain Integumentary Denies abscess or rash Neurologic Neurologic: Denies headache(s), paresthesias or weakness Psychiatric Psychiatric: Denies suicidal thoughts EXAM Physical Exam Const Vital Signs: 09/06/24 08:54 09/06/24 11:07 Temperature 97.7 F L Temperature Source Ora (more content not included)... Normal [facility] Eosinophil percentageOrdered By: David Grimm on 09-06-2024 Eosinophils/100 WBC (Bld) 2.9 % 0-5 [facility] Epithelial cells.squamous LM Ql (Urine sed)Ordered By: David Grimm on 09-06-2024 Epithelial cells.squamous LM.HPF (Urine sed) [#/Area] 0 /[HPF] 5-10 [facility] Erythrocyte distribution wid th ratioOrdered By: David Grimm on 09-06-2024 Erythrocyte distribution width (RBC) [Ratio] 14.6 % 11.6-14.6 [facility] Erythrocyte distribution wid th standard deviationOrdered By: David Grimm on 09-06-2024 Erythrocyte distribution width (RBC) [Entitic vol] 50.5 fL High 35.1-43.9 [facility] Estimation of creatinine carlos aranceOrdered By: David Grimm on 09-06-2024 Estimated Creatinine Clearance Calc 72.62 ml/min 50-250 [facility] GFR/1.73 sq M.predicted deep g non-blacks MDRD (S/P/Bld) [Vol rate/Area]Ordered By: David Grimm on 09-06-2024 Estimated GFR (MDRD) Non-Af Amer 83 >60 [facility] Comment on above: mL/min/1.73m2 CKD-EP I Creatinine Equation (2020) Glucose Ql (U)Ordered By: July Grimm on 09-06-2024 Urine Glucose (UA) Normal mg/dl Normal [facility] H AND P Exam - Hospitaliston 09-06-2024 H&P Exam - Hospitalist [facility] Medical Records Department [address] [place] [address] H P Exam - Hospitalist 09/06/24 1316 MR#: [id number] Acct: [id number] Name: RADHA PACE Rep #: [id number] : 1945 79 From: Kim Vargas MD PCP: Dr. Angy Anand, DO Status:ADM RITA Location: [address] HPI - General General Date of Admission: 09/06/24 Date of Service: 09/06/24 Chief Complaint: intractable lower back pain HPI Narrative RADHA PACE, is a 79 F with a PMH as outlined who presents via the ED on 09/06/2024 with a complaint of intractable lower back pain. The pain started on the morning of admission and was mainly across her lower back. She admitted to a fall 2 days prior to admission after she got out of bed too quickly and tumbled, landing on her right side. She called the EMS for help to get off the floor at that time. She did not havae any pain then, but subsequently started having severe back pain as stated above. She was unable to ambulate. She denied any fever, chills, chest pain,palpitations, dizziness, nausea or vomiting or any other symptoms. Review of systems was otherwise negative. Vitals in [facility] ED were BP of 137/68, DE of 78, RR of 18 and oxygen sats of 98% on room air. CBC showed Hb of 11, wbc of 4.2, platelets of 158. Chemistry was unremarkable. CT of the abdomen and pelvis showed bibasilar atelectasis with hematomegaly and findings suggestive of cirrhosis and fatty infiltration, with small amount of perihepatic fluid and questionable tiny right adrenal adenoma; she had grade 2 anterior listhesis of L4 on L5. She is being admitted to be managed for intractable back pain likely due to mechanical fall. [facility] Medical History Wears hearing aid Wears dentures Easy bruising Shortness of breath on exertion History of pain when walking Intertriginous candidiasis Iron deficiency anemia Wears glasses Post-menopausal Arthritis Walker as ambulation aid Back pain CPAP (continuous positive airway pressure) dependence Gastric reflux Former smoker Leg cramps History of echocardiogram History of stress test Cardiology follow-up encounter History of atrial fibrillation Reyes's esophagus Aortic stenosis GI bleed ROBBINS (nonalcoholic steatohepatitis) Urinary incontinence Morbid obesity GERD (gastroesophageal reflux disease) Depression High cholesterol Hypertension Atrial fibrillation Home Medications ???Medication ???Instructions ???Recorded ???Last Taken ???Type atorvastatin 20 mg tablet 20 mg PO QHS CHOLESTEROL 05/13/18 09/05/24 History multivitamin with folic acid 400 1 tab PO DAILY SUPPLEMENT 05/13/18 09/05/24 History mcg tablet (Thera) pantoprazole 40 mg tablet,delayed 40 mg PO DAILY GERD 05/13/18 03/07/02 History release rivaroxaban 20 mg tablet (Xarelto) 20 mg PO DAILY AFIB 05/13/18 History sertraline 25 mg tablet (Zoloft) 25 mg PO QHS DEPRESSION 05/13/18 0 09/05/24 History cholecalciferol (vitamin D3) 125 125 mcg PO QHS 05/13/21 09/05/24 H istory mcg (5,000 unit) tablet cyanocobalamin (vitamin B-12) 500 500 mcg PO QHS 06/26/21 09/05/24 History mcg tablet (Vitamin B-12) ursodiol 250 mg tablet 250 mg PO BID #60 tabs 02/12/24 Rx diltiazem HCl 240 mg capsule,24 240 mg PO DAILY 09/06/24 09/05/24 History hr,extended release (Tiadylt ER) ibandronate 150 mg tablet 150 mg PO QMONTH 09/06/24 Unknown History oxybutynin chloride 10 mg 10 mg PO DAILY 09/06/24 09/05/24 H istory tablet,extended release 24 hr Allergy/AdvReac Type Severity Reaction Status Date / Time morphine AdvReac Other Verified 09/06/24 08:59 Surgical History Hx of right cataract extraction Hx of left cataract extraction History of esophagogastroduodenoscopy (EGD) History of carpal tunnel repair Hx of cystostomy Hx of tubal ligation Hx of hysterectomy Hx of total knee replacement History of carpal tunnel surgery of left wrist Hx of hernia repair Hx of cholecystectomy Social History Smoking Status: Former smoker alcohol intake: never substance use type: does not use ROS Constitutional Constitutional: Reports fatigue, malaise and weakness; Denies anorexia, chills or fever(s) Eyes Eyes: Denies change in vision ENT HEENT: Denies dysphagia or headache(s) Cardiovascular Cardiovascular: Denies chest pain, dyspnea on exertion, edema, lightheadedness, orthopnea, palpitations, paroxysmal nocturnal dyspnea or rapid heart rate Respiratory/Chest Respiratory/Chest: Denies cough, dyspnea, productive cough, shortness of breath at rest or shortness of breath with exertion Gastrointestinal Gastrointestinal: Kade (more content not included)... Normal [facility] Hematocrit Auto (Bld) [Volum e fraction]Ordered By: David Grimm on 09-06-2024 Hematocrit (Bld) [Volume fraction] 33.9 % Low 37-47 [facility] Hemoglobin measurementOrdere d By: David Grimm on 09-06-2024 Hemoglobin (Bld) [Mass/Vol] 11.0 g/dL Low 12.0-15.0 [facility] Immature granulocytes/100 WB C Auto (Bld)Ordered By: David Grimm on 09-06-2024 Immature granulocytes/100 WBC (Bld) 0.200 % 0.0-0.9 [facility] Comment on above: IG% - Immature Granu locytes (promyelocytes, myelocytes and metamyelocytes) > 1% indicates that a LEFT SHIFT is Present. Ketones Test strip Ql (U)Ord ered By: David Grimm on 09-06-2024 Ketones Ql (U) Negative Negative [facility] Laboratory - Chemistry and C hemistry - challengeOrdered By: David Grimm on 09-06-2024 AST [Catalytic activity/Vol] 28 U/L <32 [facility] Lipaseon 09-06-2024 Lipase [Catalytic activity/Vol] 34 U/L Normal 13-75 [facility] Comment on above: Result Comment: Edwardo ambriz note: LIPASE revised reference range effective 22. New Lipase methodology. Expected to produce lower values than the previous assay method. NEW Reference Range: 13 - 75 U/L Performed By: #### L 500.4100, L501.9520, L506.1000, L100.0100, L500.4050 #### [facility] [place], [address] Lipase measurementOrdered By : David Grimm on 09-06-2024 Lipase [Catalytic activity/Vol] 34 U/L - [facility] Comment on above: Please note:LIPASE r evised reference range effective 22. New Lipase methodology. Expected to produce lower values than the previous assay method. NEW Reference Range: 13 - 75 U/L Lymphocytes Auto (Unsp spec) [#/Vol]Ordered By: David Grimm on 09-06-2024 Lymphocytes (Bld) [#/Vol] 1.01 10*3/uL 0.83-4.51 [facility] Lymphocytes/100 WBC Auto (Un sp spec)Ordered By: David Grimm on 09-06-2024 Lymphocytes/100 WBC (Bld) 24.0 % 19-41 [facility] MCV (mean corpuscular volume ) determinationOrdered By: David Grimm on 09-06-2024 MCV (RBC) [Entitic vol] 94.4 fL 81-99 [facility] Mean corpuscular hemoglobin (MCH) determinationOrdered By: David Grimm on 09-06-2024 MCH (RBC) [Entitic mass] 30.6 pg 27.0-32.0 [facility] Mean corpuscular hemoglobin concentration (MCHC) determinationOrdered By: David Grimm on 09-06-2024 MCHC (RBC) [Mass/Vol] 32.4 g/dL 32-36 [facility] Mean platelet volume determi nationOrdered By: David Grimm on 09-06-2024 Platelet mean volume (Bld) [Entitic vol] 10.4 fL 6.2-12.0 [facility] Microscopic analysis of urin e for red blood cells (RBC)Ordered By: David Grimm on 09-06-2024 Microscopic analysis of urine for red blood cells (RBC) 25-50 SEEN /hpf 0-5 [facility] Urine RBC 25-50 SEEN /hpf 0-5 [facility] Monocyte percentageOrdered B y: David Grimm on 09-06-2024 Monocytes/100 WBC (Bld) 11.6 % High 0-10 [facility] Mucus LM Ql (Urine sed)Order ed By: David Grimm on 09-06-2024 Mucus Ql (Urine sed) 0 SEEN /hpf [facility] Neutrophil percentageOrdered By: David Grimm on 09-06-2024 Neutrophils/100 WBC (Bld) 59.6 % 47-70 [facility] Nitrite Test strip Ql (U)Ord ered By: David Grimm on 09-06-2024 Nitrite Ql (U) Positive High Negative [facility] Nucleated red blood cell per centageOrdered By: David Grimm on 09-06-2024 Nucleated RBC/100 WBC (Bld) [Ratio] 0 % 0-5 [facility] Platelet countOrdered By: July Grimm on 09-06-2024 Platelets (Bld) [#/Vol] 158 10*3/uL 150-450 [facility] Potassium (Unsp spec) [Mass/ Vol]Ordered By: David Grimm on 09-06-2024 Potassium [Moles/Vol] 3.9 mmol/L 3.3-5.1 [facility] Protein Test strip Ql (U)Ord ered By: David Grimm on 09-06-2024 Protein Ql (U) 30 mg/dl High Negative [facility] RBC Auto (Bld) [#/Vol]Ordere d By: David Grimm on 09-06-2024 RBC (Bld) [#/Vol] 3.59 10*6/uL Low 4.2-5.4 [facility] Serum creatinine measurement (mass/volume)Ordered By: David Grimm on 09-06-2024 Creatinine [Mass/Vol] 0.74 mg/dL 0.70-1.20 [facility] Serum globulin measurementOr dered By: David Grimm on 09-06-2024 Globulin (S) [Mass/Vol] 3.5 g/dL 2.2-4.2 [facility] Serum glucose measurement (m ass/volume)Ordered By: David Grimm on 09-06-2024 Glucose [Mass/Vol] 106 mg/dL High 70-99 [facility] Serum or plasma alanine alejo otransferase (ALT) measurementOrdered By: David Grimm on 09-06-2024 ALT [Catalytic activity/Vol] 13 U/L <35 [facility] Serum or plasma albumin wendy urement (mass/volume)Ordered By: David Grimm on 09-06-2024 Albumin [Mass/Vol] 4.0 g/dL 3.4-4.8 [facility] Serum or plasma albumin/glob ulin mass ratioOrdered By: David Grimm on 09-06-2024 Albumin/Globulin [Mass ratio] 1.1 {ratio} 0.9-2.4 [facility] Serum or plasma alkaline danielle sphatase measurementOrdered By: David Grimm on 09-06-2024 ALP [Catalytic activity/Vol] 90 U/L 35-104 [facility] Serum or plasma calcium wendy urement (mass/volume)Ordered By: David Grimm on 09-06-2024 Calcium [Mass/Vol] 10.2 mg/dL 7.6-11.0 [facility] Serum or plasma urea nitroge n measurement (mass/volume)Ordered By: David Grimm on 09-06-2024 Urea nitrogen [Mass/Vol] 15 mg/dL 4-19 [facility] Sodium levelOrdered By: Edmar Grimm on 09-06-2024 Sodium [Moles/Vol] 142 mmol/L 133-145 [facility] Squamous epithelial cells de tection in urine sediment by light microscopyOrdered By: David Grimm on 09-06-2024 Epithelial cells.squamous LM Ql (Urine sed) 0-5 SEEN /hpf 5-10 [facility] Total proteinOrdered By: Sherice Grimm on 09-06-2024 Protein [Mass/Vol] 7.5 g/dL 5.9-8.4 [facility] Urinalysis, Completeon 09-06 BACTERIA 3+ /hpf Normal None Seen [facility] Comment on above: Order Comment: [employer]LE CTOR TO SPECIFY Performed By: #### L 500.4100, L501.9520, L506.1000, L100.0100, L500.4050 #### [facility] [address] [place], [address] EPI,SQUAMOUS 0-5 SEEN Normal 5-10 [facility] Comment on above: Order Comment: COLLE CTOR TO SPECIFY Performed By: #### L 500.4100, L501.9520, L506.1000, L100.0100, L500.4050 #### [facility] [address] [place], [address] RBC 25-50 SEEN Normal 0-5 [facility] Comment on above: Order Comment: [facility] CTOR TO SPECIFY Performed By: #### L 500.4100, L501.9520, L506.1000, L100.0100, L500.4050 #### [facility] [address] [place], [address] WBC 25-50 SEEN Normal 0-5 [facility] Comment on above: Order Comment: [facility] CTOR TO SPECIFY Performed By: #### L 500.4100, L501.9520, L506.1000, L100.0100, L500.4050 #### [facility] [address] [place], [address] Mucus Ql (Urine sed) 0 SEEN Normal [facility] Comment on above: Order Comment: COLLE CTOR TO SPECIFY Performed By: #### L 500.4100, L501.9520, L506.1000, L100.0100, L500.4050 #### [facility] [address] [place], [address] Urine blood detectionOrdered By: David Grimm on 09-06-2024 Urine Occult Blood 250 /ul High Negative [facility] Urine clarityOrdered By: Sherice Grimm on 09-06-2024 Clarity (U) Cloudy Clear [facility] Urine color determinationOrd ered By: David Grimm on 09-06-2024 Color (U) Yellow Yellow [facility] Urine glucose detectionOrder ed By: David Grimm on 09-06-2024 Glucose Ql (U) Normal mg/dl Normal [facility] Urine leukocyte esterase det ection by dipstickOrdered By: David Grimm on 09-06-2024 Leukocyte esterase Test strip Ql (U) 500 /ul High Negative [facility] Urine pHOrdered By: David Grimm on 09-06-2024 pH (U) 5.0 [pH] 5.0 - 8.0 [facility] Urine sediment bacteria coun t by microscopy (number/high power field)Ordered By: David Grimm on 09-06-2024 Bacteria LM.HPF (Urine sed) [#/Area] 3 /[HPF] None Seen [facility] Urine specific gravity measu rementOrdered By: David Grimm on 09-06-2024 Specific gravity (U) [Rel density] 1.015 1.002-1.030 [facility] Urine urobilinogen measureme ntOrdered By: David Grimm on 09-06-2024 Urobilinogen Ql (U) Normal mg/dl Normal [facility] Urobilinogen Ql (U)Ordered B y: David Grimm on 09-06-2024 Urine Urobilinogen Normal mg/dl Normal [facility] White blood cell (WBC) count Ordered By: David Grimm on 09-06-2024 WBC (Bld) [#/Vol] 4.2 10*3/uL Low 4.4-11.0 [facility] White blood cell countOrdere d By: David Grimm on 09-06-2024 Urine WBC 25-50 SEEN /hpf 0-5 [facility] White blood cell count 25-50 SEEN /hpf 0-5 [facility] Gastroenterology Visit Repor ton 09-05-2024 Gastroenterology Visit Report [facility]astroenterology [address] [place] [address] OFFICE VISIT Date of Service: 09/05/24 MR#: [id number] Acct: [id number] Name: RADHA PACE Rep #: [id number] : 1945 Provider: Arturo Melendez DO Age/Sex: 79/F Location: [facility] Status: Signed Intake Vital Signs 10/15/22 07:50 04/28/24 07:33 Height 5 ft 5 ft Intake Visit Reasons: 6 M FU Allergies morphine Adverse Reaction (Verified 04/28/24 07:31) Other Medications ???Medication ???Instructions ???Recorded ???Confirmed ???Type atorvastatin 20 mg tablet 20 mg PO QHS CHOLESTEROL 05/13/18 09/05/24 History diltiazem HCl 180 mg 240 mg PO DAILY BP 05/13/18 History capsule,extended release 24 hr multivitamin with folic acid 400 1 tab PO DAILY SUPPLEMENT 05/13/18 09/05/24 History mcg tablet (Thera) pantoprazole 40 mg tablet,delayed 40 mg PO DAILY PRN GERD 05/13/18 09/05/24 History release rivaroxaban 20 mg tablet (Xarelto) 20 mg PO QHS AFIB 05/13/1809/05 History sertraline 25 mg tablet (Zoloft) 25 mg PO DAILY DEPRESSION 05/13/18 09/05/24 History cholecalciferol (vitamin D3) 125 125 mcg PO DAILY 05/13/21 09/05/24 History mcg (5,000 unit) tablet cyanocobalamin (vitamin B-12) 500 500 mcg PO DAILY 06/26/21 5 History mcg tablet (Vitamin B-12) ursodiol 250 mg tablet 250 mg PO BID #60 tabs 02/12/24 Rx Have you fallen in the past year?: No PFSH Medical History Wears hearing aid Wears dentures Easy bruising Shortness of breath on exertion History of pain when walking Intertriginous candidiasis Iron deficiency anemia Wears glasses Post-menopausal Arthritis Walker as ambulation aid Back pain CPAP (continuous positive airway pressure) dependence Gastric reflux Former smoker Leg cramps History of echocardiogram History of stress test Cardiology follow-up encounter History of atrial fibrillation Reyes's esophagus Aortic stenosis GI bleed ROBBINS (nonalcoholic steatohepatitis) Urinary incontinence Morbid obesity GERD (gastroesophageal reflux disease) Depression High cholesterol Hypertension Atrial fibrillation Surgical History Hx of right cataract extraction Hx of left cataract extraction History of esophagogastroduodenoscopy (EGD) History of carpal tunnel repair Hx of cystostomy Hx of tubal ligation Hx of hysterectomy Hx of total knee replacement History of carpal tunnel surgery of left wrist Hx of hernia repair Hx of cholecystectomy Social History Smoking Status: Former smoker alcohol intake: never substance use type: does not use HPI HPI Details: RADHA PACE, is a 79 F who presents to the office today for follow up. EGD 02.13.22 Esophageal mucosal changes suspicious for short-segment Reyes's esophagus. Biopsied. Portal hypertensive gastropathy. Gastric antral vascular ectasia. Normal second portion of the duodenum. EGD 04.28.24 Small (< 5 mm) esophageal varices. Esophageal mucosal changes suspicious for Reyes's esophagus. Biopsied. Small hiatal hernia. Portal hypertensive gastropathy. No gross lesions in the duodenal bulb. OV 09.05.24 pt reports that she has had increased SOB and fatigue recently, has an appt with Dr Jeffries on 09.12.24 for evaluation. Pt denies GI symptoms of concerns at this time. Pt reports that her son, who she lived with, recently . Pt reports that in Mar/Apr she is hoping to move to [place] to [facility]. ROS Const Constitutional: No fatigue, fever(s) or weight change ENT ENT: No difficulty swallowing Gastro GI: No abdominal pain, belching, bloating, change in bowel habits, change in stool character, coffee ground emesis, constipation, cramping, diarrhea, heartburn, difficulty swallowing, feeling full early, excessive flatus, incontinent of stools, Vomiting blood/hematemesis, Blood in stool, loose stools, Black,tarry stools, nausea/dyspepsia, pain with swallowing, vomiting or other Musc Musculoskeletal: Positive for abnormal gait and Arthritis; No joint pain Skin Skin: Positive for itchy eyes; No yellowing of the eye Neuro Neurology: Positive for abnormal gait Psych Psychiatric: No anxiety and No depression Endo Endocrine: No fatigue or weight change Aller/Imm Allergy/Immunologic: Positive for itchy eyes Edil/Lymp Hematologic/Lymphatic: Positive for easy bruising; No easy bleeding Exam Const General: cooperative and comfortable Nutritional Appearance: obese Orientation: alert, awake and oriented x3 Other: uses a rolling walker Eyes Sclera: sclerae normal Resp Effort Inspec (more content not included)... Normal [facility] Breast imaging reportOrdered By: Matthew Rivas on 08-04-2024 Study report [facility] Imaging Services [address] [place], [place] [address] SCRN MAMM (CAD)W/CARLOS BILAT MR#: [id number] Acct: [id number] Name: RADHA PACE Rep #: [id number] : 1945 F 79 From: Kasi Rivas MD PCP: Dr. Angy Anand DO Status: RE G CLI Study:SCRN MAMM (CAD)W/CARLOS BILAT Date of Exa m: 08/03/24 Exam# [id number] Ordering Dr: Janie Anand DO PROCEDURE: SCRN MAMM (CAD)W/CARLOS BILAT REASON FOR EXAM: F, Age 79 y/o, no family history. Annual follow-up. TECHNIQUE: Bilateral screening digital breast tomosynthesis with 2D and 3D images. Computeraided detection. COMPARISON: Prior exam(s) dating back to June 17, 2023.. FINDINGS: There are scattered areas of fibroglandular density. Stable examination. No suspicious masses, areas of developing architectural distortion, or suspicious calcifications. BI/SCRN MAMM (CAD)W/CARLOS BILAT IMPRESSION: BI-RADS 1: NEGATIVE. RECOMMEND ANNUAL MAMMOGRAPHIC SCREENING. Follow-up code: Routine Follow-up The patient will be notified of the results by letter. Reading Location: [id number] CC: Dr. Angy Anand DO ~ Shellfish Manager: Signed [facility] SCRN MAMM (CAD)W/CARLOS BILATo n 08-03-2024 SCRN MAMM (CAD)W/CARLOS BILAT [facility] Imaging Services [address] [place] [address] SCRN MAMM (CAD)W/CARLOS BILAT MR#: [id number] Acct: [id number] Name: RADHA PACE Rep #: [id number] : 1945 F 79 From: Matthew zavala MD PCP: Dr. Angy Anand DO Status: REG CLI Study: SCRN MAMM (CAD)W/CARLOS BILAT Date of Exam: 07/10 11/30 Exam# [id number] Ordering Dr: Angy Anand DO PROCEDURE: SCRN MAMM (CAD)W/CARLOS BILAT REASON FOR EXAM: F, Age 79 y/o, no family history. Annual follow-up. TECHNIQUE: Bilateral screening digital breast tomosynthesis with 2D and 3D images. Computer aided detection. COMPARISON: Prior exam(s) dating back to June 17, 2023.. FINDINGS: There are scattered areas of fibroglandular density. Stable examination. No suspicious masses, areas of developing architectural distortion, or suspicious calcifications. BI/SCRN MAMM (CAD)W/CARLOS BILAT IMPRESSION: BI-RADS 1: NEGATIVE. RECOMMEND ANNUAL MAMMOGRAPHIC SCREENING. Follow-up code: Routine Follow-up The patient will be notified of the results by letter. Reading Location: [facility] CC: Dr. Angy Anand DO Shellfish Manager: Signed Normal [facility] Absolute lymphocyte countOrd ered By: Angy Anand on 07-07-2024 Lymphocytes Auto (Unsp spec) [#/Vol] 1.28 10*3/uL 0.83-4.51 [facility] Absolute neutrophil countOrd ered By: Angy Anand on 07-07-2024 Neutrophils (Bld) [#/Vol] 1.7 10*3/uL Low 2.0-7.7 [facility] Albumin to globulin ratioOrd ered By: Angy Anand on 07-07-2024 Albumin/Globulin [Mass ratio] 0.8 {ratio} Low 0.9-2.4 [facility] Automated lymphocyte count a s percentage of total leukocytesOrdered By: Angy Anand on 07-07-2024 Lymphocytes/100 WBC Auto (Unsp spec) 35.0 % [facility] Basophil percentageOrdered B y: Angy Anand on 07-07-2024 Basophils/100 WBC (Bld) 1.9 % High 0-1 [facility] Bilirubin, totalOrdered By: Angy Anand on 07-07-2024 Bilirubin [Mass/Vol] 0.90 mg/dL 0.20-1.[address] [facility] Comment on above: For patients on eltr ombopag therapy, use of Dimension [place] TBIL is not recommended. Blood urea nitrogen (BUN)/cr eatinine ratioOrdered By: Angy Anand on 07-07-2024 Urea nitrogen/Creatinine [Mass ratio] 21.7 mg/mg High 10-20 [facility] CBC W/Diff, Automatedon 06-10 Absolute Lymph 1.28 X10 3/uL Normal 0.83-4.51 [facility] Comment on above: Performed By: #### L 500.4100, L501.9520, L506.1000, L100.0100, L500.4050 #### [facility] Laboratory [address] [place], [address] Absolute Neut 1.7 X10 3/uL Low 2.0-7.7 [facility] Comment on above: Performed By: #### L 500.4100, L501.9520, L506.1000, L100.0100, L500.4050 #### [facility] [address] [place], [address] Basophils/100 WBC (Bld) 1.9 % High 0-1 [facility] Comment on above: Performed By: #### L 500.4100, L501.9520, L506.1000, L100.0100, L500.4050 #### [facility] [address] [place], [address] Eosinophils/100 WBC (Bld) 4.1 % Normal 0-5 [facility] Comment on above: Performed By: #### L 500.4100, L501.9520, L506.1000, L100.0100, L500.4050 #### [facility] [address] [place], [address] Erythrocyte distribution width (RBC) [Ratio] 14.1 % Normal 11.6-14.6 [facility] Comment on above: Performed By: #### L 500.4100, L501.9520, L506.1000, L100.0100, L500.4050 #### [facility] [address] [place], [address] Hematocrit (Bld) [Volume fraction] 34.8 % Low 37-47 [facility] Comment on above: Performed By: #### L 500.4100, L501.9520, L506.1000, L100.0100, L500.4050 #### [facility] [address] [place], [address] Hemoglobin (Bld) [Mass/Vol] 11.4 g/dL Low 12.0-15.0 [facility] Comment on above: Performed By: #### L 500.4100, L501.9520, L506.1000, L100.0100, L500.4050 #### [facility] [address] [place], [address] IG% 0.000 Normal 0.0-0.9 [facility] Comment on above: Result Comment: IG% - Immature Granulocytes (promyelocytes, myelocytes and metamyelocytes) > 1% indicates that a LEFT SHIFT is Present. Performed By: #### L 500.4100, L501.9520, L506.1000, L100.0100, L500.4050 #### [facility] [address] [place], [address] Lymphocytes/100 WBC (Bld) 35.0 % Normal 19-41 [facility] Comment on above: Performed By: #### L 500.4100, L501.9520, L506.1000, L100.0100, L500.4050 #### [facility] [address] [place], [address] MCH (RBC) [Entitic mass] 30.4 pg Normal 27.0-32.0 [facility] Comment on above: Performed By: #### L 500.4100, L501.9520, L506.1000, L100.0100, L500.4050 #### [facility] [address] [place], [address] MCHC (RBC) [Mass/Vol] 32.8 g/dL Normal 32-36 [facility] Comment on above: Performed By: #### L 500.4100, L501.9520, L506.1000, L100.0100, L500.4050 #### [facility] [address] [place], [address] MCV (RBC) [Entitic vol] 92.8 fL Normal 81-99 [facility] Comment on above: Performed By: #### L 500.4100, L501.9520, L506.1000, L100.0100, L500.4050 #### [facility] [address] [place], [address] Monocytes/100 WBC (Bld) 11.7 % High 0-10 [facility] Comment on above: Performed By: #### L 500.4100, L501.9520, L506.1000, L100.0100, L500.4050 #### [facility] [address] [place], [address] Neutrophils/100 WBC (Bld) 47.3 % Normal 47-70 [facility] Comment on above: Performed By: #### L 500.4100, L501.9520, L506.1000, L100.0100, L500.4050 #### [facility] [address] [place], [address] Nucleated RBC (Bld) [#/Vol] 0 10*3/uL Normal 0-5 [facility] Comment on above: Performed By: #### L 500.4100, L501.9520, L506.1000, L100.0100, L500.4050 #### [facility] [address] [place], [address] Platelet mean volume (Bld) [Entitic vol] 10.3 fL Normal 6.2-12.0 [facility] Comment on above: Performed By: #### L 500.4100, L501.9520, L506.1000, L100.0100, L500.4050 #### [facility] [address] [place], [address] Platelets (Bld) [#/Vol] 175 10*3/uL Normal 150-450 [facility] Comment on above: Performed By: #### L 500.4100, L501.9520, L506.1000, L100.0100, L500.4050 #### [facility] [address] [place], [address] RBC (Bld) [#/Vol] 3.75 10*6/uL Low 4.2-5.4 [facility] Comment on above: Performed By: #### L 500.4100, L501.9520, L506.1000, L100.0100, L500.4050 #### [facility] [address] [place], [address] RDW SD 47.9 fl High 35.1-43.9 [facility] Comment on above: Performed By: #### L 500.4100, L501.9520, L506.1000, L100.0100, L500.4050 #### [facility] [address] [place], [address] WBC (Bld) [#/Vol] 3.7 10*3/uL Low 4.4-11.0 [facility] Comment on above: Performed By: #### L 500.4100, L501.9520, L506.1000, L100.0100, L500.4050 #### [facility] [address] [place], [address] Carbon dioxide measurementOr dered By: Angy Anand on 07-07-2024 CO2 [Moles/Vol] 26.0 mmol/L 21.0-32.0 [facility] Chloride measurementOrdered By: Angy Anand on 07-07-2024 Chloride [Moles/Vol] 106 mmol/L 98-[address] [facility] Comprehensive Metabolic Prof ilon 07-07-2024 Albumin [Mass/Vol] 3.5 g/dL Normal 3.2-5.0 [facility] Comment on above: Performed By: #### L 500.4100, L501.9520, L506.1000, L100.0100, L500.4050 #### [facility] [address] [place], [address] Albumin/Globulin [Mass ratio] 0.8 {ratio} Low 0.9-2.4 [facility] Comment on above: Performed By: #### L 500.4100, L501.9520, L506.1000, L100.0100, L500.4050 #### [facility] [address] [place], [address] ALK P 98 U/L Normal 45-117 [facility] Comment on above: Performed By: #### L 500.4100, L501.9520, L506.1000, L100.0100, L500.4050 #### [facility] [address] [place], [address] ALT [Catalytic activity/Vol] 18 U/L Normal 13-56 [facility] Comment on above: Performed By: #### L 500.4100, L501.9520, L506.1000, L100.0100, L500.4050 #### [facility] [address] [place], [address] AST [Catalytic activity/Vol] 21 U/L Normal 15-37 [facility] Comment on above: Performed By: #### L 500.4100, L501.9520, L506.1000, L100.0100, L500.4050 #### [facility] [address] [place], [address] Bilirubin [Mass/Vol] 0.90 mg/dL Normal 0.20-1.[address] [facility] Comment on above: Result Comment: For patients on eltrombopag therapy, use of Dimension [place] TBIL is not recommended. Performed By: #### L 500.4100, L501.9520, L506.1000, L100.0100, L500.4050 #### [facility] [address] [place], [address] BUN/CRE 21.7 RATIO High 10-20 [facility] Comment on above: Performed By: #### L 500.4100, L501.9520, L506.1000, L100.0100, L500.4050 #### [facility] [address] [place], [address] CA,Total 10.1 mg/dL Normal 8.5-10.1 [facility] Comment on above: Performed By: #### L 500.4100, L501.9520, L506.1000, L100.0100, L500.4050 #### [facility] [address] [place], [address] Chloride [Moles/Vol] 106 mmol/L Normal 98-[address] [facility] Comment on above: Performed By: #### L 500.4100, L501.9520, L506.1000, L100.0100, L500.4050 #### [facility] [address] [place], [address] CO2 [Moles/Vol] 26.0 mmol/L Normal 21.0-32.0 [facility] Comment on above: Performed By: #### L 500.4100, L501.9520, L506.1000, L100.0100, L500.4050 #### [facility] [address] [place], [address] Creatinine [Mass/Vol] 0.74 mg/dL Normal 0.55-1.02 [facility] Comment on above: Result Comment: The validity of the calculated GFR GFRAA in patients over 70 years has not been determined. Clinical correlation is essential. Performed By: #### L 500.4100, L501.9520, L506.1000, L100.0100, L500.4050 #### [facility] [address] [place], [address] EST GFR - AA 98 mL/min Normal >60 [facility] Comment on above: Result Comment: Afri can [place] GFR Calc Performed By: #### L 500.4100, L501.9520, L506.1000, L100.0100, L500.4050 #### [facility] [address] [place], [address] GAP 6 Normal 5-15 [facility] Comment on above: Performed By: #### L 500.4100, L501.9520, L506.1000, L100.0100, L500.4050 #### [facility] [address] [place], [address] GFR/1.73 sq M.predicted among non-blacks MDRD (S/P/Bld) [Vol rate/Area] 81 mL/min/{1.73_m2} Normal >60 [facility] Comment on above: Result Comment: Non- GFR Calc Performed By: #### L 500.4100, L501.9520, L506.1000, L100.0100, L500.4050 #### [facility] [address] [place], [address] Globulin (S) [Mass/Vol] 4.2 g/dL Normal 2.2-4.2 [facility] Comment on above: Performed By: #### L 500.4100, L501.9520, L506.1000, L100.0100, L500.4050 #### [facility] [address] [place], [address] Glucose [Mass/Vol] 102 mg/dL Normal 74-106 [facility] Comment on above: Result Comment: Fast ing Glucose result from 100 to 125 mg/dL suggests IMPAIRED HOMEOSTASIS per A.D.A. criteria. Performed By: #### L 500.4100, L501.9520, L506.1000, L100.0100, L500.4050 #### [facility] [address] [place], [address] Potassium [Moles/Vol] 4.0 mmol/L Normal 3.5-5.1 [facility] Comment on above: Performed By: #### L 500.4100, L501.9520, L506.1000, L100.0100, L500.4050 #### [facility] [address] [place], [address] Sodium [Moles/Vol] 138 mmol/L Normal 136-145 [facility] Comment on above: Performed By: #### L 500.4100, L501.9520, L506.1000, L100.0100, L500.4050 #### [facility] [address] [place], [address] T PROT 7.7 g/dL Normal 6.4-8.2 [facility] Comment on above: Performed By: #### L 500.4100, L501.9520, L506.1000, L100.0100, L500.4050 #### [facility] [address] [place], [address] Urea nitrogen [Mass/Vol] 16 mg/dL Normal 7-18 [facility] Comment on above: Performed By: #### L 500.4100, L501.9520, L506.1000, L100.0100, L500.4050 #### [facility] [address] [place], [address] Echo Complete W/ Contraston 07-07-2024 Echo Complete W/ Contrast [facility] Cardiovascular Services [address] [place] [address] Echo Complete W/ Contrast 07/07/24 1405 MR#: [id number] Acct: [id number] Name: RADHA PACE Rep #: [id number] : 1945 78 From: Tunde Monterroso MD Attending Dr: Dr. Angy Anand, Status: R EG CLI Ordering Dr: Angy Anand DO Date: 07/07/24 Location: CVS Sex: F C Admitted: Reason For Study: CHF Procedure This was a 2D Doppler, Color Flow transthoracic echocardiogram. The study was technically difficult. Contrast injection was performed. Patient scanned supine due to left hip pain. Exam performed in department. Left Ventricle Normal LV size. Moderate concentric left ventricular hypertrophy. Left ventricular systolic function is normal. The left ventricular ejection fraction is 60 %. No regional wall motion abnormalities noted. Right Ventricle Normal RV size. Normal systolic function. Mitral Valve There is moderate mitral annular calcification. Tricuspid Valve Normal tricuspid valve. Mild (1+) tricuspid valve insufficiency. Pulmonary artery systolic pressure is 40 mmHg. Aortic Valve Trisinus/trileaflet aortic valve. Mild focal aortic valve calcification. Mild restriction of the aortic valve. Peak aortic valve gradient 30 mmHg. Mean aortic valve gradient 15 mmHg. Great Vessels Normal aortic root. Pericardium/Pleural No pericardial effusion. Medication 22 gauge I.V. with prn adaptor inserted into right arm. Diluted definity 1.5ml given slow IV push to enhance endocardial definition. MMode/2D Measurements Calculations LVIDd: 5.4 cm IVSd: 1.2 cm LVOT diam: 2.0 cm LVIDs: 3.9 cm LVPWd: 1.5 cm LVOT area: 3.0 cm2 RVDd: 5.8 cm FS: 28.5 % Ao root diam: 3.4 cm LAV(MOD-bp): 223.6 ml LA A4 area: 50.3 cm2 LA dimension: 7.2 cm LAV(MOD-bp) Indexed: 106.6 ml/m2 LAV(MOD-sp2): 211.5 ml LAV(MOD-sp4): 216.4 ml LA dimension(2D): 6.1 cm RA A4 area: 37.2 cm2 TAPSE: 2.3 cm Time Measurements MV dec time: 0.38 sec Doppler Measurements Calculations MV E max sarita: 158.3 cm/sec Lat Peak E' Sarita: 12.5 cm/sec Med Peak E' Sarita: 9.2 cm/sec MV A max sarita: 21.8 cm/sec E/E' lat: 12.7 E/E' med: 17.3 MV E/A: 7.3 MV V2 max: 179.0 cm/sec MV P1/2t max sarita: 179.4 cm/sec Ao V2 max: 272.1 cm/sec MV max P.8 mmHg MV P1/2t: 112.9 msec Ao max P.6 mmHg MV V2 mean: 85.3 cm/sec MV dec slope: 465.2 cm/sec2 Ao V2 mean: 182.8 cm/sec MV mean P.9 mmHg MVA(P1/2t): 1.9 cm2 Ao mean P.1 mmHg MV V2 VTI: 50.1 cm Ao V2 VTI: 63.4 cm MVA(VTI): 2.2 cm2 AV (velocity ratio): 0.58 EVERARDO(I,D): 1.8 cm2 EVERARDO(V,D): 1.7 cm2 LV V1 max: 151.1 cm/sec MR max sarita: 499.4 cm/sec SV(LVOT): 111.7 ml LV V1 max P.2 mmHg MR max P.8 mmHg LV V1 mean P.2 mmHg LV V1 mean: 107.6 cm/sec LV V1 VTI: 36.7 cm TR max sarita: 296.8 cm/sec TR max P.2 mmHg ECHO/Echo Complete W/ Contrast Interpretation Summary Normal LV size. Left ventricular systolic function is normal. The left ventricular ejection fraction is 60 %. No regional wall motion abnormalities noted. Moderate concentric left ventricular hypertrophy. Mean aortic valve gradient 15 mmHg. Contrast injection was performed. Ordering Physician: Angy Anand Referring Physician: Angy Anand Performed By: Rodney Thomas RCS 07/07/241550 Date Tunde Monterroso MD CC: Dr. Angy Anand DO Date Dictated: 07/07/241404 Date Transcribed: 07/07/241550 Shellfish Manager: Signed Normal [facility] Eosinophil percentageOrdered By: Angy Anand on 07-07-2024 Eosinophils/100 WBC (Bld) 4.1 % 0-5 [facility] Erythrocyte distribution wid th ratioOrdered By: Angy Anand on 07-07-2024 Erythrocyte distribution width (RBC) [Ratio] 14.1 % 11.6-14.6 [facility] Erythrocyte distribution wid th standard deviationOrdered By: Angy Anand on 07-07-2024 Erythrocyte distribution width (RBC) [Entitic vol] 47.9 fL High 35.1-43.9 [facility] Erythrocyte distribution width (RBC) [Ratio] 47.9 fl High 35.1-43.9 [facility] Estimated glomerular filtrat ion rate (GFR) AmericanOrdered By: Angy Anand on 07-07-2024 Estimated GFR (MDRD) Amer 98 mL/min >60 [facility] Comment on above: GFR Calc Glomerular filtration rate ( GFR) estimationOrdered By: Angy Anand on 07-07-2024 Estimated GFR (MDRD) Non-Af Amer 81 mL/min >60 [facility] Comment on above: Non- GFR Calc GFR/1.73 sq M.predicted among non-blacks MDRD (S/P/Bld) [Vol rate/Area] 81 mL/min/{1.73_m2} >60 [facility] Comment on above: Non- GFR Calc Glucose measurementOrdered B y: Angy Anand on 07-07-2024 Glucose [Mass/Vol] 102 mg/dL 74-106 [facility] Comment on above: Fasting Glucose resu lt from 100 to 125 mg/dL suggests IMPAIRED HOMEOSTASIS per A.D.A. criteria. Hematocrit Auto (Bld) [Volum e fraction]Ordered By: Angy Anand on 07-07-2024 Hematocrit (Bld) [Volume fraction] 34.8 % Low 37-47 [facility] Hemoglobin A1con 07-07-2024 HbA1c (Bld) [Mass fraction] 5.2 % Normal 3.8-5.6 [facility] Comment on above: Result Comment: Norm al < 5.7 % Prediabetic 5.7 - 6.4 % Diabetic >or= 6.5 % Please note range changes. Performed By: #### L 500.4100, L501.9520, L506.1000, L100.0100, L500.4050 #### [facility] [place], [address] Hemoglobin A1c percentageOrd ered By: Angy Anand on 07-07-2024 HbA1c (Bld) [Mass fraction] 5.2 % 3.8-5.6 [facility] Comment on above: Normal < 5.7 % Predi abetic 5.7 - 6.4 % Diabetic >or= 6.5 % Please note range changes. Hemoglobin measurementOrdere d By: Angy Anand on 07-07-2024 Hemoglobin (Bld) [Mass/Vol] 11.4 g/dL Low 12.0-15.0 [facility] High density lipoprotein (HD L) measurementOrdered By: Angy Anand on 07-07-2024 Cholesterol in HDL [Mass/Vol] 75 mg/dL >40 [facility] Comment on above: The drugs N-Acetylcy steine and Metamizole may falsely depress this assay. Reference Range HDL <40 mg/dL Low HDL Cholesterol HDL >or= 60 mg/dL High HDL Cholesterol Immature granulocytes/100 WB C Auto (Bld)Ordered By: Angy Anand on 07-07-2024 Immature granulocytes/100 WBC (Bld) 0.000 % 0.0-0.9 [facility] Comment on above: IG% - Immature Granu locytes (promyelocytes, myelocytes and metamyelocytes) > 1% indicates that a LEFT SHIFT is Present. Laboratory - Chemistry and C hemistry - challengeOrdered By: Angy Kika on 07-07-2024 AST [Catalytic activity/Vol] 21 U/L 15-37 [facility] Lipid Profileon 07-07-2024 Cholesterol [Mass/Vol] 145 mg/dL Normal 200 [facility] Comment on above: Result Comment: <200 mg/dL Desirable 200-240 mg/dL Borderline >240 mg/dL High Risk Performed By: #### L 500.4100, L501.9520, L506.1000, L100.0100, L500.4050 #### [facility] [address] [place], [address] Cholesterol in HDL [Mass/Vol] 75 mg/dL Normal [facility] Comment on above: Result Comment: The drugs N-Acetylcysteine and Metamizole may falsely depress this assay. Reference Range HDL <40 mg/dL Low HDL Cholesterol HDL >or= 60 mg/dL High HDL Cholesterol Performed By: #### L 500.4100, L501.9520, L506.1000, L100.0100, L500.4050 #### [facility] [address] [place], [address] Cholesterol in LDL [Mass/Vol] 57 mg/dL Normal 0-130 [facility] Comment on above: Performed By: #### L 500.4100, L501.9520, L506.1000, L100.0100, L500.4050 #### [facility] [address] [place], [address] Cholesterol in VLDL [Mass/Vol] 13 mg/dL Normal 5-40 [facility] Comment on above: Performed By: #### L 500.4100, L501.9520, L506.1000, L100.0100, L500.4050 #### [facility] [address] [place], [address] Triglyceride [Mass/Vol] 67 mg/dL Normal [facility] Comment on above: Result Comment: The drugs N-Acetylcysteine and Metamizole may falsely depress this assay. Serum Triglycerides Reference Interval Normal <150 mg/dL Borderline high 150 - 199 mg/dL High 200 - 499 mg/dL Very High > or = 500 mg/dL Performed By: #### L 500.4100, L501.9520, L506.1000, L100.0100, L500.4050 #### [facility] [address] [place], [address] Low density lipoprotein (LDL ) cholesterol measurementOrdered By: Angy Anand on 07-07-2024 Cholesterol in LDL [Mass/Vol] 57 mg/dL 0-130 [facility] Lymphocytes Auto (Unsp spec) [#/Vol]Ordered By: Angy Anand on 07-07-2024 Lymphocytes (Bld) [#/Vol] 1.28 10*3/uL 0.83-4.51 [facility] Lymphocytes/100 WBC Auto (Un sp spec)Ordered By: Angy Anand on 07-07-2024 Lymphocytes/100 WBC (Bld) 35.0 % 19-41 [facility] MCV (mean corpuscular volume ) determinationOrdered By: Angy Anand on 07-07-2024 MCV (RBC) [Entitic vol] 92.8 fL 81-99 [facility] Mean corpuscular hemoglobin (MCH) determinationOrdered By: Angy Anand on 07-07-2024 MCH (RBC) [Entitic mass] 30.4 pg 27.0-32.0 [facility] Mean corpuscular hemoglobin concentration (MCHC) determinationOrdered By: Angy Anand on 07-07-2024 MCHC (RBC) [Mass/Vol] 32.8 g/dL 32-36 [facility] Mean platelet volume determi nationOrdered By: Angy Anand on 07-07-2024 Platelet mean volume (Bld) [Entitic vol] 10.3 fL 6.2-12.0 [facility] Monocyte percentageOrdered B y: Angy Anand on 07-07-2024 Monocytes/100 WBC (Bld) 11.7 % High 0-10 [facility] Neutrophil percentageOrdered By: Angy Anand on 07-07-2024 Neutrophils/100 WBC (Bld) 47.3 % 47-70 [facility] Nucleated red blood cell per centageOrdered By: Angy Anand on 07-07-2024 Nucleated RBC/100 WBC (Bld) [Ratio] 0 % 0-5 [facility] Platelet countOrdered By: Mile Anand on 07-07-2024 Platelets (Bld) [#/Vol] 175 10*3/uL 150-450 [facility] Potassium measurementOrdered By: Angy Anand on 07-07-2024 Potassium [Moles/Vol] 4.0 mmol/L 3.5-5.1 [facility] RBC Auto (Bld) [#/Vol]Ordere d By: Angy Anand on 07-07-2024 RBC (Bld) [#/Vol] 3.75 10*6/uL Low 4.2-5.4 [facility] Serum anion gap measurementO rdered By: Angy Anand on 07-07-2024 Anion gap [Moles/Vol] 6 mmol/L 5-15 [facility] Serum globulin measurementOr dered By: Angy Anand on 07-07-2024 Globulin (S) [Mass/Vol] 4.2 g/dL 2.2-4.2 [facility] Serum or plasma alanine alejo otransferase (ALT) measurementOrdered By: Angy Anand on 07-07-2024 ALT [Catalytic activity/Vol] 18 U/L 13-56 [facility] Serum or plasma albumin wendy urement (mass/volume)Ordered By: Angy Anand on 07-07-2024 Albumin [Mass/Vol] 3.5 g/dL 3.2-5.0 [facility] Serum or plasma alkaline danielle sphatase measurementOrdered By: Angy Anand on 07-07-2024 ALP [Catalytic activity/Vol] 98 U/L 45-117 [facility] Serum or plasma calcium wendy urement (mass/volume)Ordered By: Angy Anand on 07-07-2024 Calcium [Mass/Vol] 10.1 mg/dL 8.5-10.1 [facility] Serum or plasma cholesterol measurement (mass/volume)Ordered By: Angy Anand on 07-07-2024 Cholesterol [Mass/Vol] 145 mg/dL <200 [facility] Comment on above: <200 mg/dL Desirable 200-240 mg/dL Borderline >240 mg/dL High Risk Serum or plasma creatinine m easurement (mass/volume)Ordered By: Angy Anand on 07-07-2024 Creatinine [Mass/Vol] 0.74 mg/dL 0.55-1.02 [facility] Comment on above: The validity of the calculated GFR & GFRAA in patients over 70 years has not been determined. Clinical correlation is essential. Serum or plasma thyroid stim ulating hormone (TSH) measurement (units/volume)Ordered By: Angy Anand on 07-07-2024 TSH Qn 0.886 uIU/mL 0.358-3.740 [facility] Serum or plasma urea nitroge n measurement (mass/volume)Ordered By: Angy Anand on 07-07-2024 Urea nitrogen [Mass/Vol] 16 mg/dL 7-18 [facility] Sodium levelOrdered By: Vi Anand on 07-07-2024 Sodium [Moles/Vol] 138 mmol/L 136-145 [facility] TSH QnOrdered By: Angy guy on 07-07-2024 Thyroid Stimulating Hormone (TSH) 0.886 uIU/mL 0.358-3.740 [facility] Thyroid Stim Hormone (TSH)on 07-07-2024 TSH 0.886 uIU/mL Normal 0.358-3.740 [facility] Comment on above: Performed By: #### L 500.4100, L501.9520, L506.1000, L100.0100, L500.4050 #### [facility] Laboratory [facility] [place], [address] Total proteinOrdered By: Liseth Anand on 07-07-2024 Protein [Mass/Vol] 7.7 g/dL 6.4-8.2 [facility] Triglycerides measurementOrd ered By: Angy Anand on 07-07-2024 Triglyceride [Mass/Vol] 67 mg/dL <199 [facility] Comment on above: The drugs N-Acetylcy steine and Metamizole may falsely depress this assay.Serum Triglycerides Reference Interval Normal <150 mg/dL Borderline high 150 - 199 mg/dL High 200 - 499 mg/dL Very High > or = 500 mg/dL Very low density lipoprotein (VLDL) cholesterol measurementOrdered By: Angy Anand on 07-07-2024 Very low density lipoprotein (VLDL) cholesterol measurement 13 mg/dL 5-40 [facility] VLDL Cholesterol 13 mg/dL 5-40 [facility] White blood cell (WBC) count Ordered By: Angy Anand on 07-07-2024 WBC (Bld) [#/Vol] 3.7 10*3/uL Low 4.4-11.0 [facility] EGD Reporton 04-28-2024 EGD Report [facility] Medical Records Department [address] [place] [address] EGD Report MR#: [id number] Acct: [id number] Name: RADHA PACE Rep #: [id number] : 1945 78 From: Arturo Melendez DO PCP: Dr. Angy Anand DO Status:REG [facility] [place] Patient Name: Radha Pace Procedure Date: 04/28/2024 9:06 AM Date of : 1945 Age: 78 Procedure: Upper GI endoscopy Indications: Cirrhosis with suspected esophageal varices Providers: Arturo Melendez DO Referring MD: Angy Anand Medicines: Monitored Anesthesia Care Patient Profile: This is a 78 year old female. Refer to note in patient chart for documentation of history and physical. Patient has symptoms of chronic heartburn. Complications: No immediate complications. Procedure: Pre-Anesthesia Assessment: - Prior to the procedure, a History and Physical was performed, and patient medications and allergies were reviewed. The patient is competent. The risks and benefits of the procedure and the sedation options and risks were discussed with the patient. All questions were answered and informed consent was obtained. Patient identification and proposed procedure were verified by the physician in the pre-procedure area. Mental Status Examination: alert and oriented. Airway Examination: normal oropharyngeal airway and neck mobility. Respiratory Examination: clear to auscultation. CV Examination: normal. Prophylactic Antibiotics: The patient does not require prophylactic antibiotics. Prior Anticoagulants: The patient has taken no anticoagulant or antiplatelet agents except for NSAID medication. ASA Grade Assessment: II - A patient with mild systemic disease. After reviewing the risks and benefits, the patient was deemed in satisfactory condition to undergo the procedure. The anesthesia plan was to use monitored anesthesia care (MAC). Immediately prior to administration of medications, the patient was re-assessed for adequacy to receive sedatives. The heart rate, respiratory rate, oxygen saturations, blood pressure, adequacy of pulmonary ventilation, and response to care were monitored throughout the procedure. The physical status of the patient was re-assessed after the procedure. After obtaining informed consent, the endoscope was passed under direct vision. Throughout the procedure, the patient's blood pressure, pulse, and oxygen saturations were monitored continuously. The gastroscope was introduced through the mouth, and advanced to the second part of duodenum. The upper GI endoscopy was accomplished without difficulty. The patient tolerated the procedure well. Scope In: 9:17:07 AM Scope Out: 9:19:19 AM Total Procedure Duration Time 0 hours 2 minutes 12 seconds Findings: Small (< 5 mm) varices were found in the distal esophagus. They were 4 mm in largest diameter. There were esophageal mucosal changes suspicious for Reyes's esophagus present in the lower third of the esophagus. The maximum longitudinal extent of these mucosal changes was 1 cm in length. Mucosa was biopsied with a cold forceps for histology in a targeted manner at intervals of 1 cm in the lower third of the esophagus. One specimen bottle was sent to pathology. Verification of patient identification for the specimen was done. Estimated blood loss was minimal. A small hiatal hernia was present. Mild portal hypertensive gastropathy was found in the entire examined stomach. No gross lesions were noted in the duodenal bulb. Impression: - Small (< 5 mm) esophageal varices. - Esophageal mucosal changes suspicious for Reyes's esophagus. Biopsied. - Small hiatal hernia. - Portal hypertensive gastropathy. - No gross lesions in the duodenal bulb. Recommendation: - Discharge patient to home. - Resume previous diet. - Continue present medications. - Await pathology results. - Repeat upper endoscopy in 1 year. Procedure Code(s): --- Professional --- 09500, Esophagogastroduodenoscopy, flexible, transoral; with biopsy, single or multiple CPT copyright 2021 [employer]. All rights reserved. The codes documented in this report are preliminary and upon quality assurance supervisor body review may be revised to meet current compliance requirements. Arturo Melendez DO 04/28/2024 9:25:01 AM This report has been signed electronically. Number of Addenda: 0 Note Initiated On: 04/28/2024 9:06 AM 04/28/24924 Date Arturo Melendez DO Cosigner Signature: Date (if indicated) CC: Dr. Angy Anand DO; Arturo Melendez DO Date Dictated: 04/28/24905 Date Transcribed: Shellfish Manager: MICKEY Signed [facility] MR/POSTOP.Nba 04-28-2024 MR/POSTOP.[facility] Medical Records Department [address] [place] [address] Anesthesia Postop Eval I 04/28/24929 MR#: [id number] Acct: [id number] Name: RADHA PACE Rep #: [id number] : 1945 78 From: Sony Richard PCP: Dr. Angy Anand DO Status:REG [facility] Y Race: C Location: [place] [address] Anesthesia: Postop Eval I Current Vital Signs Temperature: 98.3 F Pulse Rate: 67 Blood Pressure: 129/61 Respiratory Rate: 18 Pulse Ox: 91 Oxygen Delivery Method: Nasal Cannula Oxygen Flow Rate (L/min): 2 Assessment Airway patent: Yes Spontaneous unlabored respirations: Yes Mental status: Awake and Calm nausea: No Vomiting: No Anesthesia Complication: No Fluid Hydration Crystalloid volume administer (ml): 30 Total IV fluid infused: 30 Progress Note Anesthesia document: Postop Eval 1 completed: Yes 04/28/24930 Date Sony Kathleen Signature: Date CC: Signed Normal [facility] MR/[id number] 04-28-2024 /POSTOPAN2 [facility] Medical Records Department [address] [place] [address] Anesthesia Postop Eval II 04/28/24 1515 MR#: [id number] Acct: [id number] Name: RADHA PACE Rep #: [id number] : 1945 78 From: Enrique Hebert MD PCP: Dr. Angy Anand, DO Status:[facility] Y Race: C Location: [place] Anesthesia Postop Eval I Sum Postop Eval Completion status Anesthesia document: Postop Eval 1 completed: Yes Anesthesia Postop Eval I Summary Anesthesia Postop Eval I Summary: Anesthesia Postop Eval I: Assessment Summary Airway patent Yes 04/28/24 09:31 [email or web address] Spontaneous unlabored Yes 04/28/24 09:31 [email or web address] respirations Mental status Awake,Calm 04/28/24 09:31 [email or web address] nausea No 04/28/24 09:31 [email or web address] Vomiting No 04/28/24 09:31 [email or web address] Anesthesia Postop Eval I: Fluid Summary Crystalloid volume administer 30 04/28/24 09:31 [email or web address] (ml) Colloids volume administered ( ml) Blood Product volume administered (ml) Total IV fluid infused 30 04/28/24 09:31 [email or web address] Anesthesia Postop Eval I: Summary Notes Anesthesia Complication No 04/28/24 09:31 [email or web address] Anesthesia Complication Comment: Post-operative progress note Anesthesia: Postop Eval II Evaluation Mental status: Awake and Calm Pain Level: 0 nausea: No Vomiting: No Complications Anesthesia Complication: No 04/28/24 1516 Date Enrique Kathleen Signature: Date CC: Signed Normal [facility] Special Stain Group Ion 04-09 Special Stain Group I --------- Patient Age/Sex Location Account Attending Physician RADHA PACE 78/F EN [id number] Arturo Melendez DO Specimen: [id number] Received: 04/28/24-1324 Status: DAYANA Joe Num: [id number] Spec Type: EGD BIOPSY Subm Dr: Arturo Melendez DO HEADER OPERATION: EGD with biopsy PRE-OP DIAGNOSIS: Cirrhosis of liver TISSUE SUBMITTED: Distal esophagus biopsy MICROSCOPIC DIAGNOSIS Distal esophagus, biopsy: Fragments of gastroesophageal mucosa with chronic inflammation and changes consistent with gastroesophageal reflux disease. Intestinal metaplasia (goblet cell metaplasia) not identified. See comment. 04/29/2024 COMMENT Alcian blue/PAS stain with matched control is used in the evaluation of the specimen. MICROSCOPIC DESCRIPTION Slides are reviewed. GROSS DESCRIPTION Received in fixative is one container labeled with the patient's name and designated Distal esophagus biopsy. The specimen consists of multiple irregular fragments of light erickson soft tissue that in aggregate measure 0.8 x 0.3 x 0.1 cm. The specimen is totally submitted in one cassette. 04/28/2024 TC:3 CPT:79642,70545 Patient Age/Sex Location Account Attending Physician RADHA PACE 78/F EN [id number] Arturo Friend, DO Signed (signature on file) Dr. Harinder Pool MD 04/29/24 1209 Normal [facility] Comment on above: Performed By: #### L 500.4100, L501.9520, L506.1000, L100.0100, L500.4050 #### [facility] Laboratory [address] [place], [place], [address] Urgent Care Visit Reporton 1 Urgent Care Visit Report [facility] [address], [address] [place], [place] [address] OFFICE VISIT Date of Service: 03/22/24 MR#: [id number] Acct: [id number] Name: RADHA PACE Rep #: [id number] : 1945 Provider: TERI Macdonald Age/Sex: 78/F Location[facility] Status: Signed Intake Vital Signs 10/15/22 07:50 03/22/24 12:49 Height 5 ft 5 ft BP 132/62 H Blood Pressure Location Lt brachial Position Sitting Respiration 20 H Pulse 74 Pulse Source NIBP Temp 98.8 F Temp Source Oral Pulse Oximetry (%) 95 Oxygen Delivery Method room air Intake Visit Reasons: RASH ON ABDOMEN Chief Complaint: abd/groin rash Artist Suspect Required: No Is patient in pain?: Yes Allergies morphine Adverse Reaction (Verified 03/22/24 13:12) Other Is last menstrual period known: No Post menopausal: Yes Patient : No Have you fallen in the past year?: No Nurse's Note: abd/groin rash x 2 weeks worsening. pt cannot see area, has wash cloths in abd folds and when changing notices some blood intermittently. c/o pain and itching to area. concern for infection after shaving. [facility] Medical History (Updated 03/22/24 @ 14:22 by Esau Velasquez PA, PA) Intertriginous candidiasis Iron deficiency anemia Wears glasses Post-menopausal Arthritis Walker as ambulation aid Easy bruising Excessive bleeding Back pain CPAP (continuous positive airway pressure) dependence Sleep apnea Gastric reflux Former smoker Shortness of breath on exertion Pulmonary HTN Leg cramps History of edema History of echocardiogram History of stress test Cardiology follow-up encounter History of atrial fibrillation Reyes's esophagus Aortic stenosis GI bleed PAH (pulmonary artery hypertension) ROBBINS (nonalcoholic steatohepatitis) Urinary incontinence Morbid obesity ABLA (acute blood loss anemia) Obstructive sleep apnea GERD (gastroesophageal reflux disease) Depression High cholesterol Hypertension CHF (congestive heart failure) Kidney stone Atrial fibrillation Surgical History History of carpal tunnel repair Hx of cystostomy Hx of tubal ligation Hx of hysterectomy Hx of total knee replacement History of carpal tunnel surgery of left wrist Hx of hernia repair Hx of cholecystectomy Social History (Reviewed 10/15/22 @ 07:58 by Rosi Asher DIRECTOR OF EXTENSION WORK, DIRECTOR OF EXTENSION WORK-C) Smoking Status: Former smoker alcohol intake: never substance use type: does not use HPI HPI Chief Complaint: abd/groin rash Details: RADHA PACE, is a 78 F who presents to the office today for initial evaluation 2-3 weeks pruritic rash below abdominal pannus. She admits to shaving in same region 1 week ago due to hair c ause rash to be even more pruritic and causing a few pinpoint abrasions/ laceration. Due to the progressively worsening symptoms and spreading of diameter of rash, patient decided to come in to have evaluation today. No purulent discharge appreciated from same and no c/o fever, chills, sweats. She notes no other physical health c/o at this time, though admits loneliness due to son passing away as well as no longer able to see her pcp (which she has had for over 40 years) due to insurance no longer covering this pcp; new pcp with initial evaluation not until 04/11/2024 pt states. ROS Const Constitutional: No other (as above) Exam Const General: cooperative, healthy appearing and no acute distress Orientation: alert and awake Resp Effort Inspection: normal respiratory effort and able to speak in complete sentences Cardio Rate: regular rate Pulses: radial pulses present GI Inspection: normal to inspection Palpation: soft Skin General: no rashes or lesions noted ( 50cm x 20cm erythematous wet appearing rash below abd pannus) Neuro General: patient alert and patient awake Cognition: normal cognition Speech: speech normal Extrem General: normal to inspection Psych Appearance: grossly normal Mental Status: mental status grossly normal Mood: congruent mood Affect: normal affect Speech and Movement: speech and movement normal Attitude: cooperative Coding Level of Care Code Off vis,new,level 3 Diagnoses Intertriginous candidiasis B37.2 Assessment and Plan Assessment and Plan (1) Intertriginous candidiasis: Status: Acute Plan: Nystatin powder as prescribed today. Skin care measures as instructed today. Follow-up with PCP as previously scheduled for 04/11/2024 for reassessment and continuation of care, or follow-up with the [facility] sooner should symptoms only worsen or any other concerns develop. Patient states acknowledging understanding all the above. This note was generated with [employer] dictation software. It may contain incorrect words, spelling, (more content not included)... Normal [facility] Abdomen W/WO IV Contraston 1 Abdomen W/WO IV Contrast [facility] Imaging Services [address] [place] [address] Abdomen W/WO IV Contrast MR#: [id number] Acct: [id number] Name: RADHA PACE Rep #: [id number] : 1945 F 78 From: Justo Sosa MD PCP: Dr. Angy Anand DO Status: REG CLI Study: Abdomen W/WO IV Contrast Date of Exam: 4 Exam# [id number] Ordering Dr: Arturo Melendez DO [id number] EXAM: CT ABDOMEN WITHOUT AND WITH INTRAVENOUS CONTRAST CLINICAL INDICATION: cirrhoses -- liver triple phase for HCC TECHNIQUE: Helically acquired images were obtained of the abdomen without and with intravenous contrast. This CT exam was performed using one or more of the following dose reduction techniques: automated exposure control, adjustment of the mA and/or kV according to patient size, and/or use of iterative reconstruction technique. CONTRAST: IV 100mL Isovue-370 RADIATION DOSE: CTDIvol = 21.27 mGy, DLP = 1999.52 mGy-cm COMPARISON: No relevant prior studies available. FINDINGS: LOWER THORAX: Unremarkable. Lung bases are clear. Cardiomegaly.. No significant pericardial effusion. LIVER: Nodularity of the liver surface due to cirrhosis. No suspicious enhancing or nonenhancing mass in the liver. GALLBLADDER AND BILE DUCTS: Surgical clips in the gallbladder fossa area from cholecystectomy. No intrahepatic or extrahepatic biliary ductal dilatation. PANCREAS: Unremarkable. No focal cystic or solid mass. SPLEEN: Unremarkable. Normal size without focal cystic or solid mass. ADRENALS: Unremarkable. No nodules. KIDNEYS AND URETERS: Unremarkable. Normal renal size and position. No hydronephrosis. STOMACH AND BOWEL: Unremarkable. No stomach or bowel distention. No focal inflammatory change. INTRAPERITONEAL SPACE: Unremarkable. No ascites or other fluid collection. No free air. BONES/JOINTS: Nearly grade 2 degenerative anterolisthesis of L4 on L5 with pronounced L4-L5 disc space height narrowing. No lytic or blastic lesions. SOFT TISSUES: Unremarkable. No discrete abdominal wall hernia. VASCULATURE: Unremarkable. Abdominal aorta is non-dilated. LYMPH NODES: No enlarged lymph nodes. CT/Abdomen W/WO IV Contrast IMPRESSION: 1. Liver cirrhosis without suspicious enhancing or nonenhancing liver mass. 2. No acute abnormality in the abdomen. 3. Cardiomegaly. Electronically Signed: Justo Sosa MD at 16:10 EDT , CC: Dr. Angy Anand DO; Arturo Melendez DO Shellfish Manager: Signed Normal [facility] CREATININE FINGERSTICKon CREATININE WB < 1.0 Normal 0.55-1.02 [facility] Comment on above: Performed By: #### L 9100.0200 #### [facility] [address] [place], [address] EGFR WB > 60.0000 Normal >60 [facility] Comment on above: Performed By: #### L 9100.0200 #### [facility] [address] [place], [address] Gastroenterology Visit Repor ton 02-12-2024 Gastroenterology Visit Report [facility] [address] [place] [address] OFFICE VISIT Date of Service: 02/12/24 MR#: [id number] Acct: [id number] Name: RADHA PACE Rep #: [id number] : 1945 Provider: Arturo Melendez DO Age/Sex: 78/F [place] [facility] [place]: Signed Intake Vital Signs 10/15/22 07:50 Height 5 ft Intake Visit Reasons: medication refills Chief Complaint: needs ursodiol refill Allergies morphine Adverse Reaction (Verified 10/15/22 07:47) Other Medications ???Medication ???Instructions ???Recorded ???Confirmed ???Type albuterol sulfate 90 mcg/actuation 6.7 g IH PRN PRN SHORTNESS OF 05/13/18 02/12/24 History aerosol inhaler (Proventil HFA) BREATH atorvastatin 20 mg tablet 20 mg PO QHS CHOLESTEROL 05/13/18 02/12/24 History diltiazem HCl 180 mg 240 mg PO DAILY BP 05/13/18 02/12/24 History capsule,extended release 24 hr multivitamin with folic acid 400 1 tab PO DAILY SUPPLEMENT 05/13/18 02/12/24 History mcg tablet (Thera) pantoprazole 40 mg tablet,delayed 40 mg PO DAILY GERD 05/13/18 02/12/24 History release rivaroxaban 20 mg tablet (Xarelto) 20 mg PO QHS AFIB 05/13/18 02/12/24 History sertraline 25 mg tablet (Zoloft) 25 mg PO DAILY DEPRESSION 05/13/18 02/12/24 History cholecalciferol (vitamin D3) 125 125 mcg PO DAILY 05/13/21 02/12/24 History mcg (5,000 unit) tablet calcium carbonate 500 mg-vitamin 1 tab PO DAILY 06/26/21 02/12/24 History D3 3.125 mcg (125 unit) tablet cyanocobalamin (vitamin B-12) 500 500 mcg PO DAILY 06/26/21 02/12/24 History mcg tablet (Vitamin B-12) furosemide 40 mg tablet 40 mg PO DAILY SWELLING #90 tabs 10/28/21 02/12/24 Rx ursodiol 250 mg tablet 250 mg PO BID #60 tabs 11/10/23 02/12/24 Rx Have you fallen in the past year?: No PFSH Medical History (Reviewed 10/15/22 @ 07:58 by Rosi Asher DIRECTOR OF EXTENSION WORK, DIRECTOR OF EXTENSION WORK-C) ABLA (acute blood loss anemia) Aortic stenosis Arthritis Atrial fibrillation Back pain Reyes's esophagus Cardiology follow-up encounter CHF (congestive heart failure) CPAP (continuous positive airway pressure) dependence Depression Easy bruising Excessive bleeding Former smoker Gastric reflux GERD (gastroesophageal reflux disease) GI bleed High cholesterol History of atrial fibrillation History of echocardiogram History of edema History of stress test Hypertension Iron deficiency anemia Kidney stone Leg cramps Morbid obesity ROBBINS (nonalcoholic steatohepatitis) Obstructive sleep apnea PAH (pulmonary artery hypertension) Post-menopausal Pulmonary HTN Shortness of breath on exertion Sleep apnea Urinary incontinence Walker as ambulation aid Wears glasses Surgical History (Reviewed 10/15/22 @ 07:58 by Rosi Asher DIRECTOR OF EXTENSION WORK, DIRECTOR OF EXTENSION WORK-C) History of carpal tunnel repair History of carpal tunnel surgery of left wrist Hx of cholecystectomy Hx of cystostomy Hx of hernia repair Hx of hysterectomy Hx of total knee replacement Hx of tubal ligation Social History (Reviewed 10/15/22 @ 07:58 by Rosi Asher DIRECTOR OF EXTENSION WORK, DIRECTOR OF EXTENSION WORK-C) Smoking Status: Former smoker alcohol intake: never substance use type: does not use HPI HPI Chief Complaint: needs ursodiol refill Details: RADHA PACE, is a 78 F who presents to the office today for ROS Const Constitutional: No fatigue, fever(s) or weight change ENT ENT: No difficulty swallowing Gastro GI: No abdominal pain, belching, bloating, change in bowel habits, change in stool character, coffee ground emesis, constipation, cramping, diarrhea, heartburn, difficulty swallowing, feeling full ear ly, excessive flatus, incontinent of stools, Vomiting blood/hematemesis, Blood in stool, loose stools, Black,tarry stools, nausea/dyspepsia, pain with swallowing, vomiting or other Musc Musculoskeletal: Positive for Arthritis; No joint pain Skin Skin: Positive for itchy eyes; No yellowing of the eye Psych Psychiatric: No anxiety and No depression Endo Endocrine: No fatigue or weight change Aller/Imm Allergy/Immunologic: Positive for itchy eyes Edil/Lymp Hematologic/Lymphatic: Positive for easy bleeding and easy bruising Exam Const General: cooperative and comfortable Nutritional Appearance: obese Orientation: alert, awake and oriented x3 Other: uses a rolling walker Eyes Sclera: sclerae normal Resp Effort Inspection: normal respiratory effort GI Inspection: obesity Palpation: soft Skin General: no jaundice Psych Mood: euthymic mood Assessment and Plan Assessment and Plan (1) Cirrhosis of liver: Status: Chronic Plan: This delightful 77 yr old female prefers a minimalist approach to cirrhosis. Good labs recently. She has no GI complaints. She would like to remain on ursodiol 250 mg bid, refill sent in. She takes lactulose prn. She h (more content not included)... Normal [facility] CBC W/Diff, Automatedon 08-0 -2023 Absolute Lymph 1.51 X10 3/uL Normal 0.83-4.51 [facility] Comment on above: Performed By: #### L 500.4100, L501.9520, L506.1000, L100.0100, L500.4050 #### [facility] [address] [place], [address] Absolute Neut 1.6 X10 3/uL Low 2.0-7.7 [facility] Comment on above: Performed By: #### L 500.4100, L501.9520, L506.1000, L100.0100, L500.4050 #### [facility] [address] [place], [address] Basophils/100 WBC (Bld) 1.9 % High 0-1 [facility] Comment on above: Performed By: #### L 500.4100, L501.9520, L506.1000, L100.0100, L500.4050 #### [facility] [address] [place], [address] Eosinophils/100 WBC (Bld) 3.6 % Normal 0-5 [facility] Comment on above: Performed By: #### L 500.4100, L501.9520, L506.1000, L100.0100, L500.4050 #### [facility] [address] [place], [address] Erythrocyte distribution width (RBC) [Ratio] 14.3 % Normal 11.6-14.6 [facility] Comment on above: Performed By: #### L 500.4100, L501.9520, L506.1000, L100.0100, L500.4050 #### [facility] [address] [place], [address] Hematocrit (Bld) [Volume fraction] 37.3 % Normal 37-47 [facility] Comment on above: Performed By: #### L 500.4100, L501.9520, L506.1000, L100.0100, L500.4050 #### [facility] [address] [place], [address] Hemoglobin (Bld) [Mass/Vol] 11.9 g/dL Low 12.0-15.0 [facility] Comment on above: Performed By: #### L 500.4100, L501.9520, L506.1000, L100.0100, L500.4050 #### [facility] [address] [place], [address] IG% 0.000 Normal 0.0-0.9 [facility] Comment on above: Result Comment: IG% - Immature Granulocytes (promyelocytes, myelocytes and metamyelocytes) > 1% indicates that a LEFT SHIFT is Present. Performed By: #### L 500.4100, L501.9520, L506.1000, L100.0100, L500.4050 #### [facility] [address] [place], [address] Lymphocytes/100 WBC (Bld) 41.3 % High 19-41 [facility] Comment on above: Performed By: #### L 500.4100, L501.9520, L506.1000, L100.0100, L500.4050 #### [facility] [address] [place], [address] MCH (RBC) [Entitic mass] 29.3 pg Normal 27.0-32.0 [facility] Comment on above: Performed By: #### L 500.4100, L501.9520, L506.1000, L100.0100, L500.4050 #### [facility] [address] [place], [address] MCHC (RBC) [Mass/Vol] 31.9 g/dL Low 32-36 [facility] Comment on above: Performed By: #### L 500.4100, L501.9520, L506.1000, L100.0100, L500.4050 #### [facility] [address] [place], [address] MCV (RBC) [Entitic vol] 91.9 fL Normal 81-99 [facility] Comment on above: Performed By: #### L 500.4100, L501.9520, L506.1000, L100.0100, L500.4050 #### [facility] [address] [place], [address] Monocytes/100 WBC (Bld) 10.1 % High 0-10 [facility] Comment on above: Performed By: #### L 500.4100, L501.9520, L506.1000, L100.0100, L500.4050 #### [facility] [address] [place], [address] Neutrophils/100 WBC (Bld) 43.1 % Low 47-70 [facility] Comment on above: Performed By: #### L 500.4100, L501.9520, L506.1000, L100.0100, L500.4050 #### [facility] [address] [place], [address] Nucleated RBC (Bld) [#/Vol] 0 10*3/uL Normal 0-5 [facility] Comment on above: Performed By: #### L 500.4100, L501.9520, L506.1000, L100.0100, L500.4050 #### [facility] [address] [place], [address] Platelet mean volume (Bld) [Entitic vol] 10.7 fL Normal 6.2-12.0 [facility] Comment on above: Performed By: #### L 500.4100, L501.9520, L506.1000, L100.0100, L500.4050 #### [facility] [address] [place], [address] Platelets (Bld) [#/Vol] 186 10*3/uL Normal 150-450 [facility] Comment on above: Performed By: #### L 500.4100, L501.9520, L506.1000, L100.0100, L500.4050 #### [facility] [address] [place], [address] RBC (Bld) [#/Vol] 4.06 10*6/uL Low 4.2-5.4 [facility] Comment on above: Performed By: #### L 500.4100, L501.9520, L506.1000, L100.0100, L500.4050 #### [facility] [address] [place], [address] RDW SD 48.9 fl High 35.1-43.9 [facility] Comment on above: Performed By: #### L 500.4100, L501.9520, L506.1000, L100.0100, L500.4050 #### [facility] [address] [place], [address] WBC (Bld) [#/Vol] 3.7 10*3/uL Low 4.4-11.0 [facility] Comment on above: Performed By: #### L 500.4100, L501.9520, L506.1000, L100.0100, L500.4050 #### [facility] [address] [place], [address] Comprehensive Metabolic Prof ilon 01-07-2024 Albumin [Mass/Vol] 3.4 g/dL Normal 3.2-5.0 [facility] Comment on above: Performed By: #### L 500.4100, L501.9520, L506.1000, L100.0100, L500.4050 #### [facility] [address] [place], [address] Albumin/Globulin [Mass ratio] 0.8 {ratio} Low 0.9-2.4 [facility] Comment on above: Performed By: #### L 500.4100, L501.9520, L506.1000, L100.0100, L500.4050 #### [facility] [address] [place], [address] ALK P 106 U/L Normal 45-117 [facility] Comment on above: Performed By: #### L 500.4100, L501.9520, L506.1000, L100.0100, L500.4050 #### [facility] [address] [place], [address] ALT [Catalytic activity/Vol] 17 U/L Normal 13-56 [facility] Comment on above: Performed By: #### L 500.4100, L501.9520, L506.1000, L100.0100, L500.4050 #### [facility] [address] [place], [address] AST [Catalytic activity/Vol] 23 U/L Normal 15-37 [facility] Comment on above: Performed By: #### L 500.4100, L501.9520, L506.1000, L100.0100, L500.4050 #### [facility] [address] [place], [address] Bilirubin [Mass/Vol] 0.90 mg/dL Normal 0.20-1.[address] [facility] Comment on above: Result Comment: For patients on eltrombopag therapy, use of Dimension [place] TBIL is not recommended. Performed By: #### L 500.4100, L501.9520, L506.1000, L100.0100, L500.4050 #### [facility] [address] [place], [address] BUN/CRE 30.2 RATIO High 10-20 [facility] Comment on above: Performed By: #### L 500.4100, L501.9520, L506.1000, L100.0100, L500.4050 #### [facility] [address] [place], [address] CA,Total 9.9 mg/dL Normal 8.5-10.1 [facility] Comment on above: Performed By: #### L 500.4100, L501.9520, L506.1000, L100.0100, L500.4050 #### [facility] [address] [place], [address] Chloride [Moles/Vol] 108 mmol/L High 98-[address] [facility] Comment on above: Performed By: #### L 500.4100, L501.9520, L506.1000, L100.0100, L500.4050 #### [facility] [address] [place], [address] CO2 [Moles/Vol] 26.0 mmol/L Normal 21.0-32.0 [facility] Comment on above: Performed By: #### L 500.4100, L501.9520, L506.1000, L100.0100, L500.4050 #### [facility] [address] [place], [address] Creatinine [Mass/Vol] 0.63 mg/dL Normal 0.55-1.02 [facility] Comment on above: Result Comment: The validity of the calculated GFR GFRAA in patients over 70 years has not been determined. Clinical correlation is essential. Performed By: #### L 500.4100, L501.9520, L506.1000, L100.0100, L500.4050 #### [facility] [address] [place], [address] EST GFR - AA 117 mL/min Normal >60 [facility] Comment on above: Result Comment: Afri can Macedonian GFR Calc Performed By: #### L 500.4100, L501.9520, L506.1000, L100.0100, L500.4050 #### [facility] [address] [place], [address] GAP 5 Normal 5-15 [facility] Comment on above: Performed By: #### L 500.4100, L501.9520, L506.1000, L100.0100, L500.4050 #### [facility] [address] [place], [address] GFR/1.73 sq M.predicted among non-blacks MDRD (S/P/Bld) [Vol rate/Area] 97 mL/min/{1.73_m2} Normal >60 [facility] Comment on above: Result Comment: Non- GFR Calc Performed By: #### L 500.4100, L501.9520, L506.1000, L100.0100, L500.4050 #### [facility] [address] [place], [address] Globulin (S) [Mass/Vol] 4.4 g/dL High 2.2-4.2 [facility] Comment on above: Performed By: #### L 500.4100, L501.9520, L506.1000, L100.0100, L500.4050 #### [facility] [address] [place], [address] Glucose [Mass/Vol] 89 mg/dL Normal 74-106 [facility] Comment on above: Performed By: #### L 500.4100, L501.9520, L506.1000, L100.0100, L500.4050 #### [facility] [address] [place], [address] Potassium [Moles/Vol] 4.1 mmol/L Normal 3.5-5.1 [facility] Comment on above: Performed By: #### L 500.4100, L501.9520, L506.1000, L100.0100, L500.4050 #### [facility] [address] [place], [address] Sodium [Moles/Vol] 139 mmol/L Normal 136-145 [facility] Comment on above: Performed By: #### L 500.4100, L501.9520, L506.1000, L100.0100, L500.4050 #### [facility] [address] [place], [address] T PROT 7.8 g/dL Normal 6.4-8.2 [facility] Comment on above: Performed By: #### L 500.4100, L501.9520, L506.1000, L100.0100, L500.4050 #### [facility] [address] [place], [address] Urea nitrogen [Mass/Vol] 19 mg/dL High 7-18 [facility] Comment on above: Performed By: #### L 500.4100, L501.9520, L506.1000, L100.0100, L500.4050 #### [facility] [address] [place], [address] Lipid Profileon 01-07-2024 Cholesterol [Mass/Vol] 141 mg/dL Normal 200 [facility] Comment on above: Result Comment: <200 mg/dL Desirable 200-240 mg/dL Borderline >240 mg/dL High Risk Performed By: #### L 500.4100, L501.9520, L506.1000, L100.0100, L500.4050 #### [facility] [address] [place], [address] Cholesterol in HDL [Mass/Vol] 70 mg/dL Normal [facility] Comment on above: Result Comment: The drugs N-Acetylcysteine and Metamizole may falsely depress this assay. Reference Range HDL <40 mg/dL Low HDL Cholesterol HDL >or= 60 mg/dL High HDL Cholesterol Performed By: #### L 500.4100, L501.9520, L506.1000, L100.0100, L500.4050 #### [facility] [address] [place], [address] Cholesterol in LDL [Mass/Vol] 55 mg/dL Normal 0-130 [facility] Comment on above: Performed By: #### L 500.4100, L501.9520, L506.1000, L100.0100, L500.4050 #### [facility] [address] [place], [address] Cholesterol in VLDL [Mass/Vol] 16 mg/dL Normal 5-40 [facility] Comment on above: Performed By: #### L 500.4100, L501.9520, L506.1000, L100.0100, L500.4050 #### [facility] [address] [place], [address] Triglyceride [Mass/Vol] 79 mg/dL Normal [facility] Comment on above: Result Comment: The drugs N-Acetylcysteine and Metamizole may falsely depress this assay. Serum Triglycerides Reference Interval Normal <150 mg/dL Borderline high 150 - 199 mg/dL High 200 - 499 mg/dL Very High > or = 500 mg/dL Performed By: #### L 500.4100, L501.9520, L506.1000, L100.0100, L500.4050 #### [facility] [address] [place], [address] Thyroid Stim Hormone (TSH)on 01-07-2024 TSH 0.74 uIU/mL Normal 0.358-3.74 [facility] Comment on above: Performed By: #### L 500.4100, L501.9520, L506.1000, L100.0100, L500.4050 #### [facility] [address] [place], [address] Vitamin D,25 Hydroxyon 01-06 Vitamin D 25-OH 59.4 ng/mL Normal [facility] Comment on above: Result Comment: Lilia min D 25(OH) Status Range Deficiency <20 ng/mL (50nmol/L) Insufficiency 20 - 30 ng/mL (50 - 75 nmol/L) Sufficiency 30 - 100 ng/mL (75 - 250 nmol/L) Toxicity >100 ng/mL (>250 nmol/L) Performed By: #### L 500.4100, L501.9520, L506.1000, L100.0100, L500.4050 #### [facility] [address] [place], [address] PTH, INTACT [CCL]on 08-13-19 24 PTH, Intact 126 pg/mL High 15-65 [facility] Comment on above: Result Comment: [address] [place] [address] Sami Pelletier III, M.D. [id number] Performed By: #### 2 54430 #### [facility],[address] [place] [address] CBC + DIFFon 08-12-2023 Baso # 0.02 x10EE3/UL Normal 0.00 - 0.10 [facility] Comment on above: Performed By: #### 2 34683 #### [facility],[address] [place] [address] Basophils/100 WBC (Bld) 0.6 % Normal 0.0 - 2.0 [facility] Comment on above: Performed By: #### 2 76089 #### [facility],[address] [place] [address] CBC + DIFF Normal [facility] Comment on above: Result Comment: CBC- COMPLETE BLOOD COUNT Performed By: #### 2 71426 #### [facility],[address] [place] [address] EO # 0.14 x10EE3/UL Normal 0.00 - 0.50 [facility] Comment on above: Performed By: #### 2 11814 #### [facility],[address] [place] [address] Eosinophils/100 WBC (Bld) 3.7 % Normal 0.0 - 7.0 [facility] Comment on above: Performed By: #### 2 58251 #### [facility],[address] [place] [address] Erythrocyte distribution width (RBC) [Ratio] 13.7 % Normal 12.0 - 15.6 [facility] Comment on above: Performed By: #### 2 74153 #### [facility],[address] [place] [address] Hematocrit (Bld) [Volume fraction] 36.4 % Normal 34.0 - 46.0 [facility] Comment on above: Performed By: #### 2 30542 #### [facility],[address] [place], [place] [address] Hemoglobin (Bld) [Mass/Vol] 12.0 g/dL Normal 12.0 - 16.0 [facility] Comment on above: Performed By: #### 2 84417 #### [facility],[address] [place] [address] Lymph # 1.19 x10EE3/UL Normal 0.80 - 2.80 [facility] Comment on above: Performed By: #### 2 78800 #### [facility],[address] [place] [address] Lymphocytes/100 WBC (Bld) 30.7 % Normal 20.0 - 45.0 [facility] Comment on above: Performed By: #### 2 60780 #### [facility],[address] [place] [address] MANUAL DIFF N/A Normal [facility] Comment on above: Performed By: #### 2 77720 #### [facility],[address] [place] [address] MCH (RBC) [Entitic mass] 30 pg Normal 27 - 33 [facility] Comment on above: Performed By: #### 2 52132 #### [facility],[address] [place], [place] [id number] MCHC 33 X10 3 Normal 32 - 36 [facility] Comment on above: Performed By: #### 2 28408 #### [facility],[address] [place], [place] [address] MCV (RBC) [Entitic vol] 90 fL Normal 80 - 99 [facility] Comment on above: Performed By: #### 2 89390 #### [facility],[address] [place], [place] [address] [place] # 0.37 x10EE3/UL Normal 0.20 - 1.00 [facility] Comment on above: Performed By: #### 2 94971 #### [facility],[address] [place] [address] MONOS % 9.4 % Normal 0.0 - 10.0 [facility] Comment on above: Performed By: #### 2 57410 #### [facility],[address] [place] [address] Morphology Calvin (Bld) [Interp] N/A Normal [facility] Comment on above: Performed By: #### 2 35130 #### [facility],[address] [place] [address] Neut # 2.15 x10EE3/UL Normal 1.50 - 7.10 [facility] Comment on above: Performed By: #### 2 14055 #### [facility],[address] [place] [address] Neutrophils/100 WBC (Bld) 55.7 % Normal 46.0 - 76.0 [facility] Comment on above: Performed By: #### 2 07668 #### [facility],[address] [place] [address] PLATELET 191 x10EE3/UL Normal 150 - 450 [facility] Comment on above: Performed By: #### 2 50561 #### [facility],[address] [place] [address] Platelet mean volume (Bld) [Entitic vol] 8.9 fL Normal 6.6 - 10.5 [facility] Comment on above: Result Comment: AUTO MATED DIFFERENTIAL Performed By: #### 2 00092 #### [facility],[address] [place] [address] RBC 4.05 x 10EE6/UL Low 4.10 - 5.30 [facility] Comment on above: Performed By: #### 2 95354 #### [facility],[address] [place] [address] WBC 3.9 x 10EE3/UL Low 4.5 - 10.8 [facility] Comment on above: Performed By: #### 2 62022 #### [facility],[address] [place] [address] CMP with eGFRon 08-12-2023 AGE 78 years Normal [facility] Comment on above: Performed By: #### 2 26256 #### [facility],[address] [place] [address] Albumin [Mass/Vol] 3.3 g/dL Low 3.4 - 5.0 [facility] Comment on above: Performed By: #### 2 09657 #### [facility],[address] [place] [address] Albumin/Globulin [Mass ratio] 0.7 {ratio} Low 0.9 - 1.6 [facility] Comment on above: Performed By: #### 2 43853 #### [facility],[address] [place] [address] ALK PHOS 116 U/L Normal 46 - 116 [facility] Comment on above: Performed By: #### 2 09595 #### [facility],[address] [place] [address] ALT [Catalytic activity/Vol] 17 U/L Normal 16 - 63 [facility] Comment on above: Performed By: #### 2 19742 #### [facility],[address] [place] [address] Anion gap [Moles/Vol] 15 mmol/L Normal 10 - 20 [facility] Comment on above: Performed By: #### 2 20958 #### [facility],[address] [place] [address] AST [Catalytic activity/Vol] 21 U/L Normal 13 - 39 [facility] Comment on above: Performed By: #### 2 14363 #### [facility],[address] [place] [address] B/C RATIO 26 ratio Normal 0 - 30 [facility] Comment on above: Performed By: #### 2 21712 #### [facility],[address] [place] [address] Bilirubin [Mass/Vol] 0.6 mg/dL Normal 0.2 - 1.0 [facility] Comment on above: Performed By: #### 2 80518 #### [facility],[address] [place] [address] Calcium [Mass/Vol] 9.7 mg/dL Normal 8.5 - 10.1 [facility] Comment on above: Performed By: #### 2 08116 #### [facility],[address] [place] [address] Chloride [Moles/Vol] 106 mmol/L Normal 98 - 107 [facility] Comment on above: Performed By: #### 2 71408 #### [facility],[address] [place], [place] [address] CMP with eGFR Normal [facility] Comment on above: Result Comment: COMP REHENSIVE METABOLIC PANEL Performed By: #### 2 34513 #### [facility],[address] [place] [address] CO2 [Moles/Vol] 25.9 mmol/L Normal 21.0 - 32.0 [facility] Comment on above: Performed By: #### 2 46716 #### [facility],[address] [place] [address] Creatinine [Mass/Vol] 0.68 mg/dL Normal 0.55 - 1.02 [facility] Comment on above: Performed By: #### 2 54198 #### [facility],[address] [place] [address] GFR/1.73 sq M.predicted among non-blacks MDRD (S/P/Bld) [Vol rate/Area] mL/min/{1.73_m2} Normal 60 - 999 [facility] Comment on above: Performed By: #### 2 88959 #### [facility],[address] [place] [address] Result Comment: ACCO RDING TO THE NATIONAL KIDNEY DISEASE EDUCATION PROGRAM(NKDE), A NORMAL eGFR IS A VALUE GREATER THAN OR EQUAL TO 60 ML/MIN/1.73 SQ METERS. CHRONIC KIDNEY DISEASE: <60mL/MIN/1.73 SQ METERS KIDNEY FAILURE: <15mL/MIN/1.73 SQ METERS THIS TEST SHOULD ONLY BE USED FOR PATIENTS 18 YEARS OF AGE AND OLDER. Globulin (S) [Mass/Vol] 4.5 g/dL High 1.5 - 3.8 [facility] Comment on above: Performed By: #### 2 63236 #### [facility],[address] [place] [address] Glucose [Mass/Vol] 93 mg/dL Normal 74 - 106 [facility] Comment on above: Performed By: #### 2 69281 #### [facility],[address] [place] [address] Potassium [Moles/Vol] 4.3 mmol/L Normal 3.5 - 5.1 [facility] Comment on above: Performed By: #### 2 92680 #### [facility],[address] [place] [address] Protein [Mass/Vol] 7.8 g/dL Normal 6.4 - 8.2 [facility] Comment on above: Performed By: #### 2 87641 #### [facility],[address] [place] [address] Sodium [Moles/Vol] 143 mmol/L Normal 136 - 145 [facility] Comment on above: Performed By: #### 2 37446 #### [address] [address] Urea nitrogen [Mass/Vol] 18 mg/dL Normal 7 - 18 [facility] Comment on above: Performed By: #### 2 21557 #### [facility],[address] [place] [address] LIPID PROFILEon 08-12-2023 Cholesterol [Mass/Vol] 152 mg/dL Normal 0 - 240 [facility] Comment on above: Performed By: #### 2 72584 #### [facility],[address] [place] [address] [id number] Cholesterol in HDL [Mass/Vol] 70 mg/dL High 40 - 60 [facility] Comment on above: Performed By: #### 2 18922 #### [facility],[address] [place] [address] 76334 Cholesterol in LDL [Mass/Vol] 67 mg/dL Normal 0 - 129 [facility] Comment on above: Performed By: #### 2 91713 #### [facility],[address] [place] [address] 59165 Cholesterol.total/Cho lesterol in HDL [Mass ratio] 2.2 {ratio} Normal 0.0 - 5.0 [facility] Comment on above: Performed By: #### 2 60734 #### [facility],[address] [place] [address] 24453 Lipid 1996 panel Normal [facility] Comment on above: Result Comment: LIPI D PROFILE Performed By: #### 2 66516 #### [facility],[address] [place] [address] 00487 Triglyceride [Mass/Vol] 73 mg/dL Normal 0 - 150 [facility] Comment on above: Performed By: #### 2 95795 #### [facility],[address] [place] [address] 01343 PTH-Intact SerPl-mCncon 03-0 Parathyrin.intact [Mass/Vol] 126 pg/mL High 15-65 [facility] Comment on above: Order Comment: Speci men Type: BLOOD SPECIMEN Ordering Facility: [facility] Address: [address] [place] [address] Performed By: #### 2 731-8 #### [facility] CLIA [id number] [address] [id number] [place] TSHon 08-12-2023 TSH Qn 0.65 m[IU]/L Normal 0.35 - 3.74 [facility] Comment on above: Performed By: #### 2 48758 #### [facility],[address] [place] [address] 57099 VITAMIN D, 25 HYDROXYon 03-0 VitD 58.30 ng/mL Normal 30.00 - 100 [facility] Comment on above: Result Comment: 25-O HD3 indicates both endogenous production and supplementation. 25-OHD2 is an indicator of exogenous sources, such as diet or supplementation. Therapy is based on measurement of Total 25-OHD, with levels <20 ng/mL indicative of Vitamin D deficiency, while levels between 20 ng/mL and 30 ng/mL suggest insufficiency. Optimal levels are >=30ng/mL. Vitamin D, 25-OH D3 Not Established Vitamin D, 25-OH D2 Not Established Performed By: #### 2 75737 #### [facility],[address] [place] [address] 49579 3D MAMM BILAT SCREENon 06-17 3D MAMM BILAT SCREEN [address] [address] Patient: RADHA PACE Phone#: : 1945 Age: 77 Gender: F Pt. Type: Out Account: [id number] Location: 010 Ordering: MARITA HERNANDEZ Exam Date: 06/17/2023/13:29 Family Phys: Charge Code: [id number] Physician: [place] Order #: [id number] Dose#: PROCEDURE: BILATERAL SCREENING BREAST TOMOSYNTHESIS MAMMOGRAM WITH CAD COMPARISON: [facility], BILAT SCREENING, 08/24/2018, 13:25. [facility], BILAT SCREENING, 01/13/2020, 9:12. INDICATIONS: SCREENING BREAST COMPOSITION: Scattered areas fibroglandular density. FINDINGS: DIAGNOSTIC CATEGORY 1--NEGATIVE: RIGHT BREAST: No significant suspicious finding. No significant change has occurred. LEFT BREAST: No significant suspicious finding. No significant change has occurred. RECOMMENDATIONS: ROUTINE MAMMOGRAM AND CLINICAL EVALUATION IN 12 MONTHS. PLEASE NOTE: A NORMAL MAMMOGRAM DOES NOT EXCLUDE THE POSSIBILITY OF BREAST CANCER. A CLINICALLY SUSPICIOUS PALPABLE LUMP SHOULD BE BIOPSIED. THIS FACILITY UTILIZES A REMINDER SYSTEM TO ENSURE THAT ALL PATIENTS RECEIVE REMINDER LETTERS FOR APPOINTMENTS. THIS INCLUDES REMINDERS FOR ROUTINE MAMMOGRAMS, DIAGNOSITC MAMMOGRAMS, OR OTHER BREAST IMAGING INTERVENTIONS WHEN APPROPRIATE. THIS PATIENT WILL BE PLACED IN THE APPROPRIATE REMINDER SYSTEM. Dictated by: Airam Mcdonald MD on 06/17/2023 at 16:30 Approved by: Airam Mcdonald MD on 06/17/2023 at 16:48 Normal [facility] 05-04-2023 JOSELO Telephone (OBGYWM) RADHA PACE ([id number]) 1945 F Date Time Provider Department 05/04/23 KENYA NICE During your visit today, we recorded the following information about you: Kenya Nice APRN.TERESA 05/04/2023 7:30 AM Signed Please let the pt know that her vaginal cultures are negative for infection. Kenya Nice APRN.Gabriele Katz RN 05/04/2023 9:06 AM Signed Patient notified. GABRIELE CHIN RN Allergies As of Date: 05/04/2023 Noted Allergy Reaction OPIOIDS - MORPHINE ANALOGUES 05/13/2021 1 - Mental Status Change Date Reviewed: 05/01/2023 Reviewed by: Shruti Bess LPN - Fully Assessed Reason for Visit: Results [95] Prescriptions as of 05/04/2023 - XARELTO 20 mg tablet Take 1 tablet by mouth every afternoon. - diltiazem CR 180 mg 24 hr capsule Take 180 mg by mouth once daily. - furosemide 40 mg tablet Take 40 mg by mouth once daily. - solifenacin (VESICARE) 10 mg tablet Take 10 mg by mouth once daily. - sotalol (BETAPACE) 120 mg tablet Take 120 mg by mouth twice daily. - atorvastatin (LIPITOR) 20 mg tablet Take 20 mg by mouth once daily. - CALCIUM CITRATE/VITAMIN D3 (CALCIUM CITRATE + D ORAL) Take by mouth. twice daily 630 mg calcium with 500 mg D3 - multivitamin tablet Take 1 tablet by mouth once daily. - ACETAMINOPHEN (TYLENOL ARTHRITIS ORAL) Take 1 tablet by mouth as needed. - ALBUTEROL INHALATION Inhale as instructed. Proventil inhalation as needed - MEDICATION, NON-DATABASE albuterol nebulizer as needed - CPAP at 2 percent. Also uses home oxygen. Problem List As Of Date: 05/04/2023 (None) Encounter Status:Closed by GABRIELE CHIN on 05/04/23 [facility] CNOVon 05-01-2023 CNOV Office Visit (OBGYWM ) RADHA PACE ([id number]) 1945 F Date Time Provider Department 05/01/23 7:30 AM KENYA NICE OBGYWDesiree During your visit today, we recorded the following information about you: Weight 121.7 kg Kenya Nice APRN.CNP 05/01/2023 8:14 AM Signed Radha Robin Katelynn is a 77 year old female who presents for problem visit vaginal bleeding . HPI: Patient states that about once a month she notices some light pink blood when she urinates. She has been treated for UTI by her primary but will still notice the bleeding and is concerned that it is from the vagina. Patient does complain of some slight vaginal irritation. OB History T2 L2 SAB0 IAB0 Ectopic0 Multiple0 Live Births0 Umbrella [employer] History LMP: Postmenopausal Age at Menarche: Age at First : Age at Menopause: Umbrella [employer] Machine History Comments: Sexual Activity: Not Currently; No partner data on record Contraception: No contraception data on record PAST MEDICAL HISTORY Diagnosis Date Acute upper respiratory infections of unspecified site Anemia, unspecified Atrial fibrillation (HCC) Cellulitis and abscess of finger, unspecified Diseases of tricuspid valve Dizziness and giddiness Edema Elevated blood pressure reading without diagnosis of hypertension Essential hypertension, benign Hypopotassemia Hypoxemia Impaired fasting glucose Iron deficiency anemia, unspecified Lipoprotein deficiencies termite helper (current) use of anticoagulants Lumbago Mitral valve insufficiency and aortic valve insufficiency Morbid obesity (HCC) Nonspecific abnormal results of liver function study Obstructive sleep apnea (adult) (pediatric) Osteoarthrosis, unspecified whether generalized or localized, unspecified site Other and unspecified hyperlipidemia Other lymphedema Other nonspecific abnormal serum enzyme levels Pain in joint, forearm Unspecified acute reaction to stress Unspecified constipation Unspecified urinary incontinence Unspecified urinary incontinence Unspecified venous (peripheral) insufficiency PAST SURGICAL HISTORY Procedure Laterality Date CHOLECYSTECTOMY 04/04/2005 HERNIA REPAIR HX 02/16/2007 HYSTERECTOMY HX 09/23/2011 PAST SURGICAL HISTORY OF 04/04/2005 bilat knee replacements PAST SURGICAL HISTORY OF 04/04/2005 herniorrhaphy PAST SURGICAL HISTORY OF 07/16/2007 D AND C TONSILLECTOMY HX 07/16/2010 TUBAL LIGATION, 07/16/2010 FAMILY HISTORY Problem Relation Age of Onset Cancer Mother ovarian other (rheumatoid arthritis [Other]) Father Colon Cancer Sister Social History Tobacco Use Smoking status: Former Packs/day: 0.30 Years: 4.00 Additional pack years: 0.00 Total pack years: 1.20 Types: Cigarettes Quit date: 03/09/1968 Years since quittin.1 Passive exposure: Never Smokeless tobacco: Never Vaping Use Vaping Use: Never used Substance Use Topics Alcohol use: Yes Comment: on occasion Drug use: Never Current Outpatient Medications Medication Sig diltiazem CR 180 mg 24 hr capsule Take 180 mg by mouth once daily. furosemide 40 mg tablet Take 40 mg by mouth once daily. solifenacin (VESICARE) 10 mg tablet Take 10 mg by mouth once daily. atorvastatin (LIPITOR) 20 mg tablet Take 20 mg by mouth once daily. CALCIUM CITRATE/VITAMIN D3 (CALCIUM CITRATE + D ORAL) Take by mouth. twice daily 630 mg calcium with 500 mg D3 multivitamin tablet Take 1 tablet by mouth once daily. ACETAMINOPHEN (TYLENOL ARTHRITIS ORAL) Take 1 tablet by mouth as needed. ALBUTEROL INHALATION Inhale as instructed. Proventil inhalation as needed MEDICATION, NON-DATABASE albuterol nebulizer as needed CPAP at 2 percent. Also uses home oxygen. XARELTO 20 mg tablet Take 1 tablet by mouth every afternoon. warfarin 2 mg tablet Take 2 mg by mouth daily as directed. total of 5.5 mg daily (Patient not taking: Reported on 05/01/2023) warfarin 5 mg tablet Take 5 mg by mouth daily as directed. total of 5.5 mg daily (Patient not taking: Reported on 05/01/2023) sotalol (BETAPACE) 120 mg tablet Take 120 mg by mouth twice daily. No current facility-administered medications for this visit. Allergies As of Date: 05/01/2023 Allergen Noted Reaction OPIOIDS - MORPHINE ANALOGUES 05/13/2021 Mental Status Change Fully Assessed 05/01/2023 REVIEW OF SYSTEMS Bladder: No dysuria, gross hematuria, +urinary frequency, +urinary urgency +incontinence. Wears a depends Expanded ROS: N/A Allergies and current medication updated:Yes EXAM: Ht [pt unable to stand[ (0.00m) Wt 268 lb 3.2 oz (121.7kg) GENERAL: pleasant, female in no apparent distress HEENT: Normocephalic, atraumatic, mucus membranes moist, and no lesions CHEST: Normal inspiratory effort PELVIC: external genitalia normal, normal Bartholin's glands, urethra, Marina's glands, no vulvar lesions, physiologic (more content not included)... Normal [facility] Gram Stn [place] 05-01-2023 Microscopic observation Gram stain Nom (Vag fld) BACTERIAL VAGINOSIS: BACTERIAL VAGINOSIS RESULT: Stain results indicate mixed morphotypes consistent with transition from normal vaginal aure. No Yeast observed No Polymorphonuclear Leukocytes Abnormal [facility] Comment on above: Performed By: #### 1 4361-0 #### [facility] CLIA [id number] [address] [place] [address] [place] URINE CULTURE [CCL]on 2022 Bacteria identified Cx Nom (U) URCUL See Results Below See Below CULTURE, URINE ESCHERICHIA COLI >=100,000 CFU/ml Escherichia coli CLSI breakpoints for therapy of uncomplicated UTIs due to E. coli, K. pneumoniae ORGANISM: ESCHERICHIA COLI ANTIBIOTIC SYDNEY DILUTN SYDNEY INTERP Ampicillin 4 Susceptible Cefazolin <=4 Susceptible Ceftriaxone <=1 Susceptible Cefepime <=1 Susceptible Ertapenem <=0.5 Susceptible Meropenem <=0.25 Susceptible Ampicillin/Sulbact <=2 Susceptible Piperacillin/Tazobac <=4 Susceptible Gentamicin <=1 Susceptible Tobramycin <=1 Susceptible Trimeth sulfameth <=20 Susceptible Ciprofloxacin <=0.25 Susceptible Nitrofurantoin <=16 Susceptible This test was developed and its performance characteristics determined by the [facility] [place] ([facility]). It has not been cleared or approved by the FDA. -[facility] is regulated under CLIA as qualified to perform high-complexity testing. This test is used for clinical purposes. It should not be regarded as investigational or for research. SOURCE: URINE [facility] [address] [place] [address] Sami Pelletier III, M.D. [id number] SEND TO IC YES Normal [facility] Comment on above: Performed By: #### 2 78829 #### [facility],[address] [place] [address] BMP with eGFRon 01-13-2023 AGE 77 years Normal [facility] Comment on above: Performed By: #### 2 84577 #### [facility],[address] [place] [address] Anion gap [Moles/Vol] 13 mmol/L Normal 10 - 20 [facility] Comment on above: Performed By: #### 2 18182 #### [facility],[address] [place] [address] BMP with eGFR Normal [facility] Comment on above: Result Comment: BASI C METABOLIC PANEL Performed By: #### 2 66885 #### [facility],[address] [place] [address] Calcium [Mass/Vol] 9.6 mg/dL Normal 8.5 - 10.1 [facility] Comment on above: Performed By: #### 2 52943 #### [facility],[address] [place] [address] 33100 Chloride [Moles/Vol] 103 mmol/L Normal 98 - 107 [facility] Comment on above: Performed By: #### 2 10805 #### [facility],[address] [place] [address] 99793 CO2 [Moles/Vol] 26.7 mmol/L Normal 21.0 - 32.0 [facility] Comment on above: Performed By: #### 2 35480 #### [facility],[address] [place], [place] [phone] Creatinine [Mass/Vol] 0.67 mg/dL Normal 0.55 - 1.02 [facility] Comment on above: Performed By: #### 2 11938 #### [facility],[address] [place], [place] [phone] GFR/1.73 sq M.predicted among non-blacks MDRD (S/P/Bld) [Vol rate/Area] mL/min/{1.73_m2} Normal 60 - 999 [facility] Comment on above: Performed By: #### 2 82199 #### [facility],[address] [place], [place] [phone] Result Comment: ACCO RDING TO THE NATIONAL KIDNEY DISEASE EDUCATION PROGRAM(NKDE), A NORMAL eGFR IS A VALUE GREATER THAN OR EQUAL TO 60 ML/MIN/1.73 SQ METERS. CHRONIC KIDNEY DISEASE: <60mL/MIN/1.73 SQ METERS KIDNEY FAILURE: <15mL/MIN/1.73 SQ METERS THIS TEST SHOULD ONLY BE USED FOR PATIENTS 18 YEARS OF AGE AND OLDER. Glucose [Mass/Vol] 89 mg/dL Normal 74 - 106 [facility] Comment on above: Performed By: #### 2 32983 #### [facility],[address] [place] [address] 89804 Potassium [Moles/Vol] 4.4 mmol/L Normal 3.5 - 5.1 [facility] Comment on above: Performed By: #### 2 87802 #### [facility],[address] [place] [address] 32789 Sodium [Moles/Vol] 138 mmol/L Normal 136 - 145 [facility] Comment on above: Performed By: #### 2 66737 #### [facility],[address] [place] [address] 63879 Urea nitrogen [Mass/Vol] 19 mg/dL High 7 - 18 [facility] Comment on above: Performed By: #### 2 49772 #### [facility],[address] [place] [address] 27604 Bacteria Ur Culton 3 Bacteria identified Cx Nom (U) ORGANISM ID: 1 >=100,000 CFU/ml Escherichia coli ORGANISM ID: 1 (ESCHERICHIA COLI) --------- ANTIBIOTIC INTERPRETATION SYDNEY STATUS REFERENCE RANGE --------- Ampicillin S 4 F Susceptible <=8 , Intermediate >8 , Resistant >16 Cefazolin S <=4 F Susceptible 0-16 , Intermediate <0 or >16 , Resistant >16 Ceftriaxone S <=1 F Susceptible <=1 , Intermediate >1 , Resistant >=4 Cefepime S <=1 F Susceptible <=2 , Susceptible-Dose Dependent >2 , Resistant >=16 Ertapenem S <=0.5 F Susceptible <=0.5 , Intermediate >.5 , Resistant >1 Meropenem S <=0.25 F Susceptible <=1 , Intermediate >1 , Resistant >2 Ampicillin/Sulbact S <=2 F Susceptible <=8 , Intermediate >8 , Resistant >16 Piperacillin/Tazobac S <=4 F Susceptible <=16 , Intermediate >16 , Resistant >64 Gentamicin S <=1 F Susceptible <=4 , Intermediate >4 , Resistant >8 Tobramycin S <=1 F Susceptible <=4 , Intermediate >4 , Resistant >8 Trimeth sulfameth S <=20 F Susceptible <=40 , Resistant >40 Ciprofloxacin S <=0.25 F Susceptible <0.5 , Intermediate >=.5 , Resistant >=1 Nitrofurantoin S <=16 F Susceptible <=32 , Intermediate >32 , Resistant >64 Abnormal [facility] Comment on above: Performed By: #### 6 30-4 #### [facility] CLIA [id number] [address] [place] [address] OF [facility] CBC + DIFFon 01-13-2023 Baso # 0.10 x10EE3/UL Normal 0.00 - 0.10 [facility] Comment on above: Performed By: #### 2 71064 #### [facility],[address] [place] [address] 38321 Basophils/100 WBC (Bld) 2.0 % Normal 0.0 - 2.0 [facility] Comment on above: Performed By: #### 2 89956 #### [facility],[address] [place] [address] 62216 CBC + DIFF Normal [facility] Comment on above: Result Comment: CBC- COMPLETE BLOOD COUNT Performed By: #### 2 05922 #### [facility],[address] [place] [address] 89626 EO # 0.10 x10EE3/UL Normal 0.00 - 0.50 [facility] Comment on above: Performed By: #### 2 29774 #### [facility],[address] [place] [address] 64294 Eosinophils/100 WBC (Bld) 3.2 % Normal 0.0 - 7.0 [facility] Comment on above: Performed By: #### 2 10031 #### [facility],[address] [place] [address] Erythrocyte distribution width (RBC) [Ratio] 14.7 % Normal 12.0 - 15.6 [facility] Comment on above: Performed By: #### 2 97563 #### [facility],[address] [place] [address] Hematocrit (Bld) [Volume fraction] 34.6 % Normal 34.0 - 46.0 [facility] Comment on above: Performed By: #### 2 32055 #### [facility],[address] [place] [address] Hemoglobin (Bld) [Mass/Vol] 11.4 g/dL Low 12.0 - 16.0 [facility] Comment on above: Performed By: #### 2 95475 #### [place] [address] Lymph # 1.40 x10EE3/UL Normal 0.80 - 2.80 [facility] Comment on above: Performed By: #### 2 15737 #### [place] [address] Lymphocytes/100 WBC (Bld) 34.4 % Normal 20.0 - 45.0 [facility] Comment on above: Performed By: #### 2 04526 #### [facility],[address] [place], [place] [phone] MANUAL DIFF N/A Normal [facility] Comment on above: Performed By: #### 2 20674 #### [place] [address] MCH (RBC) [Entitic mass] 30 pg Normal 27 - 33 [facility] Comment on above: Performed By: #### 2 60364 #### [place] [address] MCHC 33 X10 3 Normal 32 - 36 [facility] Comment on above: Performed By: #### 2 43088 #### [facility],[address] [place] [address] 44349 MCV (RBC) [Entitic vol] 91 fL Normal 80 - 99 [facility] Comment on above: Performed By: #### 2 53266 #### [facility],[address] [place] [address] 92648 [place] # 0.50 x10EE3/UL Normal 0.20 - 1.00 [facility] Comment on above: Performed By: #### 2 02392 #### [facility],[address] [place] [address] 37682 MONOS % 11.3 % High 0.0 - 10.0 [facility] Comment on above: Performed By: #### 2 72229 #### [facility],[address] [place] [address] 36760 Morphology Calvin (Bld) [Interp] N/A Normal [facility] Comment on above: Result Comment: {CD] Performed By: #### 2 92456 #### [facility],[address] [place] [address] 00930 Neut # 2.00 x10EE3/UL Normal 1.50 - 7.10 [facility] Comment on above: Performed By: #### 2 06268 #### [facility],[address] [place] [address] 97578 Neutrophils/100 WBC (Bld) 49.1 % Normal 46.0 - 76.0 [facility] Comment on above: Performed By: #### 2 42381 #### [facility],[address] [place] [address] 22784 PLATELET 211 x10EE3/UL Normal 150 - 450 [facility] Comment on above: Performed By: #### 2 18252 #### [facility],[address] [place] [address] 56488 Platelet mean volume (Bld) [Entitic vol] 9.0 fL Normal 6.6 - 10.5 [facility] Comment on above: Result Comment: AUTO MATED DIFFERENTIAL Performed By: #### 2 07114 #### [facility],[address] [place] [address] RBC 3.81 x 10EE6/UL Low 4.10 - 5.30 [facility] Comment on above: Performed By: #### 2 74458 #### [facility],[address] [place] [address] WBC 4.1 x 10EE3/UL Low 4.5 - 10.8 [facility] Comment on above: Performed By: #### 2 06244 #### [facility],[address] [place] [address] URINALYSIS WITH MICROSCOPYon 01-13-2023 Amorphous NONE Normal [facility] Comment on above: Performed By: #### 2 44492 #### [facility],[address] [place] [address] Bacteria 4+ Normal [facility] Comment on above: Performed By: #### 2 14637 #### [facility],[address] [place] [address] Bilirubin Ql (U) Negative Normal NORMAL: NEGATIVE [facility] Comment on above: Performed By: #### 2 82997 #### [facility],[address] [place] [address] Casts NONE Normal [facility] Comment on above: Performed By: #### 2 08477 #### [facility],[address] [place], [place] [phone] Clarity (U) sl.cloudy Normal NORMAL: CLEAR [facility] Comment on above: Performed By: #### 2 53755 #### [facility],[address] [place], [place] [phone] Color (U) p.yel Normal NORMAL: YELLOW [facility] Comment on above: Performed By: #### 2 60461 #### [facility],[address] [place] [address] 06307 Crystals LM Nom (Urine sed) NONE Normal [facility] Comment on above: Performed By: #### 2 66244 #### [facility],[address] [place] [address] 07324 Epi Cells FEW Normal [facility] Comment on above: Performed By: #### 2 28874 #### [facility],[address] [place], [place] [phone] Glucose Ql (U) NORM Normal NORMAL: NORMAL [facility] Comment on above: Performed By: #### 2 02879 #### [facility],[address] [place] [address] Hemoglobin Ql (U) 250 Abnormal NORMAL: NEGATIVE [facility] Comment on above: Performed By: #### 2 82474 #### [facility],[address] [place], [place] [phone] Ketone Negative Normal NORMAL: NEGATIVE [facility] Comment on above: Performed By: #### 2 46436 #### [facility],[address] [place], [place] [phone] Leukocytes 100 Abnormal NORMAL: NEGATIVE [facility] Comment on above: Result Comment: URIN E MICROSCOPIC Performed By: #### 2 44237 #### [facility],[address] [place] [address] Mucous NONE Normal [facility] Comment on above: Performed By: #### 2 71699 #### [facility],[address] [place] [address] 11831 Nitrite Ql (U) Negative Normal NORMAL: NEGATIVE [facility] Comment on above: Performed By: #### 2 14332 #### [facility],[address] [place], [place] [id number] pH (U) 5 [pH] Normal NORMAL: 5.0-8.0 [facility] [facility] Comment on above: Performed By: #### 2 [id number] #### [facility],[address] [place] [address] Protein Ql (U) 15 Abnormal NORMAL: NEGATIVE [facility] Comment on above: Performed By: #### 2 [id number] #### [facility],[address] [place] [address] 71939 Rbc TNTC Normal 0-3 / hpf [facility] Comment on above: Performed By: #### 2 [id number] #### [facility],[address] [place] [address] Sp Norman 1.010 Normal NORMAL: 1.010-1.030 [facility] Comment on above: Performed By: #### 2 [id number] #### [facility],[address] [place] [address] Specimen Type Clean catch Normal [facility] Comment on above: Performed By: #### 2 [id number] #### [facility],[address] [place], [place] [id number] URINALYSIS WITH MICROSCOPY Normal [facility] Comment on above: Result Comment: URIN ALYSIS Performed By: #### 2 [id number] #### [facility],[address] [place] [address] 93082 Urobilinog NORM Normal NORMAL: NORMAL [facility] Comment on above: Performed By: #### 2 [id number] #### [facility],[address] [place], [place] [id number] Wbc 16-25 Normal 0-5 / hpf [facility] Comment on above: Performed By: #### 2 [id number] #### [facility],[address] [place] [address] 14592 Yeast NONE Normal [facility] Comment on above: Performed By: #### 2 [id number] #### [facility],[address] [place] [address] 99992 Bacteria Ur Culton 3 Bacteria identified Cx Nom (U) CULTURE, URINE: Mixed microbiota, including predominantly: ORGANISM ID: 1 >=100,000 CFU/ml Escherichia coli ORGANISM ID: 1 (ESCHERICHIA COLI) --------- ANTIBIOTIC INTERPRETATION SYDNEY STATUS REFERENCE RANGE --------- Ampicillin S 4 F Susceptible <=8 , Intermediate >8 , Resistant >16 Cefazolin S <=4 F Susceptible 0-16 , Intermediate <0 or >16 , Resistant >16 Ceftriaxone S <=1 F Susceptible <=1 , Intermediate >1 , Resistant >=4 Cefepime S <=1 F Susceptible <=2 , Susceptible-Dose Dependent >2 , Resistant >=16 Ertapenem S <=0.5 F Susceptible <=0.5 , Intermediate >.5 , Resistant >1 Meropenem S <=0.25 F Susceptible <=1 , Intermediate >1 , Resistant >2 Ampicillin/Sulbact S <=2 F Susceptible <=8 , Intermediate >8 , Resistant >16 Piperacillin/Tazobac S <=4 F Susceptible <=16 , Intermediate >16 , Resistant >64 Gentamicin S <=1 F Susceptible <=4 , Intermediate >4 , Resistant >8 Tobramycin S <=1 F Susceptible <=4 , Intermediate >4 , Resistant >8 Trimeth sulfameth S <=20 F Susceptible <=40 , Resistant >40 Ciprofloxacin S <=0.25 F Susceptible <0.5 , Intermediate >=.5 , Resistant >=1 Nitrofurantoin S <=16 F Susceptible <=32 , Intermediate >32 , Resistant >64 Abnormal [facility] Comment on above: Performed By: #### 6 30-4 #### [facility] CLIA [id number] [address] [place] [address] [place] Absolute lymphocyte counton 10-22-2021 Lymphocytes Auto (Unsp spec) [#/Vol] 1.19 10*3/uL 0.83-4.51 [facility] Work Phone: Basophil percentageon 2021 Ammonia (P) [Moles/Vol] 16.0 umol/L 11-32 [facility] Work Phone: Basophils/100 WBC (Bld) 1.4 % 0-1 [facility] Work Phone: Bilirubin [Mass/Vol] 0.50 mg/dL 0.20-1.[address] [facility] Work Phone: Comment on above: For patients on eltr ombopag therapy, use of Dimension [place] TBIL is not recommended. Chloride [Moles/Vol] 109 mmol/L 98-[address] [facility] Work Phone: Eosinophils/100 WBC (Bld) 2.4 % 0-5 [facility] Work Phone: Glucose [Mass/Vol] 120 mg/dL 74-106 [facility] Work Phone: Comment on above: Fasting Glucose resu lt from 100 to 125 mg/dL suggests IMPAIRED HOMEOSTASIS per A.D.A. criteria. Neutrophils (Bld) [#/Vol] 3.2 10*3/uL 2.0-7.7 [facility] Work Phone: Neutrophils/100 WBC (Bld) 63.8 % 47-70 [facility] Work Phone: Potassium [Moles/Vol] 3.3 mmol/L 3.5-5.1 [facility] Work Phone: Protein [Mass/Vol] 7.4 g/dL 6.4-8.2 [facility] Work Phone: Sodium [Moles/Vol] 141 mmol/L 136-145 [facility] Work Phone: WBC (Bld) [#/Vol] 5.0 10*3/uL 4.4-11.0 [facility] Work Phone: Blood erythrocytes count (nu mber/volume)on 10-22-2021 RBC (Bld) [#/Vol] 3.27 10*6/uL 4.2-5.[address] [facility] [facility] [address] [facility] Work Phone: Blood hemoglobin measurement (mass/volume)on 10-22-2021 Hemoglobin (Bld) [Mass/Vol] 8.8 g/dL 12.0-15.0 [facility] Work Phone: Blood lymphocytes/100 leukoc yteson 10-22-2021 Lymphocytes/100 WBC (Bld) 23.8 % 19-41 [facility] Work Phone: Blood manual differential co mment interpretation (narrative result)on 10-22-2021 Manual differential comment Calvin (Bld) [Interp] SCANNED [facility] Work Phone: Blood monocytes/100 leukocyt eson 10-22-2021 Monocytes/100 WBC (Bld) 8.2 % 0-10 [facility] Work Phone: Blood platelet mean volumeon 10-22-2021 Platelet mean volume (Bld) [Entitic vol] 9.4 fL 6.2-12.0 [facility] Work Phone: Determination of erythrocyte mean corpuscular volume (MCV)on 10-22-2021 MCV (RBC) [Entitic vol] 88.4 fL 81-99 [facility] Work Phone: Hematocrit Auto (Bld) [Volum e fraction]on 10-22-2021 Hematocrit (Bld) [Volume fraction] 28.9 % 37-47 [facility] Work Phone: Hemoglobin in reticulocytes (mass per reticulocyte)on 10-22-2021 Hemoglobin (Reticulocytes) [Entitic mass] 27.7 pg 30-35 [facility] Work Phone: Hypochromatic red blood cell detectionon 10-22-2021 Hypochromia Ql (Bld) 2+ [facility] Work Phone: [phone] INR in Blood by Coagulation assayon 10-22-2021 INR Coag (Bld) [Relative time] 2.5 {INR} [facility] Work Phone: Iron measurement (mass/mass) on 10-22-2021 Iron (Unsp spec) [Mass/Mass] 108 ug/dL 50-170 [facility] Work Phone: Laboratory - Chemistry and C hemistry - challengeon 10-22-2021 ALP [Catalytic activity/Vol] 147 U/L 45-117 [facility] Work Phone: ALT [Catalytic activity/Vol] 13 U/L 13-56 [facility] Work Phone: CO2 [Moles/Vol] 29.0 mmol/L 21.0-32.0 [facility] Work Phone: Globulin (S) [Mass/Vol] 4.5 g/dL 2.2-4.2 [facility] Work Phone: Urea nitrogen/Creatinine [Mass ratio] 22.0 mg/mg 10-20 [facility] Work Phone: Laboratory - Coagulationon 0 10-22-2021 PT Coag (PPP) [Time] 27.0 s 11.7-14.[address] [facility] Work Phone: [phone] Laboratory - Hematology and Cell countson 10-22-2021 Anisocytosis Ql (Bld) 2+ [facility] Work Phone: [phone] Erythrocyte distribution width (RBC) [Entitic vol] 68.6 fL 35.1-43.9 [facility] Work Phone: Erythrocyte distribution width (RBC) [Ratio] 21.3 % 11.6-14.6 [facility] Work Phone: Immature granulocytes/100 WBC (Bld) 0.400 % 0.0-0.9 [facility] Work Phone: Comment on above: IG% - Immature Granu locytes (promyelocytes, myelocytes and metamyelocytes) > 1% indicates that a LEFT SHIFT is Present. MCH (RBC) [Entitic mass] 26.9 pg 27.0-32.0 [facility] Work Phone: Nucleated RBC/100 WBC (Bld) [Ratio] 0 % 0-5 [facility] Work Phone: MCHC Auto (RBC) [Mass/Vol]on 10-22-2021 MCHC (RBC) [Mass/Vol] 30.4 g/dL 32-36 [facility] Work Phone: No Panel Informationon 10-22 Estimated GFR (MDRD) Amer 108 mL/min >60 [facility] Work Phone: Comment on above: GFR Calc Estimated GFR (MDRD) Non-Af Amer 89 mL/min >60 [facility] Work Phone: Comment on above: Non- GFR Calc Immature Reticulocyte Fraction 22.60 % 3.00-15.90 [facility] Work Phone: Reticulocyte Count 2.41 % 0.5-1.5 [facility] Work Phone: Total Iron Binding Capacity 393 ug/dL 250-450 [facility] Work Phone: [phone] Platelets bldon 10-22-2021 Platelets (Bld) [#/Vol] 251 10*3/uL 150-450 [facility] Work Phone: [phone] Serum or plasma albumin wendy urement (mass/volume)on 10-22-2021 Albumin [Mass/Vol] 2.9 g/dL 3.2-5.0 [facility] Work Phone: [phone] Serum or plasma albumin/glob ulin mass ratioon 10-22-2021 Albumin/Globulin [Mass ratio] 0.6 {ratio} 0.9-2.4 [facility] Work Phone: [phone] Serum or plasma calcium wendy urement (mass/volume)on 10-22-2021 Calcium [Mass/Vol] 9.8 mg/dL 8.5-10.1 [facility] Work Phone: [phone] Serum or plasma creatinine m easurement (mass/volume)on 10-22-2021 Creatinine [Mass/Vol] 0.68 mg/dL 0.55-1.02 [facility]: Comment on above: The validity of the calculated GFR & GFRAA in patients over 70 years has not been determined. Clinical correlation is essential. Serum or plasma ferritin te surement (mass/volume)on 10-22-2021 Ferritin [Mass/Vol] 49 ng/mL 8-252 [facility] Work Phone: Serum or plasma urea nitroge n measurement (mass/volume)on 10-22-2021 Urea nitrogen [Mass/Vol] 15 mg/dL 7-18 [facility] Work Phone: [phone] Thin prep Papanicolaou smear with manual screeningon 10-22-2021 Thin prep Papanicolaou smear with manual screening 17 U/L 15-37 [facility] Work Phone: Thin prep Papanicolaou smear with manual screening 3 5-15 [facility] Work Phone: [phone] Absolute lymphocyte counton 09-25-2021 Lymphocytes Auto (Unsp spec) [#/Vol] 1.04 10*3/uL 0.83-4.51 [facility] Work Phone: Basophil percentageon 2021 Basophils/100 WBC (Bld) 1.6 % 0-1 [facility] Work Phone: Eosinophils/100 WBC (Bld) 2.3 % 0-5 [facility] Work Phone: Neutrophils (Bld) [#/Vol] 2.3 10*3/uL 2.0-7.7 [facility] Work Phone: Neutrophils/100 WBC (Bld) 58.4 % 47-70 [facility] Work Phone: WBC (Bld) [#/Vol] 3.9 10*3/uL 4.4-11.0 [facility] Work Phone: Blood erythrocytes count (nu mber/volume)on 09-25-2021 RBC (Bld) [#/Vol] 3.27 10*6/uL 4.2-5.4 [facility] Work Phone: Blood hemoglobin measurement (mass/volume)on 09-25-2021 Hemoglobin (Bld) [Mass/Vol] 8.4 g/dL 12.0-15.0 [facility] Work Phone: Blood lymphocytes/100 leukoc yteson 09-25-2021 Lymphocytes/100 WBC (Bld) 27.0 % 19-41 [facility] Work Phone: Blood monocytes/100 leukocyt eson 09-25-2021 Monocytes/100 WBC (Bld) 10.4 % 0-10 [facility] Work Phone: Blood platelet mean volumeon 09-25-2021 Platelet mean volume (Bld) [Entitic vol] 9.5 fL 6.2-12.0 [facility] Work Phone: [phone] Determination of erythrocyte mean corpuscular volume (MCV)on 09-25-2021 MCV (RBC) [Entitic vol] 84.1 fL 81-99 [facility] Work Phone: Hematocrit Auto (Bld) [Volum e fraction]on 09-25-2021 Hematocrit (Bld) [Volume fraction] 27.5 % 37-47 [facility] Work Phone: Laboratory - Hematology and Cell countson 09-25-2021 Erythrocyte distribution width (RBC) [Entitic vol] 60.6 fL 35.1-43.9 [facility] Work Phone: Erythrocyte distribution width (RBC) [Ratio] 19.8 % 11.6-14.6 [facility] Work Phone: [phone] Immature granulocytes/100 WBC (Bld) 0.300 % 0.0-0.9 [facility] Work Phone: Comment on above: IG% - Immature Granu locytes (promyelocytes, myelocytes and metamyelocytes) > 1% indicates that a LEFT SHIFT is Present. MCH (RBC) [Entitic mass] 25.7 pg 27.0-32.0 [facility] Work Phone: Nucleated RBC/100 WBC (Bld) [Ratio] 0 % 0-5 [facility] Work Phone: MCHC Auto (RBC) [Mass/Vol]on 09-25-2021 MCHC (RBC) [Mass/Vol] 30.5 g/dL 32-36 [facility] Work Phone: Platelets bldon 09-25-2021 Platelets (Bld) [#/Vol] 238 10*3/uL 150-450 [facility] Work Phone: Absolute lymphocyte counton 07-23-2021 Lymphocytes Auto (Unsp spec) [#/Vol] 1.20 10*3/uL 0.83-4.51 [facility] Work Phone: [phone] Atypical perinuclear antineu trophil cytoplasmic antibodies measurementon 07-23-2021 Neutrophil cytoplasmic Ab.perinuclear.atypic al IF (S) [Titer] 1:160 titer Neg:<1:20 [facility] Work Phone: [phone] Comment on above: The atypical pANCA p attern has been observed in asignificant percentage of patients with ulcerative colitis,primary sclerosing cholangitis and autoimmune hepatitis. Basophil percentageon 2021 Basophil percentage < 0.[address] [facility] Work Phone: Basophils/100 WBC (Bld) 1.3 % 0-1 [facility] Work Phone: Bilirubin [Mass/Vol] 0.50 mg/dL 0.20-1.[address] [facility] Work Phone: Comment on above: For patients on eltr ombopag therapy, use of Dimension [place] TBIL is not recommended. Chloride [Moles/Vol] 108 mmol/L 98-[address] [facility] Work Phone: Eosinophils/100 WBC (Bld) 2.2 % 0-5 [facility] Work Phone: Glucose [Mass/Vol] 90 mg/dL 74-106 [facility] Work Phone: Neutrophils (Bld) [#/Vol] 2.9 10*3/uL 2.0-7.7 [facility] Work Phone: Neutrophils/100 WBC (Bld) 62.2 % 47-70 [facility] Work Phone: Potassium [Moles/Vol] 3.4 mmol/L 3.5-5.1 [facility] Work Phone: Protein [Mass/Vol] 7.6 g/dL 6.4-8.2 [facility] Work Phone: Sodium [Moles/Vol] 139 mmol/L 136-145 [facility] Work Phone: WBC (Bld) [#/Vol] 4.6 10*3/uL 4.4-11.0 [facility] Work Phone: Blood erythrocytes count (nu mber/volume)on 07-23-2021 RBC (Bld) [#/Vol] 3.20 10*6/uL 4.2-5.[address] [facility] Work Phone: Blood hemoglobin measurement (mass/volume)on 07-23-2021 Hemoglobin (Bld) [Mass/Vol] 8.0 g/dL 12.0-15.0 [facility] Work Phone: Blood lymphocytes/100 leukoc yteson 07-23-2021 Lymphocytes/100 WBC (Bld) 25.9 % 19-41 [facility] Work Phone: Blood monocytes/100 leukocyt eson 07-23-2021 Monocytes/100 WBC (Bld) 8.0 % 0-10 [facility] Work Phone: Blood platelet mean volumeon 07-23-2021 Platelet mean volume (Bld) [Entitic vol] 10.1 fL 6.2-12.0 [facility] Work Phone: Determination of erythrocyte mean corpuscular volume (MCV)on 07-23-2021 MCV (RBC) [Entitic vol] 81.9 fL 81-99 [facility] Work Phone: [phone] Erythrocyte sedimentation ra lo 07-23-2021 ESR (Bld) [Velocity] 31 mm/h 0-[address] [facility] Work Phone: [phone] HIV 1 and HIV-2 antibody ass ay with HIV-1 p24 antigen detectionon 07-23-2021 HIV 1+2 Ab+HIV1 p24 Ag IA Ql Non-Reactive Nonreactive [facility] Work Phone: [phone] Hematocrit Auto (Bld) [Volum e fraction]on 07-23-2021 Hematocrit (Bld) [Volume fraction] 26.2 % 37-47 [facility] Work Phone: [phone] Laboratory - Chemistry and C hemistry - challengeon 07-23-2021 ALP [Catalytic activity/Vol] 153 U/L 45-117 [facility] Work Phone: [phone] ALT [Catalytic activity/Vol] 15 U/L 13-56 [facility] Work Phone: [phone] CO2 [Moles/Vol] 27.0 mmol/L 21.0-32.0 [facility] Work Phone: [phone] Globulin (S) [Mass/Vol] 4.6 g/dL 2.2-4.2 [facility] Work Phone: [phone] Urea nitrogen/Creatinine [Mass ratio] 17.1 mg/mg 10-20 [facility] Work Phone: Laboratory - Hematology and Cell countson 07-23-2021 Anisocytosis Ql (Bld) 1+ [facility] Work Phone: [phone] Erythrocyte distribution width (RBC) [Entitic vol] 62.0 fL 35.1-43.9 [facility] Work Phone: [phone] Erythrocyte distribution width (RBC) [Ratio] 20.5 % 11.6-14.6 [facility] Work Phone: Immature granulocytes/100 WBC (Bld) 0.400 % 0.0-0.9 [facility] Work Phone: Comment on above: IG% - Immature Granu locytes (promyelocytes, myelocytes and metamyelocytes) > 1% indicates that a LEFT SHIFT is Present. MCH (RBC) [Entitic mass] 25.0 pg 27.0-32.0 [facility] Work Phone: Nucleated RBC/100 WBC (Bld) [Ratio] 0 % 0-5 [facility] Work Phone: MCHC Auto (RBC) [Mass/Vol]on 07-23-2021 MCHC (RBC) [Mass/Vol] 30.5 g/dL 32-36 [facility] Work Phone: No Panel Informationon 07-23 Centromere B Antibody <0.2 AI [facility] Work Phone: EXHIBIT ELECTRICIAN Antibody 0.4 AI [facility] Work Phone: Ceruloplasmin 41.2 mg/dL [facility] Work Phone: Estimated GFR (MDRD) Amer 104 mL/min >60 [facility] Work Phone: Comment on above: GFR Calc Estimated GFR (MDRD) Non-Af Amer 86 mL/min >60 [facility] Work Phone: Comment on above: Non- GFR Calc Haptoglobin 227 mg/dL [facility] Work Phone: Comment on above: Performed at: - [address] [id number] Director: Serge Silveira PhD, Phone: [phone] at: [facility] [id number] Director: Yael Hitchcock MD, Phone: [phone] Hepatitis A IgM Antibody Negative Negative [facility] Work Phone: Hepatitis B Core IgM Antibody Negative Negative [facility] Work Phone: Hepatitis C Antibody (EIA) <0.1 s/co ratio [facility] Work Phone: Comment on above: Negative: < 0.8 Inde terminate: 0.8 - 0.9 Positive: > 0.9 The CDC recommends that a positive HCV antibody result be followed up with a HCV Nucleic Acid Amplification test (297174).Effective August 19, 2021 Hepatitis Panel (4) will be made non-orderable. [employer] offers order code [id number] Acute Hepatitis. Immunoglobulin E 44 IU/mL [facility] Work Phone: Platelets bldon 07-23-2021 Platelets (Bld) [#/Vol] 260 10*3/uL 150-450 [facility] Work Phone: Serum DNA double strand anti body assay (units/volume)on 07-23-2021 DNA double strand Ab Qn (S) 1 [IU]/mL [facility] Work Phone: Comment on above: Negative <5 Equivoca l 5 - 9 Positive >9 Serum Summer-1 antibody assay (u nits/volume)on 07-23-2021 Summer-1 extractable nuclear Ab Qn (S) <0.2 AI [facility] Work Phone: Serum Scl-70 extractable nuc lear antibody assay (units/volume)on 07-23-2021 SCL-70 extractable nuclear Ab Qn (S) <0.2 AI [facility] Work Phone: Serum Green extractable nucl ear antibody detectionon 07-23-2021 Green extractable nuclear Ab Ql (S) <0.2 AI [facility] Work Phone: Serum classic neutrophil cyt oplasmic antibody assay (units/volume)on 07-23-2021 Neutrophil cytoplasmic Ab.classic Qn (S) <1:20 titer Neg:<1:20 [facility] Work Phone: Serum or plasma C reactive p rotein measurement (mass/volume)on 07-23-2021 CRP [Mass/Vol] 14.60 mg/L 0.0-3.0 [facility] Work Phone: Comment on above: C-Reactive Protein ( CRP) provides useful information for thediagnosis, therapy and monitoring of inflammatory processesand associated diseases. For the evaluation of Relative Riskfor Cardiovascular Disease, a High Sensitivity CRP (HSCRP)should be ordered. Serum or plasma IgA measurem ent (mass/volume)on 07-23-2021 IgA [Mass/Vol] 450 mg/dL [facility] Work Phone: Serum or plasma IgG measurem ent (mass/volume)on 07-23-2021 IgG [Mass/Vol] 1555 mg/dL [facility] Work Phone: Serum or plasma IgM measurem ent (mass/volume)on 07-23-2021 IgM [Mass/Vol] 70 mg/dL [facility] Work Phone: Serum or plasma actin IgG an tibody assay (units/volume)on 07-23-2021 Actin IgG Qn 8 Units [facility] Work Phone: Comment on above: Negative 0 - 19 Weak positive 20 - 30 Moderate to strong positive >30 Actin Antibodies are found in 52-85% of patients with autoimmune hepatitis or chronic active hepatitis and in 22% of patients with primary biliary cirrhosis. Serum or plasma albumin wendy urement (mass/volume)on 07-23-2021 Albumin [Mass/Vol] 3.0 g/dL 3.2-5.0 [facility] Work Phone: Serum or plasma albumin/glob ulin mass ratioon 07-23-2021 Albumin/Globulin [Mass ratio] 0.7 {ratio} 0.9-2.4 [facility] Work Phone: Serum or plasma angiotensin converting enzyme measurement (enzymatic activity/volume)on 07-23-2021 Angiotensin converting enzyme [Catalytic activity/Vol] 42 U/L [facility] Work Phone: Serum or plasma calcium wendy urement (mass/volume)on 07-23-2021 Calcium [Mass/Vol] 9.4 mg/dL 8.5-10.1 [facility] Work Phone: Serum or plasma creatinine m easurement (mass/volume)on 07-23-2021 Creatinine [Mass/Vol] 0.70 mg/dL 0.55-1.02 [facility] Work Phone: Comment on above: The validity of the calculated GFR & GFRAA in patients over 70 years has not been determined. Clinical correlation is essential. Serum or plasma ferritin te surement (mass/volume)on 07-23-2021 Ferritin [Mass/Vol] 41 ng/mL 8-252 [facility] Work Phone: Serum or plasma hepatitis B virus surface antigen detection by immunoassayon 07-23-2021 HBV surface Ag IA Ql Negative Negative [facility] Work Phone: Serum or plasma urea nitroge n measurement (mass/volume)on 07-23-2021 Urea nitrogen [Mass/Vol] 12 mg/dL 7-18 [facility] Work Phone: Serum perinuclear neutrophil cytoplasmic antibody titer by immunofluorescenceon 07-23-2021 Neutrophil cytoplasmic Ab.perinuclear IF (S) [Titer] <1:20 titer Neg:<1:20 [facility] Work Phone: Comment on above: The presence of posi tive fluorescence exhibiting P-ANCA orC- ANCA patterns alone is not specific for the diagnosis ofWegener's Granulomatosis (WG) or microscopic polyangiitis.Decisions about treatment should not be based solely onANCA IFA results. The [employer] Consensusrecommends follow up testing of positive sera with both DE-3 and MPO-ANCA enzyme immunoassays. As many as 5% serumsamples are positive only by EIA. Ref. AM J Clin [id number];111:507-513. Thin prep Papanicolaou smear with manual screeningon 07-23-2021 Thin prep Papanicolaou smear with manual screening 20 U/L 15-37 [facility] Work Phone: Thin prep Papanicolaou smear with manual screening 4 5-15 [facility] Work Phone: Thin prep Papanicolaou smear with manual screening 184 U/L 84-246 [facility] Work Phone: Thin prep Papanicolaou smear with manual screening 234 ug/dL [facility] Work Phone: Comment on above: Detection Limit = 5 Whole blood hemoglobin A1c/t otal hemoglobin ratio (mass fraction)on 07-23-2021 HbA1c (Bld) [Mass fraction] 5.9 % 3.8-5.6 [facility] Work Phone: Comment on above: Normal < 5.7 % Predi abetic 5.7 - 6.4 % Diabetic >or= 6.5 % Please note range changes. 25-Hydroxy D2+D3on 25-Hydroxy D Total 37.7 ng/mL Normal 30.0-100.0 [facility] Comment on above: Performed By: #### D 2D3 #### [facility] Chemistry [address] [place] [address] 25-Hydroxy D2 <4.0 Normal [facility] Comment on above: Performed By: #### D 2D3 #### [facility] Chemistry [address] [place] [address] 25-Hydroxy D3 37.7 ng/mL Normal [facility] Comment on above: Performed By: #### D 2D3 #### [facility] Chemistry [address] [place] [address] PTH, [place] 07-12-2020 PTH, Intact 104 pg/mL [facility] Comment on above: Performed By: #### P THI #### [facility] Routine Lab [address] [place], [place] [address] PTH, [place] 10-30-2019 PTH, Intact 155 pg/mL High [facility] Comment on above: Performed By: #### P THI #### [facility] Routine Lab [address] [place] [address] Vital Signs Date Time Vital Sign Value Performing Clinician Nish davidson 10-20-2024 11:20-0400 Body height 152.[address] Angy Anand DO Work Phone: [facility] 09-07-2024 14:58-0400 Inhaled oxygen flow rate 2 L/min Dr. Angy Anand DO Work Phone: [facility] 09-07-2024 14:00-0400 Body temperature 98.3 [degF] Dr. Angy Anand DO Work Phone: [facility] 09-07-2024 14:00-0400 Diastolic blood pressure 47 mm[Hg] Dr. Angy Anand DO Work Phone: [facility] 09-07-2024 14:00-0400 Heart rate 65 /min Dr. Angy Anand DO Work Phone: [facility] 09-07-2024 14:00-0400 Respiratory rate 18 /min Dr. Angy Anand DO Work Phone: [facility] 09-07-2024 14:00-0400 SaO2% (BldA) [Mass fraction] 91 % Dr. Angy Anand DO Work Phone: [facility] 09-07-2024 14:00-0400 Systolic blood pressure 116 mm[Hg] Dr. Angy Anand DO Work Phone: [facility] 09-06-2024 14:27-0400 Body height 152.[address] Angy Anand DO Work Phone: [facility] 09-06-2024 14:27-0400 Body mass index (BMI) [Ratio] 57.4 kg/m2 Dr. Angy Anand DO Work Phone: [facility] 09-06-2024 14:27-0400 Body weight 133.[address] Angy Anand DO Work Phone: [facility] 09-06-2024 13:39-0400 Body temperature 98.3 [degF] Dr. Angy Anand DO Work Phone: [facility] 09-06-2024 13:39-0400 Diastolic blood pressure 68 mm[Hg] Dr. Angy Anand DO Work Phone: [facility] 09-06-2024 13:39-0400 Heart rate 78 /min Dr. Angy Anand DO Work Phone: [facility] 09-06-2024 13:39-0400 Respiratory rate 18 /min Dr. Angy Anand DO Work Phone: [facility] 09-06-2024 13:39-0400 SaO2% (BldA) [Mass fraction] 98 % Dr. Angy Anand DO Work Phone: [facility] 09-06-2024 13:39-0400 Systolic blood pressure 106 mm[Hg] Dr. Angy Anand DO Work Phone: [facility] 09-06-2024 08:54-0400 Body height 152.[address] Angy Anand DO Work Phone: [facility] 09-06-2024 08:54-0400 Body mass index (BMI) [Ratio] 57.4 kg/m2 Dr. Angy Anand DO Work Phone: [facility] 09-06-2024 08:54-0400 Body weight 133.[address] Angy Anand DO Work Phone: [facility] 09-06-2024 08:54-0400 Inhaled oxygen flow rate 2 L/min Dr. Angy Anand DO Work Phone: [facility] 04-28-2024 09:50-0500 Body temperature 97.7 [degF] Dr. Angy Anand DO Work Phone: [facility] 04-28-2024 09:50-0500 Diastolic blood pressure 76 mm[Hg] Dr. Angy Anand DO Work Phone: [facility] 04-28-2024 09:50-0500 Heart rate 61 /min Dr. Angy Anand DO Work Phone: [facility] 04-28-2024 09:50-0500 Respiratory rate 18 /min Dr. Angy Anand DO Work Phone: [facility] 04-28-2024 09:50-0500 SaO2% (BldA) [Mass fraction] 92 % Dr. Angy Anand DO Work Phone: [facility] 04-28-2024 09:50-0500 Systolic blood pressure 148 mm[Hg] Dr. Angy Anand DO Work Phone: [facility] 04-28-2024 09:40-0500 Inhaled oxygen flow rate 2 L/min Dr. Angy Anand DO Work Phone: [facility] 04-28-2024 07:33-0500 Body height 152.[address] Angy Anand DO Work Phone: [facility] 04-28-2024 07:33-0500 Body mass index (BMI) [Ratio] 51.1 kg/m2 Dr. Angy Anand DO Work Phone: [facility] 04-28-2024 07:33-0500 Body weight 118.[address] Angy Anand DO Work Phone: [facility] 10-22-2021 09:04-0400 Body height 152.[address] Marita Hernandez Work Phone: [facility] Work Phone: 10-22-2021 09:04-0400 Diastolic blood pressure 80 mm[Hg] Dr. Marita Hernandez Work Phone: [facility] Work Phone: 10-22-2021 09:04-0400 Heart rate 78 /min Dr. Marita Hernandez Work Phone: [facility] Work Phone: 10-22-2021 09:04-0400 SaO2% (BldA) [Mass fraction] 95 % Dr. Marita Hernandez Work Phone: [facility] Work Phone: 10-22-2021 09:04-0400 Systolic blood pressure 158 mm[Hg] Dr. Marita Hernandez Work Phone: [facility] Work Phone: 09-10-2021 13:03-0400 Body height 152.[address] Marita Hernandez Work Phone: [facility] Work Phone: 09-10-2021 13:03-0400 Body mass index (BMI) [Ratio] 48.4 kg/m2 Dr. Marita Hernandez Work Phone: [facility] Work Phone: 09-10-2021 13:03-0400 Body weight 112.[address] Marita Hernandez Work Phone: [facility] Work Phone: 09-10-2021 13:03-0400 Diastolic blood pressure 89 mm[Hg] Dr. Marita Hernandez Work Phone: [facility] Work Phone: 09-10-2021 13:03-0400 Heart rate 65 /min Dr. Marita Hernandez Work Phone: [facility] Work Phone: 09-10-2021 13:03-0400 SaO2% (BldA) [Mass fraction] 97 % Dr. Marita Hernandez Work Phone: [facility] Work Phone: 09-10-2021 13:03-0400 Systolic blood pressure 130 mm[Hg] Dr. Marita Hernandez Work Phone: [facility] Work Phone: 06-27-2021 09:35-0500 Body temperature 99.5 [degF] Dr. Marita Hernandez Work Phone: [facility] Work Phone: 06-27-2021 09:35-0500 Diastolic blood pressure 57 mm[Hg] Dr. Marita Hernandez Work Phone: [facility] Work Phone: 06-27-2021 09:35-0500 Heart rate 76 /min Dr. Marita Hernandez Work Phone: [facility] Work Phone: 06-27-2021 09:35-0500 Respiratory rate 16 /min Dr. Marita Hernandez Work Phone: [facility] Work Phone: 06-27-2021 09:35-0500 SaO2% (BldA) [Mass fraction] 93 % Dr. Marita Hernandez Work Phone: [facility] Work Phone: 06-27-2021 09:35-0500 Systolic blood pressure 133 mm[Hg] Dr. Marita Hernandez Work Phone: [facility] Work Phone: 06-27-2021 08:25-0500 Body mass index (BMI) [Ratio] 50.8 kg/m2 Dr. Marita Hernandez Work Phone: [facility] Work Phone: 06-27-2021 08:25-0500 Body weight [address] Marita Hernandez Work Phone: [facility] Work Phone: Encounters Encounter Date Encounter Type Care Provider Facility Start: 10-20-2024 End: 10-20-[address] Tunde Monterroso MD -[facility] Start: 10-20-2024 End: 10-20-[address] Angy Anand DO Work Phone: [facility] Work Phone: Start: 10-17-2024 End: 10-17-[address] Angy Anand DO Work Phone: [facility] Work Phone: Start: 10-17-2024 End: 10-17-[address] Angy Anand DO -Laboratory Work Phone: Start: 10-17-2024 End: 10-17-2024 ambulatory Angy Anand Facility:[facility] Start: 09-07-2024 Non-patient / Non-visit Dr. Alee Aldridge MD -[facility] Work Phone: Start: 09-06-2024 End: 09-07-2024 ambulatory [facility] Facility:[facility] Start: 09-06-2024 End: 09-07-2024 Evaluation and management of inpatient Dr. Kim Vargas MD -Medical Surgical 3 Work Phone: Start: 09-06-2024 End: 09-07-[address] Angy Anand DO Work Phone: [facility] Work Phone: Start: 09-05-2024 End: 09-05-2024 Patient encounter procedure Arturo Melendez DO -[facility] Work Phone: Start: 09-05-2024 End: 09-05-2024 ambulatory Marita Zendejas Facility:[facility] Start: 08-03-2024 End: 08-03-[address] Angy Anand DO Work Phone: [facility] Work Phone: Start: 08-03-2024 End: 08-03-[address] Angy Anand DO -Outpatient Breast Imaging Work Phone: Start: 08-03-2024 End: 08-03-2024 ambulatory Angy Anand Facility:[facility] Start: 07-07-2024 ambulatory Tunde Monterroso Facility:[facility] Start: 07-07-2024 Non-patient / Non-visit Dr. Genia GUEVARA -[facility] Start: 07-07-2024 End: 07-07-[address] Angy Anand DO -Cardiovascular Services Work Phone: Start: 07-07-2024 End: 07-07-2024 ambulatory Angy Anand Facility:[facility] Start: 04-28-2024 Non-patient / Non-visit Arturojose alfredo Thornton patricia DO -[facility] Start: 04-28-2024 End: 04-28-2024 Admission to same day surgery center Arturojose alfredo Melendez DO -Endoscopy Work Phone: Start: 04-28-2024 End: 04-28-2024 ambulatory [facility] Facility:[facility] Start: 04-07-2024 Encounter for preprocedural laboratory examination Arturo [facility] Start: 03-22-2024 End: 03-22-2024 ambulatory Esau WILLIAMSON Facility:[facility] Start: 03-11-2024 End: 03-11-2024 ambulatory [facility] Facility:[facility] Start: 02-12-2024 End: 02-12-2024 ambulatory [facility] Start: 01-07-2024 End: 01-07-2024 ambulatory Marita [facility] Facility:[facility] Start: 12-07-2023 ambulatory MARITA GUEVARA [facility] Start: 08-12-2023 End: 08-12-2023 ambulatory MARITA GUEVARA [facility] Start: 06-17-2023 End: 06-17-2023 [facility] Start: 05-04-2023 Telephone encounter Kenya appiah APRN.CNP Work Phone: OB/Gynecology Comment on above: Results Start: 05-01-2023 End: 05-01-2023 ambulatory MARITA HERNANDEZ Facility:[facility] Start: 01-13-2023 End: 01-13-2023 [facility] Start: 01-13-2023 ambulatory BUTCOURTNEY Nieves [facility] Start: 10-22-2021 End: 10-22-[address] Marita Hernandez Work Phone: [facility]-Laboratory Start: 10-22-2021 End: 10-22-[address] Marita Hernandez Work Phone: [facility] Start: 09-25-2021 End: 09-25-[address] Marita Hernandez Work Phone: [facility]-Laboratory Start: 09-10-2021 End: 09-10-[address] Marita Hernandez Work Phone: [facility] Start: 07-23-2021 End: 07-23-[address] Marita Hernandez Work Phone: [facility]-Laboratory Start: 06-27-2021 Non-patient / Non-visit Dr. Kary Hernandez Work Phone: [facility] Start: 06-27-2021 End: 06-27-2021 Admission to same day surgery center Dr. Marita Hernandez Work Phone: [facility]-Endoscopy Start: 06-06-[address] Marita Hernandez Work Phone: [facility]-Ultrasound, [facility] Procedures Date Procedure Procedure Detail Performing Clinician Start: 10-20-2024 X-ray of chest, PA a nd lateral views Dr. Angy Anand DO Work Phone: Start: 10-17-2024 Urine microalbumin/creatinine ratio measurement Dr. Angy Anand DO Work Phone: Start: 10-17-2024 Vitamin D, 25-hydrox y measurement Dr. Angy Anand DO Work Phone: Comment on above: Vitamin D StatusDefi ciency: <20 ng/mL (50nmol/L)Insufficiency: 20-30 ng/mL (50-75 nmol/L)Sufficiency: 30-100 ng/mL (75-250 nmol/L)Toxicity: >100 ng/mL (>250 nmol/L) Start: 09-07-[address] Lidia Anand DO Work Phone: Start: 09-07-[address] Angy Anand DO Work Phone: Start: 09-06-2024 Urnls dip stick/tabl et reagent auto microscopy Dr. Angy Anand DO Work Phone: Start: 09-06-2024 Computed tomography of abdomen and pelvis with intravenous contrast Dr. Angy Anand DO Work Phone: Start: 08-03-2024 Screening mammography Ana Anand DO Work Phone: Start: 07-07-2024 Measurement of renal function Dr. Angy Anand DO Work Phone: Comment on above: GFR Calc Start: 06-06-[address] Marita Hernandez Work Phone: Start: 06-06-2021 Elastography Parenchyma/Organ Dr. Marita Hernandez Work Phone: Plan of Treatment Date Care Activity Detail Author Start: 02-29-2032 Urine microalbumin profile DTaP,Tdap,Td Vaccine (2 - Td or Tdap) [facility] Start: 10-20-2024 X-ray of chest, PA and lateral views Chest PA and Lateral [facility] Start: 09-13-2024 Complete blood count [facility] Start: 09-11-2024 Complete blood count [facility] Start: 09-09-2024 Complete blood count [facility] Start: 09-07-2024 Patient discharge [facility] Start: 09-07-2024 Referral to service [facility] Start: 09-07-2024 [facility] Start: 09-06-2024 Oxygen therapy [facility] Start: 09-06-2024 Following clinical pathway protocol [facility] Start: 09-06-2024 Assessment of risk of venous thromboembolism [facility] Start: 09-06-2024 Fall prevention [facility] Start: 09-06-2024 Insertion of catheter into peripheral vein [facility] Start: 09-06-2024 Providing care according to standard [facility] Start: 09-06-2024 Provision of activity privileges [facility] Start: 09-06-2024 Referral to occupational therapist [facility] Start: 09-06-2024 Referral to service [facility] Start: 09-06-2024 [facility] Start: 09-06-2024 Verification routine [facility] Start: 09-06-2024 Hospital admission, emergency, from emergency room, medical nature [facility] Start: 09-06-2024 Admission procedure [facility] Start: 04-28-2024 Egd transoral biopsy single/multiple EGD BIOPSY SINGLE/MULTIPLE [facility] Start: 04-28-2024 Patient discharge [facility] Start: 06-08-2022 Advance Directive Discussion Advance Directive Discussion [facility] Start: 06-08-2022 Depression Assessment Depression Assessment [facility] Start: 06-27-2021 Egd transoral biopsy single/multiple EGD BIOPSY SINGLE/MULTIPLE [facility] Work Phone: Start: 03-09-2015 Diabetes Screening Diabetes Screening [facility] Start: 2010 Bone Density Screening Bone Density Screening [facility] Start: 2005 RSV Vaccine (1 - 1-dose 60+ series) RSV Vaccine (1 - 1-dose 60+ series) [facility] Bilirubin measuremen t, urine [facility] Hemoglobin [Presence ] in Urine [facility] Measurement of keton es in urine using dipstick [facility] Microscopic urinalysis [facility] Patient referral [facility] Work Phone: pH of Urine [facility] Specific gravity of Urine [facility] Urine blood test [facility] Urine culture [facility] Urine dipstick for glucose [facility] Urine dipstick for leukocyte esterase [facility] Urine dipstick for nitrite [facility] Urine dipstick for protein [facility] Urine examination [facility] Urine microscopy: epithelial cells [facility] Urine Microscopy: wh ite cells [facility] Urobilinogen [Presen ce] in Urine [facility] Payers Date Payer Category Payer Self-pay [id number] 2023 Medicare HUMANA MEDICARE HU[employer]NA MEDICARE PPO [id number] 2023-[facility] [id number] [place] [address] PPO [id number] 2022 Medicare [id number] 2009 Unknown [id number] 1945 Unknown [id number] 1945 Unknown [id number] [id number]1 1945 Unknown [id number] [id number] 1945 Unknown [id number] [id number]1 1945 Unknown [id number] 2.16.840.1.040914.3.579.2.651 1945 Unknown [id number] 2.16.840.1.520448.3.579.2.651 Medicare SELF PAY INSURANCE [id number] Unknown [id number] [id number] Unknown [id number] [id number] Unknown [id number] 2.16.840.1.479671.3.579.2.462 Unknown [id number] 2.16.840.1.363623.3.579.2.462 Unknown [id number] 2.16.840.1.462919.3.579.2.462 Unknown [id number] 2.16.840.1.938252.3.579.2.462 Unknown [id number] 2.16.840.1.966811.3.579.2.462 Unknown [id number] 2.16.840.1.746602.3.579.2.462 Unknown [id number] 2.16.840.1.410705.3.579.2.462 Unknown [id number] 2.16.840.1.980420.3.579.2.462 Unknown [id number] 2.16.840.1.229705.3.579.2.462 Unknown [id number] 2.16.840.1.977166.3.579.2.462 Unknown [id number] 2.16.840.1.455196.3.579.2.462 Unknown [id number] [id number] Unknown [id number] [id number] Social History Date Type Detail Facility Start: 09-25-2021 End: 10-22-2021 Tobacco smoking status INIS Unknown if ever smoked [facility] Work Phone: Start: 05-13-2018 Cigarettes [facility] Start: 1945 Sex Assigned At Female [facility] Start: 05-01-2023 End: 10-20-2024 Tobacco smoking status INIS Ex-smoker [facility] Work Phone: End: 03-09-1968 History of tobacco use Current smoker [facility] Work Phone: End: 03-09-1968 History of tobacco use Cigarette Smoker [facility] Work Phone: Start: 05-01-2023 Cigarettes smoked current (pack per day) - Reported 0.3 [facility] Start: 05-01-2023 Tobacco use and exposure Smokeless tobacco non-user [facility] Work Phone: Start: 05-01-2023 Alcohol intake Current drinke r of alcohol (finding) [facility] Start: 05-01-2023 Tobacco use panel [facility] National Score (1-100), lower number is lower risk 80 [facility] Start: 1945 Sex Assigned At Not on file [facility] [place] Start: 08-15-2024 End: 09-07-2024 Sex Female (finding) [facility] NEGATED: Highlighted rowStart: NINF History of tobacco use Passive smoker [facility] Work Phone: NEGATED: Highlighted row Not [facility] Goals Date Patient Goal Desired Activity /State Functional Status Date Assessment Result Facility 09-07-2024 Functional status Ambulates;Bathroom Priv ilege [facility] Work Phone: Mental Status Date Assessment Result Facility 09-07-2024 Cognitive function Voice/Name [facility] Work Phone: 09-07-2024 Cognitive function Appropriate;Cooperativ e [facility] Work Phone: 04-28-2024 Cognitive function Level Of Cons ciousness Awake;Alert;Appropriate;Follow s Commands [facility] Work Phone: 04-28-2024 Cognitive function Voice/Name [facility] Work Phone: 06-27-2021 Cognitive function Voice/Name [facility] Work Phone: Clinical Notes 05-01-2023 to 09-07-2024 Note Date & Type Note Facility 09-07-2024 Consult note Note Date/Time September 07, 2024 2:22 pm [facility] Medical Records Department [address] [place] [address] Counseling Note - Pharmacy 09/07/24 1421 MR#: [id number] Acct: [id number] Name: RADHA PACE Rep #:[id number] : 1945 79 From: Aziza Santamaria PCP: Dr. Angy Anand, DO Status:AD M RITA Y Location: MS3 [id number] Pharmacy [facility] has performed discharge medication reconciliation and counseling for this patient. 1. NITROFURANTOIN 100MG PO BID X 5 DAYS The patient's discharge medication list was reviewed for discrepancies and discrepancies were resolved. The patient was counseled on the following discharge medications and changes in medications for homegoing were reviewed. The Reason for Use, instructions for use, and potential side effects were reviewed for all new medications. The patient's questions regarding all of their medications were answered. The patient was able to verbally demonstrate an understanding of their dischargemedications. Medications at Discharge Home Medications atorvastatin 20 mg tablet 20 mg PO QHS CHOLESTEROL 05/13/18 multivitamin with folic acid 400 mcg tablet (Thera) 1 tab PO DAILY SUPPLEMENT 05/13/18 pantoprazole 40 mg tablet,delayed release 40 mg PO DAILY GERD 05/13/18 rivaroxaban 20 mg tablet (Xarelto) 20 mg PO DAILY AFIB 05/13/18 sertraline 25 mg tablet (Zoloft) 25 mg PO QHS DEPRESSION 05/13/18 cholecalciferol (vitamin D3) 125 mcg (5,000 unit) tablet 125 mcg PO QHS 05/13/21 cyanocobalamin (vitamin B-12) 500 mcg tablet (Vitamin B-12) 500 mcg PO QHS 06/26/21 ursodiol 250 mg tablet 250 mg PO BID #60 tabs 02/12/24 diltiazem HCl 240 mg capsule,24 hr,extended release (Tiadylt ER) 240 mg PO DAILY09/06/24 ibandronate 150 mg tablet 150 mg PO QMONTH 09/06/24 oxybutynin chloride 10 mg tablet,extended release 24 hr 10 mg PO DAILY 09/06/24 nitrofurantoin monohydrate/macrocrystals 100 mg capsule (Macrobid) 100 mg PO BID5 days #10 caps 09/07/24 09/07/24 1422 <Electronically signed by Aziza Santamaria> Date _ Aziza Kathleen Signature (if applicable): Date CC: ~ Signed [facility] Work Phone: 1(558) 968-415404-02-2025 Discharge summary Author Leon Cardenas [facility] Note Date/Time September 07, 2024 12:2 6pm [facility] Medical Records Department [address] [place] [address] Instructions for Home/Discharge Instructions 09/07/24 1140 MR#: [id number] Acct: [id number] Name: RADHA PACE Rep #:[id number] : 1945 79 From: Leon pederson DO PCP: Dr. Angy Anand, DO Status:AD M RITA Discharge Instructions Diet Discharge Diet: 1999 Calorie Control Diet DC O2, CPAP, BIPAP needs Home O2 Discharge instructions: No Dressing / Incision Discharge Activity: No Restrictions Follow Up Care Test Results: Test results from this visit will be discussed in further detail at your follow- up appointment, if applicable. Discharge Plan Admission Admit Date/Time: 09/06/24 13:29 Primary Reason for Your Visit: back pain Attending Provider: Leon Cardenas Primary Care Provider: Angy Anand Consulting Providers: Kim Vargas Instructions Additional Instructions / Restrictions: Take 5 days of Macrobid to complete course of antibiotics for your UTI. Home health care will be coming out of the house to assist you in the next 1 to 2 days. Follow-up with your primary care doctor as needed. Discharge Orders/Prescriptions Prescriptions: New nitrofurantoin monohyd/m-cryst [Macrobid] 100 mg capsule 100 mg PO BID 5 Days Qty: 10 0RF Rx Instructions: must administer with a meal/food Continued ursodiol 250 mg tablet 250 mg PO BID Qty: 60 4RF Patient Comments: TAKES WITH MEALS atorvastatin 20 MG tablet 20 mg PO QHS Xarelto 20 MG tablet 20 mg PO DAILY multivitamin with folic acid [Thera] 1 TABLET tablet 1 tab PO DAILY pantoprazole 40 MG tablet 40 mg PO DAILY sertraline [Zoloft] 25 MG tablet 25 mg PO QHS cholecalciferol (vitamin D3) 125 mcg (5,000 unit) Tablet 125 mcg PO QHS cyanocobalamin (vitamin B-12) [Vitamin B-12] 500 mcg Tablet 500 mcg PO QHS oxybutynin chloride 10 mg tablet extended release 24hr 10 mg PO DAILY ibandronate 150 mg tablet 150 mg PO QMONTH Patient Comments: NEXT DOSE IS Thursday09/11/24 diltiazem HCl [Tiadylt ER] 240 mg capsule,extended release 24 hr 240 mg PO DAILY Referrals / Follow Up: Angy Anand DO [Primary Care Provider] - Disposition Disposition (needs filled in before D/C Order can be placed): Home Health Service 09/07/24 1226<Electronically signed by Leon Cardenas DO>Leon Cardenas DO CC: Dr. Angy Anand DO; Dr. Kim Vargas MD ~ Signed [facility] Work Phone: 1(730) 525-120204-02-2025 Consult note [facility] Medical Records Department [address] [place] [address] Counseling Note - Pharmacy 09/07/24 1421 MR#: [id number] Acct: [id number] Name: RADHA PACE Rep #:[id number] : 1945 79 From: Aziza Santamaria PCP: Dr. Angy Anand DO Status:AD M RITA Y [id number] has performed discharge medication reconciliation and counseling for this patient. 1. NITROFURANTOIN 100MG PO BID X 5 DAYS The patient's discharge medication list was reviewed for discrepancies and discrepancies were resolved. The patient was counseled on the following discharge medications and changes in medications for homegoing were reviewed. The Reason for Use, instructions for use, and potential side effects were reviewed for all new medications. The patient's questions regarding all of their medications were answered. The patient was able to verbally demonstrate an understanding of their dischargemedications. Medications at Discharge Home Medications atorvastatin 20 mg tablet 20 mg PO QHS CHOLESTEROL 12/06/18 multivitamin with folic acid 400 mcg tablet (Thera) 1 tab PO DAILY SUPPLEMENT 05/13/18 pantoprazole 40 mg tablet,delayed release 40 mg PO DAILY GERD 05/13/18 rivaroxaban 20 mg tablet (Xarelto) 20 mg PO DAILY AFIB 05/13/18 sertraline 25 mg tablet (Zoloft) 25 mg PO QHS DEPRESSION 05/13/18 cholecalciferol (vitamin D3) 125 mcg (5,000 unit) tablet 125 mcg PO QHS 05/13/21 cyanocobalamin (vitamin B-12) 500 mcg tablet (Vitamin B-12) 500 mcg PO QHS 06/26/21 ursodiol 250 mg tablet 250 mg PO BID #60 tabs 02/12/24 diltiazem HCl 240 mg capsule,24 hr,extended release (Tiadylt ER) 240 mg PO DAILY09/06/24 ibandronate 150 mg tablet 150 mg PO QMONTH 09/06/24 oxybutynin chloride 10 mg tablet,extended release 24 hr 10 mg PO DAILY 09/06/24 nitrofurantoin monohydrate/macrocrystals 100 mg capsule (Macrobid) 100 mg PO BID5 days #10 caps 09/07/24 09/07/24 1422 Date _ Aziza Kathleen Signature (if applicable): Date CC: ~ Signed [facility]04-02-2025 Discharge summary [facility] Medical Records Department [address] [place] [address] Instructions for Home/Discharge Instructions 09/07/24 1140 MR#: [id number] Acct: [id number] Name: RADHA PACE Rep #:[id number] : 1945 79 From: Leon pederson DO PCP: Dr. Angy Anand, DO Status:AD M RITA Discharge Instructions Diet Discharge Diet: 2000 Calorie Control Diet DC O2, CPAP, BIPAP needs Home O2 Discharge instructions: No Dressing / Incision Discharge Activity: No Restrictions Follow Up Care Test Results: Test results from this visit will be discussed in further detail at your follow- up appointment, if applicable. Discharge Plan Admission Admit Date/Time: 09/06/24 13:29 Primary Reason for Your Visit: back pain Attending Provider: Leon Cardenas Primary Care Provider: Angy Anand Consulting Providers: Kmi Vargas Instructions Additional Instructions / Restrictions: Take 5 days of Macrobid to complete course of antibiotics for your UTI. Home health care will be coming out of the house to assist you in the next 1 to 2 days. Follow-up with your primary care doctoras needed. Discharge Orders/Prescriptions Prescriptions: New nitrofurantoin monohyd/m-cryst [Macrobid] 100 mg capsule 100 mg PO BID 5 Days Qty: 10 0RF Rx Instructions: must administer with a meal/food Continued ursodiol 250 mg tablet 250 mg PO BID Qty: 60 4RF Patient Comments: TAKES WITH MEALS atorvastatin 20 MG tablet 20 mg PO QHS Xarelto 20 MG tablet 20 mg PO DAILY multivitamin with folic acid [Thera] 1 TABLET tablet 1 tab PO DAILY pantoprazole 40 MG tablet 40 mg PO DAILY sertraline [Zoloft] 25 MG tablet 25 mg PO QHS cholecalciferol (vitamin D3) 125 mcg (5,000 unit) Tablet 125 mcg PO QHS cyanocobalamin (vitamin B-12) [Vitamin B-12] 500 mcg Tablet 500 mcg PO QHS oxybutynin chloride 10 mg tablet extended release 24hr 10 mg PO DAILY ibandronate 150 mg tablet 150 mg PO QMONTH Patient Comments: NEXT DOSE IS Thursday09/11/24 diltiazem HCl [Tiadylt ER] 240 mg capsule,extended release 24 hr 240 mg PO DAILY Referrals / Follow Up: Angy Anand DO [Primary Care Provider] - Disposition Disposition (needs filled in before D/C Order can be placed): Home Health Service 09/07/24 1226Alexyehuda Cardenas DO CC: Dr. Angy Anand DO; Dr. Kim Vargas MD ~ Signed [facility]04-02-2025 [facility] Medical Records Department [address] [place] [address] Discharge Summary 09/07/24 1140 MR#: [id number] Acct: [id number] Name: RADHA PACE Rep #: [id number] : 1945 79 From: Leon Cardenas DO PCP: Dr. Angy Anand DO Status:DIS RITA Location: [place] [address] Providers Date of Admission: 09/06/24 Date of Discharge: 09/07/24 Primary Care Physician: Dr. Angy Anand DO Reason For Visit: intractable lower back pain, mechanical fall Diagnosis Discharge Diagnosis (1) Acute low back pain: Status: Acute Code(s): M54.50 - Low back pain, unspecified (2) Debility: Status: Acute Code(s): R53.81 - Other malaise (3) Intractable back pain: Status: Acute Code(s): M54.9 - Dorsalgia, unspecified Medications at Discharge Home Medications atorvastatin 20 mg tablet 20 mg PO QHS CHOLESTEROL 05/13/18 multivitamin with folic acid 400 mcg tablet (Thera) 1 tab PO DAILY SUPPLEMENT 05/13/18 pantoprazole 40 mg tablet,delayed release 40 mg PO DAILY GERD 05/13/18 rivaroxaban 20 mg tablet (Xarelto) 20 mg PO DAILY AFIB 05/13/18 sertraline 25 mg tablet (Zoloft) 25 mg PO QHS DEPRESSION 05/13/18 cholecalciferol (vitamin D3) 125 mcg (5,000 unit) tablet 125 mcg PO QHS 05/13/21 cyanocobalamin (vitamin B-12) 500 mcg tablet (Vitamin B-12) 500 mcg PO QHS 06/26/21 ursodiol 250 mg tablet 250 mg PO BID #60 tabs 02/12/24 diltiazem HCl 240 mg capsule,24 hr,extended release (Tiadylt ER) 240 mg PO DAILY 09/06/24 ibandronate 150 mg tablet 150 mg PO QMONTH 09/06/24 oxybutynin chloride 10 mg tablet,extended release 24 hr 10 mg PO DAILY 09/06/24 nitrofurantoin monohydrate/macrocrystals 100 mg capsule (Macrobid) 100 mg PO BID 5 days #10 caps 09/07/24 Hospital Course Operations None Procedures - (CT abdomen pelvis) Summary of Care Provided Minutes Spent on Discharge: 35 Hospital Course: Patient is a 79-year-old female who presented [facility] ED on 09/06/2024 with worsening mid to low back pain with debility. Short hospital course as noted below. Patient discharged home with home health care in stable condition on 09/07. 1. Intractable mid to low back pain after mechanical fall with acute on chronic debility, improving ??? PT/OT/case management followed. CT abdomen pelvis showed grade 2 anterior listhesis of L4 on L5 with other degenerative changes of the spine. Patient much improved from a pain standpoint on hospital day 2 with pain medication and treatment of UTI as below. Stable for discharge home with home health care on hospital day 2. Recommended Tylenol as needed and lidocaine patches as needed on discharge for back pain. 2. UTI ??? UA with positive nitrites, 500 leukocyte esterase, 3+ bacteria. Urine culture pending on discharge. Prior urine culture data showed E. coli that was largely pansensitive. Will treat with Macrobid for 5-day course of antibiotics total on discharge. Chronic medical conditions: ??? Class III obesity: BMI 57 on admit. Complicated hospital course, care and prognosis. Recommended weight loss. ??? History of liver cirrhosis with portal hypertensive gastropathy: Continue home ursodiol. ??? Chronic anemia: Hemoglobin stable at baseline around 10 during admission. ??? GERD with Reyes's esophagus: Continue home PPI. ??? Hyperlipidemia: Continue home statin. ??? Depression: Continue home sertraline. ??? Paroxysmal A-fib: Continue home Xarelto and diltiazem. ??? Overactive bladder: Continue home oxybutynin. Total clinical time spent by myself addressing the patient's medical issues, reviewing all the data, and collaborating with patient's care team: 35 minutes. Physical Exam Const alert, oriented x3 and no apparent distress Constitutional Narrative: Elderly female, class III obesity, energy improved from admission, sitting back comfortably in bedside chair, conversing normally, in no acute distress. General Appearance: cooperative and comfortable HEENT normocephalic, head/scalp atraumatic, hearing grossly normal bilaterally, nasal mucous membranes and turbinates normal and moist oral mucous membranes Eyes PERRL, EOMs intact bilaterally and conjunctivae normal Neck full ROM Chest inspection of chest normal Resp normal respiratory effort, normal air movement, no use of accessory muscles and clear to auscultation bilaterally Cardio regular rate, regular rhythm, no murmurs and peripheral pulses 2+ throughout GI normal to inspection, nondistended, normoactive bowel sounds, soft to palpation, non-tender and non- distended Back/Spine normal ROM Extremity normal to inspection, full ROM and no pedal edema Skin no rashes or lesions noted Psych mental status grossly normal Weight / BMI Weight Weight: 133.447 kg Body Mass Index (BMI) 57.4 ABG / Lab / Microbiology Data 09/07/24 06 (more content not included)...[facility]04-02-2025 Progress note Author [facility] Luis Carlos [facility] Note Date/Time September 07, 2024 4:06 am [facility] Medical Records Department [address] [place] [address] Progress Note - Hospitalist 09/07/24404 MR#: [id number] Acct: [id number] Name: RADHA PACE Rep #:[id number] : 1945 79 From: Aliza Aldridge MD PCP: Dr. Angy Anand, DO Status:AD M RITA Location: [place] [address] Hospitalist Note UA notable, UCx requested, starting IV rocephin. 09/07/24405 <Electronically signed by Aliza Aldridge MD> Cosigner Signature (if applicable): CC: ~ Signed [facility] Work Phone: 1(427) 149-310704-02-2025 Progress note [facility] Medical Records Department [address] [place] [address] Progress Note - Hospitalist 09/07/24404 MR#: [id number] Acct: [id number] Name: BEATRIZSTEPHENRADHA Lobito Rep #:[id number] : 1945 79 From: Aliza Aldridge MD PCP: Dr. Angy Anand, DO Status:AD M RITA Location: [place] [address] Hospitalist Note UA notable, UCx requested, starting IV rocephin. 09/07/24405 Cosigner Signature (if applicable): CC: ~ Signed [facility]04-01-2025 History and physical note Author Kim Vargas [facility] Note Date/Time September 06, 2024 7:53 pm [facility] Medical Records Department [address] [place] [address] H&P Exam - Hospitalist 09/06/24 1316 MR#: [id number] Acct: [id number] Name: RADHA PACE Rep #:[id number] : 1945 79 From: Kim Vargas MD PCP: Dr. Angy Anand, DO Status:AD M RITA Location: [facility] [id number] HPI - General General Date of Admission: 09/06/24 Date of Service: 09/06/24 Chief Complaint: intractable lower back pain HPI Narrative RADHA PACE, is a 79 F with a PMH as outlined who presents via the ED on 09/06/2024 with a complaint of intractable lower back pain. The pain started on the morning of admission and was mainly across her lower back. She admitted to [facility] 2 days prior to admission after she got out of bed too quickly and tumbled,landing on her right side. She called the EMS for help to get off the floor at that time. She did not havae any pain then, but subsequently started having severe back pain as stated above. She was unable to ambulate. She denied any fever, chills, chest pain,palpitations, dizziness, nausea or vomiting or any other symptoms. Review of systems was otherwise negative. Vitals in [facility] ED were BP of 137/68, DE of 78, RR of 18 and oxygen sats of 98% onroom air. CBC showed Hb of 11, wbc of 4.2, platelets of 158. Chemistry was unremarkable. CT of the abdomen and pelvis showed bibasilar atelectasis with hematomegaly and findings suggestive of cirrhosis and fatty infiltration, with small amount of perihepatic fluid and questionable tiny right adrenal adenoma; she had grade 2 anterior listhesis of L4 on L5. She is being admitted to be managed for intractable back pain likely due to mechanical fall. [facility] Medical History Wears hearing aid Wears dentures Easy bruising Shortness of breath on exertion History of pain when walking Intertriginous candidiasis Iron deficiency anemia Wears glasses Post-menopausal Arthritis Walker as ambulation aid Back pain CPAP (continuous positive airway pressure) dependence Gastric reflux Former smoker Leg cramps History of echocardiogram History of stress test Cardiology follow-up encounter History of atrial fibrillation Reyes's esophagus Aortic stenosis GI bleed ROBBINS (nonalcoholic steatohepatitis) Urinary incontinence Morbid obesity GERD (gastroesophageal reflux disease) Depression High cholesterol Hypertension Atrial fibrillation Home Medications ?Medication ?Instructions ?Recorded ?Last Taken ?Type atorvastatin 20 mg tablet 20 mg PO QHS CHOLESTEROL 11/2309/05/24 History multivitamin with folic acid 400 1 tab PO DAILY SUPPLE MENT 05/13/18 09/05/24 History mcg tablet (Thera) pantoprazole 40 mg tablet,delayed 40 mg PO DAILY GERD 05/13/18 09/05/24 History release rivaroxaban 20 mg tablet (Xarelto) 20 mg PO DAILY AFIB 05/13/18 09/05/24 History sertraline 25 mg tablet (Zoloft) 25 mg PO QHS DEPRESSI ON 05/13/18 09/05/24 History cholecalciferol (vitamin D3) 125 125 mcg PO QHS 09/05/24 History mcg (5,000 unit) tablet cyanocobalamin (vitamin B-12) 500 500 mcg PO QHS 06/2609/05/24 History mcg tablet (Vitamin B-12) ursodiol 250 mg tablet 250 mg PO BID #60 tabs 02/1109/05/24 Rx diltiazem HCl 240 mg capsule,24 240 mg PO DAILY 09/05/24 History hr,extended release (Tiadylt ER) ibandronate 150 mg tablet 150 mg PO QMONTH 09/06/24 Un known History oxybutynin chloride 10 mg 10 mg PO DAILY 09/06/2408/08 History tablet,extended release 24 hr Allergy/AdvReac Type Severity Reaction Status Date / Time morphine AdvReac Other Verified 09/06/24 08:59 Surgical History Hx of right cataract extraction Hx of left cataract extraction History of esophagogastroduodenoscopy (EGD) History of carpal tunnel repair Hx of cystostomy Hx of tubal ligation Hx of hysterectomy Hx of total knee replacement History of carpal tunnel surgery of left wrist Hx of hernia repair Hx of cholecystectomy Social History Smoking Status: Former smoker alcohol intake: never substance use type: does not use ROS Constitutional Constitutional: Reports fatigue, malaise and weakness; Denies anorexia, chills or fever(s) Eyes Eyes: Denies change in vision ENT HEENT: Denies dysphagia or headache(s) Cardiovascular Cardiovascular: Denies chest pain, dyspnea on exertion, edema, lightheadedness, orthopnea, palpitations, paroxysmal nocturnal dyspnea or rapid heart rate Respiratory/Chest Respiratory/Chest: Denies cough, dyspnea, productive cough, shortness of breath at rest or shortness of breath with exertion Gastrointestinal Gastrointestinal: Denies abdominal pain, constipation, diarrhea, nausea or vomiting Genitourinary Genitourinary: Denies dysuria or urinary frequency Musculoskeletal Musculoskeletal: Reports back pain; Denies arthralgias, joint pain, joint stiffness, joint swelling, myalgias or neck pain Neurologic Neurologic: Denies confusion, dizziness, focal weakness, headache(s), numbness, seizure-like activity or syncope Psychiatric Psychiatric: Denies anxiety or depression Vital Signs Vital Signs Vital Signs: 09/06/24 08:54 09/06/24 11:07 09/06/24 13:00 Temperature 97.7 F L Temperature Source Oral Pulse Rate 69 78 Respiratory Rate 17 18 Blood Pressure 152/82 H 130/78 H 137/68 H Blood Pressure Mean 105 95 91 Pulse Ox 92 98 Oxygen Delivery Method Nasal Cannula Oxygen Flow Rate (L/min) 2 Weight Weight: 294 lb 3.2 oz Body Mass Index (BMI) 57.4 Physical Exam Const alert, oriented x3 and no apparent distress Constitutional Narrative: class III obesity General Appearance: cooperative HEENT normocephalic, head/scalp atraumatic, hearing grossly normal bilaterally and moist oral mucous membranes Mouth: oral and palatal mucosa normal Eyes PERRL, EOMs intact bilaterally and conjunctivae normal Neck no lymphadenopathy and supple Resp normal respiratory effort, no retractions, no use of accessory muscles and clearto auscultation bilaterally Cardio regular rate, regular rhythm, S1 normal heart sound and S2 normal heart sound GI normal to inspection, nondistended, normoactive bowel sounds, soft to palpation,non-tender and non-distended Extremity normal to inspection, full ROM and no clubbing, cyanosis or edema Neuro oriented x3, CN's II-XII intact bilaterally, moves all extremities and no focal motor deficits Sensorium / Orientation: awake and alert Motor Exam: strength 5/5 throughout Psych affect normal Results Lab / Micro Data 09/06/24 09:45 09/06/24 09:45 Labs: Laboratory Results - last 24 hr 09/06/24 09:45: WBC 4.2 L, RBC 3.59 L, Hgb 11.0 L, Hct 33.9 L, MCV 94.4, MCH 30.6, MCHC 32.4, RDW Std Deviation 50.5 H, RDW Coeff of Sharath 14.6, Plt Count 158,MPV 10.4, Immature Gran % (Auto) 0.200, Neut % (Auto) 59.6, Lymph % (Auto) 24.0,Greene % (Auto) 11.6 H, Eos % (Auto) 2.9, Baso % (Auto) 1.7 H, Absolute Neuts (auto) 2.5, Absolute Lymphs (auto) 1.01, Nucleated RBC % 0, Sodium 142, Potassium 3.9, Chloride 108, Carbon Dioxide 24.0, Anion Gap 11, BUN 15, Creatinine 0.74, Estim Creat Clear Calc 72.62, Est GFR (MDRD) Non-Af 83, BUN/Creatinine Ratio 20.3 H, Glucose 106 H, Calcium 10.2, Total Bilirubin 0.57, AST 28, ALT 13, Alkaline Phosphatase 90, Total Protein 7.5, Albumin 4.0, Globulin 3.5, Albumin/Globulin Ratio 1.1, Lipase 34 Imaging Radiology Impression Abdomen/Pelvis CT 09/06/24 10:07 IMPRESSION: Bibasilar atelectasis. Hepatomegaly with findings suggestive of cirrhosis and fatty infiltration. Small amount of perihepatic fluid. Questionable tiny right adrenal adenoma. Status post cholecystectomy. Increased markings in the subcutaneous fat overlying the lower anterior abdominal wall suggestive of edema. Tiny nonobstructive right intrarenal calculus. Reading Location: [id number] Assessment & Plan Assessment/Plan (1) Acute low back pain: (2) Debility: (3) Intractable back pain: PLAN: Plan #Intractable low back pain due to mechanical fall * Admit to [facility] send observation. * Complains of intractable low back pain was started this morning and has not been improving. She did have a mechanical fall about 3 days prior to admission. * CT of the abdomen pelvis shows no evidence of fracture but shows grade 2-3 spondylolisthesis. It also showed hepatomegaly with evidence of cirrhosis. * P.o. Tylenol and p.o. oxycodone as well as IV morphine as needed for pain. Lidocaine patch once daily * Consult PT OT. Fall precautions. * #History of liver cirrhosis with portal hypertensive gastropathy * On ursodiol #History of anemia: Stable #GERD with Reyes's esophagus: On PPI #Hyperlipidemia: Statin #A-fib: On Cardizem. Also on Xarelto for DVT prophylaxis. CODE STATUS: Full code * Patient counseled extensively about different types of CODE STATUS including full code, DNR CCA and DNR CCA. Patient elects to be full code. * Total [id number] time 16 minutes. Charges/Coding Visit Charges Inpatient E&M: 67526 Init Hosp L3 Procedures Hospitalists Procedures: 20055 Advncd Care Plan 30 Min 09/06/241952 <Electronically signed by Kim Vargas MD> Cosigner Signature (if applicable): CC: Dr. Angy Anand DO; Dr. Kim Vargas MD~ Signed [facility] Work Phone: 1(437) 740-598804-01-2025 History and physical note [facility] Medical Records Department [facility] [place] [address] H&P Exam - Hospitalist 09/06/24 1316 MR#: [id number] Acct: [id number] Name: RADHA PACE Rep #:[id number] : 1945 79 From: Kim Vargas MD PCP: Dr. Angy Anand DO Status:AD M RITA Location: [facility] [id number] HPI - General General Date of Admission: 09/06/24 Date of Service: 09/06/24 Chief Complaint: intractable lower back pain HPI Narrative RADHA PACE, is a 79 F with a PMH as outlined who presents via the ED on 09/06/2024 with a complaint of intractable lower back pain. The pain started on the morning of admission and was mainly across her lower back. She admitted to [facility] 2 days prior to admission after she got out of bed too quickly and tumbled,landing on her right side. She called the EMS for help to get off the floor at that time. She did not havae any pain then, but subsequently started having severe back pain as statedabove. She was unable to ambulate. She denied any fever, chills, chest pain,palpitations, dizziness, nausea or vomiting or any other symptoms. Review of systems was otherwise negative. Vitals in [facility] ED were BP of 137/68, DE of 78, RR of 18 and oxygen sats of 98% onroom air. CBC showed Hb of 11, wbc of 4.2, platelets of 158. Chemistry was unremarkable. CT of the abdomen and pelvis showed bibasilar atelectasis with hematomegaly and findings suggestive of cirrhosis and fatty infiltration, with small amount of perihepatic fluid and questionable tiny right adrenal adenoma; she had grade 2 anterior listhesis of L4 on L5. She is being admitted to be managed for intractable back painlikely due to mechanical fall. [facility] Medical History Wears hearing aid Wears dentures Easy bruising Shortness of breath on exertion History of pain when walking Intertriginous candidiasis Iron deficiency anemia Wears glasses Post-menopausal Arthritis Walker as ambulation aid Back pain CPAP (continuous positive airway pressure) dependence Gastric reflux Former smoker Leg cramps History of echocardiogram History of stress test Cardiology follow-up encounter History of atrial fibrillation Reyes's esophagus Aortic stenosis GI bleed ROBBINS (nonalcoholic steatohepatitis) Urinary incontinence Morbid obesity GERD (gastroesophageal reflux disease) Depression High cholesterol Hypertension Atrial fibrillation Home Medications ?Medication ?Instructions ?Recorded ?Last Taken ?Type atorvastatin 20 mg tablet 20 mg PO QHS CHOLESTEROL 11/2309/05/24 History multivitamin with folic acid 400 1 tab PO DAILY SUPPLE MENT 05/13/18 09/05/24 History mcg tablet (Thera) pantoprazole 40 mg tablet,delayed 40 mg PO DAILY GERD 05/13/18 09/05/24 History release rivaroxaban 20 mg tablet (Xarelto) 20 mg PO DAILY AFIB 05/13/18 09/05/24 History sertraline 25 mg tablet (Zoloft) 25 mg PO QHS DEPRESSI ON 05/13/18 09/05/24 History cholecalciferol (vitamin D3) 125 125 mcg PO QHS 09/05/24 History mcg (5,000 unit) tablet cyanocobalamin (vitamin B-12) 500 500 mcg PO QHS 06/2609/05/24 History mcg tablet (Vitamin B-12) ursodiol 250 mg tablet 250 mg PO BID #60 tabs 02/1109/05/24 Rx diltiazem HCl 240 mg capsule,24 240 mg PO DAILY 09/05/24 History hr,extended release (Tiadylt ER) ibandronate 150 mg tablet 150 mg PO QMONTH 09/06/24 Un known History oxybutynin chloride 10 mg 10 mg PO DAILY 09/06/2408/08 History tablet,extended release 24 hr Allergy/AdvReac Type Severity Reaction Status Date / Time morphine AdvReac Other Verified 09/06/24 08:59 Surgical History Hx of right cataract extraction Hx of left cataract extraction History of esophagogastroduodenoscopy (EGD) History of carpal tunnel repair Hx of cystostomy Hx of tubal ligation Hx of hysterectomy Hx of total knee replacement History of carpal tunnel surgery of left wrist Hx of hernia repair Hx of cholecystectomy Social History Smoking Status: Former smoker alcohol intake: never substance use type: does not use ROS Constitutional Constitutional: Reports fatigue, malaise and weakness; Denies anorexia, chills or fever(s) Eyes Eyes: Denies change in vision ENT HEENT: Denies dysphagia or headache(s) Cardiovascular Cardiovascular: Denies chest pain, dyspnea on exertion, edema, lightheadedness, orthopnea, palpitations, paroxysmal nocturnal dyspnea or rapid heart rate Respiratory/Chest Respiratory/Chest: Denies cough, dyspnea, productive cough, shortness of breath at rest or shortness of breath with exertion Gastrointestinal Gastrointestinal: Denies abdominal pain, constipation, diarrhea, nausea or vomiting Genitourinary Genitourinary: Denies dysuria or urinary frequency Musculoskeletal Musculoskeletal: Reports back pain; Denies arthralgias, joint pain, joint stiffness, joint swelling, myalgias or neck pain Neurologic Neurologic: Denies confusion, dizziness, focal weakness, headache(s), numbness, seizure-like activity or syncope Psychiatric Psychiatric: Denies anxiety or depression Vital Signs Vital Signs Vital Signs: 09/06/24 08:54 09/06/24 11:07 09/06/24 13:00 Temperature 97.7 F L Temperature Source Oral Pulse Rate 69 78 Respiratory Rate 17 18 Blood Pressure 152/82 H 130/78 H 137/68 H Blood Pressure Mean 105 95 91 Pulse Ox 92 98 Oxygen Delivery Method Nasal Cannula Oxygen Flow Rate (L/min) 2 Weight Weight: 294 lb 3.2 oz Body Mass Index (BMI) 57.4 Physical Exam Const alert, oriented x3 and no apparent distress Constitutional Narrative: class III obesity General Appearance: cooperative HEENT normocephalic, head/scalp atraumatic, hearing grossly normal bilaterally and moist oral mucous membranes Mouth: oral and palatal mucosa normal Eyes PERRL, EOMs intact bilaterally and conjunctivae normal Neck no lymphadenopathy and supple Resp normal respiratory effort, no retractions, no use of accessory muscles and clearto auscultation bilaterally Cardio regular rate, regular rhythm, S1 normal heart sound and S2 normal heart sound GI normal to inspection, nondistended, normoactive bowel sounds, soft to palpation,non-tender and non-distended Extremity normal to inspection, full ROM and no clubbing, cyanosis or edema Neuro oriented x3, CN's II-XII intact bilaterally, moves all extremities and no focal motor deficits Sensorium / Orientation: awake and alert Motor Exam: strength 5/5 throughout Psych affect normal Results Lab / Micro Data 09/06/24 09:45 09/06/24 09:45 Labs: Laboratory Results - last 24 hr 09/06/24 09:45: WBC 4.2 L, RBC 3.59 L, Hgb 11.0 L, Hct 33.9 L, MCV 94.4, MCH 30.6, MCHC 32.4, RDW Std Deviation 50.5 H, RDW Coeff of Sharath 14.6, Plt Count 158,MPV 10.4, Immature Gran % (Auto) 0.200, Neut % (Auto) 59.6, Lymph % (Auto) 24.0,Greene % (Auto) 11.6 H, Eos % (Auto) 2.9, Baso % (Auto) 1.7 H, Absolute Neuts (auto) 2.5, Absolute Lymphs (auto) 1.01, Nucleated RBC % 0, Sodium 142, Potassium 3.9,Chloride 108, Carbon Dioxide 24.0, Anion Gap 11, BUN 15, Creatinine 0.74, Estim Creat Clear Calc 72.62, Est GFR (MDRD) Non-Af 83, BUN/Creatinine Ratio 20.3 H, Glucose 106 H, Calcium 10.2, Total Bilirubin 0.57, AST 28, ALT 13, Alkaline Phosphatase 90, Total Protein 7.5, Albumin 4.0, Globulin 3.5, Albumin/Globulin Ratio 1.1, Lipase 34 Imaging Radiology Impression Abdomen/Pelvis CT 09/06/24 10:07 IMPRESSION: Bibasilar atelectasis. Hepatomegaly with findings suggestive of cirrhosis and fatty infiltration. Small amount of perihepatic fluid. Questionable tiny right adrenal adenoma. Status post cholecystectomy. Increased markings in the subcutaneous fat overlying the lower anterior abdominal wall suggestive of edema. Tiny nonobstructive right intrarenal calculus. Reading Location: [id number] Assessment & Plan Assessment/Plan (1) Acute low back pain: (2) Debility: (3) Intractable back pain: PLAN: Plan #Intractable low back pain due to mechanical fall * Admit to [facility] send observation. * Complains of intractable low back pain was started this morning and has not been improving. She did have a mechanical fall about 3 days prior to admission. * CT of the abdomen pelvis shows no evidence of fracture but shows grade 2-3 spondylolisthesis. It also showed hepatomegaly with evidence of cirrhosis. * P.o. Tylenol and p.o. oxycodone as well as IV morphine as needed for pain. Lidocaine patch once daily * Consult PT OT. Fall precautions. * #History of liver cirrhosis with portal hypertensive gastropathy * On ursodiol #History of anemia: Stable #GERD with Reyes's esophagus: On PPI #Hyperlipidemia: Statin #A-fib: On Cardizem. Also on Xarelto for DVT prophylaxis. CODE STATUS: Full code * Patient counseled extensively about different types of CODE STATUS including full code, DNR CCA and DNR CCA. Patient elects to be full code. * Total sypi-ha-diwl time 16 minutes. Charges/Coding Visit Charges Inpatient E&M: 06151 Init Hosp L3 Procedures Hospitalists Procedures: 29381 Advncd Care Plan 30 Min 09/06/241952 Cosigner Signature (if applicable): CC: Dr. Angy Anand DO; Dr. Kim Vargas MD~ Signed [facility]04-01-2025 Discharge summary Author David Grimm [facility] Note Date/Time September 06, 2024 5:32 pm [facility] Medical Records Department [address] [place] [address] Emergency Department Summary 09/06/24 MR#: [id number] Acct: [id number] Name: RADHA PACE Rep #:[id number] : 1945 79 From: David Grimm MD PCP: Dr. Angy Anand DO Status:AD M RITA Location: [place] [address] HPI History of Present Illness Chief Complaint: Back Informant: patient and EMS Narrative Narrative: 79-year-old female presenting with pain across her mid back. She woke up with it this morning. She states her abdomen is a little uncomfortable but she does not have any major abdominal pain. She states the pain is making it hard for her to breathe but she states this does not feel like sciatica that she had in the past and it does not feel like a lung or chest issue and she has no chest pain. She states she had an accidental fall 2 days ago. It was early in the morning, she states she got out of bed too quickly and stumbled and fell onto her right side, she called EMS only for lift assist, they helped her up she had no pain, she did not present to the ED for any reason. She states the next day,she went to a doctor's appointment, she drove, she went home after the appointment, used her walker to walk around, she had no pain until she got up this morning. She is anticoagulated with Xarelto because of history of A-fib. [facility] Medical History Wears hearing aid Wears dentures Easy bruising Shortness of breath on exertion History of pain when walking Intertriginous candidiasis Iron deficiency anemia Wears glasses Post-menopausal Arthritis Walker as ambulation aid Back pain CPAP (continuous positive airway pressure) dependence Gastric reflux Former smoker Leg cramps History of echocardiogram History of stress test Cardiology follow-up encounter History of atrial fibrillation Reyes's esophagus Aortic stenosis GI bleed ROBBINS (nonalcoholic steatohepatitis) Urinary incontinence Morbid obesity GERD (gastroesophageal reflux disease) Depression High cholesterol Hypertension Atrial fibrillation Home Medications ?Medication ?Instructions ?Recorded ?Last Taken ?Type atorvastatin 20 mg tablet 20 mg PO QHS CHOLESTEROL 11/23 Unknown History diltiazem HCl 180 mg 240 mg PO DAILY BP 05/13/18 04/28/24 History capsule,extended release 24 hr multivitamin with folic acid 400 1 tab PO DAILY SUPPLE MENT 05/13/18 Unknown History mcg tablet (Thera) pantoprazole 40 mg tablet,delayed 40 mg PO DAILY PRN G ERD 05/13/18 04/28/24 History release rivaroxaban 20 mg tablet (Xarelto) 20 mg PO QHS AFIB 1 07/14/17 04/24/24 History sertraline 25 mg tablet (Zoloft) 25 mg PO DAILY DEPRES TOYA 05/13/18 Unknown History cholecalciferol (vitamin D3) 125 125 mcg PO DAILY 11/26 Unknown History mcg (5,000 unit) tablet cyanocobalamin (vitamin B-12) 500 500 mcg PO DAILY Unknown History mcg tablet (Vitamin B-12) ursodiol 250 mg tablet 250 mg PO BID #60 tabs 02/11 Unknown Rx ibandronate 150 mg tablet 150 mg PO QMONTH 09/06/24 Un known History oxybutynin chloride 10 mg 10 mg PO DAILY 09/06/24 Unkn own History tablet,extended release 24 hr Allergy/AdvReac Type Severity Reaction Status Date / Time morphine AdvReac Other Verified 09/06/24 08:59 Surgical History Hx of right cataract extraction Hx of left cataract extraction History of esophagogastroduodenoscopy (EGD) History of carpal tunnel repair Hx of cystostomy Hx of tubal ligation Hx of hysterectomy Hx of total knee replacement History of carpal tunnel surgery of left wrist Hx of hernia repair Hx of cholecystectomy Social History Smoking Status: Former smoker alcohol intake: never substance use type: does not use ROS ROS ED Constitutional Constitutional ED: Denies chills or fever(s) Eyes Eyes: Denies change in vision or diplopia ENT ENT ED: Denies rhinorrhea or sore throat Cardiovascular Cardiovascular: Denies chest pain or palpitations Respiratory/Chest Respiratory/Chest: Denies cough or dyspnea Gastrointestinal Gastrointestinal: Reports as per HPI and abdominal pain; Denies diarrhea, hematemesis, hematochezia, nausea or vomiting Genitourinary Genitourinary ED: Denies dysuria or hematuria Musculoskeletal Musculoskeletal: Reports back pain; Denies neck pain Integumentary Denies abscess or rash Neurologic Neurologic: Denies headache(s), paresthesias or weakness Psychiatric Psychiatric: Denies suicidal thoughts EXAM Physical Exam Const Vital Signs: 09/06/24 08:54 09/06/24 11:07 Temperature 97.7 F L Temperature Source Oral Pulse Rate 69 Respiratory Rate 17 Blood Pressure 152/82 H 130/78 H Blood Pressure Mean 105 95 Pulse Ox 92 Oxygen Delivery Method Nasal Cannula Oxygen Flow Rate (L/min) 2 Positive well nourished, well developed and obese General Appearance ED: well developed and NAD Nutritional Appearance: obese HEENT Reports moist mucous membranes normocephalic and atraumatic Eyes PERRL and EOMs intact bilaterally Neck full ROM and supple Resp normal respiratory effort and clear to auscultation bilaterally Resp Narrative: Diminished throughout, symmetrically, clear Cardio regular rate, regular rhythm and no murmurs GI non-tender and non-distended GI Narrative: No Cj sign or Lopez Wilson sign, normal inspection, obesity limits exam Auscultation: normoactive bowel sounds Palpation: soft Back/Spine no CVA tenderness Back/Spine Narrative: There is no midline tenderness throughout the back. Patient indicates that her pain is in the mid-lower thoracic area, around T8 or 9 level. There is no midline tenderness. She states she has pain clear across, but the only area sheis tender is right paraspinal at this level and just mildly, she is in more painthan she is tender. Inspection is normal no rash. No lumbar tenderness. General Back: other Limited range of motion due to pain Extremity normal to inspection General Extremety ED: Yes edema; Negative for pulses abnormal or tenderness General Extremity: edema bilateral lower extremity Details: mild (With bilateralsymmetric changes of chronic stasis dermatitis. No tenderness. Lots of venous varicosities bilaterally.); Negative for pulses abnormal Neuro oriented x3, CN's II-XII intact bilaterally and no sensory deficits noted Sensorium / Orientation: awake and alert Motor Exam: strength 5/5 throughout Skin no rashes or lesions noted and no wounds MDM MDM MDM Narrative Medical decision making narrative: Given the patient's anticoagulated state, delayed pain after a fall, pain mostlyin her back and some vague abdominal discomfort, obtain labs and a CT mainly to rule out retroperitoneal hematoma/injury. This was negative, it was a contrasted study. I reviewed the images and the report which I agree with. Chronic findings are noted. Her blood counts are stable. She was given severaldoses of pain medication additional muscle relaxers to try to help relieve/improve her pain, but despite this she was still unable to mobilize in order to function at home on her own where she lives by herself. She so far hasnot yet been able to provide us a urine specimen, and she does not want the nurse to catheterize her which I think is fine that can wait, I think this is less likely urinary issue. Plan is for admission given the above. I do think that the pain is musculoskeletal given the negative imaging. Lab Data Attestation: I reviewed the patient's lab results. Labs: Laboratory Results - last 24 hr 09/06/24 09:45 WBC 4.2 L RBC 3.59 L Hgb 11.0 L Hct 33.9 L MCV 94.4 MCH 30.6 MCHC 32.4 RDW Std Deviation 50.5 H RDW Coeff of Sharath 14.6 Plt Count 158 MPV 10.4 Immature Gran % (Auto) 0.200 Neut % (Auto) 59.6 Lymph % (Auto) 24.0 Greene % (Auto) 11.6 H Eos % (Auto) 2.9 Baso % (Auto) 1.7 H Absolute Neuts (auto) 2.5 Absolute Lymphs (auto) 1.01 Nucleated RBC % 0 Sodium 142 Potassium 3.9 Chloride 108 Carbon Dioxide 24.0 Anion Gap 11 BUN 15 Creatinine 0.74 Estim Creat Clear Calc 72.62 Est GFR (MDRD) Non-Af 83 BUN/Creatinine Ratio 20.3 H Glucose 106 H Calcium 10.2 Total Bilirubin 0.57 AST 28 ALT 13 Alkaline Phosphatase 90 Total Protein 7.5 Albumin 4.0 Globulin 3.5 Albumin/Globulin Ratio 1.1 Lipase 34 Radiography Diagnostic Testing: Clinical Impression(s) from Imaging Studies Abdomen/Pelvis CT 09/06/24 10:07 IMPRESSION: Bibasilar atelectasis. Hepatomegaly with findings suggestive of cirrhosis and fatty infiltration. Small amount of perihepatic fluid. Questionable tiny right adrenal adenoma. Status post cholecystectomy. Increased markings in the subcutaneous fat overlying the lower anterior abdominal wall suggestive of edema. Tiny nonobstructive right intrarenal calculus. Reading Location: [id number] Management Discussion w/another healthcare provider: Hospitalist Discharge Plan Triage Chief Complaint: Back ED Provider: David Grimm Dx/Rx/DC Orders Clinical Impression: Intractable back pain, Debility, Acute low back pain Prescriptions: No Action ursodiol 250 mg tablet 250 mg PO BID Qty: 60 4RF atorvastatin 20 MG tablet 20 mg PO QHS diltiazem HCl 180 MG capsule 240 mg PO DAILY Xarelto 20 MG tablet 20 mg PO QHS Patient Comments: WAS TOLD TO STOP 2 DAYS BEFORE SURGERY multivitamin with folic acid [Thera] 1 TABLET tablet 1 tab PO DAILY pantoprazole 40 MG tablet 40 mg PO DAILY PRN (Reason: GERD) sertraline [Zoloft] 25 MG tablet 25 mg PO DAILY cholecalciferol (vitamin D3) 125 mcg (5,000 unit) Tablet 125 mcg PO DAILY cyanocobalamin (vitamin B-12) [Vitamin B-12] 500 mcg Tablet 500 mcg PO DAILY oxybutynin chloride 10 mg tablet extended release 24hr 10 mg PO DAILY ibandronate 150 mg tablet 150 mg PO QMONTH Primary Care Provider: Angy Anand Referrals: Angy Anand DO [Primary Care Provider] - Print Language: Nigerian Disposition Disposition: Acute Care Hospital [facility] What to do if you have Problems For any increased pain, shortness of breath, bleeding, nausea or vomiting, chestpain, or any unexpected problems, contact your Primary Care Provider. Call [facility] ([phone]) or report to the closest Emergency Room. Call 911 if necessary. 09/06/24 8172 <Electronically signed by David Grimm MD> Cosigner Signature (if applicable): CC: Dr. Angy Anand, DO ~ Signed [facility] Work Phone: [phone] 310-896004-01-2025 Discharge summary [facility] Medical Records Department [address] [place] [address] Emergency Department Summary 09/06/24 MR#: [id number] Acct: [id number] Name: RADHA PACE Rep #:[id number] : 1945 79 From: David Grimm MD PCP: Dr. Angy Anand, Status:AD M RITA Location: [facility] [id number] HPI History of Present Illness Chief Complaint: Back Informant: patient and EMS Narrative Narrative: 79-year-old female presenting with pain across her mid back. She woke up with it this morning. She states her abdomen is a little uncomfortable but she does not have any major abdominal pain. She states the pain is making it hard for her to breathe but she states this does not feel like sciatica that she had in the past and it does not feel like a lung or chest issue and she has no chest pain. She states she had an accidental fall 2 days ago. It was early in the morning, she states she got out of bed too quickly and stumbled and fell onto her right side, she called EMS only for lift assist, they helped her up she had no pain, she did not present to the ED for any reason. She states the nextday,she went to a doctor's appointment, she drove, she went home after the appointment, used her walker to walk around, she had no pain until she got up this morning. She is anticoagulated with Xarelto because of history of A-fib. [facility] Medical History Wears hearing aid Wears dentures Easy bruising Shortness of breath on exertion History of pain when walking Intertriginous candidiasis Iron deficiency anemia Wears glasses Post-menopausal Arthritis Walker as ambulation aid Back pain CPAP (continuous positive airway pressure) dependence Gastric reflux Former smoker Leg cramps History of echocardiogram History of stress test Cardiology follow-up encounter History of atrial fibrillation Reyes's esophagus Aortic stenosis GI bleed ROBBINS (nonalcoholic steatohepatitis) Urinary incontinence Morbid obesity GERD (gastroesophageal reflux disease) Depression High cholesterol Hypertension Atrial fibrillation Home Medications ?Medication ?Instructions ?Recorded ?Last Taken ?Type atorvastatin 20 mg tablet 20 mg PO QHS CHOLESTEROL 11/23 Unknown History diltiazem HCl 180 mg 240 mg PO DAILY BP 05/13/18 04/28/24 History capsule,extended release 24 hr multivitamin with folic acid 400 1 tab PO DAILY SUPPLE MENT 05/13/18 Unknown History mcg tablet (Thera) pantoprazole 40 mg tablet,delayed 40 mg PO DAILY PRN G ERD 05/13/18 04/28/24 History release rivaroxaban 20 mg tablet (Xarelto) 20 mg PO QHS AFIB 1 07/14/17 04/24/24 History sertraline 25 mg tablet (Zoloft) 25 mg PO DAILY DEPRES TOYA 05/13/18 Unknown History cholecalciferol (vitamin D3) 125 125 mcg PO DAILY 11/26 Unknown History mcg (5,000 unit) tablet cyanocobalamin (vitamin B-12) 500 500 mcg PO DAILY Unknown History mcg tablet (Vitamin B-12) ursodiol 250 mg tablet 250 mg PO BID #60 tabs 02/11 Unknown Rx ibandronate 150 mg tablet 150 mg PO QMONTH 09/06/24 Un known History oxybutynin chloride 10 mg 10 mg PO DAILY 09/06/24 Unkn own History tablet,extended release 24 hr Allergy/AdvReac Type Severity Reaction Status Date / Time morphine AdvReac Other Verified 09/06/24 08:59 Surgical History Hx of right cataract extraction Hx of left cataract extraction History of esophagogastroduodenoscopy (EGD) History of carpal tunnel repair Hx of cystostomy Hx of tubal ligation Hx of hysterectomy Hx of total knee replacement History of carpal tunnel surgery of left wrist Hx of hernia repair Hx of cholecystectomy Social History Smoking Status: Former smoker alcohol intake: never substance use type: does not use ROS ROS ED Constitutional Constitutional ED: Denies chills or fever(s) Eyes Eyes: Denies change in vision or diplopia ENT ENT ED: Denies rhinorrhea or sore throat Cardiovascular Cardiovascular: Denies chest pain or palpitations Respiratory/Chest Respiratory/Chest: Denies cough or dyspnea Gastrointestinal Gastrointestinal: Reports as per HPI and abdominal pain; Denies diarrhea, hematemesis, hematochezia, nausea or vomiting Genitourinary Genitourinary ED: Denies dysuria or hematuria Musculoskeletal Musculoskeletal: Reports back pain; Denies neck pain Integumentary Denies abscess or rash Neurologic Neurologic: Denies headache(s), paresthesias or weakness Psychiatric Psychiatric: Denies suicidal thoughts EXAM Physical Exam Const Vital Signs: 09/06/24 08:54 09/06/24 11:07 Temperature 97.7 F L Temperature Source Oral Pulse Rate 69 Respiratory Rate 17 Blood Pressure 152/82 H 130/78 H Blood Pressure Mean 105 95 Pulse Ox 92 Oxygen Delivery Method Nasal Cannula Oxygen Flow Rate (L/min) 2 Positive well nourished, well developed and obese General Appearance ED: well developed and NAD Nutritional Appearance: obese HEENT Reports moist mucous membranes normocephalic and atraumatic Eyes PERRL and EOMs intact bilaterally Neck full ROM and supple Resp normal respiratory effort and clear to auscultation bilaterally Resp Narrative: Diminished throughout, symmetrically, clear Cardio regular rate, regular rhythm and no murmurs GI non-tender and non-distended GI Narrative: No Cj sign or Lopez Wilson sign, normal inspection, obesity limits exam Auscultation: normoactive bowel sounds Palpation: soft Back/Spine no CVA tenderness Back/Spine Narrative: There is no midline tenderness throughout the back. Patient indicates that her pain is in the mid-lower thoracic area, around T8 or 9 level. There is no midline tenderness. She states she has pain clear across, but the only area sheis tender is right paraspinal at this level and just mildly, she isin more painthan she is tender. Inspection is normal no rash. No lumbar tenderness. General Back: other Limited range of motion due to pain Extremity normal to inspection General Extremety ED: Yes edema; Negative for pulses abnormal or tenderness General Extremity: edema bilateral lower extremity Details: mild (With bilateralsymmetric changes of chronic stasis dermatitis. No tenderness. Lots of venous varicosities bilaterally.); Negative for pulses abnormal Neuro oriented x3, CN's II-XII intact bilaterally and no sensory deficits noted Sensorium / Orientation: awake and alert Motor Exam: strength 5/5 throughout Skin no rashes or lesions noted and no wounds MDM MDM MDM Narrative Medical decision making narrative: Given the patient's anticoagulated state, delayed pain after a fall, pain mostlyin her back and some vague abdominal discomfort, obtain labs and a CT mainly to rule out retroperitoneal hematoma/injury. This was negative, it was a contrasted study. I reviewed the images and the report which I agree with. Chronic findings are noted. Her blood counts are stable. She was given severaldoses of pain medication additional muscle relaxers to try to help relieve/improve her pain, but despite this she was still unable to mobilize in order to function at home on her own where she lives by herself. She so far hasnot yet been able to provide us a urine specimen, and she does not want the nurse to catheterize her which I think is fine that can wait, I think this is less likely urinary issue. Plan is for admission given the above. I do think that the pain is musculoskeletal given the negative imaging. Lab Data Attestation: I reviewed the patient's lab results. Labs: Laboratory Results - last 24 hr 09/06/24 09:45 WBC 4.2 L RBC 3.59 L Hgb 11.0 L Hct 33.9 L MCV 94.4 MCH 30.6 MCHC 32.4 RDW Std Deviation 50.5 H RDW Coeff of Sharath 14.6 Plt Count 158 MPV 10.4 Immature Gran % (Auto) 0.200 Neut % (Auto) 59.6 Lymph % (Auto) 24.0 Greene % (Auto) 11.6 H Eos % (Auto) 2.9 Baso % (Auto) 1.7 H Absolute Neuts (auto) 2.5 Absolute Lymphs (auto) 1.01 Nucleated RBC % 0 Sodium 142 Potassium 3.9 Chloride 108 Carbon Dioxide 24.0 Anion Gap 11 BUN 15 Creatinine 0.74 Estim Creat Clear Calc 72.62 Est GFR (MDRD) Non-Af 83 BUN/Creatinine Ratio 20.3 H Glucose 106 H Calcium 10.2 Total Bilirubin 0.57 AST 28 ALT 13 Alkaline Phosphatase 90 Total Protein 7.5 Albumin 4.0 Globulin 3.5 Albumin/Globulin Ratio 1.1 Lipase 34 Radiography Diagnostic Testing: Clinical Impression(s) from Imaging Studies Abdomen/Pelvis CT 09/06/24 10:07 IMPRESSION: Bibasilar atelectasis. Hepatomegaly with findings suggestive of cirrhosis and fatty infiltration. Small amount of perihepatic fluid. Questionable tiny right adrenal adenoma. Status post cholecystectomy. Increased markings in the subcutaneous fat overlying the lower anterior abdominal wall suggestive of edema. Tiny nonobstructive right intrarenal calculus. Reading Location: [id number] Management Discussion w/another healthcare provider: Hospitalist Discharge Plan Triage Chief Complaint: Back ED Provider: David Grimm Dx/Rx/DC Orders Clinical Impression: Intractable back pain, Debility, Acute low back pain Prescriptions: No Action ursodiol 250 mg tablet 250 mg PO BID Qty: 60 4RF atorvastatin 20 MG tablet 20 mg PO QHS diltiazem HCl 180 MG capsule 240 mg PO DAILY Xarelto 20 MG tablet 20 mg PO QHS Patient Comments: WAS TOLD TO STOP 2 DAYS BEFORE SURGERY multivitamin with folic acid [Thera] 1 TABLET tablet 1 tab PO DAILY pantoprazole 40 MG tablet 40 mg PO DAILY PRN (Reason: GERD) sertraline [Zoloft] 25 MG tablet 25 mg PO DAILY cholecalciferol (vitamin D3) 125 mcg (5,000 unit) Tablet 125 mcg PO DAILY cyanocobalamin (vitamin B-12) [Vitamin B-12] 500 mcg Tablet 500 mcg PO DAILY oxybutynin chloride 10 mg tablet extended release 24hr 10 mg PO DAILY ibandronate 150 mg tablet 150 mg PO QMONTH Primary Care Provider: Angy Anand Referrals: Angy Anand DO [Primary Care Provider] - Print Language: Nigerian Disposition Disposition: Acute Care Hospital [facility] What to do if you have Problems For any increased pain, shortness of breath, bleeding, nausea or vomiting, chestpain, or any unexpected problems, contact your Primary Care Provider. Call [facility] ([phone]) or report tothe closest Emergency Room. Call 911 if necessary. 09/06/24 9201 Cosigner Signature (if applicable): CC: Dr. Angy Anand DO ~ Signed [facility]04-01-2025 Radiology Diagnostic study note [facility] Imaging Services [address] [place], [place] [address] Abdomen/Pelvis W IV Cont ONLY MR#: [id number] Acct: [id number] Name: RADHA PACE Rep #: [id number] : 1945 F 79 From: Kasi Rivas MD PCP: Dr. Angy Anand DO Status: DE E ER Study:Abdomen/Pelvis W IV Cont ONLY Date of E xam: 09/06/24 Exam# [id number] Ordering Dr: Royer Grimm MD PROCEDURE: ABDOMEN/PELVIS W IV CONT ONLY 09/06/2024 REASON FOR EXAM: BACK PAIN, DIFFUSE ABD DISCOMFORT; ANTICOAG'D TECHNIQUE: Abdomen and pelvis CT with intravenous contrast. Coronal and Sagittal reconstruction series were provided. PATIENT PREPARATION: Per protocol ORAL CONTRAST TYPE: None. CONTRAST: Isovue-300 VOLUME: 100mL One or more dose reduction techniques were used (e.g., Automated exposure control, adjustment of the mA and/or kV according to patient size, use of iterative reconstruction technique. RADIATION DOSE SUMMARY: CTDlvol: 18.5 mGy DLP: 1251.01 mGycm COMPARISON: Comparison is made with prior study dated March 11, 2024. FINDINGS: Lung bases: Mild dependent atelectasis. Cardiomegaly. Calcification of the mitral valve annulus. Coronary artery calcification. Liver: Diffuse fatty infiltration. Hepatomegaly. Nodular hepatic contour suggestive of possible cirrhosis. Small amount of perihepatic fluid. Gallbladder: Surgically absent. Spleen: Normal size. Pancreas: Normal size without evidence of mass surrounding inflammation or ductal dilation. Adrenals: Questionable 1.5 cm right adrenal adenoma at the level of the crux of the right adrenal gland. Kidneys: Mild cortical atrophy. Nonobstructive tiny calculus in the mid lower pole of the right kidney. Bladder: Unremarkable. Reproductive Organs: Prior hysterectomy. Adnexal regions are unremarkable. Bowel: Fecal material is seen within the colon. Appendix: The appendix is not identified. There is no inflammatory process identified in the right lower quadrant to suggest appendicitis. Lymph nodes: Unremarkable. Vasculature: Mild diffuse atherosclerotic calcifications are noted. Peritoneum / Retroperitoneum: There is evidence of increased markings in the subcutaneous fat overlying the lower anterior abdominal wall with skin thickening suggestive of edematous changes of the anterior abdominal wall. Bones: Degenerative changes of the spine. Grade 2 anterior listhesis of L4 on L5. CT/Abdomen/Pelvis W IV Cont ONLY IMPRESSION: Bibasilar atelectasis. Hepatomegaly with findings suggestive of cirrhosis and fatty infiltration. Small amount of perihepatic fluid. Questionable tiny right adrenal adenoma. Status post cholecystectomy. Increased markings in the subcutaneous fat overlying the lower anterior abdominal wall suggestive of edema. Tiny nonobstructive right intrarenal calculus. Reading Location: [id number] CC: Dr. David Grimm MD; Dr. Angy Anand DO ~ Shellfish Manager: Signed [facility]03-31-2025 Evaluation note* Diagnosis Onset Date Resolution Status Admit Date Cirrhosis of liver chronic September 05, 2024 9:14am Acute low back pain acute September 06, 2024 1:29pm Debility acute September 06 1:29pm Intractable back pain acute Sep 1:29pm [facility] Work Phone: 1(779) 635-534003-31-2025 Evaluation note* Diagnosis Onset Date Resolution Status Admit Date Cirrhosis of liver chronic September 05, 2024 9:14am Debility acute September 06 1:29pm Acute low back pain resolved September 06, 2024 1:29pm Intractable back pain resolved Sep 1:29pm [facility] Work Phone: 1(386) 145-620711-21-2024 [facility] Medical Records Department [address] [place] [address] History Physical Exam 04/28/24 0732 MR#: [id number] Acct: [id number] Name: RADHA PACE Rep #: [id number] : 1945 78 From: Arturo Melendez DO PCP: Dr. Angy Anand DO Status:[facility] Location: [place] [address] History and Physical Date of Admission: 04/28/24 Chief Complaint: needs ursodiol refill Details: RADHA PACE, is a 78 F who presents to the office today for ROS Const Constitutional: No fatigue, fever(s) or weight change ENT ENT: No difficulty swallowing Gastro GI: No abdominal pain, belching, bloating, change in bowel habits, change in stool character, coffee ground emesis, constipation, cramping, diarrhea, heartburn, difficulty swallowing, feeling full early, excessive flatus, incontinent of stools, Vomiting blood/hematemesis, Blood in stool, loose stools, Black,tarry stools, nausea/dyspepsia, pain with swallowing, vomiting or other Musc Musculoskeletal: Positive for Arthritis; No joint pain Skin Skin: Positive for itchy eyes; No yellowing of the eye Psych Psychiatric: No anxiety and No depression Endo Endocrine: No fatigue or weight change Aller/Imm Allergy/Immunologic: Positive for itchy eyes Edil/Lymp Hematologic/Lymphatic: Positive for easy bleeding and easy bruising Exam Const General: cooperative and comfortable Nutritional Appearance: obese Orientation: alert, awake and oriented x3 Other: uses a rolling walker Eyes Sclera: sclerae normal Resp Effort Inspection: normal respiratory effort GI Inspection: obesity Palpation: soft Skin General: no jaundice Psych Mood: euthymic mood Assessment and Plan Assessment and Plan (1) Cirrhosis of liver: Status: Chronic Plan: This delightful 77 yr old female prefers a minimalist approach to cirrhosis. Good labs recently. She has no GI complaints. She would like to remain on ursodiol 250 mg bid, refill sent in. She takes lactulose prn. She has had no sign of decompensated liver disease since the last time we saw her. She has a diagnosis of cirrhosis secondary to ROBBINS. Her current MELD is very low at 12. Her child Menjivar score is a child Menjivar A. She has had complications of ascites in the past, renal failure, encephalopathy but currently she has noted no signs and symptoms of decompensated liver disease. She does not have any esophageal d ysphagia. She denies any chest pain or shortness of breath. This is our surveillance follow-up. Recommendations: Upper endoscopy to evaluate upper GI tract for esophageal varices., Check alpha- fetoprotein, get triple phase CT scan to look at the liver to screen for parasellar carcinoma. Encouraged no alcohol, no Tylenol or any other risky behavior that may affect the liver. I have examined the patient and the H P has been reviewed. There are no clinical changes since date of exam. 04/28/24 0732 Cosigner Signature (if applicable): CC: Dr. Angy Anand, ; Arturo Melendez, [facility] Miscellaneous Notes* Telephone Encounter - Gabriele Chin RN - 05/04/2023 9:05 AM EST Patient notified. GABRIELE CHIN RN * Telephone Encounter - Kenya Nice APRN.CNP - 05/04/2023 7:29 AM EST Please let the pt know that her vaginal cultures are negative for infection. Kenya Nice APRN.CNP documented in this encounterK[facility]-24-[facility]23 NoteHNO ID: [id number] Author: Kenya Nice APRN.CNP Service: ? Author Type: Nurse Practitioner Type: Progress Notes Filed: 05/01/2023 8:14 AM Note Text: Radha Pace is a 77 year old female who presents for problem visit vaginal bleeding . HPI: Patient states that about once a month she notices some light pink blood when she urinates. She has been treated for UTI by her primary but will still notice the bleeding and is concerned that it is from the vagina. Patient does complain of some slight vaginal irritation. OB History T2 L2 SAB0 IAB0 Ectopic0 Multiple0 Live Births0 Umbrella Tipper Machine History LMP: Postmenopausal Age at Menarche: Age at First : Age at Menopause: Umbrella Tipper Machine History Comments: Sexual Activity: Not Currently; No partner data on record Contraception: No contraception data on record PAST MEDICAL HISTORY Diagnosis Date Acute upper respiratory infections of unspecified site Anemia, unspecified Atrial fibrillation (HCC) Cellulitis and abscess of finger, unspecified Diseases of tricuspid valve Dizziness and giddiness Edema Elevated blood pressure reading without diagnosis of hypertension Essential hypertension, benign Hypopotassemia Hypoxemia Impaired fasting glucose Iron deficiency anemia, unspecified Lipoprotein deficiencies termite helper (current) use of anticoagulants Lumbago Mitral valve insufficiency and aortic valve insufficiency Morbid obesity (HCC) Nonspecific abnormal results of liver function study Obstructive sleep apnea (adult) (pediatric) Osteoarthrosis, unspecified whether generalized or localized, unspecified site Other and unspecified hyperlipidemia Other lymphedema Other nonspecific abnormal serum enzyme levels Pain in joint, forearm Unspecified acute reaction to stress Unspecified constipation Unspecified urinary incontinence Unspecified urinary incontinence Unspecified venous (peripheral) insufficiency PAST SURGICAL HISTORY Procedure Laterality Date CHOLECYSTECTOMY 04/04/2005 HERNIA REPAIR HX 02/16/2007 HYSTERECTOMY HX 09/23/2011 PAST SURGICAL HISTORY OF 04/04/2005 bilat knee replacements PAST SURGICAL HISTORY OF 04/04/2005 herniorrhaphy PAST SURGICAL HISTORY OF 07/16/2007 D AND C TONSILLECTOMY HX 07/16/2010 TUBAL LIGATION, 07/16/2010 FAMILY HISTORY Problem Relation Age of Onset Cancer Mother ovarian other (rheumatoid arthritis [Other]) Father Colon Cancer Sister Social History Tobacco Use Smoking status: Former Packs/day: 0.30 Years: 4.00 Additional pack years: 0.00 Total pack years: 1.20 Types: Cigarettes Quit date: 03/09/1968 Years since quittin.1 Passive exposure: Never Smokeless tobacco: Never Vaping Use Vaping Use: Never used Substance Use Topics Alcohol use: Yes Comment: on occasion Drug use: Never Current Outpatient Medications Medication Sig diltiazem CR 180 mg 24 hr capsule Take 180 mg by mouth once daily. furosemide 40 mg tablet Take 40 mg by mouth once daily. solifenacin (VESICARE) 10 mg tablet Take 10 mg by mouth once daily. atorvastatin (LIPITOR) 20 mg tablet Take 20 mg by mouth once daily. CALCIUM CITRATE/VITAMIN D3 (CALCIUM CITRATE + D ORAL) Take by mouth. twice daily 630 mg calcium with 500 mg D3 multivitamin tablet Take 1 tablet by mouth once daily. ACETAMINOPHEN (TYLENOL ARTHRITIS ORAL) Take 1 tablet by mouth as needed. ALBUTEROL INHALATION Inhale as instructed. Proventil inhalation as needed MEDICATION, NON-DATABASE albuterol nebulizer as needed CPAP at 2 percent. Also uses home oxygen. XARELTO 20 mg tablet Take 1 tablet by mouth every afternoon. warfarin 2 mg tablet Take 2 mg by mouth daily as directed. total of 5.5 mg daily (Patient not taking: Reported on 05/01/2023) warfarin 5 mg tablet Take 5 mg by mouth daily as directed. total of 5.5 mg daily (Patient not taking: Reported on 05/01/2023) sotalol (BETAPACE) 120 mg tablet Take 120 mg by mouth twice daily. No current facility-administered medications for this visit. Allergies As of Date: 05/01/2023 Allergen Noted Reaction OPIOIDS - MORPHINE ANALOGUES 05/13/2021 Mental Status Change Fully Assessed 05/01/2023 REVIEW OF SYSTEMS Bladder: No dysuria, gross hematuria, +urinary frequency, +urinary urgency +incontinence. Wears a depends Expanded ROS: N/A Allergies and current medication updated:Yes EXAM: Ht [pt unable to stand[ (0.00m) Wt 268 lb 3.2 oz (121.7kg) GENERAL: pleasant, female in no apparent distress HEENT: Normocephalic, atraumatic, mucus membranes moist, and no lesions CHEST: Normal inspiratory effort PELVIC: external genitalia normal, normal Bartholin's glands, urethra, Marina's glands, no vulvar lesions, physiologic discharge present, normal appearing perineal body and perianal region, cervix surgically absent, cystocele 3rd degree BIMANUAL: no adnexal masses, non-tender, and uterus surgically absent NEURO: (more content not included)...[facility]* Diagnosis Onset Date Resolution Status Reyes's esophagus acute Cirrhosis of liver acute GERD (gastroesophageal reflux disease) acute Portal hypertensive gastropathy acute Cirrhosis of liver acute GI bleed acute [facility] Work Phone: Evaluation note* Diagnosis Onset Date Resolution Status Reyes's esophagus acute Cirrhosis of liver acute GERD (gastroesophageal reflux disease) acute Portal hypertensive gastropathy acute Cirrhosis of liver acute GI bleed acute Abdominal distension acute Cirrhosis of liver acute GI bleed acute Iron deficiency anemia acute [facility] Work Phone: Evaluation noteNo assessment information available [facility] Work Phone: Reason for referral (narrative)No reason for referral information availableWCherrington Hospital Work Phone: Summary Purpose Family History No Family History Records FoundNo Family History Records FoundNo Family History Records FoundNo Family History Records Found Advance Directives No Advanced Directives Records Found Advance Directive Response Recorded Date/ Time Living Will Yes June 25 3:02pm Power of Parts Designer Yes June 25, 2021 3:02pm Advance Directive Response Recorded Date/ Time Living Will Yes April 26, 024 5:07pm Power of Parts Designer Yes April 26, 2024 5:07pm Name of Medical Power of Parts Designer SISTER April 26, 2024 5:07pm Advance Directive Response Recorded Date/ Time Living Will Yes June 25 3:02pm Do you have a Healthcare Power of Parts Designer? Yes June 25, 2021 3:02pm Living Will Yes September 06, 2024 8:57am Do you have a Healthcare Power of Parts Designer? Yes September 06, 2024 8:57am Name of Medical Power of Parts Designer Queenie Benedict i September 06, 2024 8:57am Advance Directive Response Recorded Date/ Time Living Will Yes June 25 3:02pm Do you have a Healthcare Power of Parts Designer? Yes June 25, 2021 3:02pm Living Will Yes September 06, 2024 2:27pm Do you have a Healthcare Power of Parts Designer? Yes September 06, 2024 2:27pm Name of Medical Power of Parts Designer Queenie Benedict i September 06, 2024 2:27pm Chief Complaint and Reason for Visit Chief Complaint LIVER - ROBBINS 2 WK FU SCOPE INT LABS 1 M FU CAP ENDO E ORDER Reason for Visit Reyes's esophagus Cirrhosis of liver GERD (gastroesophageal reflux disease) Portal hypertensive gastropathy Cirrhosis of liver GI bleed Chief Complaint 2 WK FU SCOPE INT LABS 1 M FU CAP ENDO E ORDER FU E ORDER Reason for Visit Reyes's esophagus Cirrhosis of liver GERD (gastroesophageal reflux disease) Portal hypertensive gastropathy Cirrhosis of liver GI bleed Abdominal distension Cirrhosis of liver GI bleed Iron deficiency anemia Chief Complaint Admit Date HEART FAILURE July 07, 2024 1 1:55am SCREENING August 03, 2024 2:11pm Chief Complaint Admit Date HEART FAILURE July 07, 2024 1 1:55am SCREENING August 03, 2024 2:11pm 6 M FU September 05, 2024 9:1 4am back September 06, 2024 1:29 pm Reason for Visit Admit Date Cirrhosis of liver September 05, 2024 9:1 4am Acute low back pain September 06, 2024 1:29 pm Debility September 06, 2024 1:29 pm Intractable back pain September 06, 2024 1: 29pm Chief Complaint Admit Date HEART FAILURE July 07, 2024 1 1:55am SCREENING August 03, 2024 2:11pm 6 M FU September 05, 2024 9:1 4am intractable lower back pain, mechanical fall September 06, 2024 1:29pm intractable lower back pain, mechanical fall September 07, 2024 4:05am Reason for Visit Admit Date Cirrhosis of liver September 05, 2024 9:1 4am Debility September 06, 2024 1:29 pm Acute low back pain September 06, 2024 1:29 pm Intractable back pain September 06, 2024 1: 29pm Chief Complaint Admit Date HEART FAILURE July 07, 2024 1 1:55am SCREENING August 03, 2024 2:11pm 6 M FU September 05, 2024 9:1 4am intractable lower back pain, mechanical fall September 06, 2024 1:29pm intractable lower back pain, mechanical fall September 07, 2024 4:05am XRAY October 20, 2024 11:20 am Additional Source Comments INFORMATION SOURCE (unrecogn ized section and content) DATE CREATED AUTHOR 07/14/2020 [facility] DATE CREATED AUTHOR AUTHOR'S ORGANIZ ATION 08/14/2023 [facility] DATE CREATED AUTHOR AUTHOR'S ORGANIZ ATION 12/08/2023 [facility] DATE CREATED AUTHOR AUTHOR'S ORGANIZ ATION 10/21/2024 [facility] Goals (unrecognized section and content) Goals may be documented in a n alternate sectionGoals may be documented in an alternate sectionGoals may be documented in an alternate sectionGoals may be documented in an alternate sectionGoals may be documented in an alternate sectionGoals may be documented in an alternate sectionGoals may be documented in an alternate section Source Comments (unrecognize d section and content) In the event this informatio n is protected by the Federal Confidentiality of Alcohol and Drug Abuse Patient Records regulations: The Federal rules restrict any use of the information to criminally investigate or prosecute any alcohol or drug abuse patient.[facility] Reason for Visit (unrecogniz ed section and content) Reason Comments Results Care Teams (unrecognized sec tion and content) Territory Sales Executive Relationship Specialty Start Date End Date Marita Hernandez MD [id number] [place] [address] PCP - General Internal Medicine 03/18/23 Team Status: Active Member Role Status Dates Dr. Angy Anand DO Primary Care Provider Active Team Status: Inactive Member Role Status Dates Dr. Arturo Melendez DO Attending Provider Active Start: April 28, 2024 End: April 28, 2024 Dr. Angy Anand DO Primary Care Provider Active Start: April 28, 2024 End: April 28, 2024 Dr. Angy Anand DO Referring Provider Active Start: April 28, 2024 End: April 28, 2024 Team Status: Active Member Role Status Dates Dr. Arturo Melendez DO Attending Provider Active Start: April 28, 2024 Dr. Arturo Melendez DO Other Provider Active St art: April 28, 2024 Dr. Angy Anand DO Primary Care Provider Active Start: April 28, 2024 Dr. Angy Anand DO Referring Provider Active Start: April 28, 2024 Team Status: Inactive Member Role Status Dates Dr. Angy Anand DO Primary Care Provider Active Start: July 07, 2024 End: July 07, 2024 Dr. Angy Anand DO Attending Provider Active Start: July 07, 2024 End: July 07, 2024 Dr. Angy Anand DO Referring Provider Active Start: July 07, 2024 End: July 07, 2024 Team Status: Active Member Role Status Dates Dr. Angy Anand DO Primary Care Provider Active Start: July 07, 2024 Dr. Tunde Monterroso MD Attending Provider Active S tart: July 07, 2024 Team Status: Inactive Member Role Status Dates Dr. Angy Anand DO Primary Care Provider Active Start: August 03, 2024 End: August 03, 2024 Dr. Angy Anand DO Attending Provider Active Start: August 03, 2024 End: August 03, 2024 Dr. Angy Anand DO Referring Provider Active Start: August 03, 2024 End: August 03, 2024 Team Status: Inactive Member Role Status Dates Dr. Marita Hernandez MD Referring Provider Active Start: September 05, 2024 End: September 05, 2024 Dr. Arturo Melendez DO Attending Provider Active Start: September 05, 2024 End: September 05, 2024 Dr. Angy Anand DO Primary Care Provider Active Start: September 05, 2024 End: September 05, 2024 Team Status: Active Member Role Status Dates Dr. Angy Anand DO Primary Care Provider Active Start: September 06, 2024 Dr. David Grimm MD Emergency Provider Active Start: September 06, 2024 Dr. Kim Vargas MD Admit Provider Active St art: September 06, 2024 Dr. Kim Vargas MD Attending Provider Active Start: September 06, 2024 Team Status: Inactive Member Role Status Dates Dr. Angy Anand DO Primary Care Provider Active Start: September 06, 2024 End: September 07, 2024 Dr. David Grimm MD Emergency Provider Active Start: September 06, 2024 End: September 07, 2024 Dr. Kim Vargas MD Admit Provider Active St art: September 06, 2024 End: September 07, 2024 Dr. Kim Vargas MD Other Provider Active St art: September 06, 2024 End: September 07, 2024 Dr. Leon Cardenas DO Attending Provider Active Start: September 06, 2024 End: September 07, 2024 Team Status: Active Member Role Status Dates Dr. Angy Anand DO Primary Care Provider Active Start: September 07, 2024 Dr. David Grimm MD Emergency Provider Active Start: September 07, 2024 Dr. Kim Vargas MD Admit Provider Active St art: September 07, 2024 Dr. Kim Vargas MD Other Provider Active St art: September 07, 2024 Dr. Aliza Aldridge MD Attending Provider Active Start: September 07, 2024 Team Status: Active Member Role Status Dates Dr. Angy Anand DO Primary Care Provider Active Start: October 17, 2024 Dr. Angy Anand DO Attending Provider Active Start: October 17, 2024 Dr. Angy Anand DO Referring Provider Active Start: October 17, 2024 Team Status: Inactive Member Role Status Dates Dr. Angy Anand DO Primary Care Provider Active Start: October 20, 2024 End: October 20, 2024 Dr. Tunde Monterroso MD Attending Provider Active S tart: October 20, 2024 End: October 20, 2024 Team Status: Inactive Member Role Status Dates Dr. Angy Anand DO Primary Care Provider Active Start: October 17, 2024 End: October 17, 2024 Dr. Angy Anand DO Attending Provider Active Start: October 17, 2024 End: October 17, 2024 Dr. Angy Anand DO Referring Provider Active Start: October 17, 2024 End: October 17, 2024 FOR RECORDS PERTAINING TO PATIENTS WHO ARE OR HAVE BEEN ENROLLED IN A CHEMICAL DEPENDENCY/SUBSTANCEABUSE PROGRAM, SOME INFORMATION MAY BE OMITTED. This clinical summary was aggregated from multiple sources. Caution should be exercised in using it in the provision of clinical care. This summary normalizes information from multiple sources, and as a consequence, information in this document may materially change the coding, format and clinical context of patient data. In addition, data may be omitted in some cases. CLINICAL DECISIONS SHOULD BE BASED ON THE PRIMARY CLINICAL RECORDS. [facility]. provides no warranty or guarantee of the accuracy or completeness of information in this document.
[2024-11-24] MEDS: Ceftriaxone 1 GM/50 ML BAG IV (02:31)
[2024-11-24 02:50] VITALS: BP 135/82; PULSE 86; RESP 22; O2SAT 95
[2024-11-24 03:14] VITALS: BP 146/70; PULSE 89; RESP 25; TEMP 36.6; O2SAT 95
== END 2024-11-24 03:37 | disposition home or self-care (01) ==
PROVIDERS: Emergency Provider Emergency Medicine; Visit Provider Emergency Medicine
DX: R10.31 Right lower quadrant pain (principal); K74.60 Unspecified cirrhosis of liver; I48.20 Chronic atrial fibrillation, unspecified; I10 Essential (primary) hypertension; K75.81 Nonalcoholic steatohepatitis (NASH); E78.00 Pure hypercholesterolemia, unspecified; K59.00 Constipation, unspecified; K21.9 Gastro-esophageal reflux disease without esophagitis; F32.A Depression, unspecified; Z79.01 Long term (current) use of anticoagulants; Z79.899 Other long term (current) drug therapy; Z87.891 Personal history of nicotine dependence
CPT/HCPCS: 74177; 80048; 80076; 81001; 83690; 85025; 87077; 87086; 87088; 87186; 96361; 96365; 96375; 99284; Q9967; A4216

== ENCOUNTER → 2024-12-19 | Outpatient (CLI) | payer MEDICARE, SELFPAY | END | disposition home or self-care (01) | LOC: LABSPEC 13:20 | PROVIDERS: Visit Provider Physician Assistant | DX: N39.0 Urinary tract infection, site not specified (principal) | CPT/HCPCS: 87077; 87086; 87088; 87186 ==

== ENCOUNTER → 2024-12-30 | Outpatient (CLI) | payer MEDICARE, SELFPAY | END | disposition home or self-care (01) | LOC: LABSPEC 12:21 | PROVIDERS: Visit Provider Physician Assistant Surgical | DX: N39.0 Urinary tract infection, site not specified (principal) | CPT/HCPCS: 87077; 87086; 87088; 87186 ==